=== PATIENT | female | born 1960 | race Caucasian/White ===

== ENCOUNTER 2016-08-13 13:53 | Inpatient (IN) | payer MEDICAID ==
[2016-08-13] MEDS ORDERED: Diltiazem IV* 5 MG/ML 5 ML VIAL (for loading dose/IV Push) (25 MG) IV PUSH ONE (14:33)
[2016-08-13] MEDS: NS 0.9% 1000 ML* 1,000 ML IV ONE ×2 (14:42→15:33)
[2016-08-13] MEDS ORDERED: GuaiFENesin DM sugar free* 5 ML UDC PO ONE (14:44)
[2016-08-13 14:50] LABS: Hematocrit 43 % (35-47); Hemoglobin 13.8 g/dl (12.0-16.0); Mean Corpuscular HGB Conc 32 g/dl (31-36); Mean Corpuscular Hemoglobin 29 pg (27-31); Mean Corpuscular Volume 90 fL (80-97); Mean Platelet Volume 9 um3 (7.4-10.4); Red Cell Distribution Width 16 % (10.5-15); White Blood Count 26.6 10^3/ul (3.5-10.8)
[2016-08-13 15:01] LABS: Add Diff/Slide Review? Slide Review Added; Comments Flag Yes
[2016-08-13 15:04] LABS: Albumin 3.9 g/dL (3.2-5.2); BUN/Creatinine Ratio 25.7 (8-20); Calcium 10.1 mg/dL (8.6-10.3); EGFR African American 72.7 (>60); EGFR Non-African American 56.5 (>60); Globulin 3.1 g/dL (2-4); Magnesium 1.9 mg/dL (1.9-2.7); Potassium 4.6 mmol/L (3.5-5.0); Total Bilirubin 0.4 mg/dL (0.2-1.0)
[2016-08-13 15:08] LABS: Troponin I 0.05 ng/mL (<0.04)
--- NOTE | 2016-08-13 15:17 | RAD ---
INDICATION: Difficulty breathing COMPARISON: Most recent comparison chest x-ray is dated April 15, 2016 TECHNIQUE: Single AP portable view of the chest was obtained. FINDINGS: Image quality is compromised due to the relative inferiority of a portable chest x-ray. The heart and mediastinum exhibit normal size and contour. The lungs are grossly clear. There is no evidence of a large pleural effusion. Visualized bones are normal for the patient's age. IMPRESSION: No radiographic evidence for acute cardiopulmonary abnormality on this portable chest x-ray.
[2016-08-13 15:26] LABS: T4 7.38 g/dL (6.09-12.23)
[2016-08-13 15:27] LABS: TSH (Thyroid Stimulating Horm) 2.12 mcIU/mL (0.34-5.60)
[2016-08-13] MEDS ORDERED: methylPREDNISolone 125 MG* 2 ML VIAL IV ONE (15:27)
[2016-08-13] MEDS ORDERED: Cefepime(*) 2 GM in NS 0.9% 50 ML* 50 ML IVPB ONE (15:27)
[2016-08-13] MEDS ORDERED: NS 0.9% 50 ML* 50 ML ONE (15:35)
--- NOTE | 2016-08-13 16:05 | ED ---
Ed Lomas Karl, scribed for Merrill Aquino MD on 08/13/16 at 1433 . HPI Cardiac - HPI Summary HPI Summary: 56 y/o F c/o rapid heartbeat and SOB. Pt stated that she started getting sick approx 1 week ago and was told she had asthma exacerbation w/ bronchitis. Today , in room, the pt is exhibiting A-fib and SOB. Pt reported she is also suffering from a productive cough with thick yellow sputum and had a low grade fever (T-max: 100.5 F). Pt denied CP, nausea, vomiting, and dizziness. Pt stated she was here earlier in the week for similar symptoms. - History of Current Complaint Chief Complaint: EDShortnessOfBreath Stated Complaint: DIFF BREATHING Hx Obtained From: Patient Onset/Duration: Started Weeks Ago Timing: Constant Initial Severity: Moderate Current Severity: Moderate Pain Intensity: 0 - CP Pain Scale Used: 0-10 Numeric Aggravating Factor(s): Nothing Alleviating Factor(s): Nothing Associated Signs and Symptoms: Positive: Shortness of Breath, Fever, Palpitations, Productive Cough. Negative: Chest Pain, Dizziness, Nausea, Vomiting - Additional Pertinent History Primary Care Physician: [id number] - Allergy/Home Medications Allergies/Adverse Reactions: Allergies Allergy/AdvReac Type Severity Reaction Status Date / Time Meloxicam [From Mobic] Allergy ARMS-RASH Verified 01/26/16 14:09 AND SWELLING ENVIRONMENTAL Allergy ASTHMATIC Uncoded 01/26/16 14:09 REACTIONS PMH/Surg Hx/FS Hx/Imm Hx Previously Healthy: No Endocrine/Hematology History: Reports: Hx Diabetes Cardiovascular History: Reports: Hx Atrial Fibrillation, Hx Hypertension Denies: Hx Congestive Heart Failure, Hx Pacemaker/ICD Respiratory History: Reports: Hx Asthma, Hx Chronic Bronchitis, Hx Seasonal Allergies History: Denies: Hx Renal Disease Musculoskeletal History: Reports: Hx Arthritis, Hx Fibromyalgia Sensory History: Reports: Hx Cataracts, Hx Contacts or Glasses - GLASSES Denies: Hx Hearing Aid Opthamlomology History: Reports: Hx Cataracts, Hx Contacts or Glasses - GLASSES Neurological History: Denies: Other Neuro Impairments/Disorders Psychiatric History: Reports: Hx Depression Denies: Hx Panic Disorder - Cancer History Hx Chemotherapy: No Hx Radiation Therapy: No - Surgical History Surgery Procedure, Year, and Place: 1993, 1999, 2001 [facility]PH ALVARADO , [facility] [place]. 1998 right shoulder arthroscopy [facility]. 2009 left breast biopsy [facility]. 2004 RT cataract [facility]. right foot reconstruction [facility]. 2007 VENTRAL hernia repair [facility]. 2013 TORN MENISCUS REPAIR IN RIGHT KNEE [facility] Hx Anesthesia Reactions: No Infectious Disease History: No Infectious Disease History: Denies: Traveled Outside the [place] in Last 30 Days - Family History Known Family History: Positive: Cardiac Disease, Hypertension, Other - breast cancer, asthma - Social History Alcohol Use: None Substance Use Type: Reports: None Smoking Status (MU): Former Smoker Type: Cigarettes Amount Used/How Often: LESS THEN 1PPD 15 YRS STARTED AGE 15, QUIT MANY TIMES; NONE SINCE 01/2013 Have You Smoked in the Last Year: No Review of Systems Positive: Fever Eyes: Negative ENT: Negative Positive: Palpitations. Negative: Chest Pain Positive: Shortness Of Breath, Cough Negative: Vomiting, Nausea Genitourinary: Negative Musculoskeletal: Negative Skin: Negative Neurological: Other - No dizziness Psychological: Normal All Other Systems Reviewed And Are Negative: Yes Physical Exam - Summary Physical Exam Summary: VITAL SIGNS: Reviewed. GENERAL: Patient is an obese female who is lying comfortable in the stretcher. Patient is not in any acute respiratory distress. HEAD AND FACE: No signs of trauma. No ecchymosis, hematomas or skull depressions. No sinus tenderness. EYES: PERRLA, EOMI x 2, No injected conjunctiva, no nystagmus. EARS: Hearing grossly intact. Ear canals and tympanic membranes are within normal limits. MOUTH: Oropharynx within normal limits. NECK: Supple, trachea is midline, no adenopathy, no JVD, no carotid bruit, no c- spine tenderness, neck with full ROM. CHEST: Symmetric, no tenderness at palpation LUNGS: Bilateral slight wheezing and bilateral lower lungs crackles. CVS: Regular rate and rhythm, S1 and S2 present, no murmurs or gallops appreciated. ABDOMEN: Soft, non-tender. No signs of distention. No rebound no guarding, and no masses palpated. Bowel sounds are normal. EXTREMITIES: FROM in all major joints, no edema, no cyanosis or clubbing. NEURO: Alert and oriented x 3. No acute neurological deficits. Speech is normal and follows commands. SKIN: Dry and warm Triage Information Reviewed: Yes Vital Signs On Initial Exam: Initial Vitals Temp Pulse Resp BP Pulse Ox 97 F 60 23 147/71 97 08/13/16 14:09 08/13/16 14:09 08/13/16 14:09 08/13/16 14:09 08/13/16 14:09 Vital Signs Reviewed: Yes Diagnostics - Vital Signs Vital Signs Temp Pulse Resp BP Pulse Ox 08/13/16 14:09 97 F 60 23 147/71 97 - Laboratory Lab Results: Lab Results 08/13/16 08/13/16 08/13/16 Range/Units 14:25 14:25 14:25 WBC 26.6 H (3.5-10.8) 10^3/ul RBC 4.80 (4.0-5.4) 10^6/ul Hgb 13.8 (12.0-16.0) g/dl Hct 43 (35-47) % MCV 90 (80-97) fL MCH 29 (27-31) pg MCHC 32 (31-36) g/dl RDW 16 H (10.5-15) % Plt Count 352 (150-450) 10^3/ul MPV 9 (7.4-10.4) um3 Neut % (Auto) 87.8 H (38-83) % Lymph % (Auto) 6.5 L (25-47) % Bureau % (Auto) 4.7 (1-9) % Eos % (Auto) 0.1 (0-6) % Baso % (Auto) 0.9 (0-2) % Absolute Neuts (auto) 23.4 H (1.5-7.7) 10^3/ul Absolute Lymphs (auto) 1.7 (1.0-4.8) 10^3/ul Absolute Monos (auto) 1.3 H (0-0.8) 10^3/ul Absolute Eos (auto) 0 (0-0.6) 10^3/ul Absolute Basos (auto) 0.2 (0-0.2) 10^3/ul Absolute Nucleated RBC 0 10^3/ul Nucleated RBC % 0 INR (Anticoag Therapy) 2.04 H (0.89-1.11) APTT 30.2 (26.0-36.3) seconds Sodium 135 (133-145) mmol/L Potassium 4.6 (3.5-5.0) mmol/L Chloride 101 (101-111) mmol/L Carbon Dioxide 24 (22-32) mmol/L Anion Gap 10 (2-11) mmol/L BUN 26 H (6-24) mg/dL Creatinine 1.01 H (0.51-0.95) mg/dL Est GFR ( Amer) 72.7 (>60) Est GFR (Non-Af Amer) 56.5 (>60) BUN/Creatinine Ratio 25.7 H (8-20) Glucose 198 H (70-100) mg/dL Lactic Acid (0.5-2.0) mmol/L Calcium 10.1 (8.6-10.3) mg/dL Magnesium 1.9 (1.9-2.7) mg/dL Total Bilirubin 0.40 (0.2-1.0) mg/dL AST 21 (13-39) U/L ALT 34 (7-52) U/L Alkaline Phosphatase 78 (34-104) U/L CK-MB (CK-2) 4.7 (0.6-6.3) ng/mL Troponin I 0.05 H* (<0.04) ng/mL B-Natriuretic Peptide ( - 100) pg/mL Total Protein 7.0 (6.4-8.9) g/dL Albumin 3.9 (3.2-5.2) g/dL Globulin 3.1 (2-4) g/dL Albumin/Globulin Ratio 1.3 (1-3) TSH 2.12 (0.34-5.60) mcIU/mL Thyroxine (T4) 7.38 (6.09-12.23) g/dL 08/13/16 08/13/16 Range/Units 14:25 14:25 WBC (3.5-10.8) 10^3/ul RBC (4.0-5.4) 10^6/ul Hgb (12.0-16.0) g/dl Hct (35-47) % MCV (80-97) fL MCH (27-31) pg MCHC (31-36) g/dl RDW (10.5-15) % Plt Count (150-450) 10^3/ul MPV (7.4-10.4) um3 Neut % (Auto) (38-83) % Lymph % (Auto) (25-47) % Bureau % (Auto) (1-9) % Eos % (Auto) (0-6) % Baso % (Auto) (0-2) % Absolute Neuts (auto) (1.5-7.7) 10^3/ul Absolute Lymphs (auto) (1.0-4.8) 10^3/ul Absolute Monos (auto) (0-0.8) 10^3/ul Absolute Eos (auto) (0-0.6) 10^3/ul Absolute Basos (auto) (0-0.2) 10^3/ul Absolute Nucleated RBC 10^3/ul Nucleated RBC % INR (Anticoag Therapy) (0.89-1.11) APTT (26.0-36.3) seconds Sodium (133-145) mmol/L Potassium (3.5-5.0) mmol/L Chloride (101-111) mmol/L Carbon Dioxide (22-32) mmol/L Anion Gap (2-11) mmol/L BUN (6-24) mg/dL Creatinine (0.51-0.95) mg/dL Est GFR ( Amer) (>60) Est GFR (Non-Af Amer) (>60) BUN/Creatinine Ratio (8-20) Glucose (70-100) mg/dL Lactic Acid 3.9 H* (0.5-2.0) mmol/L Calcium (8.6-10.3) mg/dL Magnesium (1.9-2.7) mg/dL Total Bilirubin (0.2-1.0) mg/dL AST (13-39) U/L ALT (7-52) U/L Alkaline Phosphatase (34-104) U/L CK-MB (CK-2) (0.6-6.3) ng/mL Troponin I (<0.04) ng/mL B-Natriuretic Peptide 177 H ( - 100) pg/mL Total Protein (6.4-8.9) g/dL Albumin (3.2-5.2) g/dL Globulin (2-4) g/dL Albumin/Globulin Ratio (1-3) TSH (0.34-5.60) mcIU/mL Thyroxine (T4) (6.09-12.23) g/dL Result Diagrams: 08/13/16 14:25 08/13/16 14:25 Lab Statement: Any lab studies that have been ordered have been reviewed, and results considered in the medical decision making process. - Radiology CXR Xray Interpretation: No Acute Changes Radiology Interpretation Completed By: Radiologist - IMPRESSION: No radiographic evidence for acute cardiopulmonary abnormality on this portable chest x-ray. - EKG 13:55 EKG Interpretation: A-fib w/ RVR at 153 bpm, No STEMI Disposition - Course Assessment/Plan: Blood work shows a WBC 26.6 w/o bandemia, INR 2.04, BUN 26 and creatinine 1.01, glucose 198 , lactic acid 3.9 , troponin 0.05, BNP 177. Initially patient was given robitussin for cough and IV fluids for hypotension. Patient is in Afib with RVR but unable to slow the rate since patient is hypotensive. She was given 2 L of fluids and he blood pressure is 104/ 54 and her HR decreased to 120 to 128 BPM. Troponin is elevated for which she was given ASA. I also started in Cefepime since patient is having a COPD exacerbation and also to r/o pneumonia and sepsis. CXR: No acute cardiopulmonary pathology. Patient seem to improve and she is more stable. I discuss my physical exam, findings and test results with Dr. Hedrick from the hospitalist services and she agrees to admit patient to his services. Patient is alert and oriented x 3. - Differential Dx - Cardiopulmonary Differential Diagnoses - Cardiopulmonary: Asthma, CAD, CHF, Chest Wall Pain, Myocardial Infarction, Other - AFIB - Diagnoses Provider Diagnoses: Atrial fibrillation with RVR, COPD exacerbation, Pneumonia vs sepsis - Physician Notifications Discussed Care Of Patient With: Dr. Hedrick (Hospitalist) at 15:51 who accepted the pt for admission. Discharge - Discharge Plan Condition: Stable Disposition: ADMITTED TO [facility] documentation as recorded by the Ed huitron Karl accurately reflects the service I personally performed and the decisions made by me, Merrill Aquino MD.
[2016-08-13] MEDS ORDERED: Iodixanol* (CONTRAST) 320 MG/ML 100 ML SDV IV ONE (16:17)
[2016-08-13] MEDS ORDERED: Amiodarone 150 MG IVPREMIX* 150 MG/100 ML BAG IV ONE (17:39)
[2016-08-13] MEDS ORDERED: Albuterol HFA INHALER* 8 gm MDI INH PRN (17:44)
[2016-08-13] MEDS ORDERED: Ipratropium 0.5MG/2.5ML NEB* 0.5 MG/2.5 ML NEB.SOLN INH PRN (17:44)
[2016-08-13] MEDS ORDERED: Cyclobenzaprine TAB* 10 MG PO PRN (17:44)
[2016-08-13] MEDS ORDERED: Dextrose 50% Syringe 50 ML* 25 GM/50 ML SYRINGE IV PUSH PRN (17:49)
[2016-08-13] MEDS ORDERED: Azithromycin IV(*) 500 MG in NS 0.9% 250 ML* 250 ML IVPB SCH (18:00)
[2016-08-13] MEDS ORDERED: Insulin GLARGINE(*) 1 UNITS UNIT SUBCUT SCH (18:00)
[2016-08-13] MEDS ORDERED: Amiodarone 360 MG IVPREMIX* 360 MG/200 ML BAG IV SCH (18:00)
[2016-08-13] MEDS: Gabapentin CAP(*) 400 MG PO SCH ×2 (18:37→18:41)
[2016-08-13] MEDS: NS 0.9% 1000 ML* 1,000 ML IV SCH (19:08)
[2016-08-13] MEDS: cefTRIAXone VIAL(*) 1,000 MG in NS 0.9% 50 ML* 50 ML IVPB SCH (19:08)
[2016-08-13] MEDS: Levalbuterol 1.25MG/0.5ML NEB INH SCH ×2 (20:06→23:49)
[2016-08-13] MEDS: Mometasone/Formoter 200/5 MDI INH SCH (20:30)
[2016-08-13] MEDS: DOXYcycline IV* 100 MG in NS 0.9% 250 ML* 250 ML IVPB SCH (20:39)
--- NOTE | 2016-08-13 21:20 | HP ---
CC: Dr. Cristin Duncan; Dr. Abernathy HISTORY AND PHYSICAL: DATE OF ADMISSION: 08/13/16 TIME OF EVALUATION: 4:30 p.m. PRIMARY CARE PROVIDER: Dr. Cristin Duncan. GHOST WRITER: Dr. Abernathy. CHIEF COMPLAINT: Shortness of breath. HISTORY OF PRESENT ILLNESS: Ms. Purvis is a 56-year-old lady with a past medical history of hyper tension, COPD/asthma, fibromyalgia, morbid obesity with a BMI of 51, type 2 diabetes, atrial fibrill ation who presented to the emergency room with complaints of progressive shortness of breath. The patient states she was in her usual state of health until 1 week ago when she started to have pr ogressive shortness of breath with productive cough. She had some body aches and she knows that she can swing fairly quickly from just a cold to bronchitis, so 2 days later she went to see Dr. Abernathy and was prescribed levofloxacin and a long prednisone taper. She states that initially she was fee ling better, but all of a sudden today her shortness of breath became worse and even with her usual respiratory treatments at home, she could get no relief and this prompted her visit to the emergency room. She denies fever, but did have some chills. She denies palpitations, but she knows she has been in atrial fibrillation since her discharge in April 2016. She was actually scheduled to have a cardi oversion with Dr. Alonso on 08/08/16 and this was canceled due to her respiratory symptoms and resche duled for 08/15/16. On arrival to the emergency room, the patient was tachycardic with a heart rate of almost 150 and ta chypneic. The patient denies chest pain, palpitations, GI or urinary complaints. PAST MEDICAL HISTORY: 1. Hypertension. 2. Asthma/COPD. 3. Fibromyalgia. 4. Morbid obesity with a BMI of 51. 5. Type 2 diabetes. 6. Atrial fibrillation. 7. Obstructive sleep apnea, on CPAP. PAST SURGICAL HISTORY: 1. Status post bilateral knee arthroscopies. 2. Status post tonsillectomy. 3. Status post 3 C-sections. 4. Status post shoulder arthroscopy. 5. Status post ventral hernia repair. MEDICATIONS: 1. Albuterol nebulized 2.5 mg b.i.d. as needed for shortness of breath. 2. Albuterol HFA 2 puffs inhaled q.4 hours as needed for shortness of breath. 3. Benzonatate 100 mg p.o. b.i.d. as needed for cough. 4. Budesonide/formoterol 160/4.5 two puffs inhaled b.i.d. 5. Cyclobenzaprine 5 mg p.o. t.i.d. as needed for pain. 6. Digoxin 0.125 mg p.o. daily. 7. Furosemide 20 mg p.o. daily. 8. Gabapentin 800 mg p.o. at bedtime. 9. Glipizide 10 mg p.o. b.i.d. 10. Guaifenesin 1200 mg p.o. b.i.d. 11. Hydrocodone/acetaminophen 5/325 mg 1 tablet p.o. b.i.d. as needed for pain. 12. Ipratropium 0.5 mg nebulized t.i.d. as needed for shortness of breath. 13. Lisinopril 10 mg p.o. daily. 14. Metoprolol tartrate 50 mg p.o. b.i.d. 15. Mometasone furoate 0.1% topical b.i.d. as needed for rash. 16. Montelukast 10 mg p.o. at bedtime. 17. Prednisone 20 mg p.o. daily. 18. Rivaroxaban 20 mg p.o. daily. 19. Triamterene/hydrochlorothiazide 37.5/25 mg 1 capsule p.o. daily. 20. Lantus 8 units subcutaneously daily. ALLERGIES: With MELOXICAM, the patient had rash and swelling and she also has environmental allergi es. FAMILY HISTORY: Father at age 70 from coronary artery disease. Sister passed from [facility] and brother had a history of some sort of ophthalmological cancer. Her mother has a histo ry of asthma. SOCIAL HISTORY: The patient was a smoker intermittently since age 15 up to a pack a day, but she qu it 3 years ago. No history of alcohol or drug use. Surrogate decision maker is her , Dante Purvis, phone number is [phone]. REVIEW OF SYSTEMS: A 14-point review of systems was performed and all the pertinent negative and po sitive findings are in the HPI. PHYSICAL EXAMINATION GENERAL: The patient is a pleasant morbidly obese lady sitting up in the ED stretcher in mild to mo derate respiratory distress. Unable to speak in full sentences. VITAL SIGNS: Temperature 98.5, heart rate was 155, respiratory rate was 26, oxygen saturation was 9 6% on Vapotherm, blood pressure was 82/59. HEENT: Pupils are equal. Moist mucous membranes. CHEST: Breath sounds present bilaterally with diffuse wheezing and rhonchi. CVS: Normal S1, S2. Irregularly irregular. Tachycardic. ABDOMEN: Obese, soft. Bowel sounds are present. EXTREMITIES: Puffy but there is no pitting edema. NEUROLOGIC: She is alert, awake and oriented x3. Able to move all 4 extremities. LABORATORY AND IMAGING DATA: The patient's CBC showed a WBC of 26.6, hemoglobin of 13.8, hematocri t of 43, platelets of 352 with 87% neutrophils. INR was 2.04. Chemistry showed sodium of 135, potas sium 4.6, chloride of 101, bicarb of 24, BUN of 26, creatinine of 1.01, glucose of 198, lactic acid of 3.9, calcium of 10.1. LFTs were normal. First troponin was 0.05. BNP was 177. EKG done on 08/13/16 at 1355 showed atrial fibrillation with a ventricular rate of 153 beats per min gustabo with minimum ST-T depressions on the lateral leads. The difference from her prior EKG from is that now her AFib is fast. Chest x-ray showed no acute infiltrate. ASSESSMENT AND PLAN: Ms. Purvis is a 56-year-old lady with a past medical history of hypertension , asthma/chronic obstructive pulmonary disease, fibromyalgia, morbid obesity with a BMI of 51, type 2 diabetes, atrial fibrillation who presented to the emergency room with complaints of progressive c ough and shortness of breath for the past week who failed outpatient therapy with levofloxacin and s teroids. 1. Acute hypoxic respiratory failure: The patient presents to the emergency room with complaints o f shortness of breath and cough and now requires supplemental oxygen. At home, she wears only CPAP at night, but does not require oxygen. Source is probably pneumonia versus bronchitis. The patient will be admitted to the intensive care unit and started on Vapotherm to decrease her wor k of breathing. 2. Severe sepsis: The patient meets sepsis criteria with leukocytosis and tachycardia. Source is probably pneumonia versus bronchitis and she has respiratory failure and acute kidney injury. 3. Lactic acidosis secondary to sepsis: She will receive IV fluids and we will trend her lactic ac id. 4. Bronchitis versus pneumonia: The patient's chest x-ray does not show an infiltrate and I believ e at this point she is not stable enough to have a CT of the chest. She will be started on ceftriax one and doxycycline. Cultures were already sent. We are going to check Legionella and pneumococcal antigens, and when she is more stable from a respiratory point of view, we are going pursue a CT of the chest. 5. Acute chronic obstructive pulmonary disease exacerbation secondary to bronchitis versus pneumoni a: The patient will be continued on IV steroids and bronchodilators. 6. Atrial fibrillation with rapid ventricular rate: The patient states she has been in atrial fibr illation since April and actually saw Dr. Alonso as an outpatient and was scheduled for cardioversi on on 08/08/16, but this was postponed on 08/15/16 due to her respiratory symptoms. At this point, her blood pressure is in the 80's, so I do not think Cardizem is a safe option. If her heart rate d oes not respond to the Vapotherm when we decrease her work of breathing, the plan is to start an ami odarone drip for rate control and continue anticoagulation with Xarelto. 7. Elevated troponin: This is likely secondary to increased demand in the setting of sepsis and at rial fibrillation with rapid ventricular rate. We will continue to trend at this time. 8. Acute kidney injury, secondary to sepsis: The patient will be on IV fluids and we are going to monitor her renal function. 9. Code status was discussed with the patient. She wishes to be a full code and she is agreeable w ith intubation if necessary. 10. DVT prophylaxis: The patient has a score of 3 on the DVT Prophylaxis Risk Assessment Guide and she will be continued on Xarelto. TIME SPENT: Approximately 75 minutes of critical care time was spent to complete this admission. [id number]/[facility] #: [id number]
[2016-08-13] MEDS: guaiFENesin ER TAB 600 MG PO SCH (21:25)
[2016-08-13] MEDS: Diltiazem DRIP* 100 MG/100 ML ADDV.BAG IVPB ONE (21:25)
[2016-08-13] MEDS: Montelukast Sodium TAB* 10 MG PO SCH (21:25)
[2016-08-13] MEDS: methylPREDNISolone SOD 40 MG* 1 ML VIAL IV SCH (21:26)
[2016-08-13] MEDS: Insulin LISPRO* 1 UNITS UNIT SUBCUT SCH (21:26)
[2016-08-13] MEDS: HYDROcodone/ACETAMIN 5-325 MG* 1 TAB PO PRN (21:26)
[2016-08-14] MEDS: Amiodarone 360 MG IVPREMIX* 360 MG/200 ML BAG IV SCH ×2 (01:15→12:20)
[2016-08-14] MEDS: NS 0.9% 1000 ML* 1,000 ML IV SCH ×3 (02:57→23:15)
[2016-08-14] MEDS: Levalbuterol 1.25MG/0.5ML NEB INH SCH ×4 (03:51→21:03)
[2016-08-14 05:07] LABS: Urine Bilirubin Negative (Negative); Urine Glucose 1+(50 mg/dL) (Negative); Urine Nitrite Negative (Negative)
[2016-08-14 05:39] LABS: Hematocrit 38 % (35-47); Hemoglobin 12.2 g/dl (12.0-16.0); Mean Corpuscular HGB Conc 32 g/dl (31-36); Mean Corpuscular Hemoglobin 29 pg (27-31); Mean Corpuscular Volume 91 fL (80-97); Mean Platelet Volume 9 um3 (7.4-10.4); Red Blood Count 4.22 10^6/ul (4.0-5.4); Red Cell Distribution Width 16 % (10.5-15); White Blood Count 18.5 10^3/ul (3.5-10.8)
[2016-08-14 05:40] LABS: Add Diff/Slide Review? Slide Review Added; Comments Flag Yes
[2016-08-14 05:49] LABS: BUN/Creatinine Ratio 31.3 (8-20); Calcium 8.6 mg/dL (8.6-10.3); EGFR African American 64.5 (>60); EGFR Non-African American 50.1 (>60); Potassium 4.9 mmol/L (3.5-5.0)
[2016-08-14] MEDS: Diltiazem DRIP* 100 MG/100 ML ADDV.BAG IVPB ONE ×2 (07:16→09:46)
--- NOTE | 2016-08-14 07:59 | PN ---
Subjective Date of Service: 08/14/16 Interval History: HOSPITALIST PROGRESS NOTE Patient seen and examined at bedside. She feels a little better this AM. Was not able to sleep, took only short naps. Denies chest pain or palpitations. Dyspnea is still present, but less intense than last night. Dry cough persists. Family History: Unchanged from Admission Social History: Unchanged from Admission Past Medical History: Unchanged from Admission Objective Active Medications: Acetaminophen (Tylenol Tab*) 650 mg PO Q6H PRN PRN Reason: pain/fever Acetaminophen/Hydrocodone Bitart ([place] 5-325 Tab*) 1 tab PO BID PRN PRN Reason: PAIN Last Admin: 08/13/16 21:26 Dose: 1 tab Albuterol (Ventolin Hfa Inhaler*) 2 puff INH Q4HR PRN PRN Reason: SHORTNESS OF BREATH Benzonatate (Tessalon Cap*) 100 mg PO BID PRN PRN Reason: COUGH Cyclobenzaprine HCl (Flexeril Tab*) 5 mg PO TID PRN PRN Reason: PAIN Dextrose (D50w Syringe 50 Ml*) 12.5 gm IV PUSH .FOR FS < 60 - SS PRN PRN Reason: FS < 60 Diltiazem HCl (Cardizem Tab*) 60 mg PO Q6HR SAE Gabapentin (Neurontin Cap(*)) 800 mg PO QPM [facility] Last Admin: 08/13/16 18:41 Dose: Not Given Guaifenesin (Mucinex*) 1,200 mg PO BID [facility] Last Admin: 08/13/16 21:25 Dose: 1,200 mg Ceftriaxone Sodium 1,000 mg/ (Sodium Chloride) 50 mls @ 200 mls/hr IVPB Q24H [facility] Last Admin: 08/13/16 19:08 Dose: 200 mls/hr Amiodarone HCl (Nexterone 360 Mg/200 Ml Ivpremix*) 360 mg in 200 mls @ 16.666 mls/hr IV PER RATE SAE PRN Reason: 0.5 MG/MIN Stop: 08/15/16 12:01 Last Admin: 08/14/16 01:15 Dose: 16.666 mls/hr Doxycycline Hyclate 100 mg/ (Sodium Chloride) 250 mls @ 250 mls/hr IVPB Q12H [facility] Last Admin: 08/13/16 20:39 Dose: 250 mls/hr Diltiazem HCl (Cardizem Iv Advan*) 100 mg in 100 mls @ 5 mls/hr IVPB ONCE ONE PRN Reason: 5 MG/HR Stop: 08/14/16 16:58 Last Admin: 08/14/16 07:16 Dose: 5 mls/hr Sodium Chloride (Ns 0.9% 1000 Ml*) 1,000 mls @ 100 mls/hr IV PER RATE [facility] Insulin Human Lispro (Humalog*) 0 units SUBCUT ACHS SAE PRN Reason: Protocol Last Admin: 08/13/16 21:26 Dose: 12 units Insulin Human Lispro (Humalog*) 0 units SUBCUT AC SAE PRN Reason: Protocol Ipratropium [place] (Atrovent 0.5 Mg Neb.Belinda*) 0.5 mg INH TID PRN PRN Reason: SHORTNESS OF BREATH Levalbuterol HCl (Xopenex 1.25 Mg/0.5 Ml Neb.Belinda*) 1.25 mg INH [id number] [facility] Last Admin: 08/14/16 07:30 Dose: 1.25 mg Methylprednisolone Sodium Succinate (Solu-Medrol*) 40 mg IV Q12H [facility] Last Admin: 08/13/16 21:26 Dose: 40 mg Mometasone Furoate/Formoterol Fumar (Dulera 200/5 Mdi*) 2 puff INH BID SAE PRN Reason: Protocol Last Admin: 08/13/16 20:30 Dose: Not Given Montelukast Sodium (Singulair Tab*) 10 mg PO BEDTIME [facility] Last Admin: 08/13/16 21:25 Dose: 10 mg Rivaroxaban (Xarelto (*)) 20 mg PO DAILY WITH MEAL [facility] Vital Signs 08/14/16 08/14/16 08/14/16 03:45 04:00 05:00 Temperature 97.6 F Pulse Rate 72 108 83 Respiratory 20 18 23 Rate Blood Pressure 159/87 147/94 162/72 (mmHg) O2 Sat by Pulse 100 100 100 Oximetry 08/14/16 08/14/16 07:33 07:39 Temperature Pulse Rate 101 Respiratory 18 Rate Blood Pressure (mmHg) O2 Sat by Pulse 99 99 Oximetry Oxygen Devices in Use Now: High Flow Nasal Cannula Appearance: Morbid obese lady sitting up in bed in NAD, speaking in full sentences. Eyes: No Scleral Icterus Ears/Nose/Mouth/Throat: Mucous Membranes Moist Neck: Trachea Midline Respiratory: Symmetrical Chest Expansion and Respiratory Effort, - - BS+ bilaterally with bilateral wheezes and rhonchi, but moving more air than yesterday Cardiovascular: - - Normal S1 and S2, irregularly irregular Abdominal: NL Sounds; No Tenderness; No Distention - obese Extremities: - - Trace bilateral LE edema Neurological: Alert and Oriented x 3, NL Muscle Strength and Tone Lines/Tubes/Other Access: Clean, Dry and Intact Peripheral IV Nutrition: Taking PO's Result Diagrams: 08/14/16 05:25 08/14/16 05:25 Assess/Plan/Problems-Billing Assessment: Mrs. Purvis is a 56yo F with PMH of morbid obesity with BMI>50, HTN, asthma/ COPD, fibromyalgia, type 2 DM, atrial fibrillation, JULIANA on CPAP, who presented to ED with c/o worsening dyspnea and cough, found to have severe sepsis and COPD exacerbation. - Patient Problems (1) Severe sepsis Comment: - Met sepsis criteria on admission with leukocytosis and tachycardia. - qSOFA score was 2 on admission. - Source is bronchitis. - Also had respiratory failure and TIMOTHY. (2) Acute hypoxemic respiratory failure Comment: - Secondary to COPD exacerbation due to bronchitis. - Was on Vapotherm overnight with improvement of WOB, now will titrate to [place] cannula. - Not on O2 as outpatient. (3) Bronchitis Comment: - Suspect source of COPD exacerbation is bronchitis, but may also have an underlying pneumonia. - Not able to lay flat for CT chest at this time. - Follow cultures. - Continue Ceftriaxone and doxycycline #2. (4) Acute exacerbation of chronic obstructive pulmonary disease (COPD) Comment: - Secondary to bronchitis. - Continue Solumedrol and bronchodilators. (5) Lactic acidosis Comment: - Trending down, but still elevated. - Continue IVF. (6) Atrial fibrillation with RVR Comment: - Rate is better controlled now - on Amiodarone drip and Cardizem was added overnight. - Will add PO Cardizem and titrate drips down. - Will avoid beta-blockers for now due to active bronchospasm, but may be able to resume digoxin. - Continue Xarelto. (7) TIMOTHY (acute kidney injury) Comment: - Suspect she already has a component of CKD. - Continue IVF and monitor renal function. (8) Elevated troponin Comment: - Likely secondary to demand ischemia in the setting of severe sepsis and Afib RVR. - Trending down. (9) Type 2 diabetes mellitus Comment: - Increase Lantus to 15 units and continue Lispro SS. (10) DVT prophylaxis Comment: - Xarelto. (11) Full code status Status and Disposition: Inpatient for management of severe infection in ICU setting.
[2016-08-14] MEDS: Diltiazem TAB* 60 MG PO SCH ×4 (08:34→23:49)
[2016-08-14] MEDS: methylPREDNISolone SOD 40 MG* 1 ML VIAL IV SCH ×2 (08:34→21:14)
[2016-08-14] MEDS: Rivaroxaban TAB(*) 20 MG TAB PO SCH (08:34)
[2016-08-14] MEDS: guaiFENesin ER TAB 600 MG PO SCH ×2 (08:34→21:14)
[2016-08-14] MEDS: DOXYcycline IV* 100 MG in NS 0.9% 250 ML* 250 ML IVPB SCH ×2 (08:34→21:00)
[2016-08-14] MEDS: Benzonatate CAP* 100 MG PO PRN ×2 (09:05→21:15)
[2016-08-14] MEDS: Mometasone/Formoter 200/5 MDI INH SCH ×2 (09:30→21:08)
[2016-08-14] MEDS: Insulin LISPRO* 1 UNITS UNIT SUBCUT SCH ×7 (09:45→21:53)
[2016-08-14] MEDS ORDERED: Morphine INJ* 2 MG/ML 1 ML CARPUJECT ONE (09:52)
[2016-08-14] MEDS: Morphine INJ* 2 MG/ML 1 ML CARPUJECT IV PRN ×2 (09:56→12:07)
[2016-08-14 11:54] LABS: Calcium 8.5 mg/dL (8.6-10.3); EGFR African American 63.8 (>60); EGFR Non-African American 49.6 (>60); Potassium 4.6 mmol/L (3.5-5.0)
[2016-08-14] MEDS: cefTRIAXone VIAL(*) 1,000 MG in NS 0.9% 50 ML* 50 ML IVPB SCH (17:58)
[2016-08-14] MEDS ORDERED: Insulin GLARGINE(*) 1 UNITS UNIT SUBCUT SCH (18:00)
[2016-08-14] MEDS: Gabapentin CAP(*) 400 MG PO SCH (19:55)
[2016-08-14] MEDS: Montelukast Sodium TAB* 10 MG PO SCH (21:15)
[2016-08-14] MEDS: HYDROcodone/ACETAMIN 5-325 MG* 1 TAB PO PRN (21:15)
[2016-08-15] MEDS: Levalbuterol 1.25MG/0.5ML NEB INH SCH ×3 (01:00→13:25)
[2016-08-15 05:28] LABS: Hematocrit 40 % (35-47); Hemoglobin 12.5 g/dl (12.0-16.0); Mean Corpuscular HGB Conc 32 g/dl (31-36); Mean Corpuscular Hemoglobin 29 pg (27-31); Mean Corpuscular Volume 91 fL (80-97); Mean Platelet Volume 9 um3 (7.4-10.4); Red Blood Count 4.33 10^6/ul (4.0-5.4); Red Cell Distribution Width 16 % (10.5-15); White Blood Count 28.9 10^3/ul (3.5-10.8)
[2016-08-15 05:30] LABS: Add Diff/Slide Review? Slide Review Added; Comments Flag Yes
[2016-08-15 05:44] LABS: BUN/Creatinine Ratio 30.4 (8-20); Calcium 8.7 mg/dL (8.6-10.3); EGFR African American 56.8 (>60); EGFR Non-African American 44.2 (>60); Potassium 5.2 mmol/L (3.5-5.0)
[2016-08-15] MEDS: Acetaminophen TAB* 325 MG PO PRN (06:23)
[2016-08-15] MEDS: Diltiazem TAB* 60 MG PO SCH ×4 (06:24→23:43)
[2016-08-15] MEDS: DOXYcycline IV* 100 MG in NS 0.9% 250 ML* 250 ML IVPB SCH ×2 (07:34→20:37)
[2016-08-15] MEDS ORDERED: hydrALAZINE IV* 20 MG/ML VIAL IV SLOW PU PRN (08:12)
--- NOTE | 2016-08-15 08:19 | PN ---
Subjective Date of Service: 08/15/16 Interval History: HOSPITALIST PROGRESS NOTE Patient seen and examined at bedside. She feels better this AM. Breathing is easier, cough is still present but less frequent. Denies CP or palpitations. As per RN, urine output has been low, but she has been incontinent with cough. Family History: Unchanged from Admission Social History: Unchanged from Admission Past Medical History: Unchanged from Admission Objective Active Medications: Acetaminophen (Tylenol Tab*) 650 mg PO Q6H PRN PRN Reason: pain/fever Last Admin: 08/15/16 06:23 Dose: 650 mg Acetaminophen/Hydrocodone Bitart ([place] 5-325 Tab*) 1 tab PO BID PRN PRN Reason: PAIN Last Admin: 08/14/16 21:15 Dose: 1 tab Albuterol (Ventolin Hfa Inhaler*) 2 puff INH Q4HR PRN PRN Reason: SHORTNESS OF BREATH Benzonatate (Tessalon Cap*) 100 mg PO BID PRN PRN Reason: COUGH Last Admin: 08/14/16 21:15 Dose: 100 mg Cyclobenzaprine HCl (Flexeril Tab*) 5 mg PO TID PRN PRN Reason: PAIN Last Admin: 08/15/16 01:02 Dose: 5 mg Dextrose (D50w Syringe 50 Ml*) 12.5 gm IV PUSH .FOR FS < 60 - SS PRN PRN Reason: FS < 60 Digoxin (Lanoxin Tab*) 0.125 mg PO 1700 SAE Diltiazem HCl (Cardizem Tab*) 60 mg PO Q6HR [facility] Last Admin: 08/15/16 06:24 Dose: 60 mg Guaifenesin (Mucinex*) 1,200 mg PO BID [facility] Last Admin: 08/14/16 21:14 Dose: 1,200 mg Hydralazine HCl (Apresoline Iv*) 5 mg IV SLOW PU Q6H PRN PRN Reason: SBP>180 Ceftriaxone Sodium 1,000 mg/ (Sodium Chloride) 50 mls @ 200 mls/hr IVPB Q24H [facility] Last Admin: 08/14/16 17:58 Dose: 200 mls/hr Doxycycline Hyclate 100 mg/ (Sodium Chloride) 250 mls @ 250 mls/hr IVPB Q12H [facility] Last Admin: 08/15/16 07:34 Dose: 250 mls/hr Sodium Chloride (Ns 0.9% 1000 Ml*) 1,000 mls @ 100 mls/hr IV PER RATE [facility] Last Admin: 08/14/16 23:15 Dose: 100 mls/hr Insulin Glargine (Lantus(*)) 20 units SUBCUT Q24H [facility] Insulin Human Lispro (Humalog*) 0 units SUBCUT ACHS SAE PRN Reason: Protocol Last Admin: 08/14/16 21:53 Dose: 9 units Insulin Human Lispro (Humalog*) 0 units SUBCUT AC [facility] PRN Reason: Protocol Last Admin: 08/14/16 21:52 Dose: Not Given Ipratropium [place] (Atrovent 0.5 Mg Neb.Belinda*) 0.5 mg INH TID PRN PRN Reason: SHORTNESS OF BREATH Last Admin: 08/14/16 21:07 Dose: 0.5 mg Levalbuterol HCl (Xopenex 1.25 Mg/0.5 Ml Neb.Belinda*) 1.25 mg INH [id number] AWAKE [facility] Last Admin: 08/15/16 01:00 Dose: Not Given Methylprednisolone Sodium Succinate (Solu-Medrol*) 40 mg IV Q12H [facility] Last Admin: 08/14/16 21:14 Dose: 40 mg Metoprolol Tartrate (Lopressor Tab*) 50 mg PO BID [facility] Mometasone Furoate/Formoterol Fumar (Dulera 200/5 Mdi*) 2 puff INH BID [facility] PRN Reason: Protocol Last Admin: 08/14/16 21:08 Dose: Not Given Montelukast Sodium (Singulair Tab*) 10 mg PO BEDTIME [facility] Last Admin: 08/14/16 21:15 Dose: 10 mg Morphine Sulfate (Morphine Inj (Syringe)*) 1 mg IV Q2H PRN PRN Reason: Pain/Tachypnea RR>22 Last Admin: 08/14/16 12:07 Dose: 1 mg Rivaroxaban (Xarelto (*)) 20 mg PO DAILY WITH MEAL [facility] Last Admin: 08/14/16 08:34 Dose: 20 mg Vital Signs 08/15/16 08/15/16 07:00 08:00 Temperature 98.7 F Pulse Rate 69 Respiratory 16 Rate Blood Pressure 161/97 (mmHg) O2 Sat by Pulse 100 Oximetry Oxygen Devices in Use Now: Nasal Cannula - 2 liters Appearance: Pleasant morbid obese lady sitting up in bed in NAD. Eyes: No Scleral Icterus Ears/Nose/Mouth/Throat: Mucous Membranes Moist Neck: Trachea Midline Respiratory: Symmetrical Chest Expansion and Respiratory Effort, - - BS+ bilaterally with scattered rhonchi Cardiovascular: - - Normal S1 and S2, irregularly irregular Abdominal: NL Sounds; No Tenderness; No Distention - obese Extremities: - - Bilateral LE moderate edema Neurological: Alert and Oriented x 3, NL Muscle Strength and Tone Lines/Tubes/Other Access: Clean, Dry and Intact Peripheral IV Nutrition: Taking PO's Result Diagrams: 08/15/16 05:15 08/15/16 05:15 Assess/Plan/Problems-Billing Assessment: Mrs. Purvis is a 56yo F with PMH of morbid obesity with BMI>50, HTN, asthma/ COPD, fibromyalgia, type 2 DM, atrial fibrillation, JULIANA on CPAP, who presented to ED with c/o worsening dyspnea and cough, found to have severe sepsis and COPD exacerbation. - Patient Problems (1) Severe sepsis Comment: - Met sepsis criteria on admission with leukocytosis and tachycardia. - qSOFA score was 2 on admission. - Source is bronchitis. - Also had respiratory failure and TIMOTHY. (2) Acute hypoxemic respiratory failure Comment: - Secondary to COPD exacerbation due to bronchitis. - Much improved now, down to 2 liters NC. - Not on O2 as outpatient. (3) Bronchitis Comment: - Suspect source of COPD exacerbation is bronchitis, but may also have an underlying pneumonia. - Not able to lay flat for CT chest yet. - Blood cultures show no growth so far. - Legionella and pneumonococcal Ag are negative. - Her leukocytosis trended up again, but this could be secondary to steroids, as clinically, she is looking much better. - Continue Ceftriaxone and doxycycline #3. (4) Acute exacerbation of chronic obstructive pulmonary disease (COPD) Comment: - Secondary to bronchitis. - Continue Solumedrol and bronchodilators. (5) Lactic acidosis Comment: - Trending down, but still elevated. - Continue IVF. (6) Atrial fibrillation with RVR Comment: - Rate is better controlled now - off Amiodarone and Cardizem drips. - Continue PO Cardizem and resume Metoprolol and digoxin. - Continue Xarelto. (7) TIMOTHY (acute kidney injury) Comment: - Suspect she already has a component of CKD. - Urine output has been low, but she has been incontinent with cough. Will place [place] for more accurate measuraments and adjust IVF. - Continue to monitor renal function. (8) Elevated troponin Comment: - Likely secondary to demand ischemia in the setting of severe sepsis and Afib RVR. - Trending down. (9) Type 2 diabetes mellitus Comment: - Increase Lantus to 20 units and continue Lispro SS. (10) Hyperkalemia Comment: - Mild hyperkalemia in the setting of TIMOTHY. - Bicarb is already trending up. - Continue to monitor. (11) DVT prophylaxis Comment: - Xarelto. (12) Full code status Status and Disposition: Inpatient for management of severe infection. Transfer to Telemetry.
[2016-08-15] MEDS: Rivaroxaban TAB(*) 20 MG TAB PO SCH (08:33)
[2016-08-15] MEDS: guaiFENesin ER TAB 600 MG PO SCH ×2 (08:33→20:45)
[2016-08-15] MEDS: methylPREDNISolone SOD 40 MG* 1 ML VIAL IV SCH ×2 (08:34→20:41)
[2016-08-15] MEDS: Metoprolol Tartrate TAB* 50 mg PO SCH ×2 (08:34→20:44)
[2016-08-15] MEDS: Insulin LISPRO* 1 UNITS UNIT SUBCUT SCH ×7 (08:57→21:21)
[2016-08-15] MEDS: Mometasone/Formoter 200/5 MDI INH SCH ×2 (08:59→20:56)
[2016-08-15] MEDS: NS 0.9% 1000 ML* 1,000 ML IV SCH ×2 (09:46→16:08)
[2016-08-15] MEDS ORDERED: Albuterol 2.5 MG/3 ML NEB.SOL* (0.083%) ONE (16:41)
[2016-08-15] MEDS: Insulin GLARGINE(*) 1 UNITS UNIT SUBCUT SCH (17:49)
[2016-08-15] MEDS: Digoxin TAB* 0.125 MG PO SCH (17:52)
[2016-08-15] MEDS ORDERED: Albuterol/Ipratropium NEB.SOL* Albuterol 2.5 MG/Ipratropium 0.5 MG 3 ML ONE (18:11)
[2016-08-15] MEDS: Albuterol/Ipratropium NEB.SOL* Albuterol 2.5 MG/Ipratropium 0.5 MG 3 ML INH PRN (18:14)
[2016-08-15] MEDS: cefTRIAXone VIAL(*) 1,000 MG in NS 0.9% 50 ML* 50 ML IVPB SCH (18:59)
[2016-08-15] MEDS ORDERED: NS 0.9% 250 ML* 250 ML ONE (20:34)
[2016-08-15] MEDS: Benzonatate CAP* 100 MG PO PRN (20:43)
[2016-08-15] MEDS: Montelukast Sodium TAB* 10 MG PO SCH (20:44)
[2016-08-15] MEDS: HYDROcodone/ACETAMIN 5-325 MG* 1 TAB PO PRN (20:44)
[2016-08-16] MEDS: NS 0.9% 1000 ML* 1,000 ML IV SCH (02:53)
[2016-08-16] MEDS: Albuterol/Ipratropium NEB.SOL* Albuterol 2.5 MG/Ipratropium 0.5 MG 3 ML INH PRN ×3 (04:50→21:20)
[2016-08-16 05:07] LABS: Hematocrit 39 % (35-47); Hemoglobin 12.5 g/dl (12.0-16.0); Mean Corpuscular HGB Conc 32 g/dl (31-36); Mean Corpuscular Hemoglobin 29 pg (27-31); Mean Corpuscular Volume 91 fL (80-97); Mean Platelet Volume 9 um3 (7.4-10.4); Red Blood Count 4.32 10^6/ul (4.0-5.4); Red Cell Distribution Width 16 % (10.5-15); White Blood Count 25.7 10^3/ul (3.5-10.8)
[2016-08-16 05:10] LABS: Add Diff/Slide Review? Slide Review Added; Comments Flag Yes
[2016-08-16 05:16] LABS: BUN/Creatinine Ratio 38.4 (8-20); Calcium 8.9 mg/dL (8.6-10.3); EGFR African American 64.5 (>60); EGFR Non-African American 50.1 (>60); Potassium 4.9 mmol/L (3.5-5.0)
[2016-08-16] MEDS: Diltiazem TAB* 60 MG PO SCH (05:40)
[2016-08-16 06:14] LABS: Immature Granulocytes 2 % (0-9); Myelocytes % 1 % (0-1); Neutrophil % 93 % (38-83); RBC Morphology Normal (Normal)
[2016-08-16] MEDS ORDERED: Spiriva Inhaler DEVICE* 1 EACH DEVICE INH ONE (09:00)
[2016-08-16] MEDS: Rivaroxaban TAB(*) 20 MG TAB PO SCH (09:12)
[2016-08-16] MEDS: Insulin LISPRO* 1 UNITS UNIT SUBCUT SCH ×5 (09:12→20:30)
[2016-08-16] MEDS: glipiZIDE TAB* 5 MG PO SCH ×2 (09:13→17:14)
[2016-08-16] MEDS: Metoprolol Tartrate TAB* 50 mg PO SCH ×3 (09:13→20:26)
[2016-08-16] MEDS: methylPREDNISolone SOD 40 MG* 1 ML VIAL IV SCH ×2 (09:13→20:31)
[2016-08-16] MEDS: guaiFENesin ER TAB 600 MG PO SCH ×2 (09:13→20:30)
[2016-08-16] MEDS: DOXYcycline IV* 100 MG in NS 0.9% 250 ML* 250 ML IVPB SCH ×2 (09:14→20:23)
--- NOTE | 2016-08-16 09:23 | PN ---
Subjective Date of Service: 08/16/16 Interval History: Pt is feeling better each day. She states her cough is less. She is not bringing up any mucous but feels as if she needs to. She believes she is more swollen than usual. She denies any pain at this time. Objective Active Medications: Acetaminophen (Tylenol Tab*) 650 mg PO Q6H PRN PRN Reason: pain/fever Last Admin: 08/15/16 06:23 Dose: 650 mg Acetaminophen/Hydrocodone Bitart ([place] 5-325 Tab*) 1 tab PO BID PRN PRN Reason: PAIN Last Admin: 08/15/16 20:44 Dose: 1 tab Albuterol (Ventolin Hfa Inhaler*) 2 puff INH Q4HR PRN PRN Reason: SHORTNESS OF BREATH Last Admin: 08/15/16 16:46 Dose: 2 puff Albuterol/Ipratropium (Duoneb Neb.Belinda*) 1 neb INH Q2H PRN PRN Reason: SOB/WHEEZING Last Admin: 08/16/16 04:50 Dose: 1 neb Benzonatate (Tessalon Cap*) 100 mg PO BID PRN PRN Reason: COUGH Last Admin: 08/15/16 20:43 Dose: 100 mg Cyclobenzaprine HCl (Flexeril Tab*) 5 mg PO TID PRN PRN Reason: PAIN Last Admin: 08/15/16 01:02 Dose: 5 mg Dextrose (D50w Syringe 50 Ml*) 12.5 gm IV PUSH .FOR FS < 60 - SS PRN PRN Reason: FS < 60 Digoxin (Lanoxin Tab*) 0.125 mg PO 1700 SAE Last Admin: 08/15/16 17:52 Dose: 0.125 mg Diltiazem HCl (Cardizem Tab*) 60 mg PO Q6HR SAE Stop: 08/16/16 13:00 Last Admin: 08/16/16 05:40 Dose: 60 mg Diltiazem HCl (Cardizem Cd Cap*) 180 mg PO 1800 SAE Furosemide (Lasix Tab*) 20 mg PO DAILY [facility] Glipizide (Glucotrol Tab*) 10 mg PO 0800,1700 [facility] Guaifenesin (Mucinex*) 1,200 mg PO BID SAE Last Admin: 08/15/16 20:45 Dose: 1,200 mg Ceftriaxone Sodium 1,000 mg/ (Sodium Chloride) 50 mls @ 200 mls/hr IVPB Q24H [facility] Last Admin: 08/15/16 18:59 Dose: 200 mls/hr Doxycycline Hyclate 100 mg/ (Sodium Chloride) 250 mls @ 250 mls/hr IVPB Q12H [facility] Last Admin: 08/15/16 20:37 Dose: 250 mls/hr Insulin Glargine (Lantus(*)) 20 units SUBCUT Q24H [facility] Last Admin: 08/15/16 17:49 Dose: 20 units Insulin Human Lispro (Humalog*) 0 units SUBCUT ACHS [facility] PRN Reason: Protocol Last Admin: 08/15/16 21:21 Dose: 6 units Lisinopril (Prinivil Tab*) 10 mg PO QAM [facility] Methylprednisolone Sodium Succinate (Solu-Medrol*) 40 mg IV Q12H [facility] Last Admin: 08/15/16 20:41 Dose: 40 mg Metoprolol Tartrate (Lopressor Tab*) 50 mg PO BID [facility] Last Admin: 08/15/16 20:44 Dose: 50 mg Mometasone Furoate/Formoterol Fumar (Dulera 200/5 Mdi*) 2 puff INH BID [facility] PRN Reason: Protocol Last Admin: 08/15/16 20:56 Dose: 2 puff Montelukast Sodium (Singulair Tab*) 10 mg PO BEDTIME [facility] Last Admin: 08/15/16 20:44 Dose: 10 mg Morphine Sulfate (Morphine Inj (Syringe)*) 1 mg IV Q2H PRN PRN Reason: Pain/Tachypnea RR>22 Last Admin: 08/14/16 12:07 Dose: 1 mg Rivaroxaban (Xarelto (*)) 20 mg PO DAILY WITH MEAL [facility] Last Admin: 08/15/16 08:33 Dose: 20 mg Tiotropium [place] (Spiriva Cap.Inh*) 1 cap INH DAILY [facility] Vital Signs 08/15/16 08/15/16 08/15/16 10:00 10:32 11:00 Temperature Pulse Rate 58 48 113 Respiratory 17 23 23 Rate Blood Pressure 120/93 124/67 (mmHg) O2 Sat by Pulse 91 99 99 Oximetry 08/15/16 08/15/16 08/15/16 12:00 13:00 14:10 Temperature 97.9 F Pulse Rate 70 111 65 Respiratory 19 28 22 Rate Blood Pressure 142/69 147/90 (mmHg) O2 Sat by Pulse 99 98 99 Oximetry 08/15/16 08/15/16 08/15/16 14:15 16:49 17:52 Temperature 97.9 F Pulse Rate 77 64 93 Respiratory 18 Rate Blood Pressure 147/90 (mmHg) O2 Sat by Pulse 96 99 Oximetry 08/15/16 08/15/16 08/15/16 20:00 20:35 20:44 Temperature 97.9 F Pulse Rate 94 Respiratory 20 20 20 Rate Blood Pressure 116/74 (mmHg) O2 Sat by Pulse 100 Oximetry 08/15/16 08/15/16 08/16/16 20:56 22:44 00:09 Temperature 97.6 F Pulse Rate 65 71 Respiratory 20 16 16 Rate Blood Pressure 118/93 (mmHg) O2 Sat by Pulse 98 97 Oximetry 08/16/16 08/16/16 08/16/16 01:23 03:55 04:50 Temperature 97.4 F Pulse Rate 72 58 Respiratory 16 Rate Blood Pressure 164/83 (mmHg) O2 Sat by Pulse 97 100 97 Oximetry 08/16/16 08/16/16 08/16/16 05:41 07:44 08:00 Temperature 97.5 F Pulse Rate 67 Respiratory 20 20 Rate Blood Pressure 101/77 161/70 (mmHg) O2 Sat by Pulse 99 99 Oximetry Oxygen Devices in Use Now: Nasal Cannula - 99%-2L Appearance: Middle aged morbidly obese female sitting on the edge of the bed, appears mildly tachypnic at rest but in NAD Eyes: No Scleral Icterus Ears/Nose/Mouth/Throat: Mucous Membranes Moist Respiratory: - - Mildly tachypnic, RLL markedly decreased breath sounds though the breath sounds are diminished throughout Cardiovascular: NL Sounds; No Murmurs; No JVD, - - 2+ LE edema Abdominal: NL Sounds; No Tenderness; No Distention Extremities: No Clubbing, Cyanosis Skin: No Rash or Ulcers, No Nodules or Sclerosis Neurological: Alert and Oriented x 3 Result Diagrams: 08/16/16 04:38 08/16/16 04:38 Additional Lab and Data: Lab Results 08/13/16 08/13/16 08/13/16 Range/Units 14:25 14:25 14:25 WBC 26.6 H (3.5-10.8) 10^3/ul RBC 4.80 (4.0-5.4) 10^6/ul Hgb 13.8 (12.0-16.0) g/dl Hct 43 (35-47) % MCV 90 (80-97) fL MCH 29 (27-31) pg MCHC 32 (31-36) g/dl RDW 16 H (10.5-15) % Plt Count 352 (150-450) 10^3/ul MPV 9 (7.4-10.4) um3 Neut % (Auto) 87.8 H (38-83) % Lymph % (Auto) 6.5 L (25-47) % [place] % (Auto) 4.7 (1-9) % Eos % (Auto) 0.1 (0-6) % Baso % (Auto) 0.9 (0-2) % Absolute Neuts (auto) 23.4 H (1.5-7.7) 10^3/ul Absolute Lymphs (auto) 1.7 (1.0-4.8) 10^3/ul Absolute Monos (auto) 1.3 H (0-0.8) 10^3/ul Absolute Eos (auto) 0 (0-0.6) 10^3/ul Absolute Basos (auto) 0.2 (0-0.2) 10^3/ul Absolute Nucleated RBC 0 10^3/ul Nucleated RBC % 0 INR (Anticoag Therapy) 2.04 H (0.89-1.11) APTT 30.2 (26.0-36.3) seconds Sodium 135 (133-145) mmol/L Potassium 4.6 (3.5-5.0) mmol/L Chloride 101 (101-111) mmol/L Carbon Dioxide 24 (22-32) mmol/L Anion Gap 10 (2-11) mmol/L BUN 26 H (6-24) mg/dL Creatinine 1.01 H (0.51-0.95) mg/dL Est GFR ( Amer) 72.7 (>60) Est GFR (Non-Af Amer) 56.5 (>60) BUN/Creatinine Ratio 25.7 H (8-20) Glucose 198 H (70-100) mg/dL Lactic Acid (0.5-2.0) mmol/L Calcium 10.1 (8.6-10.3) mg/dL Magnesium 1.9 (1.9-2.7) mg/dL Total Bilirubin 0.40 (0.2-1.0) mg/dL AST 21 (13-39) U/L ALT 34 (7-52) U/L Alkaline Phosphatase 78 (34-104) U/L CK-MB (CK-2) 4.7 (0.6-6.3) ng/mL Troponin I 0.05 H* (<0.04) ng/mL B-Natriuretic Peptide ( - 100) pg/mL Total Protein 7.0 (6.4-8.9) g/dL Albumin 3.9 (3.2-5.2) g/dL Globulin 3.1 (2-4) g/dL Albumin/Globulin Ratio 1.3 (1-3) TSH 2.12 (0.34-5.60) mcIU/mL Thyroxine (T4) 7.38 (6.09-12.23) g/dL 08/13/16 08/13/16 Range/Units 14:25 14:25 WBC (3.5-10.8) 10^3/ul RBC (4.0-5.4) 10^6/ul Hgb (12.0-16.0) g/dl Hct (35-47) % MCV (80-97) fL MCH (27-31) pg MCHC (31-36) g/dl RDW (10.5-15) % Plt Count (150-450) 10^3/ul MPV (7.4-10.4) um3 Neut % (Auto) (38-83) % Lymph % (Auto) (25-47) % [place] % (Auto) (1-9) % Eos % (Auto) (0-6) % Baso % (Auto) (0-2) % Absolute Neuts (auto) (1.5-7.7) 10^3/ul Absolute Lymphs (auto) (1.0-4.8) 10^3/ul Absolute Monos (auto) (0-0.8) 10^3/ul Absolute Eos (auto) (0-0.6) 10^3/ul Absolute Basos (auto) (0-0.2) 10^3/ul Absolute Nucleated RBC 10^3/ul Nucleated RBC % INR (Anticoag Therapy) (0.89-1.11) APTT (26.0-36.3) seconds Sodium (133-145) mmol/L Potassium (3.5-5.0) mmol/L Chloride (101-111) mmol/L Carbon Dioxide (22-32) mmol/L Anion Gap (2-11) mmol/L BUN (6-24) mg/dL Creatinine (0.51-0.95) mg/dL Est GFR ( Amer) (>60) Est GFR (Non-Af Amer) (>60) BUN/Creatinine Ratio (8-20) Glucose (70-100) mg/dL Lactic Acid 3.9 H* (0.5-2.0) mmol/L Calcium (8.6-10.3) mg/dL Magnesium (1.9-2.7) mg/dL Total Bilirubin (0.2-1.0) mg/dL AST (13-39) U/L ALT (7-52) U/L Alkaline Phosphatase (34-104) U/L CK-MB (CK-2) (0.6-6.3) ng/mL Troponin I (<0.04) ng/mL B-Natriuretic Peptide 177 H ( - 100) pg/mL Total Protein (6.4-8.9) g/dL Albumin (3.2-5.2) g/dL Globulin (2-4) g/dL Albumin/Globulin Ratio (1-3) TSH (0.34-5.60) mcIU/mL Thyroxine (T4) (6.09-12.23) g/dL Microbiology and Other Data: Microbiology 08/13/16 17:00 Aerobic Blood Culture - Final Blood Venous Streptococcus Viridans Group Anaerobic Blood Culture - Preliminary Blood Culture - Final 08/14/16 05:25 Aerobic Blood Culture - Preliminary Blood Venous No Growth Day 2 Anaerobic Blood Culture - Preliminary No Growth Day 2 Blood Culture - Final 08/14/16 08:45 Nasal Screen MRSA (PCR)([facility]) - Final Nasal Mrsa Negative 08/14/16 08:45 Influenza Types A,B Antigen ([facility]) - Final Nasal Specimen received for Influenza A/B Molecular testing 08/14/16 04:57 Legionella Urinary Antigen - Final Urine Negative Legionella Streptococcus pneumoniae Ag Screen - Final Negative S. pneumo Antigen Assess/Plan/Problems-Billing Ms. Purvis is a 56yo F with PMHx of morbid obesity with BMI>50, HTN, asthma/ COPD, fibromyalgia, type 2 DM, atrial fibrillation and JULIANA on CPAP, who presented to ED with c/o worsening dyspnea and cough, found to have severe sepsis and COPD exacerbation likely secondary to bronchitis. - Patient Problems (1) Acute hypoxemic respiratory failure Current Visit: Yes Status: Acute Code(s): J96.01 - ACUTE RESPIRATORY FAILURE WITH HYPOXIA SNOMED Code(s): 826499474 Comment: Resolved. Now only on 2L O2 though I suspect she can be weaned off ( saturations in the high 90's on 2L) (2) Acute exacerbation of chronic obstructive pulmonary disease (COPD) Current Visit: Yes Status: Acute Code(s): J44.1 - CHRONIC OBSTRUCTIVE PULMONARY DISEASE W (ACUTE) EXACERBATION SNOMED Code(s): 824264032 Comment: Secondary to bronchitis. Improving slowly. Continue solumedrol though taper to 20mg BID. Continue prn and scheduled nebs/inhalers. (3) Severe sepsis Current Visit: Yes Status: Acute Code(s): A41.9 - SEPSIS, UNSPECIFIED ORGANISM; R65.20 - SEVERE SEPSIS WITHOUT SEPTIC SHOCK SNOMED Code(s): 08596053 Comment: On admission the patient met sepsis 2 criteria with leukocytosis, tachycardia and respiratory failure secondary to presumed bronchitis. She had a qSOFA score of 2 on admission and a SOFA score of at most 2 (for MAP <70 and GCS 13-14). Sepsis has resolved at this time. (4) Bronchitis Current Visit: Yes Status: Acute Code(s): J40 - BRONCHITIS, NOT SPECIFIED ACUTE OR CHRONIC SNOMED Code(s): 26041924 Comment: Pt is improving though has markedly decreased breath sounds in the R base. Will repeat CXR this AM to eval for infiltrate. Continue ceftriaxone and doxycycline-today is D#4. Her WBC count is down slightly today. Will follow up CBC tomorrow. Blood cultures from 01/10/17 show strep viridans in 1 of 2 bottles. Follow up cultures 01/11/17 are negative. Will discuss results with Dr. Phillips this afternoon. (5) Atrial fibrillation with RVR Current Visit: Yes Status: Acute Code(s): I48.91 - UNSPECIFIED ATRIAL FIBRILLATION SNOMED Code(s): 048660778643695 Comment: Rate is now controlled. Yesterday she had heart rates in the 40's after receiving both metoprolol and diltiazem. Will stop the diltiazem and continue with metoprolol and digoxin for now. If her HR goes up will restart low dose diltiazem CD. Continue xarelto. (6) Elevated troponin Current Visit: Yes Status: Acute Code(s): R79.89 - OTHER SPECIFIED ABNORMAL FINDINGS OF BLOOD CHEMISTRY SNOMED Code(s): 606168830 Comment: Likely secondary to demand ischemia in the setting of sepsis and Afib with RVR. No further work up necessary at this time. Outpatient ischemic workup could be considered when she has recovered from her acute illness. (7) Lactic acidosis Current Visit: Yes Status: Acute Code(s): E87.2 - ACIDOSIS SNOMED Code(s) : 26740008 Comment: Secondary to sepsis. Last read was improved from admission. (8) Type 2 diabetes mellitus Current Visit: Yes Status: Acute Comment: Sugars are uncontrolled though she is not on her home medication regimen. Will add back glipizide today and likely add back metformin tomorrow (need to confirm she takes this medication at home). Continue lantus for now. I suspect her sugars are more elevated than usual secondary to steroids. Check A1c. (9) HTN (hypertension) Current Visit: No Status: Acute Priority: High Code(s): I10 - ESSENTIAL ( PRIMARY) HYPERTENSION SNOMED Code(s): 66802470 Comment: BP is now elevated. Resume home medications as the BP will allow ( restart lisinopril today). (10) DVT prophylaxis Current Visit: Yes Status: Acute Priority: High Code(s): ZNN9655 - SNOMED Code(s): 923683377 Comment: Xarelto (11) Full code status Current Visit: Yes Status: Acute Priority: High Code(s): Z78.9 - OTHER SPECIFIED HEALTH STATUS SNOMED Code(s): 018622217 Status and Disposition: .
[2016-08-16] MEDS ORDERED: Docusate CAP* 100 MG PO PRN (09:55)
[2016-08-16] MEDS: Mometasone/Formoter 200/5 MDI INH SCH ×2 (10:04→21:21)
[2016-08-16] MEDS: Tiotropium CAP.INH* CAP.INH/18 MCG (USE ORDER SET !) INH SCH (10:04)
[2016-08-16] MEDS: Lisinopril TAB* 5 MG PO SCH (10:57)
[2016-08-16] MEDS: Furosemide TAB* 20 MG PO SCH (10:58)
--- NOTE | 2016-08-16 13:17 | RAD ---
INDICATION: Dyspnea COMPARISON: Most recent comparison chest x-rays dated August 13, 2016 TECHNIQUE: Single AP portable view of the chest was obtained. FINDINGS: Image quality is compromised due to the relative inferiority of a portable chest x-ray. The degree of mild to moderate cardiomegaly is unchanged in the previous chest x-ray. There is worsening density overlying the right lung base obscuring the right hemidiaphragm and causing right costophrenic angle blunting. To a lesser extent there is left-sided costophrenic angle blunting. Visualized bones are normal for the patient's age. IMPRESSION: Chest x-ray findings exhibit worsening aeration overall relative to the most recent chest x-ray with likely right greater than left bibasilar pleural effusions.
[2016-08-16] MEDS: Digoxin TAB* 0.125 MG PO SCH (17:14)
[2016-08-16] MEDS ORDERED: Diltiazem CD CAP* 180 MG PO SCH (18:00)
[2016-08-16] MEDS: Insulin GLARGINE(*) 1 UNITS UNIT SUBCUT SCH (18:24)
[2016-08-16] MEDS: cefTRIAXone VIAL(*) 1,000 MG in NS 0.9% 50 ML* 50 ML IVPB SCH (18:25)
[2016-08-16] MEDS: Montelukast Sodium TAB* 10 MG PO SCH (20:29)
[2016-08-16] MEDS: HYDROcodone/ACETAMIN 5-325 MG* 1 TAB PO PRN (20:49)
[2016-08-17] MEDS: Albuterol/Ipratropium NEB.SOL* Albuterol 2.5 MG/Ipratropium 0.5 MG 3 ML INH PRN ×3 (04:15→22:04)
[2016-08-17 05:57] LABS: Hematocrit 39 % (35-47); Hemoglobin 12.7 g/dl (12.0-16.0); Mean Corpuscular HGB Conc 32 g/dl (31-36); Mean Corpuscular Hemoglobin 29 pg (27-31); Mean Corpuscular Volume 90 fL (80-97); Mean Platelet Volume 10 um3 (7.4-10.4); Red Cell Distribution Width 16 % (10.5-15); White Blood Count 24.2 10^3/ul (3.5-10.8)
[2016-08-17 06:14] LABS: BUN/Creatinine Ratio 45.7 (8-20); Calcium 9.2 mg/dL (8.6-10.3); EGFR African American 69.5 (>60)
[2016-08-17 06:19] LABS: Potassium 5.1 mmol/L (3.5-5.0)
[2016-08-17] MEDS: Lisinopril TAB* 5 MG PO SCH (07:47)
[2016-08-17] MEDS: guaiFENesin ER TAB 600 MG PO SCH ×2 (07:47→21:31)
[2016-08-17] MEDS: methylPREDNISolone SOD 40 MG* 1 ML VIAL IV SCH ×2 (07:47→21:27)
[2016-08-17] MEDS: glipiZIDE TAB* 5 MG PO SCH ×2 (07:47→16:52)
[2016-08-17] MEDS: Furosemide TAB* 20 MG PO SCH (07:47)
[2016-08-17] MEDS: DOXYcycline IV* 100 MG in NS 0.9% 250 ML* 250 ML IVPB SCH ×2 (07:47→21:22)
[2016-08-17] MEDS: Metoprolol Tartrate TAB* 50 mg PO SCH ×2 (07:47→21:31)
[2016-08-17] MEDS: Rivaroxaban TAB(*) 20 MG TAB PO SCH (07:47)
[2016-08-17] MEDS: Tiotropium CAP.INH* CAP.INH/18 MCG (USE ORDER SET !) INH SCH (08:12)
[2016-08-17] MEDS: Mometasone/Formoter 200/5 MDI INH SCH ×2 (08:13→22:01)
[2016-08-17] MEDS: Insulin LISPRO* 1 UNITS UNIT SUBCUT SCH ×4 (08:39→21:31)
[2016-08-17] MEDS: Diltiazem CD CAP* 180 MG PO SCH (08:39)
[2016-08-17] MEDS ORDERED: Furosemide IV* 10 MG/ML VIAL (40 MG) IV SLOW PU ONE (13:32)
--- NOTE | 2016-08-17 13:42 | PN ---
Subjective Date of Service: 08/17/16 Interval History: Pt is feeling poorly. She is currently SOB but states she just got from chair to bed. She states it takes about 10-15min to recover after exerting herself. She continues to have coughing fits but no sputum. She denies any pain. Objective Active Medications: Acetaminophen (Tylenol Tab*) 650 mg PO Q6H PRN PRN Reason: pain/fever Last Admin: 08/15/16 06:23 Dose: 650 mg Acetaminophen/Hydrocodone Bitart ([place] 5-325 Tab*) 1 tab PO BID PRN PRN Reason: PAIN Last Admin: 08/16/16 20:49 Dose: 1 tab Albuterol (Ventolin Hfa Inhaler*) 2 puff INH Q4HR PRN PRN Reason: SHORTNESS OF BREATH Last Admin: 08/15/16 16:46 Dose: 2 puff Albuterol/Ipratropium (Duoneb Neb.Belinda*) 1 neb INH Q2H PRN PRN Reason: SOB/WHEEZING Last Admin: 08/17/16 09:20 Dose: 1 neb Benzonatate (Tessalon Cap*) 100 mg PO BID PRN PRN Reason: COUGH Last Admin: 08/15/16 20:43 Dose: 100 mg Cyclobenzaprine HCl (Flexeril Tab*) 5 mg PO TID PRN PRN Reason: PAIN Last Admin: 08/15/16 01:02 Dose: 5 mg Dextrose (D50w Syringe 50 Ml*) 12.5 gm IV PUSH .FOR FS < 60 - SS PRN PRN Reason: FS < 60 Digoxin (Lanoxin Tab*) 0.125 mg PO 1700 [facility] Last Admin: 08/16/16 17:14 Dose: 0.125 mg Diltiazem HCl (Cardizem Cd Cap*) 180 mg PO DAILY [facility] Last Admin: 08/17/16 08:39 Dose: 180 mg Docusate Sodium (Colace Cap*) 100 mg PO BID PRN PRN Reason: CONSTIPATION Furosemide (Lasix Iv*) 40 mg IV SLOW PU DAILY [facility] Glipizide (Glucotrol Tab*) 10 mg PO 0800,1700 [facility] Last Admin: 08/17/16 07:47 Dose: 10 mg Guaifenesin (Mucinex*) 1,200 mg PO BID [facility] Last Admin: 08/17/16 07:47 Dose: 1,200 mg Ceftriaxone Sodium 1,000 mg/ (Sodium Chloride) 50 mls @ 200 mls/hr IVPB Q24H [facility] Last Admin: 08/16/16 18:25 Dose: 200 mls/hr Doxycycline Hyclate 100 mg/ (Sodium Chloride) 250 mls @ 250 mls/hr IVPB Q12H [facility] Last Admin: 08/17/16 07:47 Dose: 250 mls/hr Insulin Glargine (Lantus(*)) 20 units SUBCUT Q24H [facility] Last Admin: 08/16/16 18:24 Dose: 20 units Insulin Human Lispro (Humalog*) 0 units SUBCUT ACHS [facility] PRN Reason: Protocol Last Admin: 08/17/16 12:36 Dose: 9 units Lisinopril (Prinivil Tab*) 10 mg PO QAM [facility] Last Admin: 08/17/16 07:47 Dose: 10 mg Methylprednisolone Sodium Succinate (Solu-Medrol*) 20 mg IV Q12H [facility] Last Admin: 08/17/16 07:47 Dose: 20 mg Metoprolol Tartrate (Lopressor Tab*) 50 mg PO BID [facility] Last Admin: 08/17/16 07:47 Dose: 50 mg Mometasone Furoate/Formoterol Fumar (Dulera 200/5 Mdi*) 2 puff INH BID [facility] PRN Reason: Protocol Last Admin: 08/17/16 08:13 Dose: 2 puff Montelukast Sodium (Singulair Tab*) 10 mg PO BEDTIME [facility] Last Admin: 08/16/16 20:29 Dose: 10 mg Morphine Sulfate (Morphine Inj (Syringe)*) 1 mg IV Q2H PRN PRN Reason: Pain/Tachypnea RR>22 Last Admin: 08/14/16 12:07 Dose: 1 mg Rivaroxaban (Xarelto (*)) 20 mg PO DAILY WITH MEAL [facility] Last Admin: 08/17/16 07:47 Dose: 20 mg Tiotropium [place] (Spiriva Cap.Inh*) 1 cap INH DAILY [facility] Last Admin: 08/17/16 08:12 Dose: 1 cap Vital Signs 08/16/16 08/16/16 08/16/16 15:54 17:14 19:22 Temperature 97.3 F 98.3 F Pulse Rate 68 74 51 Respiratory 18 18 Rate Blood Pressure 157/84 154/99 (mmHg) O2 Sat by Pulse 99 100 Oximetry 08/16/16 08/16/16 08/16/16 20:00 20:49 21:24 Temperature Pulse Rate 67 67 Respiratory 20 22 20 Rate Blood Pressure (mmHg) O2 Sat by Pulse 97 96 Oximetry 08/16/16 08/16/16 08/17/16 22:49 23:43 00:00 Temperature Pulse Rate 98 Respiratory 18 16 Rate Blood Pressure 146/91 (mmHg) O2 Sat by Pulse 98 96 Oximetry 08/17/16 08/17/16 08/17/16 03:53 04:15 07:16 Temperature 97.6 F Pulse Rate 27 92 101 Respiratory 16 20 20 Rate Blood Pressure 179/100 196/79 (mmHg) O2 Sat by Pulse 98 99 95 Oximetry 08/17/16 08/17/16 08/17/16 08:00 08:16 09:21 Temperature Pulse Rate 98 98 Respiratory 20 18 18 Rate Blood Pressure (mmHg) O2 Sat by Pulse 97 99 Oximetry 08/17/16 08/17/16 11:26 11:27 Temperature 98.5 F Pulse Rate 51 107 Respiratory 18 Rate Blood Pressure 171/92 (mmHg) O2 Sat by Pulse 96 Oximetry Oxygen Devices in Use Now: Nasal Cannula - 2L-96% Appearance: Middle aged morbidly obese female sitting up in bed, NAD Eyes: No Scleral Icterus Ears/Nose/Mouth/Throat: Mucous Membranes Moist Respiratory: Symmetrical Chest Expansion and Respiratory Effort, - - decreased breath sounds in the R base otherwise clear but diminished Cardiovascular: NL Sounds; No Murmurs; No JVD, - - Irregularly irregular HR, 2+ LE edema Abdominal: NL Sounds; No Tenderness; No Distention Extremities: No Clubbing, Cyanosis Skin: No Rash or Ulcers, No Nodules or Sclerosis Neurological: Alert and Oriented x 3 Result Diagrams: 08/17/16 05:29 08/17/16 05:30 Additional Lab and Data: Lab Results 08/13/16 08/13/16 08/13/16 Range/Units 14:25 14:25 14:25 WBC 26.6 H (3.5-10.8) 10^3/ul RBC 4.80 (4.0-5.4) 10^6/ul Hgb 13.8 (12.0-16.0) g/dl Hct 43 (35-47) % MCV 90 (80-97) fL MCH 29 (27-31) pg MCHC 32 (31-36) g/dl RDW 16 H (10.5-15) % Plt Count 352 (150-450) 10^3/ul MPV 9 (7.4-10.4) um3 Neut % (Auto) 87.8 H (38-83) % Lymph % (Auto) 6.5 L (25-47) % [place] % (Auto) 4.7 (1-9) % Eos % (Auto) 0.1 (0-6) % Baso % (Auto) 0.9 (0-2) % Absolute Neuts (auto) 23.4 H (1.5-7.7) 10^3/ul Absolute Lymphs (auto) 1.7 (1.0-4.8) 10^3/ul Absolute Monos (auto) 1.3 H (0-0.8) 10^3/ul Absolute Eos (auto) 0 (0-0.6) 10^3/ul Absolute Basos (auto) 0.2 (0-0.2) 10^3/ul Absolute Nucleated RBC 0 10^3/ul Nucleated RBC % 0 INR (Anticoag Therapy) 2.04 H (0.89-1.11) APTT 30.2 (26.0-36.3) seconds Sodium 135 (133-145) mmol/L Potassium 4.6 (3.5-5.0) mmol/L Chloride 101 (101-111) mmol/L Carbon Dioxide 24 (22-32) mmol/L Anion Gap 10 (2-11) mmol/L BUN 26 H (6-24) mg/dL Creatinine 1.01 H (0.51-0.95) mg/dL Est GFR ( Amer) 72.7 (>60) Est GFR (Non-Af Amer) 56.5 (>60) BUN/Creatinine Ratio 25.7 H (8-20) Glucose 198 H (70-100) mg/dL Lactic Acid (0.5-2.0) mmol/L Calcium 10.1 (8.6-10.3) mg/dL Magnesium 1.9 (1.9-2.7) mg/dL Total Bilirubin 0.40 (0.2-1.0) mg/dL AST 21 (13-39) U/L ALT 34 (7-52) U/L Alkaline Phosphatase 78 (34-104) U/L CK-MB (CK-2) 4.7 (0.6-6.3) ng/mL Troponin I 0.05 H* (<0.04) ng/mL B-Natriuretic Peptide ( - 100) pg/mL Total Protein 7.0 (6.4-8.9) g/dL Albumin 3.9 (3.2-5.2) g/dL Globulin 3.1 (2-4) g/dL Albumin/Globulin Ratio 1.3 (1-3) TSH 2.12 (0.34-5.60) mcIU/mL Thyroxine (T4) 7.38 (6.09-12.23) g/dL 08/13/16 08/13/16 Range/Units 14:25 14:25 WBC (3.5-10.8) 10^3/ul RBC (4.0-5.4) 10^6/ul Hgb (12.0-16.0) g/dl Hct (35-47) % MCV (80-97) fL MCH (27-31) pg MCHC (31-36) g/dl RDW (10.5-15) % Plt Count (150-450) 10^3/ul MPV (7.4-10.4) um3 Neut % (Auto) (38-83) % Lymph % (Auto) (25-47) % [place] % (Auto) (1-9) % Eos % (Auto) (0-6) % Baso % (Auto) (0-2) % Absolute Neuts (auto) (1.5-7.7) 10^3/ul Absolute Lymphs (auto) (1.0-4.8) 10^3/ul Absolute Monos (auto) (0-0.8) 10^3/ul Absolute Eos (auto) (0-0.6) 10^3/ul Absolute Basos (auto) (0-0.2) 10^3/ul Absolute Nucleated RBC 10^3/ul Nucleated RBC % INR (Anticoag Therapy) (0.89-1.11) APTT (26.0-36.3) seconds Sodium (133-145) mmol/L Potassium (3.5-5.0) mmol/L Chloride (101-111) mmol/L Carbon Dioxide (22-32) mmol/L Anion Gap (2-11) mmol/L BUN (6-24) mg/dL Creatinine (0.51-0.95) mg/dL Est GFR ( Amer) (>60) Est GFR (Non-Af Amer) (>60) BUN/Creatinine Ratio (8-20) Glucose (70-100) mg/dL Lactic Acid 3.9 H* (0.5-2.0) mmol/L Calcium (8.6-10.3) mg/dL Magnesium (1.9-2.7) mg/dL Total Bilirubin (0.2-1.0) mg/dL AST (13-39) U/L ALT (7-52) U/L Alkaline Phosphatase (34-104) U/L CK-MB (CK-2) (0.6-6.3) ng/mL Troponin I (<0.04) ng/mL B-Natriuretic Peptide 177 H ( - 100) pg/mL Total Protein (6.4-8.9) g/dL Albumin (3.2-5.2) g/dL Globulin (2-4) g/dL Albumin/Globulin Ratio (1-3) TSH (0.34-5.60) mcIU/mL Thyroxine (T4) (6.09-12.23) g/dL Microbiology and Other Data: Microbiology 08/13/16 17:00 Aerobic Blood Culture - Final Blood Venous Streptococcus Viridans Group Anaerobic Blood Culture - Preliminary Blood Culture - Final 08/14/16 05:25 Aerobic Blood Culture - Preliminary Blood Venous No Growth Day 2 Anaerobic Blood Culture - Preliminary No Growth Day 2 Blood Culture - Final 08/14/16 08:45 Nasal Screen MRSA (PCR)([facility]) - Final Nasal Mrsa Negative 08/14/16 08:45 Influenza Types A,B Antigen ([facility]) - Final Nasal Specimen received for Influenza A/B Molecular testing 08/14/16 04:57 Legionella Urinary Antigen - Final Urine Negative Legionella Streptococcus pneumoniae Ag Screen - Final Negative S. pneumo Antigen Assess/Plan/Problems-Billing Ms. Purvis is a 56yo F with PMHx of morbid obesity with BMI>50, HTN, asthma/ COPD, fibromyalgia, type 2 DM, atrial fibrillation and JULIANA on CPAP, who presented to ED with c/o worsening dyspnea and cough, found to have severe sepsis and COPD exacerbation likely secondary to bronchitis. - Patient Problems (1) Acute hypoxemic respiratory failure Current Visit: Yes Status: Acute Code(s): J96.01 - ACUTE RESPIRATORY FAILURE WITH HYPOXIA SNOMED Code(s): 413287074 Comment: Resolved. Still on 2L O2. Will continue to monitor O2 sats. (2) Acute exacerbation of chronic obstructive pulmonary disease (COPD) Current Visit: Yes Status: Acute Code(s): J44.1 - CHRONIC OBSTRUCTIVE PULMONARY DISEASE W (ACUTE) EXACERBATION SNOMED Code(s): 028504801 Comment: Secondary to bronchitis vs pneumonia. CXR still does not show a clear infiltrate though the imaging quality is poor. She would benefit from a CT chest but she can not lie flat for the test. Improving very slowly. Continue solumedrol 20mg BID. Continue prn and scheduled nebs/inhalers. (3) Severe sepsis Current Visit: Yes Status: Acute Code(s): A41.9 - SEPSIS, UNSPECIFIED ORGANISM; R65.20 - SEVERE SEPSIS WITHOUT SEPTIC SHOCK SNOMED Code(s): 67956377 Comment: On admission the patient met sepsis 2 criteria with leukocytosis, tachycardia and respiratory failure secondary to presumed bronchitis. She had a qSOFA score of 2 on admission and a SOFA score of at most 2 (for MAP <70 and GCS 13-14). Sepsis has resolved at this time. (4) Bronchitis Current Visit: Yes Status: Acute Code(s): J40 - BRONCHITIS, NOT SPECIFIED ACUTE OR CHRONIC SNOMED Code(s): 07356788 Comment: Repeat CXR does not show any infiltrate but will continue on doxycycline and ceftriaxone-today is D#5. WBC count has trended down slightly today. She is not stable for d/c home as she is still markedly SOB with any exertion. Dr. Phillips is not available at least until the end of this week. She had 2 of 2 bottles come up positive for strep viridans. Follow up blood cultures the next day were negative. I do not think she needs any further work up for this however ID is unavailable for consult at least until the end of this week. Will continue to monitor. (5) Atrial fibrillation with RVR Current Visit: Yes Status: Acute Code(s): I48.91 - UNSPECIFIED ATRIAL FIBRILLATION SNOMED Code(s): 091002717978914 Comment: Rate is now controlled. Yesterday she had heart rates in the 40's after receiving both metoprolol and diltiazem. Will stop the diltiazem and continue with metoprolol and digoxin for now. If her HR goes up will restart low dose diltiazem CD. Continue xarelto. (6) Elevated troponin Current Visit: Yes Status: Acute Code(s): R79.89 - OTHER SPECIFIED ABNORMAL FINDINGS OF BLOOD CHEMISTRY SNOMED Code(s): 596146938 Comment: Likely secondary to demand ischemia in the setting of sepsis and Afib with RVR. No further work up necessary at this time. Outpatient ischemic workup could be considered when she has recovered from her acute illness. (7) Lactic acidosis Current Visit: Yes Status: Acute Code(s): E87.2 - ACIDOSIS SNOMED Code(s) : 83994280 Comment: Secondary to sepsis. Last read was improved from admission. (8) Type 2 diabetes mellitus Current Visit: Yes Status: Acute Comment: Sugars remain elevated despite adding back glipizide. She does not use metformin at home due to diarrhea. Her A1c is mildly elevated at 7.4%-I suspect the dramatic increase in her blood sugars are related to her acute illness and administration of solumedrol. (9) HTN (hypertension) Current Visit: Yes Status: Acute Priority: High Code(s): I10 - ESSENTIAL ( PRIMARY) HYPERTENSION SNOMED Code(s): 52991718 Comment: BP is markedly elevated. Will monitor as dilitiazem CD was added this AM. If her BP does not improve will need to increase lisinopril to 20mg daily. (10) DVT prophylaxis Current Visit: Yes Status: Acute Priority: High Code(s): AZQ4148 - SNOMED Code(s): 905804453 Comment: Xarelto (11) Full code status Current Visit: Yes Status: Acute Priority: High Code(s): Z78.9 - OTHER SPECIFIED HEALTH STATUS SNOMED Code(s): 044238412 Status and Disposition: .
[2016-08-17] MEDS: Digoxin TAB* 0.125 MG PO SCH (16:53)
[2016-08-17] MEDS: Insulin GLARGINE(*) 1 UNITS UNIT SUBCUT SCH (16:57)
[2016-08-17] MEDS: cefTRIAXone VIAL(*) 1,000 MG in NS 0.9% 50 ML* 50 ML IVPB SCH (18:04)
[2016-08-17] MEDS: Montelukast Sodium TAB* 10 MG PO SCH (21:31)
[2016-08-17] MEDS: HYDROcodone/ACETAMIN 5-325 MG* 1 TAB PO PRN (21:35)
[2016-08-18] MEDS: Albuterol/Ipratropium NEB.SOL* Albuterol 2.5 MG/Ipratropium 0.5 MG 3 ML INH PRN ×2 (03:15→14:29)
[2016-08-18] MEDS ORDERED: Lisinopril TAB* 10 MG ONE (08:26)
[2016-08-18] MEDS: Rivaroxaban TAB(*) 20 MG TAB PO SCH (08:30)
[2016-08-18] MEDS: DOXYcycline IV* 100 MG in NS 0.9% 250 ML* 250 ML IVPB SCH (08:30)
[2016-08-18] MEDS: glipiZIDE TAB* 5 MG PO SCH ×2 (08:30→17:12)
[2016-08-18] MEDS: Diltiazem CD CAP* 180 MG PO SCH (08:31)
[2016-08-18] MEDS: Furosemide IV* 10 MG/ML VIAL (40 MG) IV SLOW PU SCH (08:31)
[2016-08-18] MEDS: methylPREDNISolone SOD 40 MG* 1 ML VIAL IV SCH (08:31)
[2016-08-18] MEDS: guaiFENesin ER TAB 600 MG PO SCH ×2 (08:31→20:52)
[2016-08-18] MEDS: Lisinopril TAB* 10 MG PO SCH (08:31)
[2016-08-18] MEDS: Metoprolol Tartrate TAB* 50 mg PO SCH ×2 (08:31→20:53)
[2016-08-18] MEDS: Benzonatate CAP* 100 MG PO PRN ×2 (08:35→20:53)
[2016-08-18] MEDS: Insulin LISPRO* 1 UNITS UNIT SUBCUT SCH ×4 (08:46→20:52)
[2016-08-18] MEDS: Tiotropium CAP.INH* CAP.INH/18 MCG (USE ORDER SET !) INH SCH (09:56)
[2016-08-18] MEDS: Mometasone/Formoter 200/5 MDI INH SCH ×2 (09:57→20:21)
--- NOTE | 2016-08-18 10:37 | PN ---
Subjective Date of Service: 08/18/16 Interval History: Pt is feeling better today and feels that the IV lasix helped her. She still is having coughing fits. She thinks the edema in her LE is slightly better today but still much more than she usually has. Objective Active Medications: Acetaminophen (Tylenol Tab*) 650 mg PO Q6H PRN PRN Reason: pain/fever Last Admin: 08/15/16 06:23 Dose: 650 mg Acetaminophen/Hydrocodone Bitart ([place] 5-325 Tab*) 1 tab PO BID PRN PRN Reason: PAIN Last Admin: 08/17/16 21:35 Dose: 1 tab Albuterol (Ventolin Hfa Inhaler*) 2 puff INH Q4HR PRN PRN Reason: SHORTNESS OF BREATH Last Admin: 08/15/16 16:46 Dose: 2 puff Albuterol/Ipratropium (Duoneb Neb.Belinda*) 1 neb INH Q2H PRN PRN Reason: SOB/WHEEZING Last Admin: 08/18/16 03:15 Dose: 1 neb Benzonatate (Tessalon Cap*) 100 mg PO BID PRN PRN Reason: COUGH Last Admin: 08/18/16 08:35 Dose: 100 mg Cyclobenzaprine HCl (Flexeril Tab*) 5 mg PO TID PRN PRN Reason: PAIN Last Admin: 08/15/16 01:02 Dose: 5 mg Dextrose (D50w Syringe 50 Ml*) 12.5 gm IV PUSH .FOR FS < 60 - SS PRN PRN Reason: FS < 60 Digoxin (Lanoxin Tab*) 0.125 mg PO 1700 [facility] Last Admin: 08/17/16 16:53 Dose: 0.125 mg Diltiazem HCl (Cardizem Cd Cap*) 180 mg PO DAILY [facility] Last Admin: 08/18/16 08:31 Dose: 180 mg Docusate Sodium (Colace Cap*) 100 mg PO BID PRN PRN Reason: CONSTIPATION Furosemide (Lasix Iv*) 40 mg IV SLOW PU DAILY [facility] Last Admin: 08/18/16 08:31 Dose: 40 mg Glipizide (Glucotrol Tab*) 10 mg PO 0800,1700 [facility] Last Admin: 08/18/16 08:30 Dose: 10 mg Guaifenesin (Mucinex*) 1,200 mg PO BID [facility] Last Admin: 08/18/16 08:31 Dose: 1,200 mg Ceftriaxone Sodium 1,000 mg/ (Sodium Chloride) 50 mls @ 200 mls/hr IVPB Q24H [facility] Last Admin: 08/17/16 18:04 Dose: 200 mls/hr Doxycycline Hyclate 100 mg/ (Sodium Chloride) 250 mls @ 250 mls/hr IVPB Q12H [facility] Last Admin: 08/18/16 08:30 Dose: 250 mls/hr Insulin Glargine (Lantus(*)) 20 units SUBCUT Q24H [facility] Last Admin: 08/17/16 16:57 Dose: 20 units Insulin Human Lispro (Humalog*) 0 units SUBCUT ACHS [facility] PRN Reason: Protocol Last Admin: 08/18/16 08:46 Dose: 3 units Lisinopril (Prinivil Tab*) 20 mg PO QAM [facility] Last Admin: 08/18/16 08:31 Dose: 20 mg Methylprednisolone Sodium Succinate (Solu-Medrol*) 20 mg IV Q12H [facility] Last Admin: 08/18/16 08:31 Dose: 20 mg Metoprolol Tartrate (Lopressor Tab*) 50 mg PO BID [facility] Last Admin: 08/18/16 08:31 Dose: 50 mg Mometasone Furoate/Formoterol Fumar (Dulera 200/5 Mdi*) 2 puff INH BID [facility] PRN Reason: Protocol Last Admin: 08/18/16 09:57 Dose: 2 puff Montelukast Sodium (Singulair Tab*) 10 mg PO BEDTIME [facility] Last Admin: 08/17/16 21:31 Dose: 10 mg Morphine Sulfate (Morphine Inj (Syringe)*) 1 mg IV Q2H PRN PRN Reason: Pain/Tachypnea RR>22 Last Admin: 08/14/16 12:07 Dose: 1 mg Rivaroxaban (Xarelto (*)) 20 mg PO DAILY WITH MEAL [facility] Last Admin: 08/18/16 08:30 Dose: 20 mg Tiotropium [place] (Spiriva Cap.Inh*) 1 cap INH DAILY [facility] Last Admin: 08/18/16 09:56 Dose: 1 cap Vital Signs 08/17/16 08/17/16 08/17/16 11:26 11:27 15:31 Temperature 98.5 F Pulse Rate 51 107 Respiratory 18 Rate Blood Pressure 171/92 (mmHg) O2 Sat by Pulse 96 99 Oximetry 08/17/16 08/17/16 08/17/16 16:11 16:53 17:42 Temperature 98.3 F Pulse Rate 70 83 Respiratory 19 Rate Blood Pressure 179/96 (mmHg) O2 Sat by Pulse 99 98 Oximetry 08/17/16 08/17/16 08/17/16 20:00 20:30 21:35 Temperature 98.5 F Pulse Rate 34 Respiratory 18 18 20 Rate Blood Pressure 119/93 (mmHg) O2 Sat by Pulse 100 Oximetry 08/17/16 08/17/16 08/17/16 22:06 23:35 23:41 Temperature Pulse Rate 89 86 Respiratory 18 18 16 Rate Blood Pressure 151/88 (mmHg) O2 Sat by Pulse 98 97 Oximetry 08/18/16 08/18/16 08/18/16 00:00 03:15 03:34 Temperature Pulse Rate 80 87 Respiratory 20 16 Rate Blood Pressure 150/78 (mmHg) O2 Sat by Pulse 98 98 100 Oximetry 08/18/16 08/18/16 08/18/16 07:28 07:35 09:57 Temperature Pulse Rate 61 81 Respiratory 20 24 14 Rate Blood Pressure 199/85 (mmHg) O2 Sat by Pulse 99 98 Oximetry Oxygen Devices in Use Now: Nasal Cannula - 2L-98% Appearance: Middle aged female sitting in a chair, NAD Eyes: No Scleral Icterus Ears/Nose/Mouth/Throat: Mucous Membranes Moist Respiratory: Symmetrical Chest Expansion and Respiratory Effort, Clear to Auscultation - improved breath sounds at the right base but still diminished compared to the other lung cahvez Cardiovascular: NL Sounds; No Murmurs; No JVD, RRR Abdominal: NL Sounds; No Tenderness; No Distention Extremities: No Clubbing, Cyanosis Skin: No Rash or Ulcers, No Nodules or Sclerosis Neurological: Alert and Oriented x 3 Result Diagrams: 08/17/16 05:29 08/17/16 05:30 Additional Lab and Data: Lab Results 08/13/16 08/13/16 08/13/16 Range/Units 14:25 14:25 14:25 WBC 26.6 H (3.5-10.8) 10^3/ul RBC 4.80 (4.0-5.4) 10^6/ul Hgb 13.8 (12.0-16.0) g/dl Hct 43 (35-47) % MCV 90 (80-97) fL MCH 29 (27-31) pg MCHC 32 (31-36) g/dl RDW 16 H (10.5-15) % Plt Count 352 (150-450) 10^3/ul MPV 9 (7.4-10.4) um3 Neut % (Auto) 87.8 H (38-83) % Lymph % (Auto) 6.5 L (25-47) % [place] % (Auto) 4.7 (1-9) % Eos % (Auto) 0.1 (0-6) % Baso % (Auto) 0.9 (0-2) % Absolute Neuts (auto) 23.4 H (1.5-7.7) 10^3/ul Absolute Lymphs (auto) 1.7 (1.0-4.8) 10^3/ul Absolute Monos (auto) 1.3 H (0-0.8) 10^3/ul Absolute Eos (auto) 0 (0-0.6) 10^3/ul Absolute Basos (auto) 0.2 (0-0.2) 10^3/ul Absolute Nucleated RBC 0 10^3/ul Nucleated RBC % 0 INR (Anticoag Therapy) 2.04 H (0.89-1.11) APTT 30.2 (26.0-36.3) seconds Sodium 135 (133-145) mmol/L Potassium 4.6 (3.5-5.0) mmol/L Chloride 101 (101-111) mmol/L Carbon Dioxide 24 (22-32) mmol/L Anion Gap 10 (2-11) mmol/L BUN 26 H (6-24) mg/dL Creatinine 1.01 H (0.51-0.95) mg/dL Est GFR ( Amer) 72.7 (>60) Est GFR (Non-Af Amer) 56.5 (>60) BUN/Creatinine Ratio 25.7 H (8-20) Glucose 198 H (70-100) mg/dL Lactic Acid (0.5-2.0) mmol/L Calcium 10.1 (8.6-10.3) mg/dL Magnesium 1.9 (1.9-2.7) mg/dL Total Bilirubin 0.40 (0.2-1.0) mg/dL AST 21 (13-39) U/L ALT 34 (7-52) U/L Alkaline Phosphatase 78 (34-104) U/L CK-MB (CK-2) 4.7 (0.6-6.3) ng/mL Troponin I 0.05 H* (<0.04) ng/mL B-Natriuretic Peptide ( - 100) pg/mL Total Protein 7.0 (6.4-8.9) g/dL Albumin 3.9 (3.2-5.2) g/dL Globulin 3.1 (2-4) g/dL Albumin/Globulin Ratio 1.3 (1-3) TSH 2.12 (0.34-5.60) mcIU/mL Thyroxine (T4) 7.38 (6.09-12.23) g/dL 08/13/16 08/13/16 Range/Units 14:25 14:25 WBC (3.5-10.8) 10^3/ul RBC (4.0-5.4) 10^6/ul Hgb (12.0-16.0) g/dl Hct (35-47) % MCV (80-97) fL MCH (27-31) pg MCHC (31-36) g/dl RDW (10.5-15) % Plt Count (150-450) 10^3/ul MPV (7.4-10.4) um3 Neut % (Auto) (38-83) % Lymph % (Auto) (25-47) % [place] % (Auto) (1-9) % Eos % (Auto) (0-6) % Baso % (Auto) (0-2) % Absolute Neuts (auto) (1.5-7.7) 10^3/ul Absolute Lymphs (auto) (1.0-4.8) 10^3/ul Absolute Monos (auto) (0-0.8) 10^3/ul Absolute Eos (auto) (0-0.6) 10^3/ul Absolute Basos (auto) (0-0.2) 10^3/ul Absolute Nucleated RBC 10^3/ul Nucleated RBC % INR (Anticoag Therapy) (0.89-1.11) APTT (26.0-36.3) seconds Sodium (133-145) mmol/L Potassium (3.5-5.0) mmol/L Chloride (101-111) mmol/L Carbon Dioxide (22-32) mmol/L Anion Gap (2-11) mmol/L BUN (6-24) mg/dL Creatinine (0.51-0.95) mg/dL Est GFR ( Amer) (>60) Est GFR (Non-Af Amer) (>60) BUN/Creatinine Ratio (8-20) Glucose (70-100) mg/dL Lactic Acid 3.9 H* (0.5-2.0) mmol/L Calcium (8.6-10.3) mg/dL Magnesium (1.9-2.7) mg/dL Total Bilirubin (0.2-1.0) mg/dL AST (13-39) U/L ALT (7-52) U/L Alkaline Phosphatase (34-104) U/L CK-MB (CK-2) (0.6-6.3) ng/mL Troponin I (<0.04) ng/mL B-Natriuretic Peptide 177 H ( - 100) pg/mL Total Protein (6.4-8.9) g/dL Albumin (3.2-5.2) g/dL Globulin (2-4) g/dL Albumin/Globulin Ratio (1-3) TSH (0.34-5.60) mcIU/mL Thyroxine (T4) (6.09-12.23) g/dL Microbiology and Other Data: Microbiology 08/13/16 17:00 Aerobic Blood Culture - Final Blood Venous Streptococcus Viridans Group Anaerobic Blood Culture - Preliminary Blood Culture - Final 08/14/16 05:25 Aerobic Blood Culture - Preliminary Blood Venous No Growth Day 2 Anaerobic Blood Culture - Preliminary No Growth Day 2 Blood Culture - Final 08/14/16 08:45 Nasal Screen MRSA (PCR)([facility]) - Final Nasal Mrsa Negative 08/14/16 08:45 Influenza Types A,B Antigen ([facility]) - Final Nasal Specimen received for Influenza A/B Molecular testing 08/14/16 04:57 Legionella Urinary Antigen - Final Urine Negative Legionella Streptococcus pneumoniae Ag Screen - Final Negative S. pneumo Antigen Assess/Plan/Problems-Billing Ms. Purvis is a 56yo F with PMHx of morbid obesity with BMI>50, HTN, asthma/ COPD, fibromyalgia, type 2 DM, atrial fibrillation and JULIANA on CPAP, who presented to ED with c/o worsening dyspnea and cough, found to have severe sepsis and COPD exacerbation likely secondary to bronchitis. - Patient Problems (1) Acute hypoxemic respiratory failure Current Visit: Yes Status: Acute Code(s): J96.01 - ACUTE RESPIRATORY FAILURE WITH HYPOXIA SNOMED Code(s): 610464942 Comment: Resolved. Still on 2L O2 but I suspect she can be weaned off today after diuresing her. (2) Acute exacerbation of chronic obstructive pulmonary disease (COPD) Current Visit: Yes Status: Acute Code(s): J44.1 - CHRONIC OBSTRUCTIVE PULMONARY DISEASE W (ACUTE) EXACERBATION SNOMED Code(s): 799488276 Comment: Secondary to bronchitis vs pneumonia. CXR still does not show a clear infiltrate though the imaging quality is poor. She would benefit from a CT chest but she can not lie flat for the test. Improving very slowly. Stop solumedrol and change to prednisone 40mg daily. I think some of her SOB more recently has been pulmonary edema related to aggressive IVF hydration she received early on this admission. Will keep utilizing IV lasix for now. (3) Severe sepsis Current Visit: Yes Status: Acute Code(s): A41.9 - SEPSIS, UNSPECIFIED ORGANISM; R65.20 - SEVERE SEPSIS WITHOUT SEPTIC SHOCK SNOMED Code(s): 30543347 Comment: On admission the patient met sepsis 2 criteria with leukocytosis, tachycardia and respiratory failure secondary to presumed bronchitis. She had a qSOFA score of 2 on admission and a SOFA score of at most 2 (for MAP <70 and GCS 13-14). Sepsis has resolved at this time. (4) Bronchitis Current Visit: Yes Status: Acute Code(s): J40 - BRONCHITIS, NOT SPECIFIED ACUTE OR CHRONIC SNOMED Code(s): 39559679 Comment: Today is D#6 of Abx therapy. Will change to levaquin for 2 more days. (5) Atrial fibrillation with RVR Current Visit: Yes Status: Acute Code(s): I48.91 - UNSPECIFIED ATRIAL FIBRILLATION SNOMED Code(s): 126937030739588 Comment: Rate is controlled on metoprolol tartrate 50mg BID, cardizem CD 180mg daily and digoxin 0.125mg daily. (6) Elevated troponin Current Visit: Yes Status: Acute Code(s): R79.89 - OTHER SPECIFIED ABNORMAL FINDINGS OF BLOOD CHEMISTRY SNOMED Code(s): 822090113 Comment: Likely secondary to demand ischemia in the setting of sepsis and Afib with RVR. No further work up necessary at this time. Outpatient ischemic workup could be considered when she has recovered from her acute illness. (7) Lactic acidosis Current Visit: Yes Status: Acute Code(s): E87.2 - ACIDOSIS SNOMED Code(s) : 87405417 Comment: Secondary to sepsis. Last read was improved from admission. (8) Type 2 diabetes mellitus Current Visit: Yes Status: Acute Comment: Sugars are still markedly elevated despite decreasing the solumedrol. Increase lantus to 25 units SQ daily. Continue glipizide. (9) HTN (hypertension) Current Visit: Yes Status: Acute Priority: High Code(s): I10 - ESSENTIAL ( PRIMARY) HYPERTENSION SNOMED Code(s): 28724685 Comment: BP is markedly elevated again this AM. Increase lisinopril to 20mg daily. Continue diltiazem and metoprolol. (10) DVT prophylaxis Current Visit: Yes Status: Acute Priority: High Code(s): AJT4563 - SNOMED Code(s): 400164038 Comment: Debra (11) Full code status Current Visit: Yes Status: Acute Priority: High Code(s): Z78.9 - OTHER SPECIFIED HEALTH STATUS SNOMED Code(s): 141444417 Status and Disposition: .
[2016-08-18] MEDS: Levofloxacin TAB* 500 MG PO SCH (11:37)
[2016-08-18] MEDS: Digoxin TAB* 0.125 MG PO SCH (17:12)
[2016-08-18] MEDS: Insulin GLARGINE(*) 1 UNITS UNIT SUBCUT SCH (17:41)
[2016-08-18] MEDS: HYDROcodone/ACETAMIN 5-325 MG* 1 TAB PO PRN (20:52)
[2016-08-18] MEDS: Montelukast Sodium TAB* 10 MG PO SCH (20:53)
[2016-08-19] MEDS: Albuterol/Ipratropium NEB.SOL* Albuterol 2.5 MG/Ipratropium 0.5 MG 3 ML INH PRN ×4 (03:07→23:33)
[2016-08-19 06:48] LABS: Add Diff/Slide Review? Slide Review Added; Comments Flag Yes; Hematocrit 40 % (35-47); Mean Corpuscular HGB Conc 32 g/dl (31-36); Mean Corpuscular Hemoglobin 29 pg (27-31); Mean Corpuscular Volume 90 fL (80-97); Mean Platelet Volume 9 um3 (7.4-10.4); Red Blood Count 4.49 10^6/ul (4.0-5.4); Red Cell Distribution Width 16 % (10.5-15); White Blood Count 24.7 10^3/ul (3.5-10.8)
[2016-08-19 07:08] LABS: BUN/Creatinine Ratio 41.9 (8-20); Calcium 9.3 mg/dL (8.6-10.3); EGFR African American 79.9 (>60); EGFR Non-African American 62.1 (>60); Potassium 4.7 mmol/L (3.5-5.0)
[2016-08-19 07:23] LABS: Digoxin 0.7 ng/ml (0.8-2.0)
[2016-08-19] MEDS: Tiotropium CAP.INH* CAP.INH/18 MCG (USE ORDER SET !) INH SCH (08:02)
[2016-08-19] MEDS: Mometasone/Formoter 200/5 MDI INH SCH ×2 (08:02→20:05)
[2016-08-19] MEDS: Rivaroxaban TAB(*) 20 MG TAB PO SCH (09:16)
[2016-08-19] MEDS: glipiZIDE TAB* 5 MG PO SCH ×2 (09:16→17:14)
[2016-08-19] MEDS: guaiFENesin ER TAB 600 MG PO SCH ×2 (09:16→20:41)
[2016-08-19] MEDS: Diltiazem CD CAP* 180 MG PO SCH (09:16)
[2016-08-19] MEDS: Lisinopril TAB* 10 MG PO SCH (09:17)
[2016-08-19] MEDS: Levofloxacin TAB* 500 MG PO SCH (09:17)
[2016-08-19] MEDS: Metoprolol Tartrate TAB* 50 mg PO SCH ×3 (09:17→20:59)
[2016-08-19] MEDS: Insulin LISPRO* 1 UNITS UNIT SUBCUT SCH ×4 (09:17→20:43)
[2016-08-19] MEDS: Acetaminophen TAB* 325 MG PO PRN (09:18)
[2016-08-19] MEDS: Furosemide IV* 10 MG/ML VIAL (40 MG) IV SLOW PU SCH (09:18)
--- NOTE | 2016-08-19 11:43 | PN ---
Subjective Date of Service: 08/19/16 Interval History: Pt is feeling better but still quite SOB with minimal exertion. She continues to cough but feels like phlegm is stuck in her chest and like she can not get it out. Objective Active Medications: Acetaminophen (Tylenol Tab*) 650 mg PO Q6H PRN PRN Reason: pain/fever Last Admin: 08/19/16 09:18 Dose: 650 mg Acetaminophen/Hydrocodone Bitart ([place] 5-325 Tab*) 1 tab PO BID PRN PRN Reason: PAIN Last Admin: 08/18/16 20:52 Dose: 1 tab Albuterol (Ventolin Hfa Inhaler*) 2 puff INH Q4HR PRN PRN Reason: SHORTNESS OF BREATH Last Admin: 08/15/16 16:46 Dose: 2 puff Albuterol/Ipratropium (Duoneb Neb.Belinda*) 1 neb INH Q2H PRN PRN Reason: SOB/WHEEZING Last Admin: 08/19/16 03:07 Dose: 1 neb Benzonatate (Tessalon Cap*) 100 mg PO BID PRN PRN Reason: COUGH Last Admin: 08/18/16 20:53 Dose: 100 mg Cyclobenzaprine HCl (Flexeril Tab*) 5 mg PO TID PRN PRN Reason: PAIN Last Admin: 08/15/16 01:02 Dose: 5 mg Dextrose (D50w Syringe 50 Ml*) 12.5 gm IV PUSH .FOR FS < 60 - SS PRN PRN Reason: FS < 60 Digoxin (Lanoxin Tab*) 0.125 mg PO 1700 [facility] Last Admin: 08/18/16 17:12 Dose: 0.125 mg Diltiazem HCl (Cardizem Cd Cap*) 180 mg PO DAILY [facility] Last Admin: 08/19/16 09:16 Dose: 180 mg Docusate Sodium (Colace Cap*) 100 mg PO BID PRN PRN Reason: CONSTIPATION Furosemide (Lasix Iv*) 40 mg IV SLOW PU DAILY [facility] Last Admin: 08/19/16 09:18 Dose: 40 mg Glipizide (Glucotrol Tab*) 10 mg PO 0800,1700 [facility] Last Admin: 08/19/16 09:16 Dose: 10 mg Guaifenesin (Mucinex*) 1,200 mg PO BID [facility] Last Admin: 08/19/16 09:16 Dose: 1,200 mg Insulin Glargine (Lantus(*)) 25 units SUBCUT Q24H [facility] Last Admin: 08/18/16 17:41 Dose: 25 unit Insulin Human Lispro (Humalog*) 0 units SUBCUT ACHS [facility] PRN Reason: Protocol Last Admin: 08/19/16 09:17 Dose: 2 units Levofloxacin (Levaquin Tab*) 500 mg PO Q24H [facility] Last Admin: 08/19/16 09:17 Dose: 500 mg Lisinopril (Prinivil Tab*) 20 mg PO QAM [facility] Last Admin: 08/19/16 09:17 Dose: 20 mg Metoprolol Tartrate (Lopressor Tab*) 50 mg PO BID [facility] Last Admin: 08/19/16 09:17 Dose: 50 mg Mometasone Furoate/Formoterol Fumar (Dulera 200/5 Mdi*) 2 puff INH BID [facility] PRN Reason: Protocol Last Admin: 08/19/16 08:02 Dose: 2 puff Montelukast Sodium (Singulair Tab*) 10 mg PO BEDTIME [facility] Last Admin: 08/18/16 20:53 Dose: 10 mg Morphine Sulfate (Morphine Inj (Syringe)*) 1 mg IV Q2H PRN PRN Reason: Pain/Tachypnea RR>22 Last Admin: 08/14/16 12:07 Dose: 1 mg Rivaroxaban (Xarelto (*)) 20 mg PO DAILY WITH MEAL [facility] Last Admin: 08/19/16 09:16 Dose: 20 mg Tiotropium [place] (Spiriva Cap.Inh*) 1 cap INH DAILY [facility] Last Admin: 08/19/16 08:02 Dose: 1 cap Vital Signs 08/18/16 08/18/16 08/18/16 11:32 15:32 16:15 Temperature 97.4 F 98.1 F Pulse Rate 113 76 Respiratory 20 16 Rate Blood Pressure 147/84 169/86 (mmHg) O2 Sat by Pulse 99 98 Oximetry 08/18/16 08/18/16 08/18/16 18:17 19:42 20:00 Temperature 98.4 F Pulse Rate 90 88 Respiratory 16 20 Rate Blood Pressure 153/100 (mmHg) O2 Sat by Pulse 97 99 98 Oximetry 02/16/17 02/16/17 02/16/17 20:30 20:52 22:52 Temperature Pulse Rate 88 Respiratory 18 20 20 Rate Blood Pressure (mmHg) O2 Sat by Pulse 98 Oximetry 08/19/16 08/19/16 08/19/16 00:00 00:03 03:00 Temperature Pulse Rate 67 75 Respiratory 16 19 Rate Blood Pressure 137/91 173/85 (mmHg) O2 Sat by Pulse 93 99 100 Oximetry 08/19/16 08/19/16 08/19/16 03:08 05:56 07:16 Temperature 97.6 F Pulse Rate 96 94 Respiratory 20 20 Rate Blood Pressure 112/76 96/59 (mmHg) O2 Sat by Pulse 93 100 Oximetry 08/19/16 08/19/16 08/19/16 08:00 08:03 09:09 Temperature Pulse Rate 76 Respiratory 18 16 Rate Blood Pressure 167/82 (mmHg) O2 Sat by Pulse 97 97 Oximetry Oxygen Devices in Use Now: Nasal Cannula - 2L-97% Appearance: Middle aged morbidly obese sitting up in bed, NAD Eyes: No Scleral Icterus Ears/Nose/Mouth/Throat: Mucous Membranes Moist Respiratory: Symmetrical Chest Expansion and Respiratory Effort, Clear to Auscultation - diminished breath sounds in all lung chavez except the R base that is markedly diminished Cardiovascular: NL Sounds; No Murmurs; No JVD, - - irregularly irregular, controlled rate, 2-3+ LE edema Abdominal: NL Sounds; No Tenderness; No Distention Extremities: No Clubbing, Cyanosis Skin: No Rash or Ulcers, No Nodules or Sclerosis Neurological: Alert and Oriented x 3 Result Diagrams: 08/19/16 06:05 08/19/16 06:05 Additional Lab and Data: Lab Results 08/13/16 08/13/16 08/13/16 Range/Units 14:25 14:25 14:25 WBC 26.6 H (3.5-10.8) 10^3/ul RBC 4.80 (4.0-5.4) 10^6/ul Hgb 13.8 (12.0-16.0) g/dl Hct 43 (35-47) % MCV 90 (80-97) fL MCH 29 (27-31) pg MCHC 32 (31-36) g/dl RDW 16 H (10.5-15) % Plt Count 352 (150-450) 10^3/ul MPV 9 (7.4-10.4) um3 Neut % (Auto) 87.8 H (38-83) % Lymph % (Auto) 6.5 L (25-47) % [place] % (Auto) 4.7 (1-9) % Eos % (Auto) 0.1 (0-6) % Baso % (Auto) 0.9 (0-2) % Absolute Neuts (auto) 23.4 H (1.5-7.7) 10^3/ul Absolute Lymphs (auto) 1.7 (1.0-4.8) 10^3/ul Absolute Monos (auto) 1.3 H (0-0.8) 10^3/ul Absolute Eos (auto) 0 (0-0.6) 10^3/ul Absolute Basos (auto) 0.2 (0-0.2) 10^3/ul Absolute Nucleated RBC 0 10^3/ul Nucleated RBC % 0 INR (Anticoag Therapy) 2.04 H (0.89-1.11) APTT 30.2 (26.0-36.3) seconds Sodium 135 (133-145) mmol/L Potassium 4.6 (3.5-5.0) mmol/L Chloride 101 (101-111) mmol/L Carbon Dioxide 24 (22-32) mmol/L Anion Gap 10 (2-11) mmol/L BUN 26 H (6-24) mg/dL Creatinine 1.01 H (0.51-0.95) mg/dL Est GFR ( Amer) 72.7 (>60) Est GFR (Non-Af Amer) 56.5 (>60) BUN/Creatinine Ratio 25.7 H (8-20) Glucose 198 H (70-100) mg/dL Lactic Acid (0.5-2.0) mmol/L Calcium 10.1 (8.6-10.3) mg/dL Magnesium 1.9 (1.9-2.7) mg/dL Total Bilirubin 0.40 (0.2-1.0) mg/dL AST 21 (13-39) U/L ALT 34 (7-52) U/L Alkaline Phosphatase 78 (34-104) U/L CK-MB (CK-2) 4.7 (0.6-6.3) ng/mL Troponin I 0.05 H* (<0.04) ng/mL B-Natriuretic Peptide ( - 100) pg/mL Total Protein 7.0 (6.4-8.9) g/dL Albumin 3.9 (3.2-5.2) g/dL Globulin 3.1 (2-4) g/dL Albumin/Globulin Ratio 1.3 (1-3) TSH 2.12 (0.34-5.60) mcIU/mL Thyroxine (T4) 7.38 (6.09-12.23) g/dL 08/13/16 08/13/16 Range/Units 14:25 14:25 WBC (3.5-10.8) 10^3/ul RBC (4.0-5.4) 10^6/ul Hgb (12.0-16.0) g/dl Hct (35-47) % MCV (80-97) fL MCH (27-31) pg MCHC (31-36) g/dl RDW (10.5-15) % Plt Count (150-450) 10^3/ul MPV (7.4-10.4) um3 Neut % (Auto) (38-83) % Lymph % (Auto) (25-47) % [place] % (Auto) (1-9) % Eos % (Auto) (0-6) % Baso % (Auto) (0-2) % Absolute Neuts (auto) (1.5-7.7) 10^3/ul Absolute Lymphs (auto) (1.0-4.8) 10^3/ul Absolute Monos (auto) (0-0.8) 10^3/ul Absolute Eos (auto) (0-0.6) 10^3/ul Absolute Basos (auto) (0-0.2) 10^3/ul Absolute Nucleated RBC 10^3/ul Nucleated RBC % INR (Anticoag Therapy) (0.89-1.11) APTT (26.0-36.3) seconds Sodium (133-145) mmol/L Potassium (3.5-5.0) mmol/L Chloride (101-111) mmol/L Carbon Dioxide (22-32) mmol/L Anion Gap (2-11) mmol/L BUN (6-24) mg/dL Creatinine (0.51-0.95) mg/dL Est GFR ( Amer) (>60) Est GFR (Non-Af Amer) (>60) BUN/Creatinine Ratio (8-20) Glucose (70-100) mg/dL Lactic Acid 3.9 H* (0.5-2.0) mmol/L Calcium (8.6-10.3) mg/dL Magnesium (1.9-2.7) mg/dL Total Bilirubin (0.2-1.0) mg/dL AST (13-39) U/L ALT (7-52) U/L Alkaline Phosphatase (34-104) U/L CK-MB (CK-2) (0.6-6.3) ng/mL Troponin I (<0.04) ng/mL B-Natriuretic Peptide 177 H ( - 100) pg/mL Total Protein (6.4-8.9) g/dL Albumin (3.2-5.2) g/dL Globulin (2-4) g/dL Albumin/Globulin Ratio (1-3) TSH (0.34-5.60) mcIU/mL Thyroxine (T4) (6.09-12.23) g/dL Microbiology and Other Data: Microbiology 08/13/16 17:00 Aerobic Blood Culture - Final Blood Venous Streptococcus Viridans Group Anaerobic Blood Culture - Preliminary Blood Culture - Final 08/14/16 05:25 Aerobic Blood Culture - Preliminary Blood Venous No Growth Day 2 Anaerobic Blood Culture - Preliminary No Growth Day 2 Blood Culture - Final 08/14/16 08:45 Nasal Screen MRSA (PCR)([facility]) - Final Nasal Mrsa Negative 08/14/16 08:45 Influenza Types A,B Antigen ([facility]) - Final Nasal Specimen received for Influenza A/B Molecular testing 08/14/16 04:57 Legionella Urinary Antigen - Final Urine Negative Legionella Streptococcus pneumoniae Ag Screen - Final Negative S. pneumo Antigen Assess/Plan/Problems-Billing Ms. Purvis is a 56yo F with PMHx of morbid obesity with BMI>50, HTN, asthma/ COPD, fibromyalgia, type 2 DM, atrial fibrillation and JULIANA on CPAP, who presented to ED with c/o worsening dyspnea and cough, found to have severe sepsis and COPD exacerbation likely secondary to bronchitis. - Patient Problems (1) Acute hypoxemic respiratory failure Current Visit: Yes Status: Acute Code(s): J96.01 - ACUTE RESPIRATORY FAILURE WITH HYPOXIA SNOMED Code(s): 702315118 Comment: Resolved. Still on 2L O2 as pt feels better with the O2 in place. (2) Acute exacerbation of chronic obstructive pulmonary disease (COPD) Current Visit: Yes Status: Acute Code(s): J44.1 - CHRONIC OBSTRUCTIVE PULMONARY DISEASE W (ACUTE) EXACERBATION SNOMED Code(s): 568621656 Comment: Pt continues to be quite SOB with minimal exertion, improved some while at rest. She still can not lie flat for the CT scan. Continue prednisone though the the patient's breath sounds are diminished more than yesterday. Continue IV lasix for possible pulmonary edema-she seems to be improving from the lasix (decreased LE edema and breathing is easier). Will attempt to diurese further and consider attempt at CT tomorrow if no better. She has completed 7 days of Abx after today's dose. I do not think she needs further Abx. (3) Severe sepsis Current Visit: Yes Status: Acute Code(s): A41.9 - SEPSIS, UNSPECIFIED ORGANISM; R65.20 - SEVERE SEPSIS WITHOUT SEPTIC SHOCK SNOMED Code(s): 10986137 Comment: Sepsis has resolved. She has a persistent leukocytosis-I doubt this indicates ongoing infection but more likely stress rxn or leukocytosis secondary to steroid use. Will monitor for other signs of infection. (4) Bronchitis Current Visit: Yes Status: Acute Code(s): J40 - BRONCHITIS, NOT SPECIFIED ACUTE OR CHRONIC SNOMED Code(s): 52409424 Comment: Pt completes Abx after today's dose. (5) Atrial fibrillation with RVR Current Visit: Yes Status: Acute Code(s): I48.91 - UNSPECIFIED ATRIAL FIBRILLATION SNOMED Code(s): 625240755556234 Comment: Rate is controlled on metoprolol tartrate 50mg BID, cardizem CD 180mg daily and digoxin 0.125mg daily except when up and about her HR goes up to ~120's. Continue xarelto. (6) Elevated troponin Current Visit: Yes Status: Acute Code(s): R79.89 - OTHER SPECIFIED ABNORMAL FINDINGS OF BLOOD CHEMISTRY SNOMED Code(s): 730881371 Comment: Likely secondary to demand ischemia in the setting of sepsis and Afib with RVR. No further work up necessary at this time. Outpatient ischemic workup could be considered when she has recovered from her acute illness. (7) Type 2 diabetes mellitus Current Visit: Yes Status: Acute Comment: Sugars have been better today. Continue current regimen. (8) HTN (hypertension) Current Visit: Yes Status: Acute Priority: High Code(s): I10 - ESSENTIAL ( PRIMARY) HYPERTENSION SNOMED Code(s): 46359209 Comment: BP varies by arm being used-additionally her BPs have been check on her forearm. Will try to obtain as accurate BP as possible utilizing the correct sized cuff. (9) DVT prophylaxis Current Visit: Yes Status: Acute Priority: High Code(s): WUX2152 - SNOMED Code(s): 026433924 Comment: Debra (10) Full code status Current Visit: Yes Status: Acute Priority: High Code(s): Z78.9 - OTHER SPECIFIED HEALTH STATUS SNOMED Code(s): 108569619 Status and Disposition: .
[2016-08-19] MEDS: Digoxin TAB* 0.125 MG PO SCH (17:12)
[2016-08-19] MEDS: Insulin GLARGINE(*) 1 UNITS UNIT SUBCUT SCH (17:12)
[2016-08-19] MEDS: Montelukast Sodium TAB* 10 MG PO SCH (20:41)
[2016-08-19] MEDS: HYDROcodone/ACETAMIN 5-325 MG* 1 TAB PO PRN (20:42)
[2016-08-20] MEDS: Morphine INJ* 2 MG/ML 1 ML CARPUJECT IV PRN (02:31)
[2016-08-20] MEDS: Benzonatate CAP* 100 MG PO PRN (02:37)
[2016-08-20] MEDS: Mometasone/Formoter 200/5 MDI INH SCH (08:18)
[2016-08-20] MEDS: Tiotropium CAP.INH* CAP.INH/18 MCG (USE ORDER SET !) INH SCH (08:18)
[2016-08-20] MEDS: glipiZIDE TAB* 5 MG PO SCH (08:37)
[2016-08-20] MEDS: Lisinopril TAB* 10 MG PO SCH (08:37)
[2016-08-20] MEDS: guaiFENesin ER TAB 600 MG PO SCH (08:37)
[2016-08-20] MEDS: Metoprolol Tartrate TAB* 50 mg PO SCH (08:37)
[2016-08-20] MEDS: Diltiazem CD CAP* 180 MG PO SCH (08:37)
[2016-08-20] MEDS: Furosemide IV* 10 MG/ML VIAL (40 MG) IV SLOW PU SCH (08:37)
[2016-08-20] MEDS: Rivaroxaban TAB(*) 20 MG TAB PO SCH (08:38)
[2016-08-20] MEDS: Acetaminophen TAB* 325 MG PO PRN (08:38)
[2016-08-20] MEDS: Insulin LISPRO* 1 UNITS UNIT SUBCUT SCH ×2 (08:38→12:35)
[2016-08-20] MEDS: Albuterol/Ipratropium NEB.SOL* Albuterol 2.5 MG/Ipratropium 0.5 MG 3 ML INH PRN (11:27)
[2016-08-20] MEDS ORDERED: Insulin GLARGINE(*) 1 UNITS UNIT SUBCUT SCH (11:30)
[2016-08-20 13:14] VITALS: BP 114/56
--- NOTE | 2016-08-20 15:27 | PN ---
Subjective Date of Service: 08/20/16 Interval History: Pt is feeling better. She would like to go home. She has started bringing up some clear mucous. She still feels SOB with exertion but thinks she will be able to manage at home. Objective Active Medications: Acetaminophen (Tylenol Tab*) 650 mg PO Q6H PRN PRN Reason: pain/fever Last Admin: 08/20/16 08:38 Dose: 650 mg Acetaminophen/Hydrocodone Bitart ([place] 5-325 Tab*) 1 tab PO BID PRN PRN Reason: PAIN Last Admin: 08/19/16 20:42 Dose: 1 tab Albuterol (Ventolin Hfa Inhaler*) 2 puff INH Q4HR PRN PRN Reason: SHORTNESS OF BREATH Last Admin: 08/15/16 16:46 Dose: 2 puff Albuterol/Ipratropium (Duoneb Neb.Belinda*) 1 neb INH Q2H PRN PRN Reason: SOB/WHEEZING Last Admin: 08/20/16 11:27 Dose: 1 neb Benzonatate (Tessalon Cap*) 100 mg PO BID PRN PRN Reason: COUGH Last Admin: 08/20/16 02:37 Dose: 100 mg Cyclobenzaprine HCl (Flexeril Tab*) 5 mg PO TID PRN PRN Reason: PAIN Last Admin: 08/15/16 01:02 Dose: 5 mg Dextrose (D50w Syringe 50 Ml*) 12.5 gm IV PUSH .FOR FS < 60 - SS PRN PRN Reason: FS < 60 Digoxin (Lanoxin Tab*) 0.125 mg PO 1700 [facility] Last Admin: 08/19/16 17:12 Dose: 0.125 mg Diltiazem HCl (Cardizem Cd Cap*) 180 mg PO DAILY [facility] Last Admin: 08/20/16 08:37 Dose: 180 mg Docusate Sodium (Colace Cap*) 100 mg PO BID PRN PRN Reason: CONSTIPATION Furosemide (Lasix Iv*) 40 mg IV SLOW PU DAILY [facility] Last Admin: 08/20/16 08:37 Dose: 40 mg Glipizide (Glucotrol Tab*) 10 mg PO 0800,1700 [facility] Last Admin: 08/20/16 08:37 Dose: 10 mg Guaifenesin (Mucinex*) 1,200 mg PO BID [facility] Last Admin: 08/20/16 08:37 Dose: 1,200 mg Insulin Glargine (Lantus(*)) 15 units SUBCUT Q24H [facility] Last Admin: 08/20/16 12:34 Dose: 15 unit Insulin Human Lispro (Humalog*) 0 units SUBCUT ACHS [facility] PRN Reason: Protocol Last Admin: 08/20/16 12:35 Dose: 3 units Lisinopril (Prinivil Tab*) 20 mg PO QAM [facility] Last Admin: 08/20/16 08:37 Dose: 20 mg Metoprolol Tartrate (Lopressor Tab*) 50 mg PO BID [facility] Last Admin: 08/20/16 08:37 Dose: 50 mg Mometasone Furoate/Formoterol Fumar (Dulera 200/5 Mdi*) 2 puff INH BID [facility] PRN Reason: Protocol Last Admin: 08/20/16 08:18 Dose: 2 puff Montelukast Sodium (Singulair Tab*) 10 mg PO BEDTIME [facility] Last Admin: 08/19/16 20:41 Dose: 10 mg Morphine Sulfate (Morphine Inj (Syringe)*) 1 mg IV Q2H PRN PRN Reason: Pain/Tachypnea RR>22 Last Admin: 08/20/16 02:31 Dose: 1 mg Rivaroxaban (Xarelto (*)) 20 mg PO DAILY WITH MEAL [facility] Last Admin: 08/20/16 08:38 Dose: 20 mg Tiotropium Dike (Spiriva Cap.Inh*) 1 cap INH DAILY [facility] Last Admin: 08/20/16 08:18 Dose: 1 cap Vital Signs 08/19/16 08/19/16 08/19/16 16:00 16:23 17:12 Temperature 98.1 F Pulse Rate 87 104 Respiratory 16 Rate Blood Pressure 145/73 (mmHg) O2 Sat by Pulse 96 96 Oximetry 08/19/16 08/19/16 08/19/16 19:52 20:00 20:07 Temperature 98.3 F Pulse Rate 60 Respiratory 16 18 Rate Blood Pressure 151/85 (mmHg) O2 Sat by Pulse 94 97 Oximetry 08/19/16 08/19/16 08/19/16 20:13 20:42 20:57 Temperature Pulse Rate 92 115 Respiratory 18 Rate Blood Pressure (mmHg) O2 Sat by Pulse 97 Oximetry 08/19/16 08/19/16 08/20/16 21:01 22:42 00:00 Temperature Pulse Rate Respiratory 18 Rate Blood Pressure 140/80 (mmHg) O2 Sat by Pulse 95 Oximetry 08/20/16 08/20/16 08/20/16 00:01 02:31 03:31 Temperature 97.5 F Pulse Rate 78 Respiratory 16 18 18 Rate Blood Pressure 123/65 (mmHg) O2 Sat by Pulse 95 Oximetry 08/20/16 08/20/16 08/20/16 04:23 06:56 07:42 Temperature 97.9 F 98.0 F Pulse Rate 86 84 Respiratory 16 20 16 Rate Blood Pressure 148/70 147/66 (mmHg) O2 Sat by Pulse 94 94 94 Oximetry 08/20/16 08/20/16 11:22 11:29 Temperature 98.0 F Pulse Rate 81 66 Respiratory 16 17 Rate Blood Pressure 114/56 (mmHg) O2 Sat by Pulse 94 97 Oximetry Oxygen Devices in Use Now: None Appearance: Obese middle aged female sitting in a chair, NAD Eyes: No Scleral Icterus Ears/Nose/Mouth/Throat: Mucous Membranes Moist Respiratory: Symmetrical Chest Expansion and Respiratory Effort, Clear to Auscultation Cardiovascular: NL Sounds; No Murmurs; No JVD, - - 1-2+ LE edema, irregularly irregular HR-controlled Abdominal: NL Sounds; No Tenderness; No Distention Extremities: No Clubbing, Cyanosis Skin: No Rash or Ulcers, No Nodules or Sclerosis Neurological: Alert and Oriented x 3 Result Diagrams: 08/19/16 06:05 08/19/16 06:05 Additional Lab and Data: Lab Results 08/13/16 08/13/16 08/13/16 Range/Units 14:25 14:25 14:25 WBC 26.6 H (3.5-10.8) 10^3/ul RBC 4.80 (4.0-5.4) 10^6/ul Hgb 13.8 (12.0-16.0) g/dl Hct 43 (35-47) % MCV 90 (80-97) fL MCH 29 (27-31) pg MCHC 32 (31-36) g/dl RDW 16 H (10.5-15) % Plt Count 352 (150-450) 10^3/ul MPV 9 (7.4-10.4) um3 Neut % (Auto) 87.8 H (38-83) % Lymph % (Auto) 6.5 L (25-47) % [place] % (Auto) 4.7 (1-9) % Eos % (Auto) 0.1 (0-6) % Baso % (Auto) 0.9 (0-2) % Absolute Neuts (auto) 23.4 H (1.5-7.7) 10^3/ul Absolute Lymphs (auto) 1.7 (1.0-4.8) 10^3/ul Absolute Monos (auto) 1.3 H (0-0.8) 10^3/ul Absolute Eos (auto) 0 (0-0.6) 10^3/ul Absolute Basos (auto) 0.2 (0-0.2) 10^3/ul Absolute Nucleated RBC 0 10^3/ul Nucleated RBC % 0 INR (Anticoag Therapy) 2.04 H (0.89-1.11) APTT 30.2 (26.0-36.3) seconds Sodium 135 (133-145) mmol/L Potassium 4.6 (3.5-5.0) mmol/L Chloride 101 (101-111) mmol/L Carbon Dioxide 24 (22-32) mmol/L Anion Gap 10 (2-11) mmol/L BUN 26 H (6-24) mg/dL Creatinine 1.01 H (0.51-0.95) mg/dL Est GFR ( Amer) 72.7 (>60) Est GFR (Non-Af Amer) 56.5 (>60) BUN/Creatinine Ratio 25.7 H (8-20) Glucose 198 H (70-100) mg/dL Lactic Acid (0.5-2.0) mmol/L Calcium 10.1 (8.6-10.3) mg/dL Magnesium 1.9 (1.9-2.7) mg/dL Total Bilirubin 0.40 (0.2-1.0) mg/dL AST 21 (13-39) U/L ALT 34 (7-52) U/L Alkaline Phosphatase 78 (34-104) U/L CK-MB (CK-2) 4.7 (0.6-6.3) ng/mL Troponin I 0.05 H* (<0.04) ng/mL B-Natriuretic Peptide ( - 100) pg/mL Total Protein 7.0 (6.4-8.9) g/dL Albumin 3.9 (3.2-5.2) g/dL Globulin 3.1 (2-4) g/dL Albumin/Globulin Ratio 1.3 (1-3) TSH 2.12 (0.34-5.60) mcIU/mL Thyroxine (T4) 7.38 (6.09-12.23) g/dL 08/13/16 08/13/16 Range/Units 14:25 14:25 WBC (3.5-10.8) 10^3/ul RBC (4.0-5.4) 10^6/ul Hgb (12.0-16.0) g/dl Hct (35-47) % MCV (80-97) fL MCH (27-31) pg MCHC (31-36) g/dl RDW (10.5-15) % Plt Count (150-450) 10^3/ul MPV (7.4-10.4) um3 Neut % (Auto) (38-83) % Lymph % (Auto) (25-47) % [place] % (Auto) (1-9) % Eos % (Auto) (0-6) % Baso % (Auto) (0-2) % Absolute Neuts (auto) (1.5-7.7) 10^3/ul Absolute Lymphs (auto) (1.0-4.8) 10^3/ul Absolute Monos (auto) (0-0.8) 10^3/ul Absolute Eos (auto) (0-0.6) 10^3/ul Absolute Basos (auto) (0-0.2) 10^3/ul Absolute Nucleated RBC 10^3/ul Nucleated RBC % INR (Anticoag Therapy) (0.89-1.11) APTT (26.0-36.3) seconds Sodium (133-145) mmol/L Potassium (3.5-5.0) mmol/L Chloride (101-111) mmol/L Carbon Dioxide (22-32) mmol/L Anion Gap (2-11) mmol/L BUN (6-24) mg/dL Creatinine (0.51-0.95) mg/dL Est GFR ( Amer) (>60) Est GFR (Non-Af Amer) (>60) BUN/Creatinine Ratio (8-20) Glucose (70-100) mg/dL Lactic Acid 3.9 H* (0.5-2.0) mmol/L Calcium (8.6-10.3) mg/dL Magnesium (1.9-2.7) mg/dL Total Bilirubin (0.2-1.0) mg/dL AST (13-39) U/L ALT (7-52) U/L Alkaline Phosphatase (34-104) U/L CK-MB (CK-2) (0.6-6.3) ng/mL Troponin I (<0.04) ng/mL B-Natriuretic Peptide 177 H ( - 100) pg/mL Total Protein (6.4-8.9) g/dL Albumin (3.2-5.2) g/dL Globulin (2-4) g/dL Albumin/Globulin Ratio (1-3) TSH (0.34-5.60) mcIU/mL Thyroxine (T4) (6.09-12.23) g/dL Microbiology and Other Data: Microbiology 08/13/16 17:00 Aerobic Blood Culture - Final Blood Venous Streptococcus Viridans Group Anaerobic Blood Culture - Preliminary Blood Culture - Final 08/14/16 05:25 Aerobic Blood Culture - Preliminary Blood Venous No Growth Day 2 Anaerobic Blood Culture - Preliminary No Growth Day 2 Blood Culture - Final 08/14/16 08:45 Nasal Screen MRSA (PCR)([facility]) - Final Nasal Mrsa Negative 08/14/16 08:45 Influenza Types A,B Antigen ([facility]) - Final Nasal Specimen received for Influenza A/B Molecular testing 08/14/16 04:57 Legionella Urinary Antigen - Final Urine Negative Legionella Streptococcus pneumoniae Ag Screen - Final Negative S. pneumo Antigen Assess/Plan/Problems-Billing Ms. Purvis is a 56yo F with PMHx of morbid obesity with BMI>50, HTN, asthma/ COPD, fibromyalgia, type 2 DM, atrial fibrillation and JULIANA on CPAP, who presented to ED with c/o worsening dyspnea and cough, found to have severe sepsis and COPD exacerbation likely secondary to bronchitis. - Patient Problems (1) Acute hypoxemic respiratory failure Current Visit: Yes Status: Acute Code(s): J96.01 - ACUTE RESPIRATORY FAILURE WITH HYPOXIA SNOMED Code(s): 164639814 Comment: No longer requiring supplemental O2. (2) Acute exacerbation of chronic obstructive pulmonary disease (COPD) Current Visit: Yes Status: Acute Code(s): J44.1 - CHRONIC OBSTRUCTIVE PULMONARY DISEASE W (ACUTE) EXACERBATION SNOMED Code(s): 876992646 Comment: Pt appears improved today. No tachypnea at rest. She will continue with nebs and a prednisone taper at home (she already has the Rx from Dr Abernathy) . Continue lasix and monitor respiratory status. (3) Severe sepsis Current Visit: Yes Status: Acute Code(s): A41.9 - SEPSIS, UNSPECIFIED ORGANISM; R65.20 - SEVERE SEPSIS WITHOUT SEPTIC SHOCK SNOMED Code(s): 68507038 Comment: Sepsis has resolved. Follow up CBC as outpatient. (4) Bronchitis Current Visit: Yes Status: Acute Code(s): J40 - BRONCHITIS, NOT SPECIFIED ACUTE OR CHRONIC SNOMED Code(s): 67693603 Comment: Abx are done. (5) Atrial fibrillation with RVR Current Visit: Yes Status: Acute Code(s): I48.91 - UNSPECIFIED ATRIAL FIBRILLATION SNOMED Code(s): 707135238642994 Comment: Rate is controlled on metoprolol tartrate 50mg BID, cardizem CD 180mg daily and digoxin 0.125mg daily. Continue xarelto. Follow up with Dr. Alonso in the next 1-2 weeks. (6) Elevated troponin Current Visit: Yes Status: Acute Code(s): R79.89 - OTHER SPECIFIED ABNORMAL FINDINGS OF BLOOD CHEMISTRY SNOMED Code(s): 399249179 Comment: Likely secondary to demand ischemia in the setting of sepsis and Afib with RVR. No further work up necessary at this time. Outpatient ischemic workup could be considered when she has recovered from her acute illness. She will follow up with Dr. Alonso. (7) Type 2 diabetes mellitus Current Visit: Yes Status: Acute Comment: Much better control. Reduce lantus to 15 units SQ daily. (8) HTN (hypertension) Current Visit: Yes Status: Acute Priority: High Code(s): I10 - ESSENTIAL ( PRIMARY) HYPERTENSION SNOMED Code(s): 24850713 Comment: BP is more stable. Continue to monitor. (9) DVT prophylaxis Current Visit: Yes Status: Acute Priority: High Code(s): NBB4343 - SNOMED Code(s): 987593311 Comment: Xarelto (10) Full code status Current Visit: Yes Status: Acute Priority: High Code(s): Z78.9 - OTHER SPECIFIED HEALTH STATUS SNOMED Code(s): 477993273 Status and Disposition: d/c home
--- NOTE | 2016-08-21 04:03 | DS ---
DATE OF ADMISSION: 08/13/16. DATE OF DISCHARGE: 08/20/16. PRIMARY CARE PROVIDER: Dr. Cristin Duncan. PRINCIPAL DIAGNOSES: 1. Sepsis secondary to bronchitis. 2. Chronic obstructive pulmonary disease exacerbation. 3. Pulmonary edema secondary to aggressive IV fluid hydration. 4. Atrial fibrillation with rapid ventricular response. 5. Obstructive sleep apnea. DISCHARGE MEDICATIONS: 1. Gabapentin 400 mg p.o. q.a.m., 800 mg p.o. q.p.m. 2. Albuterol one neb inhaled q.4 hours p.r.n. shortness of breath. 3. Albuterol two puffs inhaled q.4 hours p.r.n. shortness of breath. 4. Tessalon 100 mg p.o. t.i.d. p.r.n. cough. 5. Symbicort 160/4.5 two puffs inhaled b.i.d. 6. Flexeril 5 mg p.o. t.i.d. p.r.n. spasm. 7. Digoxin 0.125 mg p.o. daily. 8. Diltiazem CD 180 mg p.o. daily. 9. Cymbalta 6 mg p.o. b.i.d. 10. Lasix 20 mg p.o. daily. 11. Glipizide 10 mg p.o. twice daily. 12. Mucinex 1200 mg p.o. b.i.d. p.r.n. congestion 13. [place] 5/325 mg one tab p.o. b.i.d. p.r.n. pain. 14. Atrovent one neb inhaled t.i.d. p.r.n. shortness of breath 15. Lisinopril 20 mg p.o. daily (new dose). 16. Metoprolol tartrate 50 mg p.o. b.i.d. 17. Elocon applied topically twice daily p.r.n. rash. 18. Singular 10 mg p.o. q.h.s. 19. Prednisone to be tapered directed by Dr. Abernathy. 20. Xarelto 20 mg p.o. daily. 21. Triamterene/hydrochlorothiazide 37.5/25 one tab p.o. daily. 22. Lantus 15 units subcutaneous daily. HOSPITAL COURSE: Ms. Purvis is a 66-year-old female who presented to the emergency room on 08/13/16 with complaints of shortness of breath. The patient states that approximately one week prior to admission, she began to have progressive shortness of breath with productive cough. She saw Dr. Abernathy, was prescribed levofloxacin and a prednisone taper. She stated that initially she was feeling better, but suddenly on the day of admission, her shortness of breath began worse and her usual respiratory treatments at home were not helping. The patient was admitted to the hospital for sepsis secondary to probable bronchitis. The patient was never able lay flat for CT scan of the chest and chest x-ray did not clear infiltrate. The patient was treated with 7- day course of antibiotics. She did slowly improve in terms of her respiratory status. Initially, she was requiring high levels of oxygen for hypoxic respiratory failure. The patient has since been weaned off to room air. The patient was felt to have a COPD exacerbation secondary to probable bronchitis as well. The patient was placed on Solu-Medrol and ultimately tapered down to prednisone. The patient completed 7 days of antibiotic therapy and will complete a prednisone taper as an outpatient as directed by Dr. Abernathy prior to the hospitalization. The patient was failing to make further progress over the last several days; therefore, IV Lasix was utilized for concerns for pulmonary edema. With this, the patient's respiratory status improved quite dramatically. The patient was continued on Lasix 20 mg p.o. daily at home. She notes that in the past she has had a difficult time clearing all the excess fluid that she developed during her hospitalization. Of note, the patient's leukocytosis has not resolved. In fact, her white blood cell count remains quite elevated around 25,000. It was not checked on the day of discharge, however. I suspect this represents stress reaction as well as steroid effect. The patient has been afebrile and again clinically is much improved. On admission, the patient was also found to be in atrial fibrillation with rapid ventricular response. The patient was needing to be placed in intensive care unit for amiodarone drip. She was subsequently weaned from amiodarone and diltiazem drips and continued on her usual doses of metoprolol and digoxin with the addition of oral diltiazem. With this, the patient's heart rate has been under fair control. When she gets up to ambulate, her heart rate does go up to 120s, but quickly settles back down when she rests. The patient has also been maintained on her usual dose of Xarelto. The patient was supposed to have a cardioversion with Dr. Alonso; however, this has been canceled. She will need follow up with him in the next one to two weeks after her respiratory status has completely normalized. The patient was also found to have an elevated troponin of 0.05 on admission. This subsequently trended down. I suspect this is demand ischemia from sepsis and rapid atrial fibrillation. No further workup was performed for this elevated troponin. The patient's type 2 diabetes was also uncontrolled during this hospitalization. I suspect much of this was due to steroid use. On the day of discharge, her blood sugars are improved. She will continue on Lantus 15 units subcutaneous daily in addition to her glipizide. She normally takes 5-10 units of Lantus and will follow her sugars as they improve coming off the steroid, she will taper down her Lantus. The patient's blood pressure was also markedly elevated during the course of the hospitalization. Her lisinopril dose was increased. She was also started on diltiazem as noted above. Her blood pressure has been under fair control, however, she will need continued monitoring of this as an outpatient. FOLLOW-UP CONCERNS: The patient is being discharged home today 08/20/16. She is to follow up with Dr. Duncan on 08/23/16 at 10:50 a.m. ACTIVITY LEVEL: As tolerated. DIET: Diabetic, no added salt. CONDITION ON DISCHARGE: Stable. TIME: Thirty-five minutes were spent discharging this patient. CC: Dr. Cristin Duncan; Dr. Alonso * [id number]/[facility] #: [id number] [facility]
== END 2016-08-20 16:40 | disposition home or self-care (01) | DRG 720 ==
LOC: ED 13:53 → MEDTELE 15:53 → ICU 17:40 → MEDTELE 08-15 08:11
PROVIDERS: ADMIT Internal Medicine; ATTEND Hospitalist
DX: A40.8 Other streptococcal sepsis (principal); J96.01 Acute respiratory failure with hypoxia; R65.20 Severe sepsis without septic shock; N17.9 Acute kidney failure, unspecified; J81.1 Chronic pulmonary edema; I24.8 Other forms of acute ischemic heart disease; J44.0 Chronic obstructive pulmonary disease with (acute) lower respiratory infection; J44.1 Chronic obstructive pulmonary disease with (acute) exacerbation; E87.2 Acidosis; Z68.43 Body mass index [BMI] 50.0-59.9, adult; E87.5 Hyperkalemia; J20.9 Acute bronchitis, unspecified; I48.91 Unspecified atrial fibrillation; R74.8 Abnormal levels of other serum enzymes; G47.33 Obstructive sleep apnea (adult) (pediatric); I10 Essential (primary) hypertension; M79.7 Fibromyalgia; E11.65 Type 2 diabetes mellitus with hyperglycemia; E66.01 Morbid (severe) obesity due to excess calories; Z79.84 Long term (current) use of oral hypoglycemic drugs; Z79.4 Long term (current) use of insulin; Z79.52 Long term (current) use of systemic steroids; Z79.899 Other long term (current) drug therapy; Z88.8 Allergy status to other drugs, medicaments and biological substances; Z82.49 Family history of ischemic heart disease and other diseases of the circulatory system; Z80.3 Family history of malignant neoplasm of breast; Z80.8 Family history of malignant neoplasm of other organs or systems; Z87.891 Personal history of nicotine dependence
CPT/HCPCS: 36415; 71010; 80048; 80053; 80162; 81003; 82553; 83036; 83605; 83735; 83880; 84436; 84443; 84484; 85025; 85027; 85610; 85730; 87040; 87077; 87205; 87502; 87641; 87899; 93005; 94640; 94760; A9270-GY; J0282; J0456; J0692; J0696; J1940; J2270; J2920; J2930; J7644; Q9967

== ENCOUNTER 2016-11-14 09:20 | Inpatient (IN) | payer OTHER ==
[2016-11-14 10:45] LABS: Hematocrit 40 % (35-47); Hemoglobin 12.9 g/dl (12.0-16.0); Mean Corpuscular HGB Conc 32 g/dl (31-36); Mean Corpuscular Hemoglobin 30 pg (27-31); Mean Corpuscular Volume 94 fL (80-97); Mean Platelet Volume 9 um3 (7.4-10.4); Red Blood Count 4.28 10^6/ul (4.0-5.4); Red Cell Distribution Width 16 % (10.5-15); White Blood Count 25.4 10^3/ul (3.5-10.8)
[2016-11-14 11:03] LABS: Albumin 3.8 g/dL (3.2-5.2); BUN/Creatinine Ratio 32.4 (8-20); Calcium 9.2 mg/dL (8.6-10.3); EGFR African American 65.2 (>60); EGFR Non-African American 50.7 (>60); Globulin 2.6 g/dL (2-4); Potassium 4.7 mmol/L (3.5-5.0); Total Bilirubin 0.4 mg/dL (0.2-1.0); Total Protein 6.4 g/dL (6.4-8.9)
[2016-11-14] MEDS: Dofetilide CAP* 250 MCG PO SCH ×2 (11:25→21:17)
[2016-11-14] MEDS ORDERED: Furosemide TAB* 20 MG PO PRN (14:52)
[2016-11-14] MEDS ORDERED: Cyclobenzaprine TAB* 10 MG PO PRN (14:52)
[2016-11-14] MEDS: glipiZIDE TAB* 5 MG PO SCH (16:58)
[2016-11-14] MEDS ORDERED: Digoxin TAB* 0.125 MG PO SCH (17:00)
[2016-11-14] MEDS: Mometasone/Formoter 200/5 MDI INH SCH (20:40)
[2016-11-14] MEDS: Montelukast Sodium TAB* 10 MG PO SCH (21:17)
[2016-11-14] MEDS: Metoprolol Tartrate TAB* 50 mg PO SCH (21:17)
[2016-11-14] MEDS: Insulin GLARGINE(*) 1 UNITS UNIT SUBCUT SCH (21:18)
[2016-11-15 04:27] LABS: BUN/Creatinine Ratio 42.7 (8-20); Calcium 9.2 mg/dL (8.6-10.3); EGFR African American 65.8 (>60); EGFR Non-African American 51.2 (>60)
[2016-11-15] MEDS: Mometasone/Formoter 200/5 MDI INH SCH ×2 (08:37→20:24)
[2016-11-15] MEDS ORDERED: Triamterene/HCTZ 37.5-25 MG* CAP PO SCH (09:00)
[2016-11-15] MEDS ORDERED: Naloxone* 0.4 MG/ML 1 ML VIAL ONE (09:35)
[2016-11-15] MEDS ORDERED: fentaNYL* 50 MCG/ML 2 ML VIAL (100 MCG VIAL) ONE (09:35)
[2016-11-15] MEDS ORDERED: Flumazenil* 0.1 MG/ML 5 ML MDV ONE (09:35)
[2016-11-15] MEDS ORDERED: Midazolam* 1 MG/ML 5 ML VIAL (5 MG) ONE (09:35)
--- NOTE | 2016-11-15 10:50 | CARD ---
CARDIOVERSION: DATE OF PROCEDURE: 11/15/16 - Inpatient, room #453 PROCEDURE: Cardioversion. INDICATION: Atrial fibrillation. HISTORY: The patient is a 56-year-old female with a history of severe COPD and sleep apnea who has atrial fibrillation. The patient was admitted to the hospital yesterday for Tikosyn initiation. The patient is on 250 mcg b.i.d. Her EKG this morning demonstrated atrial fibrillation with a corrected QT interval of 447 msec. Cardioversion was recommended. DESCRIPTION OF PROCEDURE: The patient was in a fasting state. Informed consent had been obtained prior to the procedure. All labs had been reviewed. The patient was given 5 mg of Versed and 50 mcg of fentanyl for conscious sedation. The patient was cardioverted with 150 joules of synchronized biphasic energy. The patient converted to normal sinus rhythm. The patient tolerated the procedure well, with no complications. The patient will continue her initiation of Tikosyn until tomorrow morning. [id number]/[facility] #: [id number] [facility]TD[facility]
[2016-11-15] MEDS: glipiZIDE TAB* 5 MG PO SCH ×2 (12:00→16:55)
[2016-11-15] MEDS: Lisinopril TAB* 10 MG PO SCH (12:00)
[2016-11-15] MEDS: Dofetilide CAP* 250 MCG PO SCH ×2 (12:00→20:59)
[2016-11-15] MEDS: Metoprolol Tartrate TAB* 50 mg PO SCH ×2 (12:00→21:02)
[2016-11-15] MEDS: Rivaroxaban TAB(*) 20 MG TAB PO SCH (12:00)
[2016-11-15] MEDS: HYDROcodone/ACETAMIN 5-325 MG* 1 TAB PO PRN (20:58)
[2016-11-15] MEDS: Insulin GLARGINE(*) 1 UNITS UNIT SUBCUT SCH (20:59)
[2016-11-15] MEDS: Montelukast Sodium TAB* 10 MG PO SCH (20:59)
[2016-11-16] MEDS: Mometasone/Formoter 200/5 MDI INH SCH ×2 (08:59→20:45)
[2016-11-16] MEDS ORDERED: Naloxone* 0.4 MG/ML 1 ML VIAL ONE (09:02)
[2016-11-16] MEDS ORDERED: fentaNYL* 50 MCG/ML 2 ML VIAL (100 MCG VIAL) ONE (09:02)
[2016-11-16] MEDS ORDERED: Midazolam* 1 MG/ML 5 ML VIAL (5 MG) ONE (09:02)
[2016-11-16] MEDS ORDERED: Flumazenil* 0.1 MG/ML 5 ML MDV ONE (09:03)
--- NOTE | 2016-11-16 09:36 | PN ---
Subjective Date of Service: 11/16/16 - CC: shortness of breath Interval History: No acute c/o. Denies palpitations or dizziness. Chronic dyspnea at current baseline. Medications Active Medications: Hydrocodone Bitart/Acetaminophen ([place] 5-325 Tab*) 1 tab PO BID PRN PRN Reason: PAIN Last Admin: 11/15/16 20:58 Dose: 1 tab Dofetilide (Tikosyn Cap*) 250 mcg PO BID [facility] Last Admin: 11/15/16 20:59 Dose: 250 mcg Furosemide (Lasix Tab*) 10 mg PO DAILY PRN PRN Reason: DISCOMFORT Glipizide (Glucotrol Tab*) 10 mg PO 0800,1700 [facility] Last Admin: 11/15/16 16:55 Dose: 10 mg Heparin Sodium (Porcine) (Heparin Flush Picc/Ml/Cvc(*)) 0 ml IV FLUSH 0600, 1800 [facility] PRN Reason: Protocol Last Admin: 11/16/16 06:17 Dose: 1 ml Insulin Glargine (Lantus(*)) 10 units SUBCUT BEDTIME [facility] Last Admin: 11/15/16 20:59 Dose: 10 units Lisinopril (Prinivil Tab*) 20 mg PO QAM [facility] Last Admin: 11/15/16 12:00 Dose: 20 mg Metoprolol Tartrate (Lopressor Tab*) 50 mg PO BID [facility] Last Admin: 11/15/16 21:02 Dose: 50 mg Mometasone Furoate/Formoterol Fumar (Dulera 200/5 Mdi*) 2 puff INH BID [facility] PRN Reason: Protocol Last Admin: 11/16/16 08:59 Dose: Not Given Montelukast Sodium (Singulair Tab*) 10 mg PO BEDTIME [facility] Last Admin: 11/15/16 20:59 Dose: 10 mg Rivaroxaban (Xarelto (*)) 20 mg PO DAILY WITH MEAL [facility] Last Admin: 11/15/16 12:00 Dose: 20 mg Objective Vital Signs: Temp Pulse Resp BP Pulse Ox 97.9 F 77 20 108/70 98 11/16/16 03:34 11/16/16 03:34 11/16/16 03:34 11/16/16 03:48 11/16/16 03:34 Oxygen Devices in Use Now: None Appearance: obese female, lying at 20 degrees, appears comfortable. Difficulty sitting up in bed, required assistance. Eyes: PERRLA Ears/Nose/Mouth/Throat: NL Teeth, Lips, Gums, Clear Oropharnyx, Mucous Membranes Moist Neck: NL Appearance and Movements; NL JVP Respiratory: Symmetrical Chest Expansion and Respiratory Effort - decreased breath sounds. Cardiovascular: NL Sounds; No Murmurs; No JVD - irregularly irregular. Abdominal: No Hepatosplenomegaly - obese Extremities: - - mild edema, bilateral and symetrical. Skin: No Rash or Ulcers Neurological: Alert and Oriented x 3 Lines/Tubes/Other Access: Clean, Dry and Intact Peripheral IV Laboratory Results: 11/14/16 10:31 11/15/16 04:00 Total Bilirubin 0.40 mg/dL (0.2-1.0) 11/14/16 10:31 AST 19 U/L (13-39) 11/14/16 10:31 ALT 20 U/L (7-52) 11/14/16 10:31 Alkaline Phosphatase 81 U/L (34-104) 11/14/16 10:31 Total Protein 6.4 g/dL (6.4-8.9) 11/14/16 10:31 Albumin 3.8 g/dL (3.2-5.2) 11/14/16 10:31 Globulin 2.6 g/dL (2-4) 11/14/16 10:31 Albumin/Globulin Ratio 1.5 (1-3) 11/14/16 10:31 EKG Data: afib, mild tachycardic response, QTc 460ms Assessment/Plan 56 yo female with persistent afib, COPD, JULIANA, obese, likely restrictive lung disease now s/p 2 days of Tikosyn loading. Underwent succesful electrical cardioversion this AM, 12 lead ECG post CV is pending. AFib: continue Tikosyn. Resume CPAP, not ordered for in patient. try and optimize electrolytes. Elev. WBC: Chronic, on steroids recently. Renal insufficiency: Noted, will review Cr Cl and Xarleto dose. QTc acceptable on Tikosyn at current dose.
[2016-11-16] MEDS: Rivaroxaban TAB(*) 20 MG TAB PO SCH (10:34)
[2016-11-16] MEDS: Lisinopril TAB* 10 MG PO SCH (10:34)
[2016-11-16] MEDS: Metoprolol Tartrate TAB* 50 mg PO SCH ×2 (10:35→20:36)
[2016-11-16] MEDS: Dofetilide CAP* 250 MCG PO SCH ×2 (10:35→20:35)
[2016-11-16] MEDS: glipiZIDE TAB* 5 MG PO SCH ×2 (10:35→18:37)
[2016-11-16] MEDS: HYDROcodone/ACETAMIN 5-325 MG* 1 TAB PO PRN ×2 (10:42→22:56)
--- NOTE | 2016-11-16 11:21 | CARD ---
ELECTRICAL CARDIOVERSION: DATE OF PROCEDURE: 11/16/16 - Inpatient, room #453 PROCEDURE: Electrical cardioversion. INDICATION: Atrial fibrillation, status post Tikosyn loading. The indications, risks, and benefits of the procedure were discussed with the patient. She is amenable to proceeding. The patient received a total of 5 mg of Versed and 25 mcg of Fentanyl for sedation. Using AP patches, 150 joules of energy was delivered across the chest wall, with successful cardioversion to normal sinus rhythm. The patient displayed some mild apnea, but her saturations , blood pressure, and heart rate were stable throughout. Her 12-lead ECG confirmed good QT intervals on Tikosyn. CONCLUSION: Successful cardioversion without complications. [id number]/[facility] #: [id number] [place]
[2016-11-16] MEDS: Montelukast Sodium TAB* 10 MG PO SCH (20:36)
[2016-11-16] MEDS: Insulin GLARGINE(*) 1 UNITS UNIT SUBCUT SCH (20:36)
[2016-11-17 05:50] LABS: BUN/Creatinine Ratio 36.6 (8-20); Calcium 8.8 mg/dL (8.6-10.3); EGFR African American 72.7 (>60); EGFR Non-African American 56.5 (>60); Potassium 4.3 mmol/L (3.5-5.0)
[2016-11-17] MEDS: Mometasone/Formoter 200/5 MDI INH SCH (07:49)
[2016-11-17] MEDS: glipiZIDE TAB* 5 MG PO SCH (08:22)
[2016-11-17] MEDS: Rivaroxaban TAB(*) 20 MG TAB PO SCH (08:22)
[2016-11-17] MEDS: Lisinopril TAB* 10 MG PO SCH (08:22)
[2016-11-17] MEDS: Metoprolol Tartrate TAB* 50 mg PO SCH (08:25)
[2016-11-17] MEDS: Dofetilide CAP* 250 MCG PO SCH (08:26)
[2016-11-17 12:45] VITALS: BP 107/50
--- NOTE | 2016-11-18 01:28 | DS ---
DISCHARGE SUMMARY: DATE OF ADMISSION: 11/14/16 DATE OF DISCHARGE: , 11/17/16 Please refer to a full history and physical admission note as per Dr. Alonso dated 11/11/16. DISCHARGE DIAGNOSES: 1. Resistant atrial fibrillation. 2. Status post multiple cardioversions, the patient in normal sinus rhythm. 3. The patient was admitted for Tikosyn treatment. DISCHARGE MEDICATIONS: The patient is to continue on her home medications before hospitalization, which include: 1. Digoxin 125 mcg daily. 2. Xarelto 20 mg daily. 3. Glipizide 10 mg twice daily. 4. Symbicort 2 puffs twice a day. 5. Lisinopril 20 mg daily. 6. Ventolin 2 puffs 4 times a day. 7. Metoprolol 50 mg twice day. 8. CPAP at night. 9. Triamterene and hydrochlorothiazide 37.5/25 mg 1 daily. 10. DuoNeb p.r.n. as directed. 11. Tikosyn 250 mcg twice a day. HOSPITAL COURSE: The patient is a 56-year-old female patient with known history of COPD, sleep apnea, morbid obesity, fibromyalgia, systemic arterial hypertension, who had history of persistent atrial fibrillation, failed cardioversions in the past, was hospitalized on Monday as outlined above for Tikosyn treatment. She did have a direct cardioversion on Monday and then yesterday, she had another one. She has been in normal sinus rhythm since yesterday. She was started on Tikosyn 250 mcg twice a day on Monday. Her QTc has been within normal limits, less than 500 milliseconds. Her electrolytes within normal limits, especially her potassium, today is 4.3. Her BUN has been mildly elevated at 37, her baseline was 36 on admission and her creatinine is 1.01. Her monitor today is in normal sinus rhythm. She gives no symptoms of chest pain, no orthopnea, no PNDs, no syncope, no fever and no chills is appreciated. PAST MEDICAL HISTORY: As mentioned above. PAST SURGICAL HISTORY: Include section, hernia repair and knee surgery. MEDICATIONS: As mentioned above. ALLERGIES: She is allergic to MOBIC. SOCIAL HISTORY: She used to smoke, she quit in 2012. No significant alcohol drinking. PHYSICAL EXAMINATION: On exam today, she is morbidly obese. She is not in acute distress. She is on oxygen treatment. She had no chest pain. Her vitals , blood pressure is 152/75, pulse is 80, she is in sinus rhythm, temperature 98.3, respiratory rate 15. Head and Neck Exam: Normocephalic, atraumatic. Head ears, nose and throat: Essentially benign. Neck: Supple. JVP is not elevated. No carotid bruits. No masses in the neck is appreciated. Chest is clear to auscultation. No rales, no wheeze. No added sounds appreciated. Heart : Normal and regular S1, S2. No added sounds. No gallops, no rubs. Abdomen: Benign. Positive bowel sounds. Extremities: No edema, no cyanosis, no clubbing. Skin exam is normal. Psych: Normal affect and mood. [employer]: No focal deficits appreciated. DIAGNOSTIC STUDIES/LAB DATA: She had an echocardiogram, which was done on 06/03, her EF 40% to 45% with global cardiomyopathy, dilated left atrium and mild LVH. Her labs from today, sodium 131, potassium 4.3, chloride 98, total CO2 26, BUN 37, creatinine 1.01, sugar 136. Her EKG from yesterday, showed normal sinus rhythm and normal QTc interval. PLAN: The patient will be discharged home today. She is to avoid alcohol. She is to avoid caffeinated drink. She is to avoid stimulants. She is to stay well- hydrated. She is to continue her CPAP. She is to continue her outpatient home medications in addition to Tikosyn 250 mcg twice a day. She is to follow up with Dr. Alonso in 1 to [address] Duncan in 1 to 2 weeks. I answered all her concerns and questions up to her satisfaction. TIME SPENT: More than half of at least 30 plus minutes was education face-to- face explaining all of the above to her with the plan of the discharge summary and medications. CC: Chico Alonso MD; Dr. Cristin Duncan* [id number]/[facility] #: [id number] [place]
== END 2016-11-17 13:00 | disposition home or self-care (01) | DRG 201 ==
LOC: MEDTELE 09:20
PROVIDERS: ADMIT Specialist; ATTEND Specialist
PROC: 5A2204Z Restoration of Cardiac Rhythm, Single (ICD-10-PCS; principal; 2016-11-15 09:00)
DX: I48.1 Persistent atrial fibrillation (principal); Z68.42 Body mass index [BMI] 45.0-49.9, adult; I42.9 Cardiomyopathy, unspecified; E66.01 Morbid (severe) obesity due to excess calories; J44.1 Chronic obstructive pulmonary disease with (acute) exacerbation; Z79.01 Long term (current) use of anticoagulants; Z79.84 Long term (current) use of oral hypoglycemic drugs; G47.33 Obstructive sleep apnea (adult) (pediatric); M79.7 Fibromyalgia; I10 Essential (primary) hypertension; Z88.8 Allergy status to other drugs, medicaments and biological substances; Z87.891 Personal history of nicotine dependence; M19.049 Primary osteoarthritis, unspecified hand; Z82.49 Family history of ischemic heart disease and other diseases of the circulatory system; Z84.1 Family history of disorders of kidney and ureter; Z80.3 Family history of malignant neoplasm of breast; D72.829 Elevated white blood cell count, unspecified; N28.9 Disorder of kidney and ureter, unspecified
CPT/HCPCS: 36415; 80048; 80053; 85027; 92960; 93005; 94640; 94760; A9270-GY; J2250; J2310; J3010

== ENCOUNTER 2017-03-03 12:18 | Emergency (ER) | payer OTHER ==
[2017-03-03 12:29] VITALS: BP 138/69
--- NOTE | 2017-03-03 12:29 | UC ---
Respiratory Complaint HPI - HPI Summary HPI Summary: 56 YEAR OLD FEMALE PRESENTS WITH COMPLAINS OF SHORTNESS OF BREATH AND COUGH. - History of Current Complaint Stated Complaint: SOB,WHEEZING Time Seen by Provider: 03/03/17 12:26 Hx Obtained From: Patient Onset/Duration: Sudden Onset Timing: Constant Severity Initially: Moderate Severity Currently: Moderate Pain Scale Used: 0-10 Numeric - 5 Associated Signs And Symptoms: Positive: Dyspnea - Risk Factors Cardiac Risk Factors: Hypertension Pseudomonas Risk Factors: Chronic Lung Disease - Allergies/Home Medications Allergies/Adverse Reactions: Allergies Allergy/AdvReac Type Severity Reaction Status Date / Time Meloxicam [From [employer]] Allergy ARMS-RASH Verified 03/03/17 12:30 AND SWELLING ENVIRONMENTAL Allergy ASTHMATIC Uncoded 03/03/17 12:30 REACTIONS Home Medications: Home Medications Albuterol 2.5MG/3ML (0.083%)* [Ventolin 2.5 MG/3 ML NEB.MATT*] 2.5 mg INH Q4H PRN 03/03/17 [History Confirmed 03/03/17] Albuterol HFA INHALER* [Ventolin HFA Inhaler*] 2 puff INH Q4H PRN 03/03/17 [ History Confirmed 03/03/17] Albuterol/Ipratropium NEB.MATT* [Duoneb (Albuterol 2.5 MG/Ipratropium 0.5 MG)] 1 neb INH Q6H PRN 03/03/17 [History Confirmed 03/03/17] Baclofen TAB* [Lioresal TAB*] 10 mg PO TID PRN 03/03/17 [History Confirmed 03/03] Dofetilide CAP* [Tikosyn CAP*] 125 mcg PO DAILY 03/03/17 [History Confirmed 07/19] Insulin Glargine [Basaglar Kwikpen] 100 unit SUBCUT BEDTIME 03/03/17 [History Confirmed 03/03/17] Mometasone/Formoter 200/5 MDI* [Dulera 200/5 MDI*] 2 puff INH BID 03/03/17 [ History Confirmed 03/03/17] PMH/Surg Hx/FS Hx/Imm Hx Previously Healthy: Yes - Surgical History Surgical History: Yes Surgery Procedure, Year, and Place: 1993, 1999, 2001 [facility] , [facility]. 1998 right shoulder arthroscopy [facility]. 2009 left breast biopsy [facility]. 2004 RT cataract [facility]. right foot reconstruction [facility]. Ventral hernia repair. Bilateral knee arthroscopies. 2007 VENTRAL hernia repair [facility]. 2013 TORN MENISCUS REPAIR IN RIGHT KNEE [facility] - Family History Known Family History: Positive: Cardiac Disease, Hypertension, Other - breast cancer, asthma - Social History Alcohol Use: None Substance Use Type: None Smoking Status (MU): Former Smoker Type: Cigarettes Amount Used/How Often: LESS THEN 1PPD 15 YRS STARTED AGE 15, QUIT MANY TIMES; NONE SINCE 2013 Have You Smoked in the Last Year: No When Did the Patient Quit Smoking/Using Tobacco: 01/2013 - Immunization History Most Recent Influenza Vaccination: Apr 2016 Most Recent Tetanus Shot: UTD Most Recent Pneumonia Vaccination: Apr 2016 Review of Systems Constitutional: Negative Skin: Negative Eyes: Negative ENT: Negative Respiratory: Shortness Of Breath, Cough Cardiovascular: Negative Gastrointestinal: Negative Genitourinary: Negative Motor: Negative Neurovascular: Negative Musculoskeletal: Negative Neurological: Negative Psychological: Negative All Other Systems Reviewed And Are Negative: Yes Physical Exam Triage Information Reviewed: Yes Appearance: Ill-Appearing Eye Exam: Normal ENT Exam: Normal Dental Exam: Normal Neck exam: Normal Neck: Positive: 1 Respiratory: Positive: Wheezing Cardiovascular Exam: Normal Abdominal Exam: Normal Musculoskeletal Exam: Normal Neurological Exam: Normal Psychological Exam: Normal Skin Exam: Normal Respiratory Course/Dx - Differential Dx/Diagnosis Provider Diagnoses: SOB. COUGH Discharge - Discharge Plan Condition: Stable Disposition: HOME Prescriptions: Clarithromycin TAB* [Biaxin 500 MG TAB*] 500 mg PO BID #20 tab predniSONE TAB* [Deltasone TAB*] 60 mg PO DAILY #21 tab Patient Education Materials: Dyspnea (ED), Acute Cough (ED) Referrals: Cristin Duncan MD [Primary Care Provider] -
--- NOTE | 2017-03-03 13:25 | RAD ---
INDICATION: Cough. COMPARISON: Comparison is made with a prior chest x-ray study from April 15, 2016. TECHNIQUE: Dual-energy PA and lateral views of the chest were obtained. FINDINGS: The heart is within normal limits in size. Mediastinal and hilar contours appear within normal limits. The lungs are hyperinflated and clear with flattening of the diaphragms. No pleural effusion is seen. IMPRESSION: FINDINGS SUGGESTIVE OF COPD, NO EVIDENCE FOR ACUTE FINDING.
== END 2017-03-03 13:03 | disposition home or self-care (01) ==
LOC: UCCORT 12:18
DX: R06.02 Shortness of breath (principal); R05 Cough; I10 Essential (primary) hypertension; J44.9 Chronic obstructive pulmonary disease, unspecified; Z79.4 Long term (current) use of insulin; Z87.891 Personal history of nicotine dependence
CPT/HCPCS: 71020; 99212; G0463

== ENCOUNTER 2017-07-20 06:56 | Inpatient (IN) | payer OTHER ==
[2017-07-20] MEDS ORDERED: methylPREDNISolone 125 MG* 2 ML VIAL IV ONE (06:59)
[2017-07-20] MEDS ORDERED: Ipratropium 0.5MG/2.5ML NEB* 0.5 MG/2.5 ML NEB.SOLN INH ONE (06:59)
[2017-07-20] MEDS ORDERED: Albuterol 2.5 MG/3 ML NEB.SOL* (0.083%) INH SCH (07:00)
[2017-07-20] MEDS ORDERED: Magnesium Sulfate 2 GM IV* 2 GM/50 ML BAG IVPB ONE (07:02)
[2017-07-20] MEDS ORDERED: Albuterol/Ipratropium NEB.SOL* Albuterol 2.5 MG/Ipratropium 0.5 MG 3 ML INH ONE (07:07)
[2017-07-20] MEDS ORDERED: Albuterol/Ipratropium NEB.SOL* Albuterol 2.5 MG/Ipratropium 0.5 MG 3 ML ONE (07:07)
[2017-07-20] MEDS ORDERED: Albuterol 2.5 MG/3 ML NEB.SOL* (0.083%) ONE (07:07)
[2017-07-20] MEDS ORDERED: Digoxin IV* 0.5 MG/2 ML AMP (0.25 MG/ML) IV SLOW PU ONE (07:11)
[2017-07-20] MEDS ORDERED: Diltiazem IV* 5 MG/ML 5 ML VIAL (for loading dose/IV Push) (25 MG) IV SLOW PU ONE ×2 (07:12→07:43)
[2017-07-20 07:18] LABS: ABS Basophils 0 10^3/ul (0-0.2); ABS Eosinophils 0.1 10^3/ul (0-0.6); ABS Lymphocytes 2.8 10^3/ul (1.0-4.8); ABS Monocytes 0.9 10^3/ul (0-0.8); ABS Neutrophils 13.6 10^3/ul (1.5-7.7); ABS Nucleated RBC 0 10^3/ul; Eosinophil % 0.3 % (0-6); Hematocrit 38 % (35-47); Hemoglobin 12.3 g/dl (12.0-16.0); Lymphocyte % 15.9 % (25-47); Mean Corpuscular HGB Conc 33 g/dl (31-36); Mean Corpuscular Hemoglobin 30 pg (27-31); Mean Corpuscular Volume 92 fL (80-97); Mean Platelet Volume 9 um3 (7.4-10.4); Nucleated Red Blood Cells % 0; Platelet Count 261 10^3/ul (150-450); Red Cell Distribution Width 17 % (10.5-15); White Blood Count 17.4 10^3/ul (3.5-10.8)
[2017-07-20 07:35] LABS: EGFR Non-African American 60.4 (>60)
[2017-07-20] MEDS ORDERED: NS 0.9% 500 ML* 500 ML IV ONE ×2 (07:45→17:29)
[2017-07-20] MEDS ORDERED: Diltiazem IV* 5 MG/ML 5 ML VIAL (for loading dose/IV Push) (25 MG) ONE (07:46)
--- NOTE | 2017-07-20 07:54 | RAD ---
INDICATION: Difficulty breathing COMPARISON: Most recent comparison chest x-rays dated April 30, 2017 TECHNIQUE: Single AP portable view of the chest was obtained. FINDINGS: Image quality is compromised due to the relative inferiority of a portable chest x-ray. The heart and mediastinum exhibit normal size and contour. Similar the prior chest x-ray there is asymmetric elevation of the right hemidiaphragm compared to the left. There is right costophrenic angle blunting and slight obscuration of the right hemidiaphragm. Visualized bones are normal for the patient's age. IMPRESSION: Atelectasis and/or small pleural effusion at the right lung base.
[2017-07-20] MEDS ORDERED: Metoprolol Tartrate IV* 1 MG/ML 5 ML VIAL IV ONE (08:02)
[2017-07-20] MEDS ORDERED: Metoprolol Tartrate IV* 1 MG/ML 5 ML VIAL ONE (08:02)
[2017-07-20] MEDS ORDERED: Aspirin TAB* 325 MG PO ONE (08:25)
[2017-07-20] MEDS ORDERED: Metoprolol Tartrate TAB* 25 MG PO ONE (08:29)
[2017-07-20] MEDS ORDERED: Metoprolol Tartrate TAB* 25 MG PO SCH (10:00)
[2017-07-20] MEDS ORDERED: Aclidinium POWDER MDI(NF) INH SCH (10:00)
[2017-07-20] MEDS ORDERED: glipiZIDE TAB* 5 MG PO SCH (10:00)
--- OUTSIDE RECORDS SUMMARY | 2017-07-20 10:01 | XMS REPORT ---
:1960 External Reference #:[id number] Author Organization [facility] Address [address] [place] [address] Phone [phone] Care Team Providers Name Role Phone Cristin Duncan M.D. Care Team Information Wirer Helper Unavailable Cristin Duncan M.D. Primary Care Physician Unavailable Payers Type Date Identification Numbers Payment Provider Subscriber Medicaid Effective: Policy Number: [id number] [facility] Madhavi Barron 2016 PayID: [id number] [address] [address] [place] [address] Problems Date Description Provider Status Onset: 09/22/2005 Asthma without status asthmaticus Benjamin Briggs M.D. Active Onset: 08/24/2012 Benign essential hypertension Mela Christie M.D. Active Onset: 08/24/2012 Family history of malignant Mela Christie M.D. Active neoplasm of breast Onset: 08/24/2012 Degenerative joint disease Mela Christie M.D. Active involving multiple joints Onset: 08/25/2014 Obesity Cristin Duncan M.D. Active Onset: 08/25/2014 Myalgia & Myositis Unspec Cristin Duncan M.D. Active Onset: 02/24/2015 Hyperlipidemia Cristin Duncan M.D. Active Onset: 10/22/2015 Type 2 diabetes mellitus Cristin Duncan M.D. Active Onset: 10/28/2015 Fibromyalgia Cristin Duncan M.D. Active Onset: 04/29/2016 Paroxysmal atrial fibrillation Cristin Duncan M.D. Active Onset: 04/29/2016 Chronic obstructive lung disease Cristin Duncan M.D. Active Onset: 06/29/2016 Morbid obesity Cristin Duncan M.D. Active Onset: 06/29/2016 Obstructive sleep apnea syndrome Cristin Duncan M.D. Active Onset: 11/23/2016 Hypoxemia Cristin Duncan M.D. Active Onset: 03/29/2017 Type II diabetes mellitus Cristin Duncan M.D. Active uncontrolled Onset: 05/15/2017 Chronic systolic heart failure Cristin Duncan M.D. Active Onset: 08/14/2008 Essential hypertension Benjamin Briggs M.D. Inactive Inactive: 10/22/2015 Onset: 02/24/2015 Impaired fasting glycaemia Cristin Duncan M.D. 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 Allergies, Adverse Reactions, Alerts Date Description Reaction Status Severity Comments 10/22/2007 Mobic active 04/29/2016 Metformin active not tolerated/severe diarrhea Medications Medication Date Status Form Strength Qnty SIG Indications Ordering Provider Percocet 06/27 Active Tablets 5-325mg 90tab 1 tab by mouth M15.0 s three times a , day prn M.D. Gabapentin 06/27 Active Capsules 400mg 120ca 1 tab in in M79.7 ps the morning, 1 [place], po afternoon M.D. and 2 tab in evening Basaglar 05/16 Active Solution 100Unit/M 45ml inject 35-45 Pen-Inject L units every , night at M.D. bedtime Lisinopril 05/15 Active Tablets 40mg 30tab 1 by mouth I10 s every day Marge Duncan Lantus 05/15 Active Solution 100Unit/M 45ml use 45 units Cristin Solostar Pen-Inject L at bedtime Marge Duncan Tudorza 05/15 Active Aerosol 400mcg/Ac 1unit 1 puff twice a Cristin Pressair t s day Marge Duncan Duloxetine 05/[address] 60mg 60cap 1 tab by mouth M79.7 Cristin HCL Part s twice a day Marge Duncan Mucinex ER 05/06 Active Tablets ER 1200mg 1 by mouth 12HR every 12 hours as needed Cheratussin 05/06 Active Syrup 100-10mg/ 5ml every 4 Unknown ac 5ML hours as needed Prednisone 05/06 Active Tablets 10mg 100ta 55 mg by mouth bs x1 week then [place], decrease by Marge 5mg each week Atorvastatin 03/29 Active Tablets 10mg 90tab 1 by mouth E78.5 Cristin Calcium s every day Marge Duncan Dulera 02/24 Active Aerosol 200-5mcg/ 17.6g inhale two Act m puffs by mouth [place], twice a day Marge Baclofen 11/23 Active Tablets 10mg 60tab 1 tab by mouth M62.830 s twice a day as [place], needed ; can M.DJeff cause sedation no driving or alcohol on medication Tikosyn 11/14 Active Capsules 125mcg 1 po bid Freestyle 10/07 Active Strips 100un test bld sugar E11.9 Cristin Lite Test its daily - Marge Duncan Pen [place] 10/06 Active Misc 31G X 5 1Box for use once E11.9 Cristin mm daily with johan Duncan pen Marge Lancets Ultra 10/06 Active Misc Thin 30G 100un test every day E11.9 Cristin Thin 30G its dx: e11.9 Marge Duncan Cpap 09/15 Active use as directed with [place] oxygen Marge attachment Nebulizer Set 09/15 Active use as Cristin Up And directed Marge Duncan Montelukast 07/25 Active Tablets 10mg 30tab 1 tab by mouth s every night Talha Duncan.D. Furosemide 07/25 Active Tablets 20mg 30tab 1 by mouth I10 Ivan A. /2016 s every day as Cara, needed for M.D. swelling Albuterol 04/08 Active Nebulizer (2.5mg/3M 1box 1 bullet twice R06.02 Nilson J. Sulfate /2015 L) 0.083% a day as Brad, needed sob/bullock M.D. - seen 11/23/16 - Dx: R06.02 Ipratropium 03/28 Active Solution 0.5-2.5(3 540un inhale 1 vial Cristin Nordman/Albut )mg/3ML its via nebulizer [place] debra Sulfate three times a M.D. day as needed for shortness of breath Mometasone 03/02 Active Cream 0.1% 45gm apply to arms L40.9 Cristin Fur twice a day x [place], 1 week then as M.D. needed Ventolin HFA 08/17 Active Aerosol 108(90Bas 8gm 2 puffs every J45.998 Cristin e) 4 hours as [place], mcg/Act needed M.D. Glipizide Active Tablets 10mg 60tab take one Nilson J. /0000 s tablet by Brad, mouth twice a M.D. day Cardizem CD Active Caps ER 180mg 90cap 1 by mouth Laura / 24HR s every day ALYSON Mackey Xarelto Active Tablets 20mg 30tab take 1 tablet s by mouth once [place], daily M.D. Benzonatate Active Capsules 100mg 1 by mouth Unknown twice a day as needed Spiriva 05/06 Hx Capsules 18mcg inhale Unknown Handihale contents one - of capsule by 05/15 mouth daily Ketoconazole 03/29 Hx Cream 2% 60gm apply to feet B35.3 twice a day x [place], - 1 week M.D. 03/29 Fluconazole 03/29 Hx Tablets 150mg 2tabs one tab by B35.3 mouth once, [place], - october repeat in M.D. 03/29 five days /2016 Levemir 12/26 Hx Solution 100Unit/M 15uni inject 50 Cristin Flextouch Pen-Inject L ts units [place], - subcutaneous M.D. 12/26 once daily /2016 Basaglar 12/26 Hx Solution 100Unit/M 45ml inject 35-45 Cristin Kwikpen Pen-Inject L units every [place], - night at M.D. 05/15 bedtime /2016 Triamterene/H 11/05 Hx Capsules 37.5-25mg 90cap 1 by mouth I10 Cristin ydrochlorothi s every day [place], azide - M.D. 11/11 Prednisone 09/02 Hx Tablets 20mg 30tab 1 by mouth s every day [place], - M.D. 11/23 Lisinopril 08/23 Hx Tablets 20mg 30tab 1 by mouth I10 Cristin s every day [place], - M.D. 05/15 Lantus 05/19 Hx Solution 100Unit/M 30ml 10 units at [facility] Pen-Inject L bedtime [place], - M.D. 12/26 Physical 05/12 Hx treatment and [facility] Therapy evaluation of [place], - deconditioning M.D. 08/23 and gait /2016 Walker With 04/29 Hx use as J44.9 Cristin Wheels directed [place], Brakes And - M.D. Seat 08/23 M15.0 M79.7 Prednisone 2016 - Hx Tablets 20mg 19tabs 4 po x 2 days J45.51 Laura 04/15/2016 3 po x 2 days [place], 2 po x 2 days [employer] 1 po x 1 days then quit Prednisone 03/31/2016 - Hx Tablets 20mg 14tabs 1 twice a day J45.51 Kassandra 2016 x 7d Shilpi, [employer] Clarithromycin 03/31/2016 - Hx Tablets 500mg 20tabs 1 by mouth J45.51 Laura 04/29/2016 twice a day x [place], 10 days [employer] Tussionex 03/31/2016 - Hx Suer 10-8mg 115ml 1 tsp bid J45.51 Kassandra Pennkinetic 2016 /5ML Shilpi, Extended Release [employer] Guaifenesin 03/28/2016 - Hx 200 3 po bid Ivan Yang 04/29/2016 Marge Marroquin Symbicort 03/28/2016 - Hx Aerosol 160-4. 30.6uni inhale 2 J45.51 Cristin 05/15/2017 5mcg/A ts puffs by alexx Duncan mouth two M.D. times daily Work Note 03/28/2016 - Hx Madhavi was J45.51 Kassandra 04/29/2016 seen by me Dobbins, today missed [employer] work yesterday due to illness and may not return to work until Monday, 10\\3\\16 Metformin HCL 12/17/2015 - Hx Tablets 500mg 30tabs take 1 tablet E11.9 Carlene L. 04/29/2016 by mouth one Abby, time daily M.DJeff Triamterene/Bouse 12/17/2015 - Hx Capsules 50-25m 30caps 1 by mouth I10 Cristin chlorothiazide 11/05/2016 g daily Marge Duncan Hydrocodone-Aceta 10/28/2015 - Hx Tablets 10-325 60tabs 1 tab twice a M15.0 Cristin minophen 06/27/2017 mg day as needed Marge Duncan Hydrocodone-Aceta 08/28/2015 - Hx Tablets 5-325m 90tabs 1 by mouth M15.0 Cristin minophen 10/28/2015 g every 8 hours [place] as needed Marge Lasix 08/28/2015 - Hx Tablets 20mg 30tabs 1 tab by I10 Ivan Yang 07/25/2016 mouth every , day as needed M.DJeff for swelling Duloxetine HCL 02/18/2015 - Hx Caps DR 60mg 60caps 1 tab by M79.7 Cristin 05/15/2017 Part mouth twice a [place] Triamterene/Bouse 02/18/2015 - Hx Tablets 37.5-2 30tabs 1 by mouth I10 Cristin chlorothiazide 12/17/2015 5mg every day Marge Duncan Lisinopril 02/18/2015 - Hx Tablets 10mg 30tabs 1 by mouth I10 Cristin 08/23/2016 every day Marge Duncan Gabapentin 02/18/2015 - Hx Capsules 400mg 120caps 1 tab in in M79.7 Cristin 05/15/2017 the morning, [place], 2 po M.D. afternoon and 1 tab in evening Handicap Parking 02/18/2015 - Hx cannot walk 715.09 [facility] Permit 03/23/2015 long [place], distance; M.D. needs handicap parking indefinitely Amlodipine 08/25/2014 - Hx Tablets 5mg 30tabs take one 401.1 Cristin Besylate 03/23/2015 tablet by [place], mouth one M.D. time daily Cyclobenzaprine 07/14/2014 - Hx Tablets 5mg 90tabs 1 tab by M79.7 Cristin HCL 11/11/2016 mouth three [place], times a day M.D. as needed Levofloxacin 06/05/2014 - Hx Tablets 750mg 7tabs 1 tab a day x 493.90 Kassandra 08/24/2014 7 days ALYSON Dobbins Prednisone 06/05/2014 - Hx Tablets 20mg 21tabs 1 twice a day 493.90 [facility] 08/24/2014 x 7d then Shilpi once a day [employer] for 7d Note No Work 06/05/2014 - Hx Madhavi was 493.90 [facility] 08/24/2014 seen by sd Shilpi, today for [employer] illness and may not return to work until Monday, 12\\8\\14 Lisinopril 05/21/2014 - Hx Tablets 10mg 90tabs 1 by mouth 401.1 Cristin 08/24/2014 every day Marge Duncan Spironolactone 05/07/2014 - Hx Tablets 25mg 30tabs 1/2 by mouth 401.1 [facility] 02/18/2015 every day for [place], leg swelling Talha.Roque Advair Diskus 03/31/2014 - Hx Aerosol 250-50 1units 1 puff twice 493.90 Carlene Palacio 03/31/2016 mcg/Do a day se Marge Mora Levofloxacin 03/31/2014 - Hx Tablets 750mg 5tabs 1 tab a day x 493.90 [facility] 05/07/2014 5 days Marge Duncan Singulair 03/31/2014 - Hx Tablets 10mg 30tabs 1 tab by Cristin 07/25/2016 mouth every [place], night MScotty Cymbalta 03/31/2014 - Hx Caps DR 60mg 30caps 1 by mouth 729.1 [facility] 02/18/2015 Part every day Marge Duncan Tramadol HCL ER 12/13/2013 - Hx Tablets ER 100mg 30tabs 1 po qhs Mela F. 03/30/2014 24HR Marge Christie Ventolin HFA 12/14/2012 - Hx Aerosol 108(90 18units inhale 2 J45.998 [facility] 08/17/2015 Base) puffs every [place], mcg/Ac two to three M.D. t hours as needed for asthma, shortness of breath, cough,or wheeze mdd 5 Proair HFA 08/24/2012 - Hx Aerosol 108(90 1units 2 puffs four Mela F. 12/14/2012 Base) times a day Pratik mcg/Ac M.DJeff t Biaxin 12/14/2011 - Hx Tablets 500mg 20tabs 1 po bid x10 465.9 [facility] 08/24/2012 days ALYSON Dobbins Robitussin A-C 12/14/2011 - Hx 4Oz 1-2 tsp po 465.9 [facility] 08/24/2012 q4h prn cough ALYSON Dobbins Prednisone 12/14/2011 - Hx Tablets 20mg 10tabs 1 bid x 5d 465.9 Kassandra 08/24/2012 ALYSON Dobbins Lisinopril 11/16/2011 - Hx Tablets 5mg 90tabs take 1 tablet Mela F. 05/21/2014 by mouth once Pratik, daily M.DJeff Triamterene/Bouse 09/21/2010 - Hx Tablets 37.5-2 30tabs 1 po qd Mela F. chlorothiazide 05/07/2014 5mg Marge Christie Ventolin HFA 05/20/2010 - Hx Aerosol 108(90 18units Inhale 2 465.9 Mela F. 08/24/2012 Base) Puffs Every [place], mcg/ac 2-3 Hours as M.D. Needed For Asthma, Shortness Of Breath, Cough, Wheeze. 493.90 Augmentin 09/16/2009 - Hx Tablets 500-125mg 20tabs one tab po 465.9 Jurado 05/20/2010 bid for ten A. days Marge Alvarez Robitussin A-C 08/14/2008 - Hx 4Oz 1-2 tsp po Benjamin T. 12/29/2008 q4h prn Brigitte cough Talha.DJeff Augmentin 10/22/2007 - Hx Tablets 500mg 20tabs 1 po bid 461.9 Jurado 08/14/2008 with food x A. 10 days Mareg Alvarez Doxycycline 03/27/2007 - Hx 0 100mg 20units 1 PO bid Celine 04/06/2007 Av [facility] Mobic 12/08/2006 - Hx Tablets 7.5mg 30tabs 1 po qd Mela F. 10/22/2007 Marge Christie Ultracet 11/14/2006 - Hx Tablets 325mg;37.5 30tabs 2 tabs q4-6 719.40 Kaela 12/08/2006 mg hr prn hip A [place], pain. Max 8 [employer] tabs/24hrs Doxycycline 04/04/2006 - Hx Capsules 100mg 20caps 1 PO bid Celine Hyclate 04/14/2006 Av [facility] Advair Diskus 04/04/2006 - Hx Inhaler 250McG;50Mc 1units 1 puff bid Celine 12/08/2006 G [facility] Ciprofloxacin 12/17/2005 - Hx Tablets 250mg 14tabs 1 po bid Benjamin TJeff 04/04/2006 Marge Briggs Pyridium 12/17/2005 - Hx Tablets 200mg 15tabs 1 po tid prn Benjamin TJeff 04/04/2006 for bladder Steveura, sx M.D. Biaxin 09/22/2005 - Hx Tablets 500mg 20tabs 1 PO bid X10 Benjamin T. 12/17/2005 Days Marge Briggs Work Excuse 09/22/2005 - Hx unable to Benjamin T. 12/17/2005 work 09/23 Brigitte, Due To M.D. Illness Augmentin 05/06/2005 - Hx Tablets 875mg 20tabs 1 PO bid Benjamin T. 09/22/2005 With Food Marge Briggs Levaquin 04/25/2005 - Hx Tablets 500mg 10tabs 1 po qd Benjamin T. 05/06/2005 Marge Briggs Kristie 01/07/2005 - Hx Tablets 180mg 30tabs 1 PO qd prn Mela F. 09/22/2005 Marge Christie Levaquin 11/11/2004 - Hx Tablets 500mg 14tabs 1 po qd X Kassandra 01/07/2005 14D AYLSON Dobbins Combivent Mdi 11/25/2003 - Hx 1units 2 puffs qid Mela F. 11/11/2004 Marge Christie Sporonox Pulse 11/25/2003 - Hx 1units 200mg po bid Mela F. Pack 11/11/2004 for one [place] week, then , Marge off for 3 weeks, repeat once Clarinex 01/13/2003 - Hx 5mg 30units 1 qd prn Kassandra 04/25/2005 ALYSON Dobbins Singulair 01/13/2003 - Hx 10mg 90units qd Mela F. 08/14/2008 Marge Christie Advair 250/50 01/13/2003 - Hx 1units 1 inhalation Celine 04/04/2006 Av Roy Return To Work 01/08/2003 - Hx May Return Mela F. 11/25/2003 To Work On [place] 01/13/03 Marge Bextra 07/17/2002 - Hx 20mg 30units 1 qd prn Kassandra 12/30/2002 ALYSON Dobbins Note 07/17/2002 - Hx MS Anderson Kassandra 12/30/2002 May Not Shilpi, Return To [employer] Work Until Monday\\\\03. Biaxin 12/27/2001 - Hx Tabs 500mg 20tabs 1 po bid Benjamin T. 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 Dyazide 04/12/2000 - Hx Capsules 37.5-25mg 30caps 1 po qd Mela F. 09/21/2010 Marge Christie Tequin 03/24/2000 - Hx 400mg 8units 1 PO qd Da 04/03/2000 Jeff Salazar M.D. Prednisone 03/10/2000 - Hx Tabs 20mg 70tabs One qid For Da 04/09/2000 One Week, Jeff One tid For Martin One WeekMarge One bid For One Week Zithromax 03/10/2000 - Hx 250mg 6units 2 Tabs Day 1 Da 03/15/2000 Jeff Salazar, 1 Tab qd Marge Days 2 Thru 5 Prednisone 02/28/2000 - Hx 10mg 50units as Directed Da 03/19/2000 Jeff Salazar M.D. Accolate 02/21/2000 - Hx 20mg 60units 1 PO bid Celine 01/13/2003 Av Roy Atrovent 02/21/2000 - Hx 1units 2 puffs bid Nilson Inhaler 11/11/2004 Emelia Salinas M.D. Albuterol 02/21/2000 - Hx 2units 2Puffs Q4H Mela F. Inhaler 05/20/2010 prn Marge Christie Levaquin 02/08/2000 - Hx 500mg 10units 1 qd Sami 02/19/2000 Soha Stone M.D. Albuterol 02/02/2000 - Hx 0.083% 1BX25 as Dir For Sami Solution 04/02/2000 Use W/ Neb Soha Stone M.D. Zithromax 02/02/2000 - Hx 250mg 6units 2 Tabs Day 1 Sami 02/12/2000 S. [place], 1 Tab qd M.D. Days 2 Thru 5 Prednisone 02/02/2000 - Hx Tabs 20mg 12tabs 2/D X 4D, Da 02/12/2000 Then 1/D X M. 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 Physical 08/20/1998 - Hx Treatment Da Therapy 02/19/2000 And Jeff Salazar Of R Marge Shoulder Pain Naproxen 08/17/1998 - Hx 375mg Tab 50units 1 tid For Da 09/06/1998 One Week M. Then tid prn Marge Salazar Out Of Work 08/17/1998 - Hx Will Be Out Da 08/18/1998 Of Work From Jeff Salazar 08/18/98 Marge Until 08/20/98 Amoxicillin 07/30/1998 - Hx 250mg 30units 1 PO tid Da 08/09/1998 Jeff Salazar M.D. Out Of Work 07/30/1998 - Hx Will Be Out Da 07/31/1998 Of Work On M. 07/31/98 Marge Salazar Zithromax 02/11/1998 - Hx Tabs 250mg 6tabs 2 Tabs Day 1 Mela F. 02/16/1998 Marge Christie 1 Tab qd Days 2 Thru 5 Prednisone 02/11/1998 - Hx Tabs 20mg 16tabs 3 PO qd X Mela F. 02/20/1998 3D,2 PO qd [place] X3D, 1 PO , M.DJeff QDX 3D Doxycycline 10/28/1997 - Hx 100mg 20units One bid Sierra 02/11/1998 Zuleika Busch-C Augmentin 09/19/1997 - Hx 875 20units 1 PO bid Da 10/28/1997 Jeff Salazar M.D. Entex LA 07/05/1997 - Hx 20units 1 PO bid Sierra 07/15/1997 Av Busch Augmentin 07/05/1997 - Hx 875mg 20units 1 bid X 10 Sierra 07/15/1997 Days Av Busch Amoxicillin - Hx Capsules 20caps 1 by mouth Unknown 05/21/2014 twice a day x 7d Doxycycline - Hx Capsules 100mg 40caps take one Unknown Hyclate 06/05/2014 capsule by mouth twice a day Guaifenesin ac - Hx Syrup 100-10mg/5M 4oz 1-2 teaspoon Unknown 08/24/2014 L every 4 hours as needed for cough Zithromax - Hx Tablets 500mg use 2 pills Unknown 04/29/2016 together Prednisone - Hx Tablets 40mg as directed Unknown 04/15/2016 Digoxin - Hx Tablets 125mcg 30tabs 1 by mouth Ivan Yang 11/30/2016 every day Marge Marroquin Metoprolol - Hx Tablets 50mg 60tabs 1 by mouth Cristin Tartrate 11/30/2016 twice a day Marge Duncan Benzonatate - Hx Capsules 100mg 1 po bid prn Unknown 05/18/2016 Guaifenesin ER - Hx Tablets ER 1200mg 1 po bid Unknown 05/18/2016 12HR Prednisone - Hx Tablets 10mg 2 po qd Unknown 05/18/2016 Immunizations CPT Code Status Date Vaccine Lot # [id number] Given 03/29/2017 Influenza Vac, Quadrivalent, Slit Virus, Im [id number] Given 05/25/2015 Tdap Tetanus, W Pertussis [id number] Vital Signs Date Vital Result Comment 06/27/2017 BP Systolic 160 mmHg BP Diastolic 80 mmHg Heart Rate 96 /min Body Temperature 97.9 F Respiratory Rate 22 /min O2 % BldC Oximetry 95 % Height 59.5 inches 4'11.50" Weight 257.00 lb BMI (Body Mass Index) 51.0 kg/m2 05/15/2017 BP Systolic 156 mmHg BP Diastolic 50 mmHg Heart Rate 86 /min Body Temperature 98.8 F Respiratory Rate 20 /min O2 % BldC Oximetry 992 % Height 59.5 inches 4'11.50" Weight 272.38 lb BMI (Body Mass Index) 54.1 kg/m2 03/29/2017 BP Systolic 160 mmHg BP Diastolic 120 mmHg BP Systolic Recheck 160 mmHg BP Diastolic Recheck 94 mmHg Heart Rate 72 /min Body Temperature 99.0 F Respiratory Rate 18 /min Height 59.5 inches 4'11.50" Weight 257.00 lb BMI (Body Mass Index) 51.0 kg/m2 11/23/2016 BP Systolic 124 mmHg BP Diastolic 60 mmHg Heart Rate 66 /min Body Temperature 98.8 F Respiratory Rate 18 /min O2 % BldC Oximetry 98 % Height 58 inches 4'10" Weight 244.50 lb BMI (Body Mass Index) 51.1 kg/m2 08/23/2016 BP Systolic 140 mmHg BP Diastolic 80 mmHg Heart Rate 100 /min Body Temperature 98.0 F Respiratory Rate 20 /min O2 % BldC Oximetry 9286 % Height 58 inches 4'10" 06/29/2016 BP Systolic 162 mmHg BP Diastolic 90 mmHg Heart Rate 80 /min Body Temperature 97.3 F Respiratory Rate 20 /min O2 % BldC Oximetry 97 % Height 58 inches 4'10" Weight 246.12 lb BMI (Body Mass Index) 51.4 kg/m2 06/08/2016 BP Systolic 156 mmHg BP Diastolic 86 mmHg Heart Rate 66 /min Body Temperature 96.4 F Respiratory Rate 20 /min O2 % BldC Oximetry 94 % Height 58 inches 4'10" Weight 246.00 lb BMI (Body Mass Index) 51.4 kg/m2 05/18/2016 BP Systolic 118 mmHg BP Diastolic 70 mmHg Heart Rate 56 /min Body Temperature 97.0 F Respiratory Rate 20 /min O2 % BldC Oximetry 95 % Height 58 inches 4'10" Weight 245.12 lb BMI (Body Mass Index) 51.2 kg/m2 04/29/2016 BP Systolic 110 mmHg BP Diastolic 80 mmHg Heart Rate 72 /min Body Temperature 98.9 F Respiratory Rate 20 /min O2 % BldC Oximetry 98 % Height 58 inches 4'10" Weight 243.00 lb BMI (Body Mass Index) 50.8 kg/m2 04/15/2016 BP Systolic 134 mmHg BP Diastolic 82 mmHg Heart Rate 109 /min Body Temperature 97.9 F Respiratory Rate 24 /min O2 % BldC Oximetry 97 % 2016 BP Systolic 128 mmHg BP Diastolic 84 mmHg Heart Rate 80 /min Body Temperature 97.9 F Respiratory Rate 24 /min O2 % BldC Oximetry 95 % 03/31/2016 BP Systolic 124 mmHg BP Diastolic 80 mmHg Heart Rate 108 /min Body Temperature 98.6 F Respiratory Rate 22 /min O2 % BldC Oximetry 95 % 03/28/2016 BP Systolic 190 mmHg BP Diastolic 70 mmHg Heart Rate 108 /min Body Temperature 98.2 F Respiratory Rate 25 /min O2 % BldC Oximetry 97 % Weight 250.00 lb 03/02/2016 BP Systolic 146 mmHg BP Diastolic 66 mmHg Heart Rate 90 /min Body Temperature 97.0 F Respiratory Rate 18 /min Weight 250.25 lb 12/17/2015 BP Systolic 140 mmHg BP Diastolic 80 mmHg Heart Rate 88 /min Body Temperature 98.2 F Respiratory Rate 18 /min Weight 251.00 lb 10/28/2015 BP Systolic 160 mmHg BP Diastolic 80 mmHg Heart Rate 84 /min Respiratory Rate 16 /min Height 58 inches 4'10" Weight 249.00 lb BMI (Body Mass Index) 52.0 kg/m2 08/28/2015 BP Systolic 160 mmHg BP Diastolic 80 mmHg Heart Rate 88 /min Body Temperature 98.6 F Respiratory Rate 16 /min Height 58 inches 4'10" Weight 255.00 lb BMI (Body Mass Index) 53.3 kg/m2 05/25/2015 BP Systolic 144 mmHg BP Diastolic 80 mmHg Heart Rate 72 /min Body Temperature 97.8 F Respiratory Rate 22 /min Height 58 inches 4'10" Weight 244.00 lb BMI (Body Mass Index) 51.0 kg/m2 03/23/2015 BP Systolic 140 mmHg BP Diastolic 80 mmHg Heart Rate 88 /min Body Temperature 97.8 F Respiratory Rate 16 /min Height 58.5 inches 4'10.50" Weight 240.00 lb BMI (Body Mass Index) 49.3 kg/m2 02/18/2015 BP Systolic 146 mmHg BP Diastolic 94 mmHg Heart Rate 90 /min Body Temperature 97.9 F Respiratory Rate 16 /min Height 58.5 inches 4'10.50" Weight 244.25 lb BMI (Body Mass Index) 50.2 kg/m2 08/25/2014 BP Systolic 180 mmHg BP Diastolic 80 mmHg BP Systolic Recheck 170 mmHg BP Diastolic Recheck 82 mmHg Heart Rate 102 /min Body Temperature 96.9 F Height 58.5 inches 4'10.50" Weight 231.50 lb BMI (Body Mass Index) 47.6 kg/m2 07/14/2014 BP Systolic 140 mmHg BP Diastolic 84 mmHg Heart Rate 84 /min Body Temperature 97.3 F Respiratory Rate 18 /min Height 58.5 inches 4'10.50" Weight 226.50 lb BMI (Body Mass Index) 46.5 kg/m2 06/05/2014 BP Systolic 146 mmHg BP Diastolic 98 mmHg Heart Rate 88 /min Body Temperature 98.2 F Respiratory Rate 20 /min Height 58.5 inches 4'10.50" Weight 228.38 lb BMI (Body Mass Index) 46.9 kg/m2 05/21/2014 BP Systolic 178 mmHg BP Diastolic 98 mmHg Heart Rate 90 /min Body Temperature 97.8 F Respiratory Rate 16 /min Height 58.5 inches 4'10.50" Weight 225.38 lb BMI (Body Mass Index) 46.3 kg/m2 05/07/2014 BP Systolic 156 mmHg BP Diastolic 80 mmHg Heart Rate 78 /min Body Temperature 98.2 F Respiratory Rate 18 /min Height 58.5 inches 4'10.50" Weight 229.00 lb BMI (Body Mass Index) 47.0 kg/m2 03/31/2014 BP Systolic 160 mmHg BP Diastolic 82 mmHg Heart Rate 96 /min Body Temperature 98.6 F Respiratory Rate 18 /min Height 58.5 inches 4'10.50" Weight 223.00 lb BMI (Body Mass Index) 45.8 kg/m2 12/13/2013 BP Systolic 146 mmHg BP Diastolic 84 mmHg Heart Rate 80 /min Body Temperature 98.5 F Respiratory Rate 16 /min Height 58.5 inches 4'10.50" Weight 221.00 lb BMI (Body Mass Index) 45.4 kg/m2 08/24/2012 BP Systolic 156 mmHg BP Diastolic 102 mmHg Heart Rate 72 /min Body Temperature 98.0 F Respiratory Rate 16 /min Height 58.5 inches 4'10.50" Weight 195.00 lb BMI (Body Mass Index) 40.1 kg/m2 12/14/2011 BP Systolic 120 mmHg BP Diastolic 70 mmHg Heart Rate 80 /min Body Temperature 98.1 F Respiratory Rate 20 /min Height 58.5 inches 4'10.50" Weight 194.00 lb BMI (Body Mass Index) 39.9 kg/m2 10/07/2011 BP Systolic 116 mmHg BP Diastolic 72 mmHg Heart Rate 90 /min Body Temperature 98.6 F Height 58.5 inches 4'10.50" Weight 189.00 lb BMI (Body Mass Index) 38.8 kg/m2 01/14/2011 BP Systolic 130 mmHg BP Diastolic 80 mmHg Heart Rate 76 /min Body Temperature 98.9 F Height 58.5 inches 4'10.50" Weight 188.00 lb BMI (Body Mass Index) 38.6 kg/m2 05/20/2010 BP Systolic 146 mmHg BP Diastolic 74 mmHg Heart Rate 60 /min Body Temperature 98.7 F Height 58.5 inches 4'10.50" Weight 185.00 lb BMI (Body Mass Index) 38.0 kg/m2 09/16/2009 BP Systolic 130 mmHg BP Diastolic 100 mmHg Heart Rate 88 /min Body Temperature 98.7 F Weight 203.00 lb 12/29/2008 BP Systolic 122 mmHg BP Diastolic 70 mmHg Heart Rate 84 /min Body Temperature 99.1 F Height 58.5 inches 4'10.50" Weight 183.00 lb BMI (Body Mass Index) 37.6 kg/m2 08/14/2008 BP Systolic 130 mmHg BP Diastolic 78 mmHg Heart Rate 90 /min Body Temperature 98.8 F O2 % BldC Oximetry 98 % Height 58.5 inches 4'10.50" Weight 189.00 lb BMI (Body Mass Index) 38.8 kg/m2 10/22/2007 BP Systolic 118 mmHg BP Diastolic 74 mmHg Heart Rate 76 /min Body Temperature 100.5 F Respiratory Rate 16 /min Height 58.5 inches 4'10.50" Weight 195.00 lb BMI (Body Mass Index) 40.1 kg/m2 03/27/2007 BP Systolic 108 mmHg BP Diastolic 76 mmHg Heart Rate 88 /min Body Temperature 99.9 F Height 58.5 inches 4'10.50" Weight 192.00 lb BMI (Body Mass Index) 39.4 kg/m2 01/22/2007 BP Systolic 128 mmHg BP Diastolic 74 mmHg Heart Rate 78 /min Body Temperature 98.6 F Height 58.5 inches 4'10.50" Weight 190.00 lb BMI (Body Mass Index) 39.0 kg/m2 12/08/2006 BP Systolic 96 mmHg BP Diastolic 64 mmHg Heart Rate 76 /min Height 58.5 inches 4'10.50" Weight 187.00 lb BMI (Body Mass Index) 38.4 kg/m2 11/14/2006 BP Systolic 130 mmHg BP Diastolic 76 mmHg Heart Rate 66 /min Respiratory Rate 15 /min Height 58.5 inches 4'10.50" 04/04/2006 BP Systolic 120 mmHg BP Diastolic 80 mmHg Heart Rate 84 /min Body Temperature 99.6 F Height 58.5 inches 4'10.50" Weight 163.00 lb BMI (Body Mass Index) 33.5 kg/m2 12/17/2005 BP Systolic 120 mmHg BP Diastolic 86 mmHg Heart Rate 80 /min Body Temperature 99.3 F Height 58.5 inches 4'10.50" 09/22/2005 BP Systolic 130 mmHg BP Diastolic 84 mmHg Heart Rate 88 /min Body Temperature 99.3 F Height 58.5 inches 4'10.50" 04/25/2005 BP Systolic 140 mmHg BP Diastolic 84 mmHg Heart Rate 78 /min Body Temperature 99.3 F Height 58.5 inches 4'10.50" Weight 175.00 lb BMI (Body Mass Index) 35.9 kg/m2 11/11/2004 BP Systolic 148 mmHg BP Diastolic 100 mmHg Body Temperature 98.8 F Height 58.5 inches 4'10.50" Weight 178.00 lb BMI (Body Mass Index) 36.6 kg/m2 01/21/2004 BP Systolic 130 mmHg BP Diastolic 80 mmHg Heart Rate 82 /min Height 58.5 inches 4'10.50" Weight 205.00 lb BMI (Body Mass Index) 42.1 kg/m2 11/25/2003 BP Systolic 124 mmHg BP Diastolic 82 mmHg Heart Rate 82 /min Body Temperature 98.6 F Height 58.5 inches 4'10.50" 01/13/2003 BP Systolic 122 mmHg BP Diastolic 70 mmHg Body Temperature 98.9 F Height 58.5 inches 4'10.50" Weight 213.00 lb BMI (Body Mass Index) 43.8 kg/m2 12/30/2002 BP Systolic 128 mmHg BP Diastolic 72 mmHg Heart Rate 84 /min Body Temperature 100.2 F Height 58.5 inches 4'10.50" Weight 214.00 lb BMI (Body Mass Index) 44.0 kg/m2 07/17/2002 BP Systolic 126 mmHg BP Diastolic 70 mmHg Heart Rate 72 /min Height 58.5 inches 4'10.50" Weight 203.00 lb BMI (Body Mass Index) 42.4 kg/m2 12/27/2001 BP Systolic 126 mmHg LG Cuff BP Diastolic 80 mmHg LG Cuff Body Temperature 100.9 F With Tylenol Height 58.5 inches 4'10.50" Weight 188.00 lb BMI (Body Mass Index) 39.3 kg/m2 03/21/2001 BP Systolic 110 mmHg BP Diastolic 80 mmHg Body Temperature 98.9 F Weight 200.00 lb 10/18/2000 BP Systolic 110 mmHg BP Diastolic 64 mmHg Body Temperature 99.0 F Weight 198.00 lb 06/06/2000 BP Systolic 122 mmHg BP Diastolic 80 mmHg Body Temperature 98.9 F Weight 204.00 lb 05/26/2000 BP Systolic 160 mmHg BP Diastolic 100 mmHg Heart Rate 80 /min Body Temperature 98.4 F Weight 200.00 lb 05/16/2000 BP Systolic 150 mmHg BP Diastolic 104 mmHg Heart Rate 100 /min Weight 206.00 lb 04/12/2000 BP Systolic 156 mmHg BP Diastolic 100 mmHg Heart Rate 88 /min Weight 204.00 lb 03/24/2000 BP Systolic 160 mmHg BP Diastolic 100 mmHg Body Temperature 99.2 F Weight 199.00 lb 03/10/2000 BP Systolic 120 mmHg LA LG Cuff BP Diastolic 70 mmHg LA LG Cuff Heart Rate 72 /min Body Temperature 98.3 F 02/28/2000 BP Systolic 152 mmHg Ra LG Cuff BP Diastolic 90 mmHg Ra LG Cuff Heart Rate 72 /min Weight 182.00 lb 02/19/2000 BP Systolic 130 mmHg BP Diastolic 80 mmHg Heart Rate 88 /min Body Temperature 97.0 F Weight 185.00 lb 02/02/2000 BP Systolic 160 mmHg BP Diastolic 92 mmHg Heart Rate 78 /min Body Temperature 103.6 F Weight 177.00 lb 08/17/1999 Body Temperature 98.8 F Weight 174.00 lb 07/02/1999 Body Temperature 99.0 F Weight 163.50 lb 08/17/1998 Body Temperature 98.0 F Weight 166.00 lb 07/30/1998 BP Systolic 150 mmHg BP Diastolic 90 mmHg Body Temperature 97.1 F With Tylenol Weight 164.50 lb 02/11/1998 Body Temperature 99.0 F Weight 187.00 lb 09/19/1997 BP Systolic 110 mmHg BP Diastolic 78 mmHg Body Temperature 97.8 F Weight 189.00 lb 07/05/1997 BP Systolic 140 mmHg BP Diastolic 80 mmHg Body Temperature 98.8 F Weight 192.00 lb Results Test Date Test Result H/L Range Note Laboratory test finding 06/14/2017 Hemoglobin A1c (Fma) 10.7 % High 4.1- 5.7 Comprehensive Metabolic 06/14/2017 Sodium 142 mEq/L 134-149 Prof Potassium 4.4 mEq/L 3.6-5.5 Chloride 105 mEq/L 94-112 Carbon Dioxide 27 mEq/L 21-32 Glucose 352 mg/dL High 70-105 BUN 13 mg/dL 6-26 Creatinine 0.7 mg/dL 0.6-1.4 BUN/Creat Ratio 18.6 CALC 8.0-36.0 Calcium 9.7 mg/dL 8.6-10.2 Total Protein 6.6 g/dL 6.4-8.3 Albumin 4.1 g/dL 3.8-5.5 Globulin 2.5 g/dL 2.0-4.8 A/G Ratio 1.6 CALC 0.6-2.3 Alk. Phosphatase 116 U/L High 30-110 Alt (SGPT) 40 U/L High 7-35 Ast (Sgot) 20 U/L 5-34 Total Bilirubin 0.6 mg/dL 0.2-1.3 GFR Non- >60 ml/min/1.73m^ >=60 GFR >60 ml/min/1.73m^ >=60 Lipid Profile 06/14/2017 Cholesterol 234 mg/dL High 120-200 Triglycerides 233 mg/dL High 30-200 HDL Cholesterol 65 mg/dL 30-85 LDL (Calculated) 122 CALC 0-129 VLDL Cholesterol 47 mg/dL 0-50 HDL Risk Factor 3.6 CALC 0.0-4.4 Complete Blood Count 06/14/2017 WBC 18.7 x10^3/UL High 3.6-9.6 1 RBC 4.49 x10^6/UL 3.90-5.70 HGB 13.4 g/dL 12.1-17.2 HCT 41 % 36-50 MCV 90.0 fL 82.2-97.4 MCH 29.9 pg 27.6-33.3 MCHC 33.1 g/dL 33.0-35.5 RDW 16.6 % High 11.6-13.7 PLT 263 x10^3/UL 150-400 MPV 8.3 fL 7.4-10.4 Gran # 17.0 x10^3/UL High 1.5-7.2 Lymph# 1.2 x10^3/UL 0.7-4.9 [place]# 0.5 x10^3/UL 0.1-0.9 Gran % 89.9 % High 42.2-75.2 Lymph % 6.9 % Low 20.5-51.1 [place]% 3.2 % 1.7-9.3 Laboratory test finding 06/14/2017 TSH 0.53 mIU/L 0.50-6.00 Free T4 1.18 ng/dL 0.75-1.54 Arterial Blood Gas 04/30/2017 Fio2 30 PH Arterial 7.40 7.35-7.45 Pco2 Arterial 49 mmHg High 35-45 Po2 Arterial 95 mmHg 80-100 O2 Saturation Arterial 99.1 % High 95-98 Base Excess Arterial 4.5 High -2.0-2.0 2 Hco3 Arterial 28.4 mmol/L 19-31 CBC Auto Diff 04/30/2017 White Blood Count 21.4 10^3/uL High 3.5-10.8 Red Blood Count 4.95 10^6/uL 4.0-5.4 Hemoglobin 14.2 g/dL 12.0-16.0 Hematocrit 43 % 35-47 Mean Corpuscular Volume 87 fL 80-97 Mean Corpuscular Hemoglobin 29 pg 27-31 Mean Corpuscular HGB Conc 33 g/dL 31-36 Red Cell Distribution Width 15 % 10.5-15 Platelet Count 265 10^3/uL 150-450 Mean Platelet Volume 9 um3 7.4-10.4 Abs Neutrophils 18.2 10^3/uL High 1.5-7.7 Abs Lymphocytes 2.1 10^3/uL 1.0-4.8 Abs Monocytes 1.0 10^3/uL High 0-0.8 Abs Eosinophils 0 10^3/uL 0-0.6 Abs Basophils 0.1 10^3/uL 0-0.2 Abs Nucleated RBC 0.01 10^3/uL Granulocyte % 84.8 % High 38-83 Lymphocyte % 9.7 % Low 25-47 Monocyte % 4.8 % 1-9 Eosinophil % 0.2 % 0-6 Basophil % 0.5 % 0-2 Nucleated Red Blood Cells % 0 Inr/Protime 04/30/2017 Inr 0.82 Low 0.89-1.11 Laboratory test finding 04/30/2017 Partial Thrombo Time 16.6 seconds Low 26.0-36.3 PTT Lactic Acid 4.3 mmol/L High 0.5-2.0 3 Comp Metabolic Panel 04/30/2017 Sodium 138 mmol/L 133-145 Potassium 4.1 mmol/L 3.5-5.0 Chloride 97 mmol/L Low 101-111 Co2 Carbon Dioxide 30 mmol/L 22-32 Anion Gap 11 mmol/L 2-11 Glucose 266 mg/dL High 70-100 Blood Urea Nitrogen 21 mg/dL 6-24 Creatinine 0.98 mg/dL High 0.51-0.95 BUN/Creatinine Ratio 21.4 High 8-20 Calcium 9.8 mg/dL 8.6-10.3 Total Protein 6.8 g/dL 6.4-8.9 Albumin 3.9 g/dL 3.2-5.2 Globulin 2.9 g/dL 2-4 Albumin/Globulin Ratio 1.3 1-3 Total Bilirubin 0.40 mg/dL 0.2-1.0 Alkaline Phosphatase 101 U/L 34-104 Alt 21 U/L 7-52 Ast 21 U/L 13-39 Egfr Non- 58.3 >60 Egfr 75.0 >60 4 Laboratory test finding 04/30/2017 Magnesium 1.9 mg/dL 1.9-2.7 Troponin I 0.11 ng/mL High <0.04 5 B-Type Natriuretic Peptide BNP 150 pg/mL High 6 TSH (Thyroid Stim Horm) 4.08 mcIU/mL 0.34-5.60 Laboratory test finding 03/22/2017 Magnesium, Serum 1.5 mEq/L 1.2-2.1 Comprehensive Metabolic Prof 03/22/2017 Sodium 140 mEq/L 134-149 Potassium 5.1 mEq/L 3.6-5.5 Chloride 99 mEq/L 94-112 Carbon Dioxide 26 mEq/L 21-32 Glucose 253 mg/dL High 70-105 7 BUN 11 mg/dL 6-26 Creatinine 0.9 mg/dL 0.6-1.4 BUN/Creat Ratio 12.2 CALC 8.0-36.0 Calcium 9.3 mg/dL 8.6-10.2 Total Protein 6.2 g/dL Low 6.4-8.3 8 Albumin 4.0 g/dL 3.8-5.5 Globulin 2.2 g/dL 2.0-4.8 A/G Ratio 1.8 CALC 0.6-2.3 Alk. Phosphatase 104 U/L 30-110 Alt (SGPT) 17 U/L 7-35 Ast (Sgot) 18 U/L 5-34 Total Bilirubin 0.5 mg/dL 0.2-1.3 GFR Non- >60 ml/min/1.73m^ >=60 GFR >60 ml/min/1.73m^ >=60 Laboratory test finding 03/22/2017 TSH 1.84 mIU/L 0.50-6.00 Free T4 1.24 ng/dL 0.75-1.54 Lipid Profile 03/22/2017 Cholesterol 276 mg/dL High 120-200 Triglycerides 215 mg/dL High 30-200 HDL Cholesterol 49 mg/dL 30-85 LDL (Calculated) 184 CALC High 0-129 VLDL Cholesterol 43 mg/dL 0-50 HDL Risk Factor 5.6 CALC High 0.0-4.4 Complete Blood Count 03/22/2017 WBC 10.8 x10^3/UL High 3.6-9.6 9 RBC 4.41 x10^6/UL 3.90-5.70 HGB 13.0 g/dL 12.1-17.2 HCT 39 % 36-50 MCV 88.0 fL 82.2-97.4 MCH 29.5 pg 27.6-33.3 MCHC 33.3 g/dL 33.0-35.5 RDW 15.1 % High 11.6-13.7 PLT 262 x10^3/UL 150-400 MPV 8.0 fL 7.4-10.4 Gran # 8.5 x10^3/UL High 1.5-7.2 Lymph# 1.8 x10^3/UL 0.7-4.9 [place]# 0.5 x10^3/UL 0.1-0.9 Gran % 78.0 % High 42.2-75.2 Lymph % 17.0 % Low 20.5-51.1 [place]% 5.0 % 1.7-9.3 Laboratory test finding 03/22/2017 Hemoglobin A1c (Fma) 8.6 % High 4.1- 5.7 Microalb, Random (Fma/CMC/CTX) >200 mg/L mg/L High 0.5-37 CBC Auto Diff 08/13/2016 White Blood Count 26.6 10^3/uL High 3.5-10.8 Red Blood Count 4.80 10^6/uL 4.0-5.4 Hemoglobin 13.8 g/dL 12.0-16.0 Hematocrit 43 % 35-47 Mean Corpuscular Volume 90 fL 80-97 Mean Corpuscular Hemoglobin 29 pg 27-31 Mean Corpuscular HGB Conc 32 g/dL 31-36 Red Cell Distribution Width 16 % High 10.5-15 Platelet Count 352 10^3/uL 150-450 Mean Platelet Volume 9 um3 7.4-10.4 Abs Neutrophils 23.4 10^3/uL High 1.5-7.7 Abs Lymphocytes 1.7 10^3/uL 1.0-4.8 Abs Monocytes 1.3 10^3/uL High 0-0.8 Abs Eosinophils 0 10^3/uL 0-0.6 Abs Basophils 0.2 10^3/uL 0-0.2 Abs Nucleated RBC 0 10^3/uL Granulocyte % 87.8 % High 38-83 Lymphocyte % 6.5 % Low 25-47 Monocyte % 4.7 % 1-9 Eosinophil % 0.1 % 0-6 Basophil % 0.9 % 0-2 Nucleated Red Blood Cells % 0 Inr/Protime 08/13/2016 Inr 2.04 High 0.89-1.11 Laboratory test finding 08/13/2016 Partial Thrombo Time 30.2 seconds 26.0 -36.3 PTT Lactic Acid 3.9 mmol/L High 0.5-2.0 10 B-Type Natriuretic Peptide BNP 177 pg/mL High 11 Comp Metabolic Panel 08/13/2016 Sodium 135 mmol/L 133-145 Potassium 4.6 mmol/L 3.5-5.0 Chloride 101 mmol/L 101-111 Co2 Carbon Dioxide 24 mmol/L 22-32 Anion Gap 10 mmol/L 2-11 Glucose 198 mg/dL High 70-100 Blood Urea Nitrogen 26 mg/dL High 6-24 Creatinine 1.01 mg/dL High 0.51-0.95 BUN/Creatinine Ratio 25.7 High 8-20 Calcium 10.1 mg/dL 8.6-10.3 Total Protein 7.0 g/dL 6.4-8.9 Albumin 3.9 g/dL 3.2-5.2 Globulin 3.1 g/dL 2-4 Albumin/Globulin Ratio 1.3 1-3 Total Bilirubin 0.40 mg/dL 0.2-1.0 Alkaline Phosphatase 78 U/L 34-104 Alt 34 U/L 7-52 Ast 21 U/L 13-39 Egfr Non- 56.5 >60 Egfr 72.7 >60 12 Laboratory test finding 08/13/2016 Magnesium 1.9 mg/dL 1.9-2.7 CKMB 08/13/2016 CKMB ng/mL 4.7 ng/mL 0.6-6.3 Laboratory test finding 08/13/2016 Troponin I 0.05 ng/mL High <0.04 13 Thyroxine 7.38 ?g/dL 6.09-12.23 TSH (Thyroid Stim Horm) 2.12 mcIU/mL 0.34-5.60 Blood Culture SEE RESULT BELOW 14 Comprehensive Metabolic Prof 05/18/2016 Sodium 139 mEq/L 134-149 Potassium 4.5 mEq/L 3.6-5.5 Chloride 95 mEq/L 94-112 Carbon Dioxide 29 mEq/L 21-32 Glucose 125 mg/dL High 70-105 15 BUN 25 mg/dL 6-26 Creatinine 1.1 mg/dL 0.6-1.4 BUN/Creat Ratio 22.7 CALC 8.0-36.0 Calcium 8.6 mg/dL 8.6-10.2 Total Protein 6.0 g/dL Low 6.4-8.3 16 Albumin 3.8 g/dL 3.8-5.5 Globulin 2.2 g/dL 2.0-4.8 A/G Ratio 1.7 CALC 0.6-2.3 Alk. Phosphatase 79 U/L 30-110 Alt (SGPT) 40 U/L High 7-35 17 Ast (Sgot) 23 U/L 5-34 Total Bilirubin 0.5 mg/dL 0.2-1.3 GFR Non- 54 ml/min/1.73m^ Low >=60 GFR >60 ml/min/1.73m^ >=60 Laboratory test finding 05/18/2016 TSH 4.64 mIU/L 0.50-6.00 Free T4 1.21 ng/dL 0.75-1.54 Complete Blood Count 05/18/2016 WBC 10.0 x10^3/UL High 3.6-9.6 18 RBC 3.67 x10^6/UL Low 3.90-5.70 19 HGB 11.9 g/dL Low 12.1-17.2 20 HCT 35 % Low 36-50 21 MCV 94.0 fL 82.2-97.4 MCH 32.3 pg 27.6-33.3 MCHC 34.4 g/dL 33.0-35.5 RDW 16.1 % High 11.6-13.7 22 PLT 306 x10^3/UL 150-400 MPV 6.7 fL Low 7.4-10.4 23 Gran # 7.4 x10^3/UL High 1.5-7.2 24 Lymph# 2.2 x10^3/UL 0.7-4.9 [place]# 0.4 x10^3/UL 0.1-0.9 Gran % 73.1 % 42.2-75.2 Lymph % 22.0 % 20.5-51.1 [place]% 4.9 % 1.7-9.3 Laboratory test finding 05/18/2016 Hemoglobin A1c (Fma) 9.9 % High 4.1- 5.7 Laboratory test finding 03/27/2016 Inr/Protime 0.91 0.89-1.11 Partial Thrombo Time PTT 27.5 seconds 26.0-36.3 CBC Auto Diff 03/27/2016 White Blood Count 17.0 10^3/uL High 3.5-10.8 Red Blood Count 4.10 10^6/uL 4.0-5.4 Hemoglobin 12.4 g/dL 12.0-16.0 Hematocrit 37 % 35-47 Mean Corpuscular Volume 91 fL 80-97 Mean Corpuscular Hemoglobin 30 pg 27-31 Mean Corpuscular HGB Conc 33 g/dL 31-36 Red Cell Distribution Width 14 % 10.5-15 Platelet Count 251 10^3/uL 150-450 Mean Platelet Volume 9 um3 7.4-10.4 Abs Neutrophils 14.1 10^3/uL High 1.5-7.7 Abs Lymphocytes 1.7 10^3/uL 1.0-4.8 Abs Monocytes 0.8 10^3/uL 0-0.8 Abs Eosinophils 0.2 10^3/uL 0-0.6 Abs Basophils 0.1 10^3/uL 0-0.2 Abs Nucleated RBC 0 10^3/uL Granulocyte % 83.2 % High 38-83 Lymphocyte % 10.0 % Low 25-47 Monocyte % 4.9 % 1-9 Eosinophil % 1.0 % 0-6 Basophil % 0.9 % 0-2 Nucleated Red Blood Cells % 0 Laboratory test finding 03/27/2016 Lactic Acid 2.0 mmol/L 0.5-2.0 25 Comp Metabolic Panel 03/27/2016 Sodium 135 mmol/L 133-145 Potassium 3.9 mmol/L 3.5-5.0 Chloride 101 mmol/L 101-111 Co2 Carbon Dioxide 27 mmol/L 22-32 Anion Gap 7 mmol/L 2-11 Glucose 140 mg/dL High 70-100 Blood Urea Nitrogen 14 mg/dL 6-24 Creatinine 0.68 mg/dL 0.51-0.95 BUN/Creatinine Ratio 20.6 High 8-20 Calcium 8.7 mg/dL 8.6-10.3 Total Protein 6.3 g/dL Low 6.4-8.9 Albumin 3.7 g/dL 3.2-5.2 Globulin 2.6 g/dL 2-4 Albumin/Globulin Ratio 1.4 1-3 Total Bilirubin 0.40 mg/dL 0.2-1.0 Alkaline Phosphatase 88 U/L 34-104 Alt 11 U/L 7-52 Ast 13 U/L 13-39 Egfr Non- 89.5 >60 Egfr 115.1 >60 26 Laboratory test finding 03/27/2016 C Reactive Protein 17.77 mg/L High &lt ; 5.00 27 B-Type Natriuretic Peptide BNP 148 pg/mL High 28 Blood Culture SEE RESULT BELOW 29 Laboratory test finding 12/24/2015 Point of Care Glucose 101 mg/dL 74- 106 30 Laboratory test finding 12/24/2015 Point of Care Glucose 109 mg/dL High 74 -106 31 PT And PTT 12/17/2015 Inr 1.0 32, 33 Prothrombin Time 9.9 seconds 9.6-11.5 32 aPTT 25.4 seconds 25.0-31.3 32 Complete Blood Count 12/17/2015 WBC 11.4 x10^3/UL High 3.6-9.6 34 RBC 4.36 x10^6/UL 3.90-5.70 HGB 13.5 g/dL 12.1-17.2 HCT 41 % 36-50 MCV 93.0 fL 82.2-97.4 MCH 30.9 pg 27.6-33.3 MCHC 33.1 g/dL 33.0-35.5 RDW 13.7 % 11.6-13.7 PLT 241 x10^3/UL 150-400 MPV 8.0 fL 7.4-10.4 Gran # 8.2 x10^3/UL High 1.5-7.2 Lymph# 2.7 x10^3/UL 0.7-4.9 [place]# 0.5 x10^3/UL 0.1-0.9 Gran % 71.1 % 42.2-75.2 Lymph % 24.2 % 20.5-51.1 [place]% 4.7 % 1.7-9.3 Comprehensive Metabolic Prof 12/17/2015 Sodium 138 mEq/L 134-149 Potassium 4.4 mEq/L 3.6-5.5 Chloride 96 mEq/L 94-112 Carbon Dioxide 32 mEq/L 21-32 Glucose 124 mg/dL High 70-105 35 BUN 15 mg/dL 6-26 Creatinine 0.7 mg/dL 0.6-1.4 BUN/Creat Ratio 21.4 CALC 8.0-36.0 Calcium 9.7 mg/dL 8.6-10.2 Total Protein 6.8 g/dL 6.4-8.3 Albumin 4.2 g/dL 3.8-5.5 Globulin 2.6 g/dL 2.0-4.8 A/G Ratio 1.6 CALC 0.6-2.3 Alk. Phosphatase 89 U/L 30-110 Alt (SGPT) 22 U/L 7-35 Ast (Sgot) 20 U/L 5-34 Total Bilirubin 0.4 mg/dL 0.2-1.3 GFR Non- >60 ml/min/1.73m^ >=60 GFR >60 ml/min/1.73m^ >=60 HIV 1/O/2 Ag/AB 10/21/2015 HIV Screen 4th Non Reactive Non Reactive 36 Prelim W/[place] RFX Generation wRfx Sup Laboratory test 10/21/2015 Hemoglobin A1c 7.0 % High 4.1-5.7 finding (Fma) Ua - Non Micro (Fma) 10/21/2015 Appearance yellow Color clear Glucose, Urine (Fma/CMC/CTX) neg Bilirubin neg Ketones neg SP Grav 1.025 Blood neg PH 5.5 Protein neg Urobil 0.2 Nitrite neg Leukocytes (Fma/CMC/Centrex) neg Comprehensive Metabolic Prof 10/21/2015 Sodium 137 mEq/L 134-149 Potassium 4.7 mEq/L 3.6-5.5 Chloride 97 mEq/L 94-112 Carbon Dioxide 31 mEq/L 21-32 Glucose 160 mg/dL High 70-105 37 BUN 25 mg/dL 6-26 Creatinine 0.7 mg/dL 0.6-1.4 BUN/Creat Ratio 35.7 CALC 8.0-36.0 Calcium 9.2 mg/dL 8.6-10.2 Total Protein 6.2 g/dL Low 6.4-8.3 38 Albumin 3.8 g/dL 3.8-5.5 Globulin 2.4 g/dL 2.0-4.8 A/G Ratio 1.6 CALC 0.6-2.3 Alk. Phosphatase 80 U/L 30-110 Alt (SGPT) 31 U/L 7-35 Ast (Sgot) 17 U/L 5-34 Total Bilirubin 0.5 mg/dL 0.2-1.3 GFR Non- >60 ml/min/1.73m^ >=60 GFR >60 ml/min/1.73m^ >=60 Lipid Profile 10/21/2015 Cholesterol 236 mg/dL High 120-200 Triglycerides 189 mg/dL 30-200 HDL Cholesterol 53 mg/dL 30-85 LDL (Calculated) 145 CALC High 0-129 VLDL Cholesterol 38 mg/dL 0-50 HDL Risk Factor 4.5 CALC High 0.0-4.4 Complete Blood Count 10/21/2015 WBC 13.1 x10^3/UL High 3.6-9.6 39 RBC 4.43 x10^6/UL 3.90-5.70 HGB 13.6 g/dL 12.1-17.2 HCT 41 % 36-50 MCV 92.0 fL 82.2-97.4 MCH 30.7 pg 27.6-33.3 MCHC 33.3 g/dL 33.0-35.5 RDW 14.6 % High 11.6-13.7 PLT 248 x10^3/UL 150-400 MPV 8.2 fL 7.4-10.4 Gran # 9.8 x10^3/UL High 1.5-7.2 Lymph# 2.7 x10^3/UL 0.7-4.9 [place]# 0.6 x10^3/UL 0.1-0.9 Gran % 74.2 % 42.2-75.2 Lymph % 21.0 % 20.5-51.1 [place]% 4.8 % 1.7-9.3 Pap HPV High Risk 05/25/2015 Diagn See Comment: 40 Adeq See Comment: 41 [email or web address] See Comment: 42 Perfor See Comment: 43 Comm . Note See Comment: 44 Iglbp See Comment: 45 HPV, high-risk Negative Negative 46 Laboratory test finding 05/25/2015 PDF [id number] SEE IMAGE Ua - Micro (Fma) 05/25/2015 Appearance CLEAR Color YELLOW Glucose, Urine (Fma/CMC/CTX) NEG Bilirubin NEG Ketones TRACE SP Grav 1.015 Blood NEG PH 6.0 Protein SSA:1+ Urobil 0.2 Nitrite NEG Leukocytes (Fma/CMC/Centrex) NEG Hyaline 8-10 /Lpf Granular - /Lpf WBC (Fma,Centrex) 0-1 RBC - Mucus SMALL AMOUNT /Lpf Epith OCC /Lpf Bacteria 1+ /Hpf Amorphous - /Lpf Crystals, Fluid (Fma/CMC/CTX) - Z#Comments - Complete Blood Count 02/20/2015 WBC 8.9 x10^3/UL 3.6-9.6 RBC 4.78 x10^6/UL 3.90-5.70 HGB 14.5 g/dL 12.1-17.2 HCT 43 % 36-50 MCV 91.0 fL 82.2-97.4 MCH 30.4 pg 27.6-33.3 MCHC 33.5 g/dL 33.0-35.5 RDW 14.2 % High 11.6-13.7 PLT 309 x10^3/UL 150-400 MPV 8.1 fL 7.4-10.4 Gran # 6.1 x10^3/UL 1.5-7.2 Lymph# 2.3 x10^3/UL 0.7-4.9 [place]# 0.5 x10^3/UL 0.1-0.9 Gran % 67.4 % 42.2-75.2 Lymph % 26.6 % 20.5-51.1 [place]% 6.0 % 1.7-9.3 Laboratory test finding 02/20/2015 TSH 1.68 mIU/L 0.50-6.00 Free T4 1.23 ng/dL 0.75-1.54 Lipid Profile 02/20/2015 Cholesterol 234 mg/dL High 120-200 Triglycerides 177 mg/dL 30-200 HDL Cholesterol 54 mg/dL 30-85 LDL (Calculated) 145 CALC High 0-129 VLDL Cholesterol 35 mg/dL 0-50 HDL Risk Factor 4.3 CALC 0.0-4.4 Comprehensive Metabolic Prof 02/20/2015 Sodium 138 mEq/L 134-149 Potassium 4.8 mEq/L 3.6-5.5 Chloride 98 mEq/L 94-112 Carbon Dioxide 28 mEq/L 21-32 Glucose 124 mg/dL High 70-105 BUN 24 mg/dL 6-26 Creatinine 0.7 mg/dL 0.6-1.4 BUN/Creat Ratio 34.3 CALC 8.0-36.0 Calcium 9.4 mg/dL 8.6-10.2 Total Protein 6.9 g/dL 6.4-8.3 Albumin 4.4 g/dL 3.8-5.5 Globulin 2.5 g/dL 2.0-4.8 A/G Ratio 1.8 CALC 0.6-2.3 Alk. Phosphatase 90 U/L 30-110 Alt (SGPT) 19 U/L 7-35 Ast (Sgot) 17 U/L 5-34 Total Bilirubin 0.6 mg/dL 0.2-1.3 GFR Non- >60 ml/min/1.73m^ >=60 GFR >60 ml/min/1.73m^ >=60 Laboratory test finding 02/20/2015 Hemoglobin A1c 6.2 % High 4.1-5.7 (Fma/CMC,CX) Comprehensive Metabolic 05/07/2014 Sodium 135 mEq/L 134-149 Prof Potassium 4.9 mEq/L 3.6-5.5 Chloride 97 mEq/L 94-112 Carbon Dioxide 30 mEq/L 21-32 Glucose 104 mg/dL 70-105 BUN 21 mg/dL 6-26 Creatinine 0.7 mg/dL 0.6-1.4 BUN/Creat Ratio 30.0 CALC 8.0-36.0 Calcium 10.1 mg/dL 8.6-10.2 Total Protein 6.9 g/dL 6.4-8.3 Albumin 4.3 g/dL 3.8-5.5 Globulin 2.6 g/dL 2.0-4.8 A/G Ratio 1.7 CALC 0.6-2.3 Alk. Phosphatase 76 U/L 30-110 Alt (SGPT) 19 U/L 7-35 Ast (Sgot) 16 U/L 5-34 Total Bilirubin 0.2 mg/dL 0.2-1.3 Complete Blood Count 05/07/2014 WBC 11.1 x10^3/UL High 3.6-9.6 47 RBC 4.53 x10^6/UL 3.90-5.70 HGB 13.8 g/dL 12.1-17.2 HCT 42 % 36-50 MCV 92.0 fL 82.2-97.4 MCH 30.5 pg 27.6-33.3 MCHC 33.0 g/dL 33.0-35.5 RDW 12.6 % 11.6-13.7 PLT 242 x10^3/UL 150-400 MPV 7.8 fL 7.4-10.4 Gran # 8.2 x10^3/UL High 1.5-7.2 Lymph# 2.6 x10^3/UL 0.7-4.9 [place]# 0.3 x10^3/UL 0.1-0.9 Gran % 72.8 % 42.2-75.2 Lymph % 23.7 % 20.5-51.1 [place]% 3.5 % 1.7-9.3 Comp Metabolic Panel 12/16/2013 Sodium 135 mmol/L 133-145 Potassium 4.2 mmol/L 3.7-5.6 Chloride 100 mmol/L Low 101-111 Co2 Carbon Dioxide 27 mmol/L 22-32 Anion Gap 8 mmol/L 2-11 Glucose 106 mg/dL High 70-100 Blood Urea Nitrogen 13 mg/dL 6-24 Creatinine 0.64 mg/dL 0.51-0.95 BUN/Creatinine Ratio 20.3 High 8-20 Calcium 9.6 mg/dL 8.6-10.3 Total Protein 6.8 g/dL 6.4-8.9 Albumin 4.2 g/dL 3.2-5.2 Globulin 2.6 g/dL 2-4 Albumin/Globulin Ratio 1.6 1-3 Total Bilirubin 0.60 mg/dL 0.2-1.0 Alkaline Phosphatase 77 U/L 34-104 Alt 13 U/L 7-52 Ast 16 U/L 13-39 Egfr Non- 96.7 >60 Egfr 124.4 >60 48 Lipid Profile (Trig/Chol/HDL) 12/16/2013 Triglycerides 172 mg/dL 49 Cholesterol 186 mg/dL 50 HDL Cholesterol 42.6 mg/dL 51 LDL Cholesterol 109 mg/dL 52 CBC 12/16/2013 White Blood Count 8.8 10^3/uL 4.8-10.8 Red Blood Count 4.74 10^6/uL 4.0-5.4 Hemoglobin 14.2 g/dL 12.0-16.0 Hematocrit 42 % 35-47 Mean Corpuscular Volume 89 fL 80-97 Mean Corpuscular Hemoglobin 30 pg 27-31 Mean Corpuscular HGB Conc 34 g/dL 31-36 Red Cell Distribution Width 14 % 10.5-15 Platelet Count 205 10^3/uL 150-450 Mean Platelet Volume 9 um3 7.4-10.4 Abs Neutrophils 6.1 10^3/uL 1.5-7.7 Abs Lymphocytes 1.7 10^3/uL 1.0-4.8 Abs Monocytes 0.6 10^3/uL 0-0.8 Abs Eosinophils 0.3 10^3/uL 0-0.6 Abs Basophils 0 10^3/uL 0-0.2 Abs Nucleated RBC 0 10^3/uL Granulocyte % 69.3 % 38-83 Lymphocyte % 19.8 % Low 25-47 Monocyte % 7.3 % 1-9 Eosinophil % 3.1 % 0-6 Basophil % 0.5 % 0-2 Nucleated Red Blood Cells % 0 Laboratory test finding 12/16/2013 Erythrocyte Sed Rate 20 mm/Hr 0-30 Laboratory test finding 12/16/2013 Sandra (Anti-Nuclear AB) Negative Negative Screen Laboratory test finding 12/16/2013 T4 7.62 g/dL 6.09-12.23 TSH (Thyroid Stimulating Horm) 1.83 IU/mL 0.34-5.60 Laboratory test finding 12/16/2013 Lyme Disease Serology Negative Negative 53 Rheumatoid Factor <15 IU/mL <15 54 CBC Electronic (a) 08/24/2012 WBC 9.8 High 3.6-9.6 RBC 4.52 3.90-5.70 Hemoglobin (Fma/CMC/CTX) 13.1 g/dL 12.1 - 17.2 Hematocrit (a/CMC/CTX) 39.5 % 36.1 - 50.3 Platelets 291 10^3/ul 150-400 Lymph% 23.3 20.5-51.1 Mixed% 4.4 Neutrophils % 72.3 Mean Corpuscular Vol 87 82.2-97.4 Mean Corpuscular Hemoglobin 28.9 27.6-33.3 Mean Corpuscular Hemo Concen 33.1 32.0-36.0 RDW 13.4 11.6-13.7 Mean Platelet Volume 8.1 6.5-11.0 Ua - Non Micro ([facility]) 08/24/2012 Appearance CLEAR Color YELLOW Glucose, Urine (a/CMC/CTX) NEG Bilirubin NEG Ketones NEG SP Grav 1.020 Blood NEG PH 7.5 Protein NEG Urobil 0.2 Nitrite NEG Leukocytes ([facility] – [facility]) NEG PT + PTT No Therpy/Unkn 08/24/2012 PTT 26.4 seconds 23.7-35.5 55 PT (No Therapy/Unknown) 12.5 seconds 11.7-14.5 55, 56 Inr 1.0 55, 57 Laboratory test finding 08/24/2012 Free T4 1.13 ng/dL 0.75-1.54 TSH 1.21 mIU/L 0.50-6.00 Lipid Profile 08/24/2012 Cholesterol 211 mg/dL High 120-200 HDL 40 mg/dL 30-85 Triglycerides 178 mg/dL 30-200 HDL Risk Factor 5.3 CALC High 0.0-4.4 LDL (Calculated) 136 CALC High 0-129 VLDL (Calculated) 36 mg/dL 0-50 Comprehensive Metabolic Prof 08/24/2012 Albumin 4.8 g/dL 3.8-5.5 Alk. Phos. 78 U/L 30-110 Alt (SGPT) 13 U/L 7-35 Ast (Sgot) 20 U/L 5-34 BUN 12 mg/dL 6-26 Calcium 10.2 mg/dL 8.6-10.2 Chloride 97 mEq/L 94-112 Creatinine 0.8 mg/dL 0.6-1.4 Carbon Dioxide 26 mEq/L 21-32 Glucose 99 mg/dL 70-105 Sodium 135 mEq/L 134-149 Total Bilirubin 0.7 mg/dL 0.2-1.3 Total Protein 7.3 g/dL 6.3-8.1 Potassium 4.2 mEq/L 3.6-5.5 Globulin 2.5 g/dL 2.0-4.8 A/G Ratio 1.9 Calc 0.6-2.3 BUN/Creat Ratio 14.6 Calc 8.0-36.0 Laboratory test 08/24/2012 Thin Prep SEE NOTE 58 finding W/HPV(Lsil/KAMILAH/Asc) CBC Auto Diff 01/14/2011 White Blood Count 12.5 CUMM High 4.8-10.8 Red Cell Count 4.37 CUMM 4.2-5.4 Hemoglobin 13.6 g/dL 12.0-16.0 Hematocrit 40 % 35-47 Mean Corpuscular Volume 91 um3 79-97 Mean Corpuscular Hemoglob 31 pg 27-31 Mean Corpuscular HGB Cone 35 g/dL 32-36 Redcell Distribution WDTH 14 % 10.5-15 Platelet Count 224 CUMM 150-450 Mean Platelet Volume 9.4 um3 7.4-10.4 Gran % 66.5 % 38-83 Lymph % 26.6 % 25-47 Mononuclear % 4.4 % 1-9 Eosinophil % 1.9 % 0-6 Basophil % 0.6 % 0-2 Abs Lymphs 3.3 1.0-4.8 Abs Mononuclear 0.6 0-0.8 Absolute Neutrophil Count 8.3 High 1.5-7.7 Abs Eosinophils 0.2 0-0.6 Abs Basophils 0.1 0-0.2 Comp Metabolic Panel 01/14/2011 Sodium 136 mmol/L 135-145 Potassium 4.1 mmol/L 3.5-5.0 Chloride 101 mmol/L 101-111 Co2 (Carbon Dioxide) 24.0 mmol/L 22-32 Anion Gap 11.0 mmol/L 2-11 59 Glucose 99 mg/dL 70-100 BUN 12 mg/dL 6-24 Creatinine 0.90 mg/dL 0.50-1.40 One Over Creatinine 1.10 BUN/Creatinine Ratio 13.3 8-20 Calcium 9.5 mg/dL 8.1-9.9 Total Protein 6.9 GM/DL 6.2-8.1 Albumin 4.3 GM/DL 3.6-5.4 Globulin 2.6 GM/DL 2-4 Albumin/Globulin Ratio 1.7 1-3 Bilirubin Total 0.9 mg/dL 0.4-1.5 60 Alkaline Phosphatase 80 U/L 30-110 Alt (SGPT) 19 U/L 14-54 Ast (Sgot) 23 U/L 12-42 eGFR Non- 66.0 > 60 eGFR 84.9 > 60 61 Laboratory test finding 01/14/2011 Troponin-I 0.01 NG/ML 0-0.06 62 Magnesium 2.1 mg/dL 1.7-2.6 Protime 01/14/2011 Inr 0.94 0.82-1.17 63 Protime 11.0 SEC 10.2-14.8 64 Laboratory test finding 01/14/2011 PTT (Aptt) 25.7 25.15-38.53 Basic Metabolic Profile 05/20/2010 BUN 13 mg/dL 6-26 Calcium 9.7 mg/dL 8.6-10.2 Chloride 101 mEq/L 94-112 Creatinine 0.8 mg/dL 0.6-1.4 Carbon Dioxide 25 mEq/L 21-32 Glucose 111 mg/dL High 70-105 65 Sodium 141 mEq/L 134-149 Potassium 5.0 mEq/L 3.6-5.5 BUN/Creat Ratio 16.4 Calc 8.0-36.0 Laboratory test finding 05/20/2010 Magnesium 2.0 mEq/L 1.2-2.1 Comprehensive Metabolic Prof 01/16/2009 Albumin 4.2 g/dL 3.8-5.5 66 Alk. Phos. 67 U/L 30-110 66 Alt (SGPT) 12 U/L 7-35 66 Ast (Sgot) 12 U/L 5-34 66 BUN 11 mg/dL 6-26 66 Calcium 9.1 mg/dL 8.6-10.2 66 Chloride 99 mEq/L 94-112 66 Creatinine 0.9 mg/dL 0.6-1.4 66 Carbon Dioxide 30 mEq/L 21-32 66 Glucose 102 mg/dL 70-105 66 Sodium 139 mEq/L 134-149 66 Total Bilirubin 0.3 mg/dL 0.2-1.3 66 Total Protein 6.8 g/dL 6.3-8.1 66 Potassium 4.0 mEq/L 3.6-5.5 66 Globulin 2.6 g/dL 2.0-4.8 66 A/G Ratio 1.6 Calc 0.6-2.2 66 BUN/Creat Ratio 12.5 Calc 8.0-36.0 66 Lipid Profile 01/16/2009 Cholesterol 172 mg/dL 120-200 66 HDL 42 mg/dL 30-85 66 Triglycerides 134 mg/dL 30-200 66 HDL Risk Factor 4.1 CALC Low 4.2-7.0 66 LDL (Calculated) 103 CALC 0-129 66 VLDL (Calculated) 27 mg/dL 0-50 66 Laboratory test finding 01/16/2009 TSH 1.34 mIU/L 0.50-6.00 66 Complete Blood Count 01/16/2009 WBC 8.7 x10^3/uL 3.6-9.6 66 Gran# 5.9 x10^3/uL 1.5-7.2 66 Gran% 68.3 % 42.2-75.2 66 HCT 39 % 36-50 66 HGB 13.2 g/dL 12.1-17.2 66 Lymph# 2.4 x10^3/uL 0.7-4.9 66 Lymph% 27.2 % 20.5-51.1 66 MCH 29.7 pg 27.6-33.3 66 MCV 87.1 fL 82.2-97.4 66 MCHC 34.1 g/dL 33.0-35.5 66 Mo# 0.4 x10^3/uL 0.1-0.9 66 Mo% 4.5 % 1.7-9.3 66 MPV 8.9 fL 7.4-10.4 66 PLT 209 x10^3/uL 150-400 66 RBC 4.43 x10^6/uL 3.90-5.70 66 RDW 14.0 % High 11.6-13.7 66 Ua - Micro (Fma) 12/17/2005 Appearance HAZY Color LIGHT YELLOW Glucose, Urine (Fma/CMC/CTX) NEGATIVE Bilirubin NEGATIVE Ketones NEGATIVE SP Grav 1.010 Blood MODERATE PH 8.0 Protein, Random Urine SSA NEGATIVE Urobil 0.2 Nitrite NEGATIVE Leukocytes (Fma/[facility]) MODERATE Hyaline - /Lpf Granular - /Lpf WBC ([facility]ma,[facility]) 20-25 SOME CLUMPED RBC, Fluid 15-20 Mucus (Fma/CBC/[facility]) - /Lpf Epith OCC /Lpf Bacteria TRACE /Hpf Amorphous (Fma/CMC/[facility]) - /Lpf Crystals, Urine (Fma/CMC/CTX) - /Lpf Z#Comments - Laboratory test finding 01/31/2005 [facility] BASIC MET PANEL See Image Report Ua - Non Micro ([facility]) 01/07/2005 Appearance CLEAR Color LIGHT YELLOW Glucose NEGATIVE Bilirubin NEGATIVE Ketones NEGATIVE SP Grav 1.015 Blood NEGATIVE PH 7.5 Protein NEGATIVE Urobil 0.2 Nitrite NEGATIVE Leukocytes NEGATIVE Laboratory test finding 01/07/2005 Sed Rate (Fma/CMC/[facility]) 17 MM CBC Electronic ([facility]) 01/07/2005 WBC 8.7 3.6-9.6 Lymphocytes 30.4 % 20.5 - 51.1 Monocytes 6.2 % 1.7-9.3 Granulocytes 63.4 % 42.2 - 75.2 Lymphocytes 2.6 10^3/uL 0.7 - 4.9 Monocytes 0.5 10^3/uL 0.1 - 0.9 Granulocytes 5.5 10^3/uL 1.5 - 7.2 RBC 4.37 3.90-5.70 Hemoglobin (Fma/CMC/CTX) 13.0 g/dL 12.1 - 17.2 Hematocrit (Fma/CMC/CTX) 38.6 % 36.1 - 50.3 Mean Corpuscular Vol 88.3 82.2-97.4 Mean Corpuscular Hemaglobin 29.8 27.6-33.3 Mean Corpuscular Hemo Concen 33.7 33.0-36.0 RDW 14.4 High 11.6-13.7 Platelets 200. 10^3/ul 150-400 Mean Platelet Volume 9.0 7.4-10.4 Comp Metabolic ([facility]) 01/07/2005 Glucose, Serum ([facility]/CTX) 101 mg/dL 70 -105 Female BUN ([facility]) 10 mg/dL 6-26 Creatinine, Serum 0.8 mg/dL 0.6-1.4 BUN/Creatinin Ratio 13.2 8.0-36 Sodium 140 134-149 Potassium 4.3 3.6-5.5 Chloride 100 mEq/L 94-112 Co2 27 21-32 Calcium (a/[facility]) 10.0 mg/dL 8.6-10.2 Total Protein 6.3 g/dL 6.3-8.1 Albumin ([facility]) 4.2 3.8-5.5 Globulin 2.1 2.0-4.8 A/G Ratio (A/G Ratio) 2.0 0.6-2.2 Alkaline Phosphatase (F/C/CTX) 81 U/L 22-95 Alt (SGPT) ([facility]) 13 7-35 Ast (Sgot) ([facility]) 13 U/mL 5-34 Bilirubin, Total 0.5 mg/dL 0.2-1.3 Lipid Profile([facility]) Male 01/07/2005 Cholesterol 177 mg/dL 120-200 Triglyceride 128 mg/dL 30-200 HDL Cholesterol ([facility]) Male 47 mg/dL 30-70 LDL, Calculated ([facility]) 105 CALC 0-129 LDL, Direct - mg/dL 0-130 VLDL 26 0-50 HDL Risk Factor ([facility]) 3.8 CALC Low 4.2-7.0 Free T4/TSH 01/07/2005 TSH ([facility]) 1.90 uIU/ml 0.5-6.0 ([facility]) Free T4 0.96 ng/dL 0.75-1.54 Laboratory test finding 01/07/2005 Antinuclear AB (Sandra) NEGATIVE Negative 67 C-Reactive Protein <0.3 mg/dL 0.0-0.5 Rheumatoid Factor (RF) <11.0 IU/mL 0.0-20.0 Lipid Profile ([facility]) 01/16/2003 Cholesterol 237 mg/dL High 120-200 Triglyceride 124 mg/dL 30-200 HDL-Chol 49 30-85 LDL-Calculated (a/[facility]) 163 CALC High 0-129 VLDL 25 0-50 HDL Risk Factor (a) 4.9 CALC 4.2-7.0 Laboratory test finding 07/17/2002 Sed Rate (a/[facility]) 34MM Sandra W/RF ([facility]) 07/17/2002 Antinuclear AB (Sandra) NEGATIVE Rheumatoid Factor (RF) <11.0 IU/mL 0 - 20 Type And Screen 10/18/2001 Patient Abo, RH B POSITIVE Antibody Screen NEGATIVE Negative Spec Discarded On - Comp Metabolic ([facility]) 10/18/2001 Sodium 138 mmol/L 135-145 Potassium 4.2 3.5-5.0 Chloride 102 mmol/L 95-108 Co2 22.5 21-33 Glucose 99 mg/dL 70-105 BUN 7 6-22 Creatinine 0.7 mg/dL 0.5-1.4 BUN/Creatinin Ratio 10.0 8-20 Calcium 9.2 mg/dL 8.7-10.2 Total Protein 6.5 GM/DL 6.2-8.1 Albumin 3.4 Low 3.6-5.4 Globulin 3.1 2-4 Albumin / Globulin Ratio 1.1 1-3 Bilirubin, Total 0.4 mg/dL 0.1-1.0 Alkaline Phosphatase 219 U/L High 30-110 Alt (SGPT) 12 1-40 Ast (Sgot) 17 1-34 Laboratory test finding 10/18/2001 Uric Acid 6.8 mg/dL 2.4-7.0 CBC With Manual Diff ([facility]) 10/18/2001 WBC 12.8 High 4.8-10.8 RBC 4.06 Low 4.2-5.4 Hemoglobin 12.2 g/dL 12.0-16.0 Hematocrit 34 % Low 35-47 Mean Corpuscular Vol 85 79-97 Mean Corpuscular Hemaglobin 30 27-31 Mean Corpuscular Hemo Concen 36 32-36 RDW 14 10.5-15 Platelets 196 CUMM 150-450 Mean Platelet Volume 9.7 7.4-10.4 Poly From [facility] 73 38-83 Band - 0-8 Lymph From [facility] 20 5-47 [place] [facility] 5 0-13 Eos From [facility] 2 0-6 Atypical Lymph - 0-6 Morphology NORMAL Basophils - Ua - Non Micro ([facility]) 05/26/2000 Appearance CLOUDY LT YELLOW Glucose - Bilirubin - Ketones - SP Grav >=1.030 Blood SMALL PH 5.0 Protein >=300 Urobil 0.2 Nitrite POSITIVE Leukocytes SMALL 1 RESULTS VERIFIED BY REPEAT ANALYSIS-provider aware-pt on prednisone 2 Reference ranges based on room air. 3 Critical Result LACT:4.3 Called to [id number] at: 01:49:41 by:[id number] Read back by:[id number] [place] Severe Sepsis and Septic Shock Management Bundle Measure requires all lactic acids initially measuring >2.0 mmol/L be repeated. 4 Because ethnic data is not always readily available, this report includes an eGFR for both -Americans and non- Americans. The National Kidney Disease Education Program (NKDEP) does not endorse the use of the MDRD equation for patients that are not between the ages of 18 and 70, are , have extremes of body size, muscle mass, or nutritional status, or are non- or non-. According to the National Kidney Foundation, irrespective of diagnosis, the stage of the disease is based on the level of kidney function: Stage Description GFR(mL/min/1.73 m(2)) 1 Kidney damage with normal or decreased GFR 90 2 Kidney damage with mild decrease in GFR 60-89 3 Moderate decrease in GFR 30-59 4 Severe decrease in GFR 15-29 5 Kidney failure <15 (or dialysis) 5 Result TnIDx:0.11 Called to [id number] at: 01:49:57 by:[id number] Read back by: [id number] 6 >100 to <200 pg/mL: likely compensated congestive heart failure (CHF) 200 to 400 pg/mL: likely moderate CHF >400 pg/mL: likely moderate to severe CHF 7 RESULTS VERIFIED BY REPEAT ANALYSIS 8 RESULTS VERIFIED BY REPEAT ANALYSIS 9 consistent w/ previous results 10 Critical Result LACT:3.9 Called to [id number] at: 15:06:21 by:[id number] Read back by:[id number] [place] Severe Sepsis and Septic Shock Management Bundle Measure requires all lactic acids initially measuring >2.0 mmol/L be repeated. 11 >100 to <200 pg/mL: likely compensated congestive heart failure (CHF) 200 to 400 pg/mL: likely moderate CHF >400 pg/mL: likely moderate to severe CHF 12 Because ethnic data is not always readily available, this report includes an eGFR for both -Americans and non- Americans. The National Kidney Disease Education Program (NKDEP) does not endorse the use of the MDRD equation for patients that are not between the ages of 18 and 70, are , have extremes of body size, muscle mass, or nutritional status, or are non- or non-. According to the National Kidney Foundation, irrespective of diagnosis, the stage of the disease is based on the level of kidney function: Stage Description GFR(mL/min/1.73 m(2)) 1 Kidney damage with normal or decreased GFR 90 2 Kidney damage with mild decrease in GFR 60-89 3 Moderate decrease in GFR 30-59 4 Severe decrease in GFR 15-29 5 Kidney failure <15 (or dialysis) 13 Result TnIDx:0.05 Called to [id number] at: 15:07:53 by:[id number] Read back by: [id number] 99th percentile=0.04 ng/mL Troponin results at [facility] are not interchangeable. 14 SEE RESULT BELOW Name: MADHAVI BARRON : [address]: Eliane Lopez DO Acct: [id number] Unit: [id number] AGE: 56 Location: [place] [address] Re08/13/16 SEX: F Status: ADM IN SPEC: [id number] YAO: 08/14/[address]: Merrill Aquino MD REQ: [id number] RECD: 08/14/16 STATUS: GILMER PAUL DR: Cristin Duncan MD _ SOURCE: BLOOD,[facility]: ORDERED: Blood Cult Procedure Result Reported Site Aerobic Culture Bottle Final 08/19/16531 ML No Growth Day 5 Anaerobic Culture Bottle Final 08/19/16531 ML No Growth Day 5 * ML - MA[facility] LAB ([facility]) . END OF REPORT * ML=Testing performed at Main Lab DEPARTMENT OF PATHOLOGY, [address] [place] [address] Da Mistry M.D. Director [facility] # [id number] 15 RESULTS VERIFIED BY REPEAT ANALYSIS 16 RESULTS VERIFIED BY REPEAT ANALYSIS 17 RESULTS VERIFIED BY REPEAT ANALYSIS 18 RESULTS VERIFIED BY REPEAT ANALYSIS 19 RESULTS VERIFIED BY REPEAT ANALYSIS 20 RESULTS VERIFIED BY REPEAT ANALYSIS 21 RESULTS VERIFIED BY REPEAT ANALYSIS 22 RESULTS VERIFIED BY REPEAT ANALYSIS 23 RESULTS VERIFIED BY REPEAT ANALYSIS 24 RESULTS VERIFIED BY REPEAT ANALYSIS 25 [facility] Severe Sepsis and Septic Shock Management Bundle Measure requires all lactic acids initially measuring >2.0 mmol/L be repeated. 26 Because ethnic data is not always readily available, this report includes an eGFR for both -Americans and non- Americans. The National Kidney Disease Education Program (NKDEP) does not endorse the use of the MDRD equation for patients that are not between the ages of 18 and 70, are , have extremes of body size, muscle mass, or nutritional status, or are non- or non-. According to the National Kidney Foundation, irrespective of diagnosis, the stage of the disease is based on the level of kidney function: Stage Description GFR(mL/min/1.73 m(2)) 1 Kidney damage with normal or decreased GFR 90 2 Kidney damage with mild decrease in GFR 60-89 3 Moderate decrease in GFR 30-59 4 Severe decrease in GFR 15-29 5 Kidney failure <15 (or dialysis) 27 Acute inflammation: >10.00 28 >100 to <200 pg/mL: likely compensated congestive heart failure (CHF) 200 to 400 pg/mL: likely moderate CHF >400 pg/mL: likely moderate to severe CHF 29 SEE RESULT BELOW Name: ANDERSONLUCRETIAMADHAVI A : [address]: Asher Handy MD Acct: [id number] Unit: [id number] AGE: 55 Location: ED Re03/27/16 SEX: F Status: DEP ER SPEC: [id number] YAO: 03/27/16 [facility] DR: Asher Handy MD REQ: [id number] RECD: 03/27/16 STATUS: GILMER PAUL DR: Cristin Duncan MD _ SOURCE: BLOOD,VENO SPDESC: ORDERED: Blood Cult COMMENTS: Patient is On Antibiotics? NO Procedure Result Reported Site Aerobic Culture Bottle Final 04/01/16- 1501 ML No Growth Day 5 Anaerobic Culture Bottle Final 04/01/16- 1501 ML No Growth Day 5 * ML - MAIN LAB ([facility]) . END OF REPORT * ML=Testing performed at Main Lab DEPARTMENT OF PATHOLOGY, [address] [place] [address] Da Mistry M.D. Director [facility] # [id number] 30 Director Information Security: [id number] BREANN DIAZ 31 Director Information Security: [id number] ROCHLELE HERON 32 1 blue top tubesodium citr ate 33 INTERNATIONAL NORMALIZED RATIO(INR) INDICATIONS INR RANGE PATIENTS NOT ON ANTICOAGULANT THERAPY * DEEP VENOUS THROMBOSIS 2.0-3.0 PULMONARY EMBOLISM 2.0-3.0 ATRIAL FIBRILLATION 2.0-3.0 PROPHYLAXIS: 2.0-3.0 HIGH-RISK SURGERY TISSUE HEART VALVES ATRIAL FIBRILLATION ACUTE MYOCARDIAL INFARCTION VALVULAR HEART DISEASE MECHANICAL PROSTHETIC VALVE 2.5-3.5 * USE OF INR VALUES SHOULD BE LIMITED TO PATIENTS WHO ARE ON STABLE ORAL ANTICOAGULANT THERAPY. AN INR ABOVE 5.0-5.5 APPEARS TO BE ASSOCIATED WITH AN UNACCEPTABLY HIGH RISK OF BLEEDING. 34 consistent w/ previous results 35 NON-FASTING 36 1 sst 37 consistent w/ previous results 38 RESULTS VERIFIED BY REPEAT ANALYSIS 39 RESULTS VERIFIED BY REPEAT ANALYSIS 40 NEGATIVE FOR INTRAEPITHELIAL LESION AND MALIGNANCY. 41 Satisfactory for evaluation. Endocervical and/or squamous metaplastic cells (endocervical component) are present. 42 Z00.00 Z12.4 43 Ryan Paulino, Tube Test Technician (ASCP) 44 The Pap smear is a screening test designed to aid in the detection of premalignant and malignant conditions of the uterine cervix. It is not a diagnostic procedure and should not be used as the sole means of detecting cervical cancer. Both false-positive and false-negative reports do occur. 45 This liquid based ThinPrep(R) pap test was screened with the use of an image guided system. 46 This high-risk HPV test detects thirteen high-risk types (16/18/31/33/35/39/45/51/52/56/58/59/68) without differentiation. 47 RESULTS VERIFIED BY REPEAT ANALYSIS 48 Because ethnic data is not always readily available, this report includes an eGFR for both -Americans and non- Americans. The National Kidney Disease Education Program (NKDEP) does not endorse the use of the MDRD equation for patients that are not between the ages of 18 and 70, are , have extremes of body size, muscle mass, or nutritional status, or are non- or non-. According to the National Kidney Foundation, irrespective of diagnosis, the stage of the disease is based on the level of kidney function: Stage Description GFR(mL/min/1.73 m(2)) 1 Kidney damage with normal or decreased GFR 90 2 Kidney damage with mild decrease in GFR 60-89 3 Moderate decrease in GFR 30-59 4 Severe decrease in GFR 15-29 5 Kidney failure <15 (or dialysis) 49 Desirable <150 Borderline high 150-199 High 200-499 Very High >500 50 Desirable <200 Borderline high 200-239 High >239 51 Low <40 Desirable: 40-60 High: >60 52 Desirable <100 Near Optimal 100-129 Borderline high 130-159 High 160-189 Very High >189 53 Serologic response to B. burgdorferi infection is not detected, but cannot rule out early infection during which low or undetectable antibody levels to B. burgdorferi may be present. If clinically indicated, a new serum specimen should be submitted in 7-14 days. Test Performed by: [place] [address] Sql Developer: Gustavo Aquino III, M.D. 54 Test Performed by: [place] [address] [address] Sql Developer: Gustavo Aquino III, M.D. 55 FASTING; 1POUR OFF PLASMA FROZEN 56 . 57 INTERNATIONAL NORMALIZED RATIO(INR) INDICATIONS INR RANGE PATIENTS NOT ON ANTICOAGULANT THERAPY * DEEP VENOUS THROMBOSIS 2.0-3.0 PULMONARY EMBOLISM 2.0-3.0 ATRIAL FIBRILLATION 2.0-3.0 PROPHYLAXIS: 2.0-3.0 HIGH-RISK SURGERY TISSUE HEART VALVES ATRIAL FIBRILLATION ACUTE MYOCARDIAL INFARCTION VALVULAR HEART DISEASE MECHANICAL PROSTHETIC VALVE 2.5-3.5 * USE OF INR VALUES SHOULD BE LIMITED TO PATIENTS WHO ARE ON STABLE ORAL ANTICOAGULANT THERAPY. AN INR ABOVE 5.0-5.5 APPEARS TO BE ASSOCIATED WITH AN UNACCEPTABLY HIGH RISK OF BLEEDING. 58 [employer] DEPARTMENT OF PATHOLOGY or Extension [address] [facility] [facility] REPORT PATIENT: MADHAVI BARRON : 1960 AGE: 52 Y SEX: F ACCT: [id number] PROCEDURE DATE: 08/24/2012 DATE RECEIVED: 08/27/2012 REQUESTING PROVIDER: MELA CHRISTIE MD LOCATION: [facility] Case No. [id number] PATIENT DATA: [id number] SPECIMEN SUBMITTED: * * (HPVII) THIN PREP W/HPV ([facility]/ASC/KAMILAH) * * CERVICAL/ENDOCERVICAL RELEVANT HISTORY: Menarche: Y SPECIMEN ADEQUACY SATISFACTORY FOR EVALUATION, ENDOCERVICAL TRANSFORMATION ZONE COMPONENT PRESENT GENERAL CATEGORIZATION NEGATIVE FOR INTRAEPITHELIAL LESIONS OR MALIGNANCY INTERPRETATION/ RESULT PARAKERATOSIS. REACTIVE CELLULAR CHANGES. RECOMMENDATIONS Follow-up as clinically indicated. COMMENTS Thin Prep Pap tests are examined with an FDA approved location-guidance system. ADDITIONAL COPIES SENT TO: Screened/Rescreened Electronically Signed Sign Out Date/Time: by: by: [facility] JORGE DEY MD 08/28/2012 13:32 PATHOLOGIST Note: The Pap smear is a screening test designed to aid in the detection of premalignant and malignant conditions of the uterine cervix. It is not a diagnostic procedure and should not be used as the sole means of detecting cervical cancer. Both false-positive and false-negative reports do occur. 00 UA Pap Smear performed at [employer] Dir: [place], [address] [place], [place] [address] [address] [place] [address] Dir: Leo Rashid MD, [address] [facility] [address] 02 [facility] [place] Dir: Asher Chavez MD, [address] [facility] [address] For inquiries regarding HPV test results, the physician may contact [facility]: [phone] "" 59 Anion gap measurement may be of limited value in the presence of any alkalosis, especially in a combined acid base disorder. . 60 A metabolite of Naproxen, O-desmethylnaproxen, has been shown to interfere with the Jendrassik-Hilmar-Irwin method for measuring total bilirubin. Samples from patients who have taken Naproxen have shown spurious elevation in total bilirubin levels. 61 Because ethnic data is not always readily available, this report includes an eGFR for both -Americans and non- Americans. The National Kidney Disease Education Program (NKDEP) does not endorse the use of the MDRD equation for patients that are not between the ages of 18 and 70, are , have extremes of body size, muscle mass, or nutritional status, or are non- or non-. According to the National Kidney Foundation, irrespective of diagnosis, the stage of the disease is based on the level of kidney function: Stage Description GFR(mL/min/1.73 m(2)) 1 Kidney damage with normal or decreased GFR 90 2 Kidney damage with mild decrease in GFR 60-89 3 Moderate decrease in GFR 30-59 4 Severe decrease in GFR 15-29 5 Kidney failure <15 (or dialysis) 62 New Reference Range and Interpretation effective 04/05/2002 TnI (ng/ml) INTERPRETATION Less Than 0.06 ng/mL NOT SUPPORTIVE OF DIAGNOSIS OF [place] 0.06 - 0.50 ng/ml INDETERMINATE: SUGGEST SERIAL STUDIES IF CLINICALLY INDICATED. Greater than 0.5 ng/mL CONSISTENT WITH DIAGNOSIS OF [place] . 63 Recommended INR for Patients on Oral Anticoagulants Prophylaxis 2.0 - 3.0 Treatment of thrombosis 2.0 - 3.0 Prevention of embolism 2.0 - 3.0 Prevention of embolism from prosthetic heart valves 2.5 - 3.5 64 DIAGNOSIS,TREATMENT,AND THERAPY MUST BE BASED ON THE INR VALUE ALONE. 65 RESULT SUSAN'D 66 FASTING 67 (Performed by Enzyme Immunoassay, EIA) Procedures Date CPT Code Description Status 05/15/2017 73655 Pulse Oximetry Completed 11/23/2016 29545 Pulse Oximetry Completed 08/29/2016 70904 Pulse Oximetry Completed 08/29/2016 52889 Pulse Oximetry Completed 08/23/2016 34494 Pulse Oximetry Completed 06/29/2016 52575 Pulse Oximetry Completed 06/08/2016 93836 Pulse Oximetry Completed 04/29/2016 41038 Pulse Oximetry Completed 04/15/2016 83391 Pulse Oximetry Completed 2016 05939 Pulse Oximetry Completed 2016 01674 Nebulizer Treatment Completed 03/28/2016 77318 Nebulizer Treatment Completed 03/28/2016 18642 Pulse Oximetry Completed 12/17/2015 05666 Electrocardiogram Complete Completed 04/10/2015 Mammogram Completed 10/31/2014 Colonoscopy Completed 12/27/2013 Mammogram Completed 09/03/2012 Mammogram Completed 08/24/2012 16211 Electrocardiogram Complete Completed 12/29/2008 20717 Electrocardiogram Complete Completed 01/07/2005 08270 Electrocardiogram Complete Completed 02/19/2000 30745 Nebulizer Treatment Completed Encounters Type Date Location Provider CPT E/M Dx Office Visit 05/15/2017 6:00p Main Office Cristin Duncan M.D. 82697 R06.02 E11.65 I48.0 G47.33 J44.9 E66.2 I50.22 R09.02 M79.7 Office Visit 03/29/2017 1:00p [facility] Cristin Duncan M.D. 37327 E11.65 I48.0 G47.33 I10 J44.9 E66.01 E78.5 Z00.01 Z12.31 B35.3 R60.0 Z23 Office Visit 11/23/2016 9:40a [facility] Office Cristin Duncan M.D. 12934 I48.0 G47.33 E11.9 I10 J44.9 M62.830 R09.02 D72.829 Office Visit 08/29/2016 11:00a [facility] Cristin Duncan M.D. 55045 J44.9 R09.02 Office Visit 08/23/2016 10:50a [facility] Office Cristin Duncan M.D. 59311 I48.0 J44.9 G47.33 E11.9 I10 J20.9 R09.02 Office Visit 06/29/2016 4:40p [facility] Cristin Duncan M.D. 02057 I10 E11.9 J44.9 I48.0 E66.01 G47.33 Office Visit 06/08/2016 11:30a [facility] Cristin Duncan M.D. 94956 I10 E11.9 J44.9 I48.0 E66.01 R53.83 Office Visit 05/18/2016 11:10a [facility] Cristin Duncan M.D. 39693 J44.9 I10 E11.9 R60.0 I48.0 Office Visit 04/29/2016 3:00p [facility] Cristin Duncan M.D. 99575 J44.9 I10 E11.9 R60.0 I48.0 E66.01 E86.0 Office Visit 04/15/2016 9:15a [facility] Office Laura Mackey [facility] 41401 J45.51 R05 R06.02 R49.0 R60.0 Office Visit 2016 10:00a [facility] Office Laura Mackey [facility] 52958 J45.51 R05 R06.02 R49.0 Office Visit 03/31/2016 10:30a [facility] Kassandra Dobbins, [facility] 51098 J45.51 Office Visit 03/28/2016 1:10p [facility] Office Ivan Marroquin M.D. 19487 J45.51 Office Visit 03/02/2016 4:00p [facility] Office Cristin Duncan M.D. 87085 E11.9 I10 M15.0 M79.7 E66.8 G47.33 L40.9 Office Visit 12/17/2015 2:40p [facility] Carlene Mora M.D. 74398 Z01.818 M25.562 S83.232A M17.12 E11.9 I10 Office Visit 10/28/2015 2:40p [facility] Cristin Duncan M.D. 01989 I10 M15.0 E11.9 M79.7 E66.8 E78.4 Office Visit 08/28/2015 4:00p [facility] Office Cristin Duncan M.D. 09025 I10 M15.0 M79.7 M25.562 Z11.4 Office Visit 05/25/2015 4:00p [facility] Cristin Duncan M.D. 20231 Z00.00 I10 M15.0 M79.7 Z11.3 Z23 R80.9 Office Visit 03/23/2015 4:00p [facility] Office Cristin Duncan M.D. 56951 401.1 278.00 715.09 729.1 V76.12 Office Visit 02/18/2015 4:20p [facility] Office Cristin Duncan M.D. 75369 401.1 278.00 493.90 715.09 729.1 Office Visit 08/25/2014 4:30p [facility] Office Cristin Duncan M.D. 60184 401.1 V76.51 729.1 278.00 Office Visit 07/14/2014 4:00p [facility] Office Cristin Duncan M.D. 53949 401.1 729.1 493.90 Office Visit 06/05/2014 11:15a [facility] Office ALYSON Dias 89326 493.90 Office Visit 05/21/2014 8:20a [facility] Office Cristin Duncan M.D. 28494 401.1 Office Visit 05/07/2014 4:30p [facility] Office Cristin Duncan M.D. 18069 401.1 Office Visit 03/31/2014 3:50p [facility] Office Cristin Duncan M.D. 87732 729.1 493.90 Office Visit 12/13/2013 3:20p [facility] Office Mela Christie M.D. 89551 493.90 401.1 715.09 Office Visit 08/24/2012 11:00a [facility] Office Mela Christie M.D. 57961 493.90 401.1 V16.3 715.09 V76.51 719.46 V72.83 Office Visit 12/14/2011 1:15p [facility] Office ALYSON Dias 40350 465.9 Office Visit 01/14/2011 3:30p [facility] Office Mela Christie M.D. 66990 780.2 Office Visit 05/20/2010 11:10a [facility] Office Benjamin Briggs M.D. 34648 401.9 327.52 Office Visit 09/16/2009 10:40a [facility] Adrien Alvarez M.D. 64520 465.9 493.90 Office Visit 12/29/2008 3:40p [facility] Mela Christie M.D. 38469 401.9 493.90 V76.41 V72.83 Office Visit 08/14/2008 11:10a [facility] Benjamin Briggs M.D. 90371 465.9 493.90 490 401.9 Office Visit 10/22/2007 3:30p [facility] Adrien Alvarez M.D. 58379 461.9 Office Visit 03/27/2007 11:30a [facility] Celinealea LozanoZuleika spaulding-C 20216 465.9 493.90 Office Visit 01/22/2007 10:30a [facility] Sierra BuschZuleika-C 63918 995.3 Office Visit 12/08/2006 2:30p [facility] Mela Christie M.D. 62023 493.90 719.40 401.9 Office Visit 11/14/2006 8:20p [place] [address] 719.40 Office Visit 04/04/2006 3:45p [facility] Celine LozanoZuleika spaulding-C 90488 465.9 490 Office Visit 12/17/2005 12:40p [facility] Benjamin Briggs M.D. 76461 599.0 Office Visit 09/22/2005 11:50a [facility] Benjamin Briggs M.D. 54191 465.9 461.9 493.90 Office Visit 04/25/2005 1:10p [facility] Benjamin Briggs M.D. 31113 466.0 461.9 493.90 Office Visit 01/07/2005 8:00a [facility] Mela Christie M.D. 47131 401.9 995.3 493.90 V13.4 V16.3 272.4 553.20 V70.0 Office Visit 11/11/2004 11:00a [facility] ALYSON Dias 26758 473.9 401.9 Office Visit 01/21/2004 2:40p [facility] Nilson Salinas M.D. 87382 401.9 Office Visit 11/25/2003 3:45p [facility] Mela Christie M.D. 88380 995.3 493.90 117.9 Office Visit 01/13/2003 10:45a [facility] Mela Christie M.D. 42556 493.90 401.1 V76.41 Office Visit 07/17/2002 10:15a [facility] RITU DiasP 95375 719.44 719.43 719.41 Office Visit 12/27/2001 2:15p [facility] RITU DiasP 95092 Office Visit 03/21/2001 8:30p [facility] Celine Quinncassie Afnp-C 94434 Office Visit 10/18/2000 1:30p [facility] ALYSON Dias 46474 Office Visit 06/06/2000 4:00p [facility] Office Da Salazar M.D. 00143 Office Visit 05/26/2000 12:30p [facility] Office Abril TYRESE Niño-F 42073 Office Visit 05/16/2000 4:00p [facility] Da Salazar M.D. 99774 Office Visit 04/12/2000 4:10p [facility] Da Salazar M.D. 53777 Office Visit 03/24/2000 4:00p [facility] Da Salazar M.D. 31549 Office Visit 03/10/2000 4:00p [facility] Da Salazar M.D. 62027 Office Visit 02/28/2000 4:20p [facility] Da Salazar M.D. 28486 Office Visit 02/19/2000 10:20a [facility] Mela Christie M.D. 84765 Plan of Care Future Appointment(s):08/29/2017 11:10 am - Cristin Duncan M.D. at [facility] Mxhjzo5406/27/2017 - Cristin Duncan M.D.E11.65 Type 2 diabetes mellitus with hyperglycemiaNew Labs:Comp Metabolic-ALL Lab CompaniHemoglobin A1c (Fma)Comments :Recommend yearly diabetic eye and foot exams, and check on blood pressure periodically. Goal blood sugar is less than 140 in the morning or A1c less than 7. increase basaglar to 40 units at night, increase by 5 units every week for sugars above 140Follow up:2 moI48.0 Paroxysmal atrial fibrillationComments: follow up with cardiology Dr Alonso ;G47.33 Obstructive sleep apnea (adult) ( pediatric)Comments:wears CPAP nightly with improvement of fgcjeveiA56.9 Chronic obstructive pulmonary disease, unspecifiedComments:stable on regimen ; 2L O2 at bedtime sees Dr Saenz66.2 Morbid (severe) obesity with alveolar mqcaangkttfmkctA49.22 Chronic systolic (congestive) heart failureComments: Patient was advised to call or return if there was a significant increase in peripheral edema, shortness of breath, or iqjmgpT75.829 Elevated white blood cell count, unspecifiedComments:due to recent odkpxtacA53.1 PleurisyComments: NSAIDS for pain, call if symptoms bkakmcT79.551 Pain in right hipComments:trial of percocet, Take medications as directed. Can use heat or ice on area 15 minutes on/off. Use a tennis ball or foam roller to massage and loosen muscle spasm. Stretching exercises are recommendedtwice a day. Call if symptoms aren' t improved/worsen in next 1-2 weeks.M79.7 FibromyalgiaNew Medication:Gabapentin 400 mgComments:restart gabapentin, Reviewed adverse side effects of medication. Advised to call the office if experiencing symptoms. Patient verbalized understanding.AllComments:~B_~U_Medication Management~b_~u_ Patient Understands medications she's taking? Yes No Are there Barriers to Adherence? Yes No Has the patient been asked about herbal supplements and therapies, and OTC meds? Yes No
[2017-07-20] MEDS: Rivaroxaban TAB(*) 20 MG TAB PO SCH (10:13)
[2017-07-20] MEDS: predniSONE TAB* 20 MG PO SCH (10:13)
[2017-07-20] MEDS: Diltiazem CD CAP* 180 MG PO SCH (10:13)
[2017-07-20] MEDS: Omeprazole CAP* 20 MG PO SCH (10:13)
[2017-07-20] MEDS: Dofetilide CAP* 250 MCG PO SCH ×2 (10:25→20:29)
[2017-07-20] MEDS ORDERED: Albuterol 2.5 MG/3 ML NEB.SOL* (0.083%) INH PRN (11:39)
[2017-07-20] MEDS ORDERED: Ondansetron INJ* 2 MG/ML VIAL IV PRN (11:39)
[2017-07-20] MEDS ORDERED: Acetaminophen TAB* 325 MG PO PRN (11:39)
[2017-07-20] MEDS ORDERED: Furosemide TAB* 20 MG PO PRN (11:43)
[2017-07-20] MEDS: Albuterol 2.5 MG/3 ML NEB.SOL* (0.083%) INH SCH (11:51)
[2017-07-20] MEDS ORDERED: Dextrose 50% Syringe 50 ML* 25 GM/50 ML SYRINGE IV PUSH PRN (11:51)
[2017-07-20] MEDS: Gabapentin CAP(*) 400 MG PO SCH ×2 (12:30→18:20)
[2017-07-20] MEDS: cefTRIAXone(*) 1 GM in NS 0.9% 50 ML* 50 ML IVPB SCH (12:31)
[2017-07-20 13:05] LABS: INR 1.55 (0.77-1.02)
[2017-07-20] MEDS: DOXYCYCLINE IVPB SCH (13:05)
[2017-07-20] MEDS: D5W IVPB SCH (13:05)
[2017-07-20] MEDS ORDERED: NS 0.9% 1000 ML* 1,000 ML IV ONE (13:38)
--- NOTE | 2017-07-20 14:31 | HP ---
CC: Dr. Cristin Duncan; Dr. Alonso; Dr. Francis; Dr. Abernathy * HISTORY AND PHYSICAL: DATE OF ADMISSION: 07/20/17 PRIMARY CARE PROVIDER: Dr. Cristin Duncan. ATTENDING PROVIDER: Leo Duncan MD * (DICTATED BY JOCY PORTILLO NP) CHIEF COMPLAINT: 1. Fatigue. 2. Shortness of breath. HISTORY OF PRESENT ILLNESS: Ms. Purvis is a 57-year-old female patient. She has a history of COPD, diabetes, AFib, JULIANA, hypertension, morbid obesity, fibromyalgia, and hyperlipidemia. She comes in, she says that yesterday, she was feeling fatigued. She just was not feeling herself. She says that it is typical for her that she will feel fatigued and sometimes run down. She has attributed it to her fibromyalgia. She denied having chest pain. She went to bed. She put her oxygen on with the CPAP. She woke up this morning. She just could not get her breath. She felt like her chest was tight. She was really short of breath. She tried taking 2 nebs at home; it did not really help to relieve it. She turned up her oxygen, that did not help. So, she told her to call 911. She denies any recent fevers, chills. No runny nose. No sore throat. She denied having any worsening myalgias or arthralgias. She says she always aches because of the fibromyalgia, but it is not any worse. She denied any gastrointestinal symptoms. No vomiting or diarrhea. No stomach discomfort. She does state that her chest did feel tight. She was concerned because the nebulizers were not helping. She denied feeling any palpitations. She does state that for the last couple of days, her legs were swollen and she took some Lasix, which seemed to help. She denied having any loss of consciousness. It was noted in the ambulance ride when they got there that her heart rate was in the 150s to 160s and she came in to the ED, was found to be in AFib with RVR. This was treated. We were asked to evaluate for admission. There have been no reports of fevers or chills. PAST MEDICAL HISTORY: Significant for: 1. COPD. 2. Diabetes. 3. AFib. 4. JULIANA. 5. Hypertension. 6. Obesity. 7. Fibromyalgia. 8. Hyperlipidemia. PAST SURGICAL HISTORY: The patient has had: 1. Tonsillectomy. 2. Hernia repair. 3. x3. 4. Shoulder arthroscopy. 5. Bilateral knee arthroscopy. 6. Right foot surgery. MEDICATIONS: The home meds according to the list that was provided include: 1. Atorvastatin 10 mg daily. 2. Cymbalta 60 mg p.o. twice a day. 3. Tudorza 400 mcg inhaled b.i.d. 4. Neurontin 400 mg in the morning and at noontime. 5. Neurontin 800 mg at bedtime. 6. Percocet 1 tablet p.o. every 8 hours as needed. 7. Omeprazole 40 mg daily. 8. DuoNeb 1 neb inhaled every 6 hours as needed. 9. Ventolin 2 puffs inhaled every 4 hours as needed. 10. Albuterol nebulizer 1 neb every 4 hours as needed. 11. Lasix 20 mg daily as needed for weight gain. 12. Tikosyn 250 mcg p.o. b.i.d. 13. Cardizem 180 mg p.o. daily. 14. Xarelto 20 mg daily. 15. Singulair 10 mg p.o. daily at bedtime. 16. Dulera 2 puffs inhaled b.i.d. 17. Lisinopril 40 mg p.o. daily. 18. Insulin glargine 40 units subcu daily. 19. Prednisone 20 mg daily. 20. Glipizide 10 mg p.o. b.i.d. ALLERGIES TO MEDICATIONS: Include MELOXICAM. FAMILY HISTORY: Mother had a history of asthma. Father had a history of CAD. SOCIAL HISTORY: The patient is a former smoker. She quit in 2012. She does not drink alcohol. Surrogate decision maker is her . REVIEW OF SYSTEMS: There is no documented fever. She denied having any significant weight change. There was no double vision. She denies having any ear discharge. There was no rhinorrhea. No sore throat. No thyroid enlargement. Denied having any chest discomfort with the exception this morning , she did have some chest pressure. She denies having any abdominal pain. No nausea, no vomiting. There was no dysuria, no frequency. No seizure, there was no loss of consciousness. No pruritus and no skin ulcerations. She does admit to having shortness of breath and dyspnea on exertion. Review of 14 systems was completed, all others negative. PHYSICAL EXAMINATION GENERAL: At this time, Ms. Purvis is a 57-year-old female patient. She is sitting in the hospital bed. She does not appear to be in any acute distress. VITAL SIGNS: Blood pressure 130/59 with a pulse of 115, respirations 18, O2 sat 97%, temperature 97.4. HEENT: Head: Atraumatic, normocephalic. Eyes: Sclerae anicteric and not pale. Throat: Oral mucosa appears to be moist. No oropharyngeal erythema. NECK: Supple. LUNGS: Diminished throughout, but otherwise no wheezes, rales, or rhonchi. HEART: Sounds S1, S2. Irregularly irregular rate. No murmurs, rubs, or gallops. ABDOMEN: Soft, flat, nontender. Bowel sounds are present. EXTREMITIES: Pulses were 2+ throughout. She is moving all 4 extremities. There was no pitting edema. NEUROLOGIC: She is awake, alert, oriented x3. Tongue is midline. Elevator Operator were equal. No gross focal deficits. SKIN: Intact. DIAGNOSTIC STUDIES/LAB DATA: WBC is 17.4 which she does run around this high, RBC of 4.10, hemoglobin of 12.3, hematocrit of 38, platelet count of 261. INR was 0.80, PTT of greater than 212, and the D-dimer was less than 200. Her sodium was 138, potassium 3.7, chloride of 98, bicarb 30, BUN 18, creatinine 0.95, glucose of 216, lactate 4.7, calcium 9.3. Total bili 0.5, ALT 47, alk phos 123. Troponin 0.09. CRP of 14.17. BNP 107. Albumin of 3.8. Urine is pending. She did have chest x-ray obtained today, impression: Atelectasis and/or small effusion in the right lung base. EKG shows atrial flutter with a rate of 160, what appears to be a 2:1 block, and reviewing previous EKGs, last EKG was normal sinus rhythm with a rate of 84. Again, she does have a history of AFib. Old medical records were reviewed. ASSESSMENT AND PLAN: Ms. Purvis is a 57-year-old female patient with multiple medical problems coming in to the ED today with complaints of shortness of breath, chest tightness, not feeling well, found to be in atrial fibrillation with rapid ventricular response. She will be admitted under observation status for: 1. Chronic obstructive pulmonary disease exacerbation. Again, I suspect she has a slight exacerbation. I am worried that she has got high white count and lactate of 4.7. This could just be from her atrial fibrillation with rapid ventricular response causing hypoperfusion and possibly hypoxia from the chronic obstructive pulmonary disease exacerbation. My plan now is to greenwood culture her, get a urine legionella antigen, Streptococcus pneumoniae antigen, sputum culture, although she has not really been coughing. Because of the concern of possible atelectasis in the right base, I am going to go ahead and put her on doxycycline. In addition to this, I will place her on ceftriaxone. We will put her on nebs every 4 hours, Dulera, and continue her prednisone at 20 mg for the time being. She does state that she is feeling better. 2. Indeterminate troponin. This is probably secondary to the chronic obstructive pulmonary disease exacerbation and underlying atrial fibrillation with rapid ventricular response and some demand ischemia. I will go ahead and trend these. Cardiology has been consulted. In addition to this, we will get an echocardiogram and follow these. 3. Lactic acidosis. Again, it is probably hypoperfusion from the fast heart rate and possibly some hypoxia when she was short of breath this morning. My plan would be to trend this, greenwood culture her and follow. If they do not trend down, then I certainly would give her fluids and follow closely. 4. Elevated PTT. I am unclear of the etiology of this. I am repeating lab now. I do have a call to Oncology to discuss this with them. She is on Xarelto. If this remains elevated, I question if we do need to change the Xarelto to another medication for anticoagulation. 5. Diabetes. We will go ahead and put her on Lantus, in addition to this, lispro sliding scale. 6. Obstructive sleep apnea. We have ordered a CPAP. 7. Hypertension. Continue meds as prescribed. 8. Atrial fibrillation with rapid ventricular response. Dr. Francis will be consulting. She is in atrial fibrillation now. Heart rate is right around 58 to 60. I am just going to continue the Tikosyn and her diltiazem, which she normally takes and for now, the Xarelto, while again waiting to talk to Oncology about the PTT. 9. Fibromyalgia. Continue meds as prescribed. 10. Hyperlipidemia. Continue statin therapy. 11. Hypertension. Blood pressure is controlled. Continue meds as prescribed. 12. DVT prophylaxis. Again, she is on the Xarelto for the time being and her PTT is greater than 212. 13. Code status. Full code. 14. Fluids, electrolytes, and nutrition. She can have a heart-healthy diet. TIME SPENT: On admission was 60 minutes, greater than half the time was spent face- to-face with the patient obtaining my history and physical, other half time was spent going over the plan of care with the patient and implementing plan of care. I did discuss the plan of care with my attending, Dr. Duncan; he is in agreement. JOCY PORTILLO NP [id number]/CPS #: [id number] MADDISON
[2017-07-20] MEDS: Albuterol/Ipratropium NEB.SOL* Albuterol 2.5 MG/Ipratropium 0.5 MG 3 ML INH SCH ×3 (14:43→23:53)
[2017-07-20 15:47] LABS: Urine Appearance Clear; Urine Blood Negative (Negative); Urine Color Yellow; Urine Ketones Negative (Negative); Urine Protein Negative (Negative); Urine Specific Gravity 1.025 (1.010-1.030); Urine Urobilinogen Negative (Negative)
[2017-07-20] MEDS ORDERED: Perflutren Lipid Microsphere* 3 ML VIAL ONE (16:33)
--- NOTE | 2017-07-20 17:57 | ECHO ---
Patient: IZABEL BARRON [facility] Rec#: [id number] : 1960 Date: 07/20/2017 Age: 57y Height: 167.6 cm / 66.0 in Weight: 121.1 kg / 266.9 lbs Sex: F BSA: 2.3 Room#: 432 Admit Date#: 07/20/2017 Type: Inpatient Referring: Shawn Velázquez NP Reading: Epi Francis MD Lead Producer: Mahi Machado RN RDCS CC: Cristin Duncan Transthoracic Echocardiogram Indication: Atrial fibrillation BP: 149/71 HR: 57 Rhythm: Bradycardia Findings History: COPD, DM, A. fib, HTN, JULIANA, morbid obestiy, former smoker Technical Comments: The study is technically limited due to poor acoustic windows. The study is technically limited due to patient body habitus. The study is technically limited due to the patient's history of COPD. The study is technically limited due to the patient's smoking history. Completed at 1730. Left Ventricle: The left ventricular chamber size is normal. Mild to moderate concentric left ventricular hypertrophy is observed. Global left ventricular wall motion and contractility are within normal limits. There is normal left ventricular systolic function. The estimated ejection fraction is 60-65%. There is no consistent Doppler evidence of clinically significant diastolic dysfunction. Left Atrium: The left atrium is mild to moderately dilated. Right Ventricle: The right ventricle wall thickness is mildly increased. The right ventricular cavity size is normal. The right ventricular global systolic function is normal. Right Atrium: The right atrium is mildly dilated. Aortic Valve: The aortic valve leaflets are mildly thickened. There is no evidence of aortic regurgitation. There is no evidence of aortic stenosis. Mitral Valve: The mitral valve structure is not well visualized. Moderate mitral annular calcification present. The mitral valve leaflets are mildly thickened. There is no evidence of mitral regurgitation. There is mild mitral stenosis. The mean gradient across the mitral valve is 4.2 mmHg. The peak gradient across the mitral valve is 13.5 mmHg. The pressure half time of the mitral valve is 131 msec. The mitral valve area, by pressure half time, is calculated at 1.7 cm2. Tricuspid Valve: The tricuspid valve structure is not well visualized. There is trace tricuspid regurgitation. Unable to estimate the right ventricular systolic pressure. Pulmonic Valve: The pulmonic valve structure is not well visualized. There is no evidence of pulmonic regurgitation. There is no pulmonic stenosis. Pericardium: There is no significant pericardial effusion. A pericardial fat pad is visualized. Aorta: There is no dilatation of the ascending aorta. There is no dilatation of the aortic arch. There is no dilation of the aortic root. Pulmonary Artery: The main pulmonary artery is not well visualized. Venous: The venous system is not well visualized. The inferior vena cava is not visualized. Contrast: Definity was used to optimize study. A total of 4 ml of diluted Definity was given IV. Summary: There was not any prior study for comparison. Conclusions The left ventricular chamber size is normal. Mild to moderate concentric left ventricular hypertrophy is observed. The estimated ejection fraction is 60-65%. There is normal left ventricular systolic function. The left atrium is mild to moderately dilated. The right atrium is mildly dilated. There is mild mitral stenosis. There is trace tricuspid regurgitation. Measurements Name Value Normal Range MV EPSS 2.1 cm - Name Value Normal Range RVDdMajor (2D) 3.3 cm (2.2 - 4.4) RVAW (2D) 0.8 cm (0.2 - 0.5) RAd ISD 4CH 5.4 cm (3.4 - 4.9) RA (A4C)W 4.3 cm (2.9 - 4.6) IVSd (2D) 1.4 cm (0.6 - 1) LVPWd (2D) 1.3 cm (0.6 - 1) LVIDd (2D) 3.9 cm (3.6 - 5.4) LVIDs (2D) 2.4 cm - LV FS (2D) 38 % (25 - 45) Aortic Annulus 2.1 cm (1.4 - 2.6) Ao root diameter (2D) 3 cm (2.1 - 3.5) Ascending Ao 2.7 cm (2.1 - 3.4) Aortic arch 2.9 cm (1.8 - 3.4) LA dimension (AP) 2D 3.8 cm (2.3 - 3.8) LAd ISD 4CH 6.3 cm (2.9 - 5.3) LA ISD 4CH W 4.9 cm (2.5 - 4.5) Name Value Normal Range MV E-wave Vmax 1.4 m/sec - MV deceleration time 463 msec - MV A-wave Vmax 0.98 m/sec - MV E:A ratio 1.5 ratio - LV septal e' Vmax 0.06 m/sec - LV lateral e' Vmax 0.1 m/sec - LV E:e' septal ratio 23.3 ratio - LV E:e' lateral ratio 14 ratio - Name Value Normal Range AV Vmax 1.8 m/sec - AV VTI 37 cm - AV peak gradient 13 mmHg - AV mean gradient 6.6 mmHg - LVOT Vmax 1.3 m/sec - LVOT VTI 28.4 cm - LVOT peak gradient 7.2 mmHg - LVOT mean gradient 3.8 mmHg - BETH Vmax 1.1 m/sec - Name Value Normal Range MV Vmax 1.8 m/sec - MV VTI 64.3 cm - MV peak gradient 13.5 mmHg - MV mean gradient 4.2 mmHg - MV PHT 131 msec - MVA (PHT) 1.7 cm2 - Name Value Normal Range PV Vmax 1.1 m/sec -
[2017-07-20] MEDS ORDERED: Insulin LISPRO* 1 UNITS UNIT SUBCUT ONE (18:00)
[2017-07-20] MEDS: Insulin LISPRO* 1 UNITS UNIT SUBCUT SCH (18:15)
[2017-07-20] MEDS: Mometasone/Formoter 200/5 MDI INH SCH (19:11)
--- NOTE | 2017-07-20 19:28 | ED ---
Hemanth Lomas Nikita, scribed for Marguerite Merrill MD on 07/20/17 at 0659 . Shortness of Breath - HPI Summary HPI Summary: This patient is a 57 year old F BIBA to ED with a chief complaint of SOB / asthma attack since 529. Pt was brought in with CPAP. The patient rates the pain 0/10 in severity. Symptoms aggravated by nothing. Symptoms alleviated by nothing. Patient denies fever. - History of Current Complaint Hx Obtained From: Patient Onset/Duration: Sudden Onset, Still Present Aggrevating Factors: Nothing Alleviating Factors: Nothing - Allergy/Home Medications Allergies/Adverse Reactions: Allergies Allergy/AdvReac Type Severity Reaction Status Date / Time Meloxicam [From PhoRent] Allergy ARMS-RASH Verified 03/03/17 12:30 AND SWELLING ENVIRONMENTAL Allergy ASTHMATIC Uncoded 03/03/17 12:30 REACTIONS PMH/Surg Hx/FS Hx/Imm Hx Endocrine/Hematology History: Reports: Hx Diabetes Cardiovascular History: Reports: Hx Atrial Fibrillation, Hx Hypertension Denies: Hx Congestive Heart Failure, Hx Pacemaker/ICD Respiratory History: Reports: Hx Asthma, Hx Chronic Bronchitis, Hx Chronic Obstructive Pulmonary Disease (COPD), Hx Seasonal Allergies, Hx Sleep Apnea - JULIANA with CPAP GI History: Reports: Other GI Disorders - Ventral hernia repair History: Denies: Hx Renal Disease Musculoskeletal History: Reports: Hx Arthritis, Hx Fibromyalgia Sensory History: Reports: Hx Cataracts, Hx Contacts or Glasses Denies: Hx Hearing Aid Opthamlomology History: Reports: Hx Cataracts, Hx Contacts or Glasses Neurological History: Reports: Hx Migraine Denies: Other Neuro Impairments/Disorders Psychiatric History: Reports: Hx Depression Denies: Hx Panic Disorder - Cancer History Hx Chemotherapy: No Hx Radiation Therapy: No - Surgical History Surgery Procedure, Year, and Place: 1993, 1999, 2001 [facility]. 1998 right shoulder arthroscopy [facility]. 2009 left breast biopsy [facility]. 2004 RT cataract [facility]. right foot reconstruction [facility]. Ventral hernia repair. Bilateral knee arthroscopies. 2007 VENTRAL hernia repair [facility]. 2013 TORN MENISCUS REPAIR IN RIGHT KNEE [facility] Hx Anesthesia Reactions: No - Family History Known Family History: Positive: Cardiac Disease, Hypertension, Other - breast cancer, asthma - Social History Alcohol Use: None Substance Use Type: Reports: None Hx Tobacco Use: Yes Smoking Status (MU): Former Smoker Type: Cigarettes Amount Used/How Often: LESS THEN 1PPD 15 YRS STARTED AGE 15, QUIT MANY TIMES; NONE SINCE 2013 Have You Smoked in the Last Year: No Review of Systems Negative: Fever Positive: Shortness Of Breath, Other - asthma attack All Other Systems Reviewed And Are Negative: Yes Physical Exam - Summary Physical Exam Summary: VITAL SIGNS: Reviewed. GENERAL: ~Patient is a morbidly obese FEMALE who is lying comfortable in the stretcher. Patient is not in any acute respiratory distress. HEAD AND FACE: No signs of trauma. No ecchymosis, hematomas or skull depressions. No sinus tenderness. EYES: PERRLA, EOMI x 2, No injected conjunctiva, no nystagmus. EARS: Hearing grossly intact. Ear canals and tympanic membranes are within normal limits. MOUTH: Oropharynx within normal limits. NECK: Supple, trachea is midline, no adenopathy, no JVD, no carotid bruit, no c- spine tenderness, neck with full ROM. CHEST: Symmetric, no tenderness at palpation LUNGS: Tachypnic, decreased breath sounds bilaterally. Pt was placed on bipap on arrival. 15/5 bronchodilator through bipap CVS: Tachycardic and irregular ABDOMEN: Belly is obese and distended. EXTREMITIES: FROM in all major joints, no cyanosis or clubbing. LE trace edema bilaterally. NEURO: Alert and oriented x 3. No acute neurological deficits. Speech is normal and follows commands. SKIN: Dry and warm Triage Information Reviewed: Yes Vital Signs On Initial Exam: Initial Vitals Temp Pulse Resp BP Pulse Ox 96.7 F 159 31 125/80 100 07/20/17 06:57 07/20/17 06:57 07/20/17 06:57 07/20/17 06:57 07/20/17 06:57 Vital Signs Reviewed: Yes Diagnostics - Vital Signs Vital Signs Temp Pulse Resp BP Pulse Ox 07/20/17 08:30 53 17 146/74 98 07/20/17 08:03 22 97 07/20/17 08:00 152 24 122/77 98 07/20/17 07:40 153 23 142/67 95 07/20/17 07:28 77 26 130/86 98 07/20/17 07:20 155 07/20/17 07:13 152 26 99 07/20/17 07:04 108 32 100 07/20/17 07:02 125/80 07/20/17 07:00 152 30 100 07/20/17 06:57 35.9 C 159 31 125/80 100 - Laboratory Lab Results: Lab Results 07/20/17 07/20/17 07/20/17 Range/Units 07:03 07:03 07:03 WBC (3.5-10.8) 10^3/ul RBC (4.0-5.4) 10^6/ul Hgb (12.0-16.0) g/dl Hct (35-47) % MCV (80-97) fL MCH (27-31) pg MCHC (31-36) g/dl RDW (10.5-15) % Plt Count (150-450) 10^3/ul MPV (7.4-10.4) um3 Neut % (Auto) (38-83) % Lymph % (Auto) (25-47) % Stearns % (Auto) (1-9) % Eos % (Auto) (0-6) % Baso % (Auto) (0-2) % Absolute Neuts (auto) (1.5-7.7) 10^3/ul Absolute Lymphs (auto) (1.0-4.8) 10^3/ul Absolute Monos (auto) (0-0.8) 10^3/ul Absolute Eos (auto) (0-0.6) 10^3/ul Absolute Basos (auto) (0-0.2) 10^3/ul Absolute Nucleated RBC 10^3/ul Nucleated RBC % INR (Anticoag Therapy) 0.80 (0.77-1.02) APTT > 212.0 H* (26.0-36.3) seconds D-Dimer, Quantitative < 200 (Less Than 230) ng/mL Sodium 138 (133-145) mmol/L Potassium 3.7 (3.5-5.0) mmol/L Chloride 98 L (101-111) mmol/L Carbon Dioxide 30 (22-32) mmol/L Anion Gap 10 (2-11) mmol/L BUN 18 (6-24) mg/dL Creatinine 0.95 (0.51-0.95) mg/dL Est GFR ( Amer) 77.7 (>60) Est GFR (Non-Af Amer) 60.4 (>60) BUN/Creatinine Ratio 18.9 (8-20) Glucose 216 H (70-100) mg/dL Lactic Acid (0.5-2.0) mmol/L Calcium 9.3 (8.6-10.3) mg/dL Total Bilirubin 0.50 (0.2-1.0) mg/dL AST 48 H (13-39) U/L ALT 47 (7-52) U/L Alkaline Phosphatase 123 H (34-104) U/L Troponin I 0.09 H* (<0.04) ng/mL C-Reactive Protein 14.17 H (< 5.00) mg/L B-Natriuretic Peptide 107 H ( - 100) pg/mL Total Protein 6.5 (6.4-8.9) g/dL Albumin 3.8 (3.2-5.2) g/dL Globulin 2.7 (2-4) g/dL Albumin/Globulin Ratio 1.4 (1-3) 07/20/17 07/20/17 Range/Units 07:03 07:03 WBC 17.4 H (3.5-10.8) 10^3/ul RBC 4.10 (4.0-5.4) 10^6/ul Hgb 12.3 (12.0-16.0) g/dl Hct 38 (35-47) % MCV 92 (80-97) fL MCH 30 (27-31) pg MCHC 33 (31-36) g/dl RDW 17 H (10.5-15) % Plt Count 261 (150-450) 10^3/ul MPV 9 (7.4-10.4) um3 Neut % (Auto) 78.4 (38-83) % Lymph % (Auto) 15.9 L (25-47) % Stearns % (Auto) 5.3 (1-9) % Eos % (Auto) 0.3 (0-6) % Baso % (Auto) 0.1 (0-2) % Absolute Neuts (auto) 13.6 H (1.5-7.7) 10^3/ul Absolute Lymphs (auto) 2.8 (1.0-4.8) 10^3/ul Absolute Monos (auto) 0.9 H (0-0.8) 10^3/ul Absolute Eos (auto) 0.1 (0-0.6) 10^3/ul Absolute Basos (auto) 0 (0-0.2) 10^3/ul Absolute Nucleated RBC 0 10^3/ul Nucleated RBC % 0 INR (Anticoag Therapy) (0.77-1.02) APTT (26.0-36.3) seconds D-Dimer, Quantitative (Less Than 230) ng/mL Sodium (133-145) mmol/L Potassium (3.5-5.0) mmol/L Chloride (101-111) mmol/L Carbon Dioxide (22-32) mmol/L Anion Gap (2-11) mmol/L BUN (6-24) mg/dL Creatinine (0.51-0.95) mg/dL Est GFR ( Amer) (>60) Est GFR (Non-Af Amer) (>60) BUN/Creatinine Ratio (8-20) Glucose (70-100) mg/dL Lactic Acid 4.7 H* (0.5-2.0) mmol/L Calcium (8.6-10.3) mg/dL Total Bilirubin (0.2-1.0) mg/dL AST (13-39) U/L ALT (7-52) U/L Alkaline Phosphatase (34-104) U/L Troponin I (<0.04) ng/mL C-Reactive Protein (< 5.00) mg/L B-Natriuretic Peptide ( - 100) pg/mL Total Protein (6.4-8.9) g/dL Albumin (3.2-5.2) g/dL Globulin (2-4) g/dL Albumin/Globulin Ratio (1-3) Result Diagrams: 07/20/17 07:03 07/20/17 07:03 Lab Statement: Any lab studies that have been ordered have been reviewed, and results considered in the medical decision making process. - EKG 0706 Cardiac Rate: Other Rate EKG Rhythm: Atrial Fibrillation - 161 bpm EKG Interpretation: normal axis, non-specific T wave changes Course/Dx - Course Assessment/Plan: This patient is a 57 year old F BIBA to ED with a chief complaint of SOB /asthma attack since 529. Pt was brought in with CPAP. Pt was placed on bipap on arrival. 15/5 bronchodilator through bipap. Pt will be signed out to Dr. Escalante, awaiting CXR and labs. - Diagnoses Provider Diagnoses: Atrial flutter with rapid ventricular response, Chest pain, unspecified Discharge - Discharge Plan Condition: Fair Disposition: ADMITTED TO [facility] Discharge Disposition Comment: Pt will be signed out to Dr. Escalante, awaiting CXR and labs. The documentation as recorded by the Hemanth huitron Nikita accurately reflects the service I personally performed and the decisions made by me, Marguerite Merrill MD.
[2017-07-20] MEDS: Insulin GLARGINE(*) 1 UNITS UNIT SUBCUT SCH (20:29)
[2017-07-20] MEDS: oxyCODONE/Acetamin 5/325 MG* TAB PO PRN (20:29)
[2017-07-20] MEDS: DULoxetine DR CAP* 60 MG CAP.DR PO SCH (20:29)
[2017-07-20] MEDS: Montelukast Sodium TAB* 10 MG PO SCH (20:29)
--- NOTE | 2017-07-20 22:39 | CONS ---
CC: Dr. Alonso; Dr. Abernathy; Dr. Duncan; Hospitalist Service * CARDIOLOGY CONSULTATION REPORT: DATE OF CONSULT: 07/20/17 HISTORY OF PRESENT ILLNESS: I was asked by hospitalist service, Shawn Velázquez to see this 57-year-old female patient, who follows up with Cardiology, Dr. Alonso for her history of atrial fibrillation. She is maintained on Tikosyn treatment. She has comorbidities including morbid obesity; sleep apnea, on CPAP ; history of COPD; hypertension; diabetes. She does have also history of hyperlipidemia and fibromyalgia. She presented to the hospital with some symptoms of shortness of breath this morning, she is maintained on inhalers. She was found to be in rapid atrial fibrillation. She did receive Cardizem and digoxin, then she slowed down and she was admitted for further monitoring after she continued to be in atrial fibrillation. She gives no active symptoms of chest pain. She had no fever, no chills, no dizziness, no syncope, no nausea, no vomiting, no hematochezia, no skin rash, no abdominal pain, no swelling in the lower extremities is appreciated. She feels much better now. On reviewing her monitor, she is back to normal sinus rhythm, heart rate is in the 60s. Transthoracic echocardiogram is in progress. Review of all other systems is essentially negative. PAST MEDICAL HISTORY: Includes history of COPD, diabetes, atrial fibrillation, obstructive sleep apnea, hypertension, obesity, fibromyalgia, and hyperlipidemia. PAST SURGICAL HISTORY: Knee surgery, hernia repair, section. MEDICATIONS: As an outpatient include: 1. Prednisone 10 mg 5 daily 1 week, then taper. 2. Omeprazole 40 mg daily. 3. Tikosyn 250 mcg twice a day. 4. Xarelto 20 mg daily. 5. Glipizide 10 mg twice a day. 6. Lisinopril 40 mg in the morning. 7. Ventolin inhaler. 8. Hydrocodone. 9. CPAP nightly. 10. DuoNeb nebulizer. 11. Diltiazem 180 mg daily. 12. Oxygen 2 L nasal cannula. ALLERGIES: She is allergic to MOBIC and ENVIRONMENTAL ALLERGIES. FAMILY HISTORY: Other medical issues, she is . She lives with her , 3 kids. SOCIAL HISTORY: She used to smoke, she quit in 2012. No significant alcoholic drink and no history of illicit drug use. REVIEW OF SYSTEMS: Her review of all other systems essentially is negative. PHYSICAL EXAMINATION: She is morbidly obese, but she is not in acute distress. Vitals: Blood pressure is 130/70, pulse she is in 60s, she is in sinus rhythm. Head and Neck Exam: Normocephalic, atraumatic head. Ears, Nose, Throat: Essentially benign. Neck: Supple. JVP is not elevated. No carotid bruits. No masses in the neck is appreciated. Chest: Diminished air entry at the bases , but clear. No rales, no wheeze. Heart: Normal. Regular, S1, S2. No added sounds. No gallops. No rubs. Abdomen: Benign. Positive bowel sounds. Extremities: No edema, no cyanosis, no clubbing. Skin exam is normal. Psych: Normal affect and mood. MS ACCESS DATABASE DEVELOPER: No focal deficits appreciated. DIAGNOSTIC STUDIES/LAB DATA: White blood cells 17.4, hemoglobin 12.3, hematocrit 38, and platelets 261. Chemistry: Sodium 138, potassium 3.7, chloride 98, carbon dioxide 30, BUN 18, creatinine 0.95. Lactic acid 4.9. AST 48, ALT 47. Troponin 0.09, then 0.12, then 0.10. CRP 14. BNP 107. EKG showed the patient to be in atrial fibrillation or flutter, heart rate 161 that was done today at 7:06 in the morning. There is no followup EKG after this one. IMPRESSION: The patient is a 57-year-old female patient with: 1. Presentation with rapid atrial fibrillation, flutter, converted, she is back to normal sinus rhythm with a heart rate about 60. 2. Morbid obesity. 3. Obstructive sleep apnea, on CPAP. 4. History of asthma and COPD. 5. Remote history of tobacco consumption. 6. Diabetes mellitus. 7. Systemic arterial hypertension. 8. Fibromyalgia. 9. Abnormal EKG as described. 10. History of cardioversion in the past. PLAN: The patient is currently in normal sinus rhythm. She is hemodynamically stable on exam. She is not in congestive heart failure. She has no angina. She would continued to be monitored on the telemetry floor today. It is important to continue her outpatient medications especially her Tikosyn to keep her in normal sinus rhythm. Follow up very closely her QTc interval. It is important to keep her potassium more than 4. I will obtain her magnesium level as I did not see that was done. I will obtain an EKG to confirm and document her sinus rhythm. She is to avoid significant alcohol, caffeinated drinks, and stimulants. She is to stay well hydrated. If she goes into atrial fibrillation or flutter, we will schedule her for direct cardioversion in the morning. She is to maintain on Xarelto. Thank you very much for asking us to participate in the care of this patient. [id number]/[facility] #: [id number] MADDISON
[2017-07-21] MEDS: D5W IVPB SCH ×2 (00:52→17:00)
[2017-07-21] MEDS: DOXYCYCLINE IVPB SCH ×2 (00:52→17:00)
[2017-07-21] MEDS: Albuterol/Ipratropium NEB.SOL* Albuterol 2.5 MG/Ipratropium 0.5 MG 3 ML INH SCH ×4 (03:07→19:44)
[2017-07-21] MEDS: NS 0.9% 1000 ML* 1,000 ML IV ONE ×2 (04:12→04:17)
[2017-07-21 06:42] LABS: Hematocrit 34 % (35-47); Hemoglobin 10.9 g/dl (12.0-16.0); Mean Corpuscular HGB Conc 33 g/dl (31-36); Mean Corpuscular Hemoglobin 30 pg (27-31); Mean Corpuscular Volume 92 fL (80-97); Mean Platelet Volume 9 um3 (7.4-10.4); Platelet Count 273 10^3/ul (150-450); Red Blood Count 3.65 10^6/ul (4.0-5.4); Red Cell Distribution Width 17 % (10.5-15); White Blood Count 21.8 10^3/ul (3.5-10.8)
[2017-07-21 06:43] LABS: ABS Basophils 0.1 10^3/ul (0-0.2); ABS Eosinophils 0 10^3/ul (0-0.6); ABS Lymphocytes 0.8 10^3/ul (1.0-4.8); ABS Monocytes 0.8 10^3/ul (0-0.8); ABS Neutrophils 20.1 10^3/ul (1.5-7.7); ABS Nucleated RBC 0 10^3/ul; Eosinophil % 0 % (0-6); Lymphocyte % 3.8 % (25-47); Nucleated Red Blood Cells % 0
[2017-07-21 06:57] LABS: EGFR Non-African American 69.6 (>60)
[2017-07-21] MEDS: Mometasone/Formoter 200/5 MDI INH SCH ×2 (07:16→19:45)
[2017-07-21] MEDS ORDERED: Insulin GLARGINE(*) 1 UNITS UNIT SUBCUT SCH (09:00)
[2017-07-21] MEDS: Insulin LISPRO* 1 UNITS UNIT SUBCUT SCH ×3 (11:14→17:12)
[2017-07-21] MEDS: Gabapentin CAP(*) 400 MG PO SCH ×3 (11:34→17:12)
[2017-07-21] MEDS: predniSONE TAB* 20 MG PO SCH (11:34)
[2017-07-21] MEDS: Diltiazem CD CAP* 180 MG PO SCH (11:34)
[2017-07-21] MEDS: Rivaroxaban TAB(*) 20 MG TAB PO SCH (11:35)
[2017-07-21] MEDS: Lisinopril TAB* 10 MG PO SCH (11:35)
[2017-07-21] MEDS: Omeprazole CAP* 20 MG PO SCH (11:35)
[2017-07-21] MEDS: Atorvastatin* 10 MG TAB PO SCH (11:35)
[2017-07-21] MEDS: Dofetilide CAP* 250 MCG PO SCH ×2 (11:38→21:09)
[2017-07-21] MEDS: DULoxetine DR CAP* 60 MG CAP.DR PO SCH ×2 (11:38→21:09)
--- NOTE | 2017-07-21 11:40 | PN ---
Subjective Date of Service: 07/21/17 Interval History: Pt examined today at the bedside. She states that she is feeling better. She denies chest pain. States she is not having palpitations. Denies fever or chills. ROS- denies fever, denies chills, denies nausea, denies vomiting, denies lightheadedness, denies loc, denies sob, denies chest pain, denies abdominal pain, review of 11 systems completed all others negative, Objective Active Medications: Acetaminophen (Tylenol Tab*) 650 mg PO Q4H PRN PRN Reason: FEVER/PAIN Albuterol (Ventolin 2.5 Mg/3 Ml Neb.Belinda*) 2.5 mg INH Q2H PRN PRN Reason: SOB/WHEEZING Albuterol/Ipratropium (Duoneb (Albuterol 2.5 Mg/Ipratropium 0.5 Mg)) 1 neb INH [id number] AWAKE [facility] Atorvastatin Calcium (Lipitor*) 10 mg PO DAILY [facility] Dextrose (D50w Syringe 50 Ml*) 12.5 gm IV PUSH .FOR FS < 60 - SS PRN PRN Reason: FS < 60 Diltiazem HCl (Cardizem Cd Cap*) 180 mg PO DAILY [facility] Last Admin: 07/20/17 10:13 Dose: 180 mg Dofetilide (Tikosyn Cap*) 250 mcg PO BID [facility] Last Admin: 07/20/17 20:29 Dose: 250 mcg Duloxetine HCl (Cymbalta Cap*) 60 mg PO BID [facility] Last Admin: 07/20/17 20:29 Dose: 60 mg Furosemide (Lasix Tab*) 20 mg PO DAILY PRN PRN Reason: PER PROTOCOL Gabapentin (Neurontin Cap(*)) 400 mg PO 0800,1200 [facility] Last Admin: 07/20/17 12:30 Dose: 400 mg Gabapentin (Neurontin Cap(*)) 800 mg PO QPM [facility] Last Admin: 07/20/17 18:20 Dose: 800 mg Doxycycline Hyclate 100 mg/ (Dextrose) 250 mls @ 250 mls/hr IVPB Q12H [facility] Last Admin: 07/21/17 00:52 Dose: 250 mls/hr Ceftriaxone Sodium 1 gm/ (Sodium Chloride) 50 mls @ 200 mls/hr IVPB Q24H [facility] Last Admin: 07/20/17 12:31 Dose: 200 mls/hr Insulin Glargine (Lantus(*)) 40 units SUBCUT BEDTIME [facility] Last Admin: 07/20/17 20:29 Dose: 40 unit Insulin Human Lispro (Humalog*) 0 units SUBCUT AC [facility] PRN Reason: Protocol Last Admin: 07/21/17 11:14 Dose: Not Given Lisinopril (Prinivil Tab*) 40 mg PO DAILY [facility] Mometasone Furoate/Formoterol Fumar (Dulera 200/5 Mdi*) 2 puff INH BID [facility] Last Admin: 07/21/17 07:16 Dose: 2 puff Montelukast Sodium (Singulair Tab*) 10 mg PO BEDTIME [facility] Last Admin: 07/20/17 20:29 Dose: 10 mg Omeprazole (Prilosec Cap*) 40 mg PO DAILY@0730 [facility] Last Admin: 07/20/17 10:13 Dose: 40 mg Ondansetron HCl (Zofran Inj*) 4 mg IV Q6H PRN PRN Reason: NAUSEA Oxycodone/Acetaminophen (Percocet 5/325 Tab*) 1 tab PO Q8H PRN PRN Reason: PAIN Last Admin: 07/20/17 20:29 Dose: 1 tab Prednisone (Deltasone Tab*) 20 mg PO DAILY [facility] Last Admin: 07/20/17 10:13 Dose: 20 mg Rivaroxaban (Xarelto(*)) 20 mg PO DAILY WITH MEAL [facility] Last Admin: 07/20/17 10:13 Dose: 20 mg Vital Signs - 8 hr 07/21/17 07/21/17 07/21/17 04:32 07:19 07:42 Temperature 96.8 F Pulse Rate 97 84 Respiratory 18 20 Rate Blood Pressure 156/80 187/86 (mmHg) O2 Sat by Pulse 99 97 Oximetry 07/21/17 07/21/17 07/21/17 08:33 08:39 11:16 Temperature 97.4 F Pulse Rate 77 Respiratory 18 Rate Blood Pressure 159/58 147/62 (mmHg) O2 Sat by Pulse 94 100 Oximetry Oxygen Devices in Use Now: Nasal Cannula Appearance: 57 y/o female sitting in chair NAD, Eyes: No Scleral Icterus, PERRLA Ears/Nose/Mouth/Throat: NL Teeth, Lips, Gums Neck: NL Appearance and Movements; NL JVP Respiratory: Symmetrical Chest Expansion and Respiratory Effort, - - diminished in the base, no wheezes or rales heard, Cardiovascular: NL Sounds; No Murmurs; No JVD Abdominal: NL Sounds; No Tenderness; No Distention Lymphatic: No Cervical Adenopathy Skin: No Rash or Ulcers Neurological: Alert and Oriented x 3 Lines/Tubes/Other Access: Clean, Dry and Intact Peripheral IV Result Diagrams: 07/21/17 06:35 07/21/17 06:34 Additional Lab and Data: Lab Results 07/20/17 07/20/17 07/20/17 Range/Units 07:03 07:03 07:03 WBC (3.5-10.8) 10^3/ul RBC (4.0-5.4) 10^6/ul Hgb (12.0-16.0) g/dl Hct (35-47) % MCV (80-97) fL MCH (27-31) pg MCHC (31-36) g/dl RDW (10.5-15) % Plt Count (150-450) 10^3/ul MPV (7.4-10.4) um3 Neut % (Auto) (38-83) % Lymph % (Auto) (25-47) % Morton % (Auto) (1-9) % Eos % (Auto) (0-6) % Baso % (Auto) (0-2) % Absolute Neuts (auto) (1.5-7.7) 10^3/ul Absolute Lymphs (auto) (1.0-4.8) 10^3/ul Absolute Monos (auto) (0-0.8) 10^3/ul Absolute Eos (auto) (0-0.6) 10^3/ul Absolute Basos (auto) (0-0.2) 10^3/ul Absolute Nucleated RBC 10^3/ul Nucleated RBC % INR (Anticoag Therapy) 0.80 (0.77-1.02) APTT > 212.0 H* (26.0-36.3) seconds D-Dimer, Quantitative < 200 (Less Than 230) ng/mL Sodium 138 (133-145) mmol/L Potassium 3.7 (3.5-5.0) mmol/L Chloride 98 L (101-111) mmol/L Carbon Dioxide 30 (22-32) mmol/L Anion Gap 10 (2-11) mmol/L BUN 18 (6-24) mg/dL Creatinine 0.95 (0.51-0.95) mg/dL Est GFR ( Amer) 77.7 (>60) Est GFR (Non-Af Amer) 60.4 (>60) BUN/Creatinine Ratio 18.9 (8-20) Glucose 216 H (70-100) mg/dL Lactic Acid (0.5-2.0) mmol/L Calcium 9.3 (8.6-10.3) mg/dL Total Bilirubin 0.50 (0.2-1.0) mg/dL AST 48 H (13-39) U/L ALT 47 (7-52) U/L Alkaline Phosphatase 123 H (34-104) U/L Troponin I 0.09 H* (<0.04) ng/mL C-Reactive Protein 14.17 H (< 5.00) mg/L B-Natriuretic Peptide 107 H ( - 100) pg/mL Total Protein 6.5 (6.4-8.9) g/dL Albumin 3.8 (3.2-5.2) g/dL Globulin 2.7 (2-4) g/dL Albumin/Globulin Ratio 1.4 (1-3) 07/20/17 07/20/17 Range/Units 07:03 07:03 WBC 17.4 H (3.5-10.8) 10^3/ul RBC 4.10 (4.0-5.4) 10^6/ul Hgb 12.3 (12.0-16.0) g/dl Hct 38 (35-47) % MCV 92 (80-97) fL MCH 30 (27-31) pg MCHC 33 (31-36) g/dl RDW 17 H (10.5-15) % Plt Count 261 (150-450) 10^3/ul MPV 9 (7.4-10.4) um3 Neut % (Auto) 78.4 (38-83) % Lymph % (Auto) 15.9 L (25-47) % Morton % (Auto) 5.3 (1-9) % Eos % (Auto) 0.3 (0-6) % Baso % (Auto) 0.1 (0-2) % Absolute Neuts (auto) 13.6 H (1.5-7.7) 10^3/ul Absolute Lymphs (auto) 2.8 (1.0-4.8) 10^3/ul Absolute Monos (auto) 0.9 H (0-0.8) 10^3/ul Absolute Eos (auto) 0.1 (0-0.6) 10^3/ul Absolute Basos (auto) 0 (0-0.2) 10^3/ul Absolute Nucleated RBC 0 10^3/ul Nucleated RBC % 0 INR (Anticoag Therapy) (0.77-1.02) APTT (26.0-36.3) seconds D-Dimer, Quantitative (Less Than 230) ng/mL Sodium (133-145) mmol/L Potassium (3.5-5.0) mmol/L Chloride (101-111) mmol/L Carbon Dioxide (22-32) mmol/L Anion Gap (2-11) mmol/L BUN (6-24) mg/dL Creatinine (0.51-0.95) mg/dL Est GFR ( Amer) (>60) Est GFR (Non-Af Amer) (>60) BUN/Creatinine Ratio (8-20) Glucose (70-100) mg/dL Lactic Acid 4.7 H* (0.5-2.0) mmol/L Calcium (8.6-10.3) mg/dL Total Bilirubin (0.2-1.0) mg/dL AST (13-39) U/L ALT (7-52) U/L Alkaline Phosphatase (34-104) U/L Troponin I (<0.04) ng/mL C-Reactive Protein (< 5.00) mg/L B-Natriuretic Peptide ( - 100) pg/mL Total Protein (6.4-8.9) g/dL Albumin (3.2-5.2) g/dL Globulin (2-4) g/dL Albumin/Globulin Ratio (1-3) Microbiology and Other Data: Microbiology 07/20/17 15:30 Legionella Urinary Antigen - Final Urine Negative Legionella Streptococcus pneumoniae Ag Screen - Final Negative S. pneumo Antigen 07/20/17 12:20 Influenza Types A,B Antigen (NENA) - Final Nasopharyngeal Specimen received for Influenza A/B Molecular testing Assess/Plan/Problems-Billing Assessment: 57 y/o female patient presenting to [facility] with complaints of sob, and found to be in afib rvr, - Patient Problems (1) FEN Current Visit: Yes Status: Acute Priority: High Comment: Heart healthy diet continue (2) Acute exacerbation of chronic obstructive pulmonary disease (COPD) Current Visit: Yes Status: Acute Priority: High Comment: Improved today, cxr with right sided effusion and atelectasis in RLL doxy and ceftriaxone nebs and prednisone 20mg pulm toliet follows with Dr Abernathy on long standing taper keep at 20mg and taper per pulm Wean O2 as kate (3) Atrial fibrillation with RVR Current Visit: Yes Status: Acute Priority: High Comment: -Cards following no need for cardioversion - Now back in NSR. - Continue Tikosyn and Cardizem; - Continue Xarelto for anticoagulation. (4) DVT prophylaxis Current Visit: Yes Status: Acute Priority: High Comment: - Xarelto (5) Full code status Current Visit: Yes Status: Acute Priority: High (6) Elevated troponin Current Visit: Yes Status: Acute Priority: High SNOMED Code(s): 752193188 Comment: - Trop peaked at 0.12. - Likely secondary to demand ischemia and afib. No further work up necessary at this time. Outpatient ischemic workup could be considered when she has recovered from her acute illness. She will follow up with Dr. Alonso. portia pending (7) HTN (hypertension) Current Visit: Yes Status: Acute Priority: High Code(s): I10 - ESSENTIAL ( PRIMARY) HYPERTENSION SNOMED Code(s): 22335108 Comment: - SBP 140-160s. - Continue Cardizem with continue home dose of Lisinopril. (8) Lactic acidosis Current Visit: Yes Status: Acute Priority: High Comment: Resolved (9) Diabetes Current Visit: Yes Status: Chronic Priority: High Comment: - BGs 200s. Suspect elevation due to steroids. - Increased Lantus dose at 40 will continue for now (10) JULIANA (obstructive sleep apnea) Current Visit: Yes Status: Acute Priority: High Comment: Cpap (11) HLD (hyperlipidemia) Current Visit: Yes Status: Acute Priority: High Comment: Continue current medical regime (12) Fibromyalgia Current Visit: Yes Status: Acute Priority: High Comment: Supportive care (13) Leukocytosis Current Visit: Yes Status: Acute Priority: High Comment: Suspect r/t steriods, pt improving will follow Status and Disposition: Home when stable
[2017-07-21] MEDS: cefTRIAXone(*) 1 GM in NS 0.9% 50 ML* 50 ML IVPB SCH ×3 (12:51→17:00)
--- NOTE | 2017-07-21 16:14 | ED ---
Fabio Lomas Gabriel, scribed for Mango Escalante MD on 07/20/17 at 0738 . Respiratory - HPI Summary HPI Summary: This patient is a 57 year old F BIBA to [facility] due to an asthma attack that the patient woke up with. When EMS arrived the patient was in respiratory distress and tachycardic with a heart rate of 150. The patient took breathing treatments at home and showed improvement with C-pap given by EMS. The patient rates the pain 0/10 in severity. Patient reports SOB. Patient denies fever and recent illness. Patient sleeps with 2 pillows at night. 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 - History of Current Complaint Chief Complaint: EDAsthma Stated Complaint: DIFFICULTY BREATHING Time Seen by Provider: 07/20/17 07:23 Hx Obtained From: Patient Onset/Duration: Lasting Hours, Still Present Timing: Constant Initial Severity: Severe Current Severity: Severe Pain Intensity: 0 Sputum Amount: None Alleviating Factor(s): Other - c-pap Associated Signs and Symptoms: Negative - fever, SOB - Allergy/Home Medications Allergies/Adverse Reactions: Allergies Allergy/AdvReac Type Severity Reaction Status Date / Time Meloxicam [From Mobic] Allergy ARMS-RASH Verified 03/03/17 12:30 AND SWELLING ENVIRONMENTAL Allergy ASTHMATIC Uncoded 03/03/17 12:30 REACTIONS Home Medications: Home Medications Aclidinium Thurston [Tudorza Pressair] 400 mcg INH BID 07/20/17 [History Confirmed 07/20/17] Atorvastatin* [Lipitor*] 10 mg PO DAILY 07/20/17 [History Confirmed 07/20/17] DULoxetine DR CAP* [Cymbalta CAP*] 60 mg PO BID 07/20/17 [History Confirmed ] Furosemide TAB* [Lasix TAB*] 20 mg PO DAILY PRN 07/20/17 [History Confirmed ] Gabapentin CAP(*) [Neurontin 400 mg CAP(*)] 400 mg PO .AM AND NOON 07/20/17 [ History Confirmed 07/20/17] Gabapentin CAP(*) [Neurontin 400 mg CAP(*)] 800 mg PO QPM 07/20/17 [History Confirmed 07/20/17] Insulin Glargine [Basaglar Kwikpen] 40 unit SUBCUT DAILY 07/20/17 [History Confirmed 07/20/17] Omeprazole CAP* [Prilosec CAP* 20 MG] 40 mg PO DAILY 07/20/17 [History Confirmed 07/20/17] oxyCODONE/Acetamin 5/325 MG* [Percocet 5/325 TAB*] 1 tab PO Q8H PRN 07/20/17 [ History Confirmed 07/20/17] predniSONE TAB* [Deltasone TAB*] 20 mg PO DAILY 07/20/17 [History Confirmed ] PMH/Surg Hx/FS Hx/Imm Hx Endocrine/Hematology History: Reports: Hx Diabetes Cardiovascular History: Reports: Hx Atrial Fibrillation, Hx Hypertension Denies: Hx Congestive Heart Failure, Hx Pacemaker/ICD Respiratory History: Reports: Hx Asthma, Hx Chronic Bronchitis, Hx Chronic Obstructive Pulmonary Disease (COPD), Hx Seasonal Allergies, Hx Sleep Apnea - JULIANA with CPAP GI History: Reports: Other GI Disorders - Ventral hernia repair History: Denies: Hx Renal Disease Musculoskeletal History: Reports: Hx Arthritis, Hx Fibromyalgia Sensory History: Reports: Hx Cataracts, Hx Contacts or Glasses Denies: Hx Hearing Aid Opthamlomology History: Reports: Hx Cataracts, Hx Contacts or Glasses Neurological History: Reports: Hx Migraine Denies: Other Neuro Impairments/Disorders Psychiatric History: Reports: Hx Depression Denies: Hx Panic Disorder - Cancer History Hx Chemotherapy: No Hx Radiation Therapy: No - Surgical History Surgery Procedure, Year, and Place[place] 1993, 1999, 2001 [place] [facility] [facility] [place] [facility] [place] left breast [place] [facility]. 2004 [place] [facility] [place] foot [place] [facility]. Ventral hernia repair. Bilateral knee arthroscopies. 2007 VENTRAL hernia repair [facility]. 2013 TORN MENISCUS REPAIR IN RIGHT KN[place] [facility] [place] Anesthesia Reactions: No Infectious Disease History: No Infectious Disease History: Denies: Traveled Outside the [place] in Last 30 Days - Family History Known Family History: Positive: Cardiac Disease, Hypertension, Other - breast cancer, asthma - Social History Alcohol Use: None Substance Use Type: Reports: None Hx Tobacco Use: Yes Smoking Status (MU): Former Smoker Type: Cigarettes Amount Used/How Often: LESS THEN 1PPD 15 YRS STARTED AGE 15, QUIT MANY TIMES; NONE SINCE 2013 Have You Smoked in the Last Year: No Review of Systems Negative: Fever, Chills Negative: Erythema Negative: Sore Throat Negative: Chest Pain Positive: Shortness Of Breath. Negative: Cough Negative: Abdominal Pain, Vomiting, Nausea Negative: dysuria, hematuria Negative: Myalgia, Edema Negative: Rash - dizziness Neurological: Negative - dizziness All Other Systems Reviewed And Are Negative: Yes Physical Exam - Summary Physical Exam Summary: Constitutional: Well-developed, Well-nourished, Alert. (-) Distressed Skin: Warm, Dry HENT: Normocephalic; Atraumatic Eyes: Conjunctiva normal Neck: Musculoskeletal ROM normal neck. (-) JVD, (-) Stridor, (-) Tracheal deviation Cardio: Rhythm regular, rate of 150l, Heart sounds normal; Intact distal pulses ; The pedal pulses are 2+ and symmetric. Radial pulses are 2+ and symmetric. (- ) Murmur Pulmonary/Chest wall: Effort normal. (-) Respiratory distress, (-) Wheezes, (-) Rales, lungs are clear and patient is no longer on the C-pap. Abd: Soft, (-) Tenderness, (-) Distension, (-) Guarding, (-) Rebound Musculoskeletal: (-) Edema Lymph: (-) Cervical adenopathy Neuro: Alert, Oriented x3 Psych: Mood and affect Normal Triage Information Reviewed: Yes Vital Signs On Initial Exam: Initial Vitals Temp Pulse Resp BP Pulse Ox 96.7 F 159 31 125/80 100 07/20/17 06:57 07/20/17 06:57 07/20/17 06:57 07/20/17 06:57 07/20/17 06:57 Vital Signs Reviewed: Yes - Mumtaz Coma Scale Coma Scale Total: 15 Diagnostics - Vital Signs Vital Signs Temp Pulse Resp BP Pulse Ox 07/20/17 07:20 155 07/20/17 07:04 108 32 100 07/20/17 07:02 125/80 07/20/17 06:57 96.7 F 159 31 125/80 100 - Laboratory Lab Results: Lab Results 07/20/17 Range/Units 07:03 WBC 17.4 H (3.5-10.8) 10^3/ul RBC 4.10 (4.0-5.4) 10^6/ul Hgb 12.3 (12.0-16.0) g/dl Hct 38 (35-47) % MCV 92 (80-97) fL MCH 30 (27-31) pg MCHC 33 (31-36) g/dl RDW 17 H (10.5-15) % Plt Count 261 (150-450) 10^3/ul MPV 9 (7.4-10.4) um3 Neut % (Auto) 78.4 (38-83) % Lymph % (Auto) 15.9 L (25-47) % Preble % (Auto) 5.3 (1-9) % Eos % (Auto) 0.3 (0-6) % Baso % (Auto) 0.1 (0-2) % Absolute Neuts (auto) 13.6 H (1.5-7.7) 10^3/ul Absolute Lymphs (auto) 2.8 (1.0-4.8) 10^3/ul Absolute Monos (auto) 0.9 H (0-0.8) 10^3/ul Absolute Eos (auto) 0.1 (0-0.6) 10^3/ul Absolute Basos (auto) 0 (0-0.2) 10^3/ul Absolute Nucleated RBC 0 10^3/ul Nucleated RBC % 0 Result Diagrams: 07/20/17 07:03 07/20/17 07:03 Lab Statement: Any lab studies that have been ordered have been reviewed, and results considered in the medical decision making process. - Radiology CXR Radiology Interpretation Completed By: Radiologist - Atelectasis and/or small pleural effusion at the right lung base. ED physician has reviewed this radiology report. - EKG 07:06 Cardiac Rate: Tachycardia EKG Rhythm: Atrial Flutter - at 161 BPM EKG Interpretation: No STEMI, atrial flutter with 2 to 1 conduction Re-Evaluation - Re-Evaluation First Eval Re-Evaluation Time: 08:01 Change: Unchanged Comment: The patients rate is still 150, she was given 2 doses of Cardizem with no changes. Patient denies wheezing and she states this doesn't feel like an asthma attack so we will proceed with Lopressor. Second Eval Re-Evaluation Time: 08:24 Change: Improved - Patient responded to Lopressor and is in 2 to 1 atrial flutter. Currently she reports chest heaviness. Disposition - Course Assessment/Plan: This patient is a 57 year old F BIBA to [facility] due to an asthma attack that the patient woke up with. When EMS arrived the patient was in respiratory distress and tachycardic with a heart rate of 150. The patient took breathing treatments at home and showed improvement with C-pap given by EMS. The patient rates the pain 0/10 in severity. Patient reports SOB. Patient denies fever and recent illness. Patient sleeps with 2 pillows at night. 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 An EKG reveals atrial flutter with 2 to 1 conduction. CXR reveals, per radiologist, Atelectasis and/ or small pleural effusion at the right lung base. Test results with no significant abnormalities except for APTT of >212, troponin of 0.09, and lactic acid of 4.7. In the ED course the patient was given Albuterol, Duoneb, Digoxin , and Lopressor. 08:20We discussed patient care with Dr. Yang and they recommended to admit the patient to the hospitalist. Additionally they stated there might be a chance of cardioversion tomorrow. 08:33We discussed patient care with Dr. Vergara and they agreed to admit the patient. We discussed patient care with Dr. Vergara and they recommended to consult cardiology in regards to patient care. Patient will be admitted. The patient is agreeable with this plan. - Diagnoses Provider Diagnoses: Chest pain, unspecified, Atrial flutter with rapid ventricular response - Physician Notifications Discussed Care Of Patient With: Aiden Vergara Time Discussed With Above Provider: 08:06 Instructed by Provider To: Other - We discussed patient care with Dr. Vergara and they recommended to consult cardiology in regards to patient care. - Critical Care Time Critical Care Time: 30-74 min - 45 minutes Discharge - Discharge Plan Condition: Fair Disposition: ADMITTED TO [facility] Referrals: Cristin Duncan MD [Primary Care Provider] - Consult Consult: 08:20We discussed patient care with Dr. Yang and they recommended to admit the patient to the hospitalist. Additionally they stated there might be a chance of cardioversion tomorrow. 08:33We discussed patient care with Dr. Vergara and they agreed to admit the patient. The documentation as recorded by the Fabio huitron Gabriel accurately reflects the service I personally performed and the decisions made by , Mango Escalante MD.
[2017-07-21] MEDS: Montelukast Sodium TAB* 10 MG PO SCH (21:09)
[2017-07-21] MEDS: DOXYcycline CAP(*) 100 MG PO SCH (21:09)
[2017-07-21] MEDS: Insulin GLARGINE(*) 1 UNITS UNIT SUBCUT SCH (21:09)
[2017-07-21] MEDS: oxyCODONE/Acetamin 5/325 MG* TAB PO PRN (22:01)
[2017-07-22] MEDS: Albuterol/Ipratropium NEB.SOL* Albuterol 2.5 MG/Ipratropium 0.5 MG 3 ML INH SCH ×3 (01:46→12:43)
[2017-07-22 06:27] LABS: ABS Basophils 0.1 10^3/ul (0-0.2); ABS Eosinophils 0 10^3/ul (0-0.6); ABS Lymphocytes 2.1 10^3/ul (1.0-4.8); ABS Neutrophils 19.3 10^3/ul (1.5-7.7); ABS Nucleated RBC 0 10^3/ul; Eosinophil % 0.1 % (0-6); Hematocrit 33 % (35-47); Hemoglobin 10.9 g/dl (12.0-16.0); Lymphocyte % 9.3 % (25-47); Mean Corpuscular HGB Conc 33 g/dl (31-36); Mean Corpuscular Hemoglobin 30 pg (27-31); Mean Corpuscular Volume 92 fL (80-97); Mean Platelet Volume 9 um3 (7.4-10.4); Nucleated Red Blood Cells % 0; Platelet Count 244 10^3/ul (150-450); Red Blood Count 3.58 10^6/ul (4.0-5.4); Red Cell Distribution Width 17 % (10.5-15); White Blood Count 22.4 10^3/ul (3.5-10.8)
[2017-07-22 06:44] LABS: EGFR Non-African American 74.7 (>60)
[2017-07-22] MEDS: Mometasone/Formoter 200/5 MDI INH SCH (07:14)
[2017-07-22] MEDS: Gabapentin CAP(*) 400 MG PO SCH (09:05)
[2017-07-22] MEDS: Rivaroxaban TAB(*) 20 MG TAB PO SCH (09:05)
[2017-07-22] MEDS: Omeprazole CAP* 20 MG PO SCH (09:05)
[2017-07-22] MEDS: Atorvastatin* 10 MG TAB PO SCH (09:05)
[2017-07-22] MEDS: DOXYcycline CAP(*) 100 MG PO SCH (09:05)
[2017-07-22] MEDS: Diltiazem CD CAP* 180 MG PO SCH (09:05)
[2017-07-22] MEDS: DULoxetine DR CAP* 60 MG CAP.DR PO SCH (09:06)
[2017-07-22] MEDS: predniSONE TAB* 20 MG PO SCH (09:06)
[2017-07-22] MEDS: Insulin LISPRO* 1 UNITS UNIT SUBCUT SCH (09:06)
[2017-07-22] MEDS: Lisinopril TAB* 10 MG PO SCH (09:06)
[2017-07-22] MEDS: Dofetilide CAP* 250 MCG PO SCH (09:06)
--- NOTE | 2017-07-22 10:52 | PN ---
Subjective Date of Service: 07/22/17 Interval History: Patient seen and examined at bedside. Denies fever, chills, shortness of breath , chest pain, N/V/D. Tele: Sinus rhythm, rate 70-80's Family History: Unchanged from Admission Social History: Unchanged from Admission Past Medical History: Unchanged from Admission Objective Active Medications: Acetaminophen (Tylenol Tab*) 650 mg PO Q4H PRN Reason: FEVER/PAIN Albuterol (Ventolin 2.5 Mg/3 Ml Neb.Belinda*) 2.5 mg INH Q2H PRN Reason: SOB/ WHEEZING Albuterol/Ipratropium (Duoneb (Albuterol 2.5 Mg/Ipratropium 0.5 Mg)) 1 neb INH [id number] AWAKE SAE Atorvastatin Calcium (Lipitor*) 10 mg PO DAILY [facility] Dextrose (D50w Syringe 50 Ml*) 12.5 gm IV PUSH .FOR FS < 60 - SS PRN Reason: FS < 60 Diltiazem HCl (Cardizem Cd Cap*) 180 mg PO DAILY [facility] Dofetilide (Tikosyn Cap*) 250 mcg PO BID SAE Doxycycline Hyclate (Vibramycin Cap(*)) 100 mg PO BID SAE Duloxetine HCl (Cymbalta Cap*) 60 mg PO BID SAE Furosemide (Lasix Tab*) 20 mg PO DAILY PRN Gabapentin (Neurontin Cap(*)) 400 mg PO 0800,1200 SAE Gabapentin (Neurontin Cap(*)) 800 mg PO QPM [facility] Insulin Glargine (Lantus(*)) 40 units SUBCUT BEDTIME SAE Insulin Human Lispro (Humalog*) 0 units SUBCUT AC SAE Lisinopril (Prinivil Tab*) 40 mg PO DAILY [facility] Mometasone Furoate/Formoterol Fumar (Dulera 200/5 Mdi*) 2 puff INH BID SAE Montelukast Sodium (Singulair Tab*) 10 mg PO BEDTIME SAE Omeprazole (Prilosec Cap*) 40 mg PO DAILY@0730 SAE Ondansetron HCl (Zofran Inj*) 4 mg IV Q6H PRN Reason: NAUSEA Oxycodone/Acetaminophen (Percocet 5/325 Tab*) 1 tab PO Q8H PRN Reason: PAIN Prednisone (Deltasone Tab*) 20 mg PO DAILY [facility] Rivaroxaban (Xarelto(*)) 20 mg PO DAILY WITH MEAL [facility] Vital Signs - 8 hr 07/22/17 07/22/17 07/22/17 04:09 04:27 07:16 Temperature 97.6 F Pulse Rate 69 88 Respiratory 20 22 Rate Blood Pressure 185/62 147/69 (mmHg) O2 Sat by Pulse 97 92 Oximetry 07/22/17 07/22/17 07/22/17 07:44 08:00 09:05 Temperature 98.2 F Pulse Rate 81 Respiratory 20 20 20 Rate Blood Pressure 150/70 (mmHg) O2 Sat by Pulse 96 95 Oximetry Oxygen Devices in Use Now: None Appearance: NAD, sitting up in a chair Ears/Nose/Mouth/Throat: Mucous Membranes Moist Respiratory: Symmetrical Chest Expansion and Respiratory Effort, Clear to Auscultation - , diminished Cardiovascular: NL Sounds; No Murmurs; No JVD, RRR Abdominal: NL Sounds; No Tenderness; No Distention Extremities: No Edema Skin: No Rash or Ulcers Neurological: Alert and Oriented x 3, NL Muscle Strength and Tone Nutrition: Taking PO's Result Diagrams: 07/22/17 06:04 07/22/17 06:05 Additional Lab and Data: Microbiology and Other Data: Microbiology 07/20/17 15:30 Legionella Urinary Antigen - Final Urine Negative Legionella Streptococcus pneumoniae Ag Screen - Final Negative S. pneumo Antigen 07/20/17 12:20 Influenza Types A,B Antigen (NENA) - Final Nasopharyngeal Specimen received for Influenza A/B Molecular testing Assess/Plan/Problems-Billing Assessment: Ms. Purvis is a 57 y/o female with PMH significant for COPD, DM, afib, JULIANA, HTN, obesity, HLD, and fibromyalgia who presented to the emergency room with complaints of sob, and found to be in afib rvr. - Patient Problems (1) Acute exacerbation of chronic obstructive pulmonary disease (COPD) Code(s): J44.1 - CHRONIC OBSTRUCTIVE PULMONARY DISEASE W (ACUTE) EXACERBATION SNOMED Code(s): 394599723 Comment: - Improving - Chest xray with right sided effusion and atelectasis in RLL - Continue doxy, nebs and prednisone 20mg (nunez tart taper in AM) pulm sheree - Follows with Dr Abernathy on long standing taper keep at 20mg and taper per pulm (2) Atrial fibrillation with RVR Code(s): I48.91 - UNSPECIFIED ATRIAL FIBRILLATION SNOMED Code(s): 567670836744615 Comment: - Now back in NSR - Cardiology consult, input appreciated - Continue Tikosyn, Cardizem, and Xarelto for anticoagulation (3) Leukocytosis Code(s): D72.829 - ELEVATED WHITE BLOOD CELL COUNT, UNSPECIFIED SNOMED Code(s) : 230994661 Comment: - Afebrile - Suspect r/t steriods (4) Elevated troponin Status: Acute Priority: High Code(s): R79.89 - OTHER SPECIFIED ABNORMAL FINDINGS OF BLOOD CHEMISTRY SNOMED Code(s): 988778260 Comment: - Trop peaked at 0.12 - Echo - no significant findings - Likely secondary to demand ischemia and afib. No further work up necessary at this time. Outpatient ischemic workup could be considered when she has recovered from her acute illness. She will follow up with Dr. Alonso. (5) Lactic acidosis Code(s): E87.2 - ACIDOSIS SNOMED Code(s): 13836186 Comment: - Resolved (6) Fibromyalgia Code(s): M79.7 - FIBROMYALGIA SNOMED Code(s): 102242543 Comment: - Supportive care (7) HLD (hyperlipidemia) Code(s): E78.5 - HYPERLIPIDEMIA, UNSPECIFIED SNOMED Code(s): 16786747 Comment: - Continue current medical regimen (8) HTN (hypertension) Code(s): I10 - ESSENTIAL (PRIMARY) HYPERTENSION SNOMED Code(s): 40725368 Comment: - SBP 140-180s. - Continue Cardizem and Lisinopril. (9) JULIANA (obstructive sleep apnea) Code(s): G47.33 - OBSTRUCTIVE SLEEP APNEA (ADULT) (PEDIATRIC) SNOMED Code(s): 63197764 Comment: - Cpap (10) Diabetes Code(s): E11.9 - TYPE 2 DIABETES MELLITUS WITHOUT COMPLICATIONS SNOMED Code(s) : 12953601 Comment: - BGs 170-290s. - Suspect elevation due to steroids. - Continue Lantus. (11) Chronic kidney disease Code(s): N18.9 - CHRONIC KIDNEY DISEASE, UNSPECIFIED SNOMED Code(s): 276330299 Comment: - Cr at baseline. (12) DVT prophylaxis Code(s): FWG0017 - SNOMED Code(s): 942647026 Comment: - Debra (13) Full code status Code(s): Z78.9 - OTHER SPECIFIED HEALTH STATUS SNOMED Code(s): 344037716 Status and Disposition: Inpatient. Stable for discharge to home.
[2017-07-22 12:14] VITALS: BP 172/77
--- NOTE | 2017-07-23 14:16 | DS ---
CC: Dr. Abernathy; Dr. Chico Alonso; Dr. Cristin Duncan * DISCHARGE SUMMARY: DATE OF ADMISSION: DATE OF DISCHARGE: 07/22/17 ATTENDING PHYSICIAN: Dr. Ramon Brunner * (dictated by Ligia Anna NP) . PRIMARY CARE PROVIDER: Dr. Cristin Duncan. SOFTWARE QUALITY ASSURANCE SPECIALIST: Dr. Chico Alonso. SMASHER: Dr. Anne Abernathy. CONSULTATION WHILE IN THE HOSPITAL: Dr. Francis with Cardiology. PRIMARY DIAGNOSES: 1. Hypertroponinemia, suspect secondary to demand ischemia. 2. Lactic acidosis, resolved. 3. Elevated PTT, resolved. 4. Atrial fibrillation with rapid ventricular response, resolved. STUDIES WHILE IN THE HOSPITAL: 1. Chest x-ray on 07/20/17. Radiologist's impression: Atelectasis and/or small pleural effusion at the right lung base. 2. Transthoracic echocardiogram on 07/20/17. Clothes Marker's conclusion: The left ventricular chamber size was normal. [id number] concentric left ventricular hypertrophy is observed. Estimated ejection fraction is 60% to 65% . There is normal left ventricular systolic function. The left atrium is mild- to-moderately dilated. The right atrium is mildly dilated. There is mild mitral stenosis. There is trace tricuspid regurgitation. DISCHARGE MEDICATIONS: New home medications: Doxycycline 100 mg oral twice daily for 5 days to complete a 7-day course. Continued home medications: 1. Singulair 10 mg oral daily at bedtime. 2. Xarelto 20 mg oral daily. 3. Glipizide 10 mg oral twice daily. 4. Diltiazem CD 180 mg oral daily. 5. Dulera 200/5 two puffs inhalation twice daily. 6. Tikosyn 250 mcg oral twice daily. 7. DuoNeb 1 neb inhalation every 6 hours as needed for shortness of breath. 8. Albuterol 2.5 mg/3 mL nebulizer 2.5 mg inhalation every 4 hours as needed for shortness of breath. 9. Albuterol HFA inhaler 2 puffs inhalation every 4 hours as needed for shortness of breath or wheeze. 10. Lisinopril 40 mg oral daily. 11. Duloxetine 60 mg oral twice daily. 12. Atorvastatin 10 mg oral daily. 13. Tudorza Pressair 400 mcg inhalation twice daily. 14. Gabapentin 800 mg oral every evening. 15. Gabapentin 400 mg oral every morning at noon. 16. Percocet 5/325 one tablet oral every 8 hours as needed for pain. 17. Omeprazole 40 mg oral daily. 18. Furosemide 20 mg oral daily as needed for weight gain. 19. Lantus insulin 40 units subcutaneous daily. 20. Prednisone 20 mg oral daily. The patient has been instructed to resume her prednisone taper on the morning of 07/23/17. HISTORY OF PRESENT ILLNESS/HOSPITAL COURSE: Ms. Purvis is a 57-year-old female with past medical history significant for COPD, diabetes mellitus, atrial fibrillation, obstructive sleep apnea, hypertension, morbid obesity, fibromyalgia, and hyperlipidemia, who presented to the emergency room with complaints of feeling fatigued and not feeling herself. The patient was attributing her symptoms to fibromyalgia. She denied any chest pain and reports that when she woke up, she felt as though she cannot get catch her breath and her chest was tight. She was feeling very short of breath. She used 2 nebs at home and got minimal relief. She increased her oxygen, that also did not help, and so her called 911 and she was brought to the emergency room for further evaluation. While in the emergency room, the patient reported that her legs have been swollen and she had taken some Lasix and that had helped. She also was noted to 150 to 160 heart rate when she arrived to the ER and was found to have AFib with RVR and hospitalists were asked to evaluate the patient for admission. While in the hospital, the patient was treated for COPD exacerbation with doxycycline, nebulizers, and continued on her prednisone in addition to her usual home medications for COPD. She was found to have an intermediate troponin. I suspect this was secondary to demand ischemia in the setting of atrial fibrillation. The patient was noted to have lactic acidosis while in the emergency room. It was suspected that was likely due to hypoperfusion in the setting of atrial fibrillation with RVR, possibly some hypoxia during her shortness of breath episode. This was trended and resolved during her stay. She was also found to have an elevated PTT with an unclear etiology. This resolved during her stay. The patient was noted to have slightly elevated glucoses. She was continued on her home Lantus. This was suspected to be secondary to her steroid use. During her stay she was seen in consultation by Dr. Francis with Cardiology for atrial fibrillation with RVR. She converted into sinus rhythm. She was continued on her home Tikosyn and diltiazem and Xarelto. The patient was feeling better. She was able to be weaned off oxygen into room air. Ms. Purvis is stable for discharge to home today. PHYSICAL EXAM: Vital signs are as follows: Temperature 98.3, heart rate 84, respiratory rate 18, O2 sat 93% on room air, blood pressure 172/77. DISCHARGE PLAN: Ms. Purvis will be discharged to home activity as tolerated. She should be on a consistent carbohydrate, heart-healthy diet. For her COPD exacerbation, she has been continued on doxycycline 100 mg oral twice daily for 5 more days to complete a 7-day course. She was then continued on her usual home nebulizers and inhalers. She has been asked to resume with the prednisone taper previously prescribed to her by Dr. Abernathy starting tomorrow morning, . She has been asked to keep her previously scheduled followup appointment with Dr. Abernathy. As far as the patient's elevated troponin, it was suspected to be secondary to demand ischemia, but she should be seen in followup by Dr. Alonso and considered for an outpatient stress test when she is recovered from her acute COPD exacerbation. She should be seen in followup by Dr. Duncan. Dr. Duncan's office should be calling the patient with followup appointment. The patient has been instructed to call Monday or Monday morning if she has not heard from Dr. Duncan's office to set up a followup appointment. As far as the patient's other chronic medical conditions, she has been continued on her usual home medications. The patient has been instructed to return to the emergency room for any complaints of chest pain or increased shortness of breath. This is a summarized report of a complex medical history and hospital stay. For further details, please see the entire medical record. TIME SPENT: Time for this discharge was approximately 50 minutes, greater than half of that was spent [id number] with the patient discussing discharge plans and instructions. CONDITION ON DISCHARGE: Stable. LIGIA ANNA, CHILO [id number]/[facility] #: [id number] MADDISON
== END 2017-07-22 13:50 | disposition home or self-care (01) | DRG 201 ==
LOC: ED 06:56 → MEDTELE 08:31
PROVIDERS: ADMIT Internal Medicine; ATTEND Internal Medicine
DX: I48.91 Unspecified atrial fibrillation (principal); J44.1 Chronic obstructive pulmonary disease with (acute) exacerbation; E87.2 Acidosis; E11.22 Type 2 diabetes mellitus with diabetic chronic kidney disease; E66.01 Morbid (severe) obesity due to excess calories; I08.1 Rheumatic disorders of both mitral and tricuspid valves; I24.8 Other forms of acute ischemic heart disease; Z68.41 Body mass index [BMI] 40.0-44.9, adult; I48.92 Unspecified atrial flutter; G47.33 Obstructive sleep apnea (adult) (pediatric); M79.7 Fibromyalgia; M19.90 Unspecified osteoarthritis, unspecified site; G43.909 Migraine, unspecified, not intractable, without status migrainosus; E78.5 Hyperlipidemia, unspecified; I12.9 Hypertensive chronic kidney disease with stage 1 through stage 4 chronic kidney disease, or unspecified chronic kidney disease; N18.9 Chronic kidney disease, unspecified; T38.0X5A Adverse effect of glucocorticoids and synthetic analogues, initial encounter; Y92.239 Unspecified place in hospital as the place of occurrence of the external cause; Z88.8 Allergy status to other drugs, medicaments and biological substances; Z82.49 Family history of ischemic heart disease and other diseases of the circulatory system; Z80.3 Family history of malignant neoplasm of breast; Z82.5 Family history of asthma and other chronic lower respiratory diseases; Z87.891 Personal history of nicotine dependence; Z98.41 Cataract extraction status, right eye; Z79.01 Long term (current) use of anticoagulants; Z79.4 Long term (current) use of insulin
CPT/HCPCS: 36415; 71045; 80048; 80053; 81003; 82947; 83605; 83735; 83880; 84484; 85025; 85379; 85610; 85730; 86140; 87040; 87077; 87086; 87150; 87205; 87502; 87899; 93005; 93306; 94640; 94660; 94760; A9270-GY; C8929; J0696; J1160; J2930; J3475; J3490; J7512; J7644

== ENCOUNTER 2017-12-06 12:05 | Inpatient (IN) | payer OTHER ==
[2017-12-06] MEDS ORDERED: Diltiazem IV* 5 MG/ML 5 ML VIAL (for loading dose/IV Push) (25 MG) IV SLOW PU ONE (12:32)
[2017-12-06] MEDS: NS 0.9% 1000 ML* 1,000 ML IV ONE ×2 (12:52→13:01)
--- NOTE | 2017-12-06 12:56 | RAD ---
INDICATION: Chest pain. COMPARISON: Comparison is made with prior chest x-ray studies from April 30, 2017 and July 20, 2017. TECHNIQUE: A portable view of the chest was obtained. FINDINGS: The heart is within normal limits in size. There is diffuse prominence of the interstitial markings which appears similar to the prior study. There is a small to moderate size right pleural effusion which may be partially loculated. IMPRESSION: SMALL TO MODERATE SIZE RIGHT PLEURAL EFFUSION POSSIBLY LOCULATED AND INCREASED IN SIZE. RECOMMEND CLINICAL CORRELATION AND FOLLOW-UP CHEST X-RAYS TO RESOLUTION.
[2017-12-06 13:27] LABS: INR 1.85 (0.77-1.02)
[2017-12-06 13:28] LABS: ABS Basophils 0 10^3/ul (0-0.2); ABS Eosinophils 0 10^3/ul (0-0.6); ABS Lymphocytes 0.6 10^3/ul (1.0-4.8); ABS Monocytes 0.7 10^3/ul (0-0.8); ABS Neutrophils 19.5 10^3/ul (1.5-7.7); ABS Nucleated RBC 0 10^3/ul; Eosinophil % 0.1 % (0-6); Hematocrit 35 % (35-47); Mean Corpuscular HGB Conc 32 g/dl (31-36); Mean Corpuscular Hemoglobin 28 pg (27-31); Mean Corpuscular Volume 87 fL (80-97); Mean Platelet Volume 9.3 um3 (7.4-10.4); Nucleated Red Blood Cells % 0; Platelet Count 209 10^3/ul (150-450); Red Blood Count 3.99 10^6/ul (4.0-5.4); Red Cell Distribution Width 18 % (10.5-15); White Blood Count 20.9 10^3/ul (3.5-10.8)
[2017-12-06 13:31] LABS: EGFR Non-African American 68.7 (>60)
[2017-12-06] MEDS ORDERED: Diltiazem DRIP* 100 MG/100 ML ADDV.BAG IVPB ONE (13:50)
[2017-12-06] MEDS ORDERED: Insulin REGULAR(*) 1 UNITS UNIT IV PUSH ONE ×2 (13:50)
[2017-12-06] MEDS ORDERED: cefTRIAXone(*) 1 GM in NS 0.9% 50 ML* 50 ML IVPB ONE (13:50)
[2017-12-06] MEDS: Diltiazem IV VIAL* 125 MG in NS 0.9% 100 ML* 100 ML IV SCH ×2 (14:36→17:00)
[2017-12-06 14:55] LABS: Urine Appearance Clear; Urine Blood Negative (Negative); Urine Color Straw; Urine Ketones Negative (Negative); Urine Protein Negative (Negative); Urine Specific Gravity 1.023 (1.010-1.030); Urine Urobilinogen Negative (Negative)
[2017-12-06] MEDS ORDERED: Dextrose 50% Syringe 50 ML* 25 GM/50 ML SYRINGE IV PUSH PRN (15:06)
[2017-12-06] MEDS ORDERED: Baclofen TAB* 10 MG PO PRN (15:37)
--- NOTE | 2017-12-06 15:51 | ED ---
Abdiel Lomas Angela, scribed for Merrill Aquino MD on 12/06/17 at 1242 . HPI Chest Pain - HPI Summary HPI Summary: This pt is a 57 y/o female [facility] c/o palpitations and chest discomfort today. Pt reports he was at her PCP's office when her heart rate increased to 185 bpm. She states she is now SOB and has chest discomfort. Denies nausea, vomiting, fever, dizziness. Pt has hx of atrial fibrillation and COPD. Pt was admitted at [facility] for COPD exacerbation for 1 week. Pt notes she was discharged last week. She is currently anticoagulated on Xarelto. - History of Current Complaint Chief Complaint: EDChestPainROMI Time Seen by Provider: 12/06/17 12:26 Hx Obtained From: Patient Onset/Duration: Started Minutes Ago, Still Present Timing: Lasting Minutes Current Severity: Moderate Pain Intensity: 5 Pain Scale Used: 0-10 Numeric Chest Pain Location: Diffuse Chest Pain Radiates: No Character: Fast, Other: - discomfort Aggravating Factor(s): Nothing Alleviating Factor(s): Nothing Associated Signs and Symptoms: Positive: Chest Pain, Shortness of Breath. Negative: Fever, Chills, Nausea, Vomiting - Additional Pertinent History Primary Care Physician: [id number] - Allergy/Home Medications Allergies/Adverse Reactions: Allergies Allergy/AdvReac Type Severity Reaction Status Date / Time meloxicam Allergy Intermediate Arms - Verified 12/06/17 12:43 rash and swelling ENVIRONMENTAL Allergy Intermediate ASTHMATIC Uncoded 12/06/17 12:43 REACTIONS Home Medications: Home Medications Alogliptin (NF) [Nesina (NF)] 25 mg PO DAILY 12/06/17 [History Confirmed ] Baclofen TAB* [Lioresal TAB*] 10 mg PO BID PRN 12/06/17 [History Confirmed 12/06] Diltiazem CD CAP* [Cardizem CD CAP*] 240 mg PO DAILY 12/06/17 [History Confirmed 12/06/17] Insulin GLARGINE(*) [Lantus(*)] 10 units SUBCUT QAM 12/06/17 [History Confirmed 12/06/17] Insulin GLARGINE(*) [Lantus(*)] 45 units SUBCUT QPM 12/06/17 [History Confirmed 12/06/17] Roflumilast (NF) [Daliresp (NF)] 500 mcg PO DAILY 12/06/17 [History Confirmed ] PMH/Surg Hx/FS Hx/Imm Hx Endocrine/Hematology History: Reports: Hx Diabetes Cardiovascular History: Reports: Hx Atrial Fibrillation, Hx Hypertension Denies: Hx Congestive Heart Failure, Hx Pacemaker/ICD Respiratory History: Reports: Hx Asthma, Hx Chronic Bronchitis, Hx Chronic Obstructive Pulmonary Disease (COPD), Hx Seasonal Allergies, Hx Sleep Apnea - JULIANA with CPAP GI History: Reports: Other GI Disorders - Ventral hernia repair History: Denies: Hx Renal Disease Musculoskeletal History: Reports: Hx Arthritis, Hx Fibromyalgia Sensory History: Reports: Hx Cataracts, Hx Contacts or Glasses Denies: Hx Hearing Aid Opthamlomology History: Reports: Hx Cataracts, Hx Contacts or Glasses Neurological History: Reports: Hx Migraine Denies: Other Neuro Impairments/Disorders Psychiatric History: Reports: Hx Depression Denies: Hx Panic Disorder - Cancer History Hx Chemotherapy: No Hx Radiation Therapy: No - Surgical History Surgery Procedure, Year, and Place: 1993, 1999, 2001 [facility], [facility]. 1998 right shoulder arthroscopy [facility]. 2009 left breast biopsy [facility]. 2004 RT cataract [facility]. right foot reconstruction [facility]. Ventral hernia repair. Bilateral knee arthroscopies. 2007 VENTRAL hernia repair [facility]. 2013 TORN MENISCUS REPAIR IN RIGHT KNEE [facility] Hx Anesthesia Reactions: No Infectious Disease History: No Infectious Disease History: Denies: Traveled Outside the [place] in Last 30 Days - Family History Known Family History: Positive: Cardiac Disease, Hypertension, Other - breast cancer, asthma - Social History Alcohol Use: None Substance Use Type: Reports: None Hx Tobacco Use: Yes Smoking Status (MU): Former Smoker Type: Cigarettes Amount Used/How Often: LESS THEN 1PPD 15 YRS STARTED AGE 15, QUIT MANY TIMES; NONE SINCE 2013 Have You Smoked in the Last Year: No Review of Systems Negative: Fever, Chills Eyes: Negative Positive: Palpitations - fast, Chest Pain Positive: Shortness Of Breath Negative: Vomiting, Nausea Skin: Negative Neurological: Negative All Other Systems Reviewed And Are Negative: Yes Physical Exam - Summary Physical Exam Summary: VITAL SIGNS: Reviewed. GENERAL: Patient is an obese female who is lying comfortable in the stretcher. Patient seems to be short of breath and is currently on 2L of NC O2. HEAD AND FACE: No signs of trauma. No ecchymosis, hematomas or skull depressions. No sinus tenderness. EYES: PERRLA, EOMI x 2, No injected conjunctiva, no nystagmus. EARS: Hearing grossly intact. Ear canals and tympanic membranes are within normal limits. MOUTH: Oropharynx within normal limits. NECK: Supple, trachea is midline, no adenopathy, no JVD, no carotid bruit, no c- spine tenderness, neck with full ROM. CHEST: Symmetric, no tenderness at palpation LUNGS: She has crackles in both bases of the lungs, more right than left. CVS: Irregular rate and rhythm, S1 and S2 present, no murmurs or gallops appreciated. ABDOMEN: Soft, non-tender. No signs of distention. No rebound no guarding, and no masses palpated. Bowel sounds are normal. EXTREMITIES: FROM in all major joints, no cyanosis or clubbing. Bilateral 1+ edema in lower extremity. NEURO: Alert and oriented x 3. No acute neurological deficits. Speech is normal and follows commands. SKIN: Dry and warm Triage Information Reviewed: Yes Vital Signs On Initial Exam: Initial Vitals Temp Pulse Resp BP Pulse Ox 98.4 F 138 24 133/83 95 12/06/17 12:10 12/06/17 12:10 12/06/17 12:10 12/06/17 12:10 12/06/17 12:10 Vital Signs Reviewed: Yes Diagnostics - Vital Signs Vital Signs Temp Pulse Resp BP Pulse Ox 12/06/17 12:23 165 97 12/06/17 12:10 98.4 F 138 24 133/83 95 - Laboratory Result Diagrams: 12/06/17 13:02 12/06/17 13:02 Lab Statement: Any lab studies that have been ordered have been reviewed, and results considered in the medical decision making process. - Radiology Chest XR Xray Interpretation: Positive (See Comments) - IMPRESSION: Small to moderate size right pleural effusion possibly loculated and increased in size. Recommend clinical correlation and follow-up chest X-rays to resolution. Dr. Aquino has reviewed this radiology report. Radiology Interpretation Completed By: Radiologist - EKG 12:24 Cardiac Rate: Tachycardia - at 140 bpm EKG Rhythm: Atrial Fibrillation - with RVR EKG Comparison: No Significant Change - Similar to prior on 07/20/17. Chest Pain Course/Dx - Course Assessment/Plan: Pt is a 57 y/o female who presents with palpitations and chest discomfort today. Pt reports he was at her PCP's office when her heart rate increased to 185 bpm. She states she is now SOB and has chest discomfort. Denies nausea, vomiting, fever, dizziness. Pt has hx of atrial fibrillation and COPD. Test results show WBC of 20.9 with 93.7% neutrophils but no bands, sodium of 137, glucose is 496, lactic acid is 4.5, troponin is 0.07. Chest XR: Small to moderate size right pleural effusion possibly loculated and increased in size. Recommend clinical correlation and follow-up chest X-rays to resolution. EKG shows atrial fibrillation with RVR at 140 bpm. Initially the pt came with atrial fibrillation with RVR, therefore she was placed in a interventional cardiologist. We obtained an IV access and the pt was given Cardizem 20 mg bolus. She was given Rocephin for what I think is pneumonia with pleural effusion. Since the heart rate is ranging 110-120 bpm, the pt was placed on a Cardizem drip. The pt is taking Xarelto therefore she declined aspirin since she has an increased troponin. I discussed the case with Dr. Bergman, hospitalist, who accepted the pt for admission. Pt is hemodynamically stable, alert and oriented x3. Dx: atrial fibrillation with RVR, elevated troponin, rule out ACS , pneumonia, pleural effusion. - Diagnoses Provider Diagnoses: Atrial fibrillation with RVR, Elevated troponin, Pneumonia, Pleural effusion - Provider Notifications Discussed Care Of Patient With: Candida Bergman Time Discussed With Above Provider: 14:07 Instructed by Provider To: Other - I discussed pt care with Dr. Bergman, hospitalist, who accepted the pt for admission. - Critical Care Time Critical Care Time: 75-104 min Discharge - Sign-Out/Discharge Documenting (check all that apply): Discharge/Admit/Transfer - Admit - Discharge Plan Condition: Stable Disposition: ADMITTED TO [facility] Referrals: Cristin Duncan MD [Primary Care Provider] - The documentation as recorded by the Abdiel huitron Angela accurately reflects the service I personally performed and the decisions made by va, Merrill Aquino MD.
[2017-12-06] MEDS ORDERED: Magnesium Sulfate 2 GM IV* 2 GM/50 ML BAG IVPB ONE (16:05)
[2017-12-06] MEDS: NS 0.9% 1000 ML* 1,000 ML IV SCH (17:00)
[2017-12-06] MEDS: Insulin LISPRO* 1 UNITS UNIT SUBCUT SCH (17:37)
[2017-12-06] MEDS: Insulin GLARGINE(*) 1 UNITS UNIT SUBCUT SCH (17:38)
[2017-12-06] MEDS ORDERED: Ipratropium 0.5MG/2.5ML NEB* 0.5 MG/2.5 ML NEB.SOLN INH SCH (19:00)
[2017-12-06] MEDS: Mometasone/Formoter 200/5 MDI INH SCH (19:51)
[2017-12-06] MEDS: Levalbuterol 1.25MG/0.5ML NEB INH SCH (19:51)
[2017-12-06] MEDS: Gabapentin CAP(*) 400 MG PO SCH (20:51)
[2017-12-06] MEDS: Montelukast Sodium TAB* 10 MG PO SCH (20:52)
[2017-12-06] MEDS: Dofetilide CAP* 250 MCG PO SCH (20:52)
[2017-12-06] MEDS: oxyCODONE/Acetamin 5/325 MG* TAB PO PRN (20:52)
[2017-12-06] MEDS: DULoxetine DR CAP* 60 MG CAP.DR PO SCH (20:52)
[2017-12-06] MEDS ORDERED: Aclidinium POWDER MDI(NF) INH SCH (21:00)
--- NOTE | 2017-12-06 23:41 | HP ---
CC: Dr. Cristin Duncan * HISTORY AND PHYSICAL: DATE OF ADMISSION: 12/06/17 PRIMARY CARE PROVIDER: Dr. Cristin Duncan. ATTENDING PHYSICIAN: Dr. Candida Bergman * (dictated by Dyan Jansen NP). CHIEF COMPLAINT: Shortness of breath and tachycardia. HISTORY OF PRESENT ILLNESS: Ms. Purvis is a 57-year-old female with past medical history significant for COPD, diabetes mellitus, paroxysmal atrial fibrillation, obstructive sleep apnea, hypertension, obesity, fibromyalgia, hyperlipidemia who states that 1 week ago, she was hospitalized at [facility] for a COPD exacerbation where she spent 1 week hospitalized. She states that since her hospitalization, she has continued to feel short of breath and not back to her baseline and just feeling not well. She states while hospitalized, she received 7 days of doxycycline and Zosyn. Additionally , she has been doing nebulizers q.4 hours around the clock and rescue inhaler in between at home. She states that she was supposed to be placed on a prednisone taper at discharge, but prednisone was never sent to the pharmacy, so she placed herself on 40 mg of prednisone daily for the last 7 days. She denies any fevers, chills. She reports chest discomfort today that she describes as a slight pressure. She denies palpitations. She reports a dry cough starting yesterday. She denies nausea, vomiting. She reports shortness of breath at rest, but worse with exertion. She also reports urinary urgency and frequency since having a urinary catheter while hospitalized last week. She was at her primary care provider's office today for followup when she was found to have a heart rate up into the 180s. Due to this, she was sent to the emergency room for further evaluation. While in the emergency room, the patient had an EKG showing an atrial fibrillation with a rate of 140. She received IV diltiazem bolus and was placed on a diltiazem drip. Additionally, she received ceftriaxone, regular insulin and a liter of normal saline. She had a chest x-ray showing a small to moderate right pleural effusion, possibly loculated and increased in size. She had labs remarkable for a white blood cell count of 20.9, hemoglobin at 11, which appears to be her baseline. She had glucose of 496, lactic acid of 4.5, magnesium 1.8, troponin 0.07, alk phos 129, CRP of 16.48, procalcitonin 0.1, TSH 1.39. She had a urinalysis that was unremarkable with the exception of 3+ glucose. She was afebrile. Her heart rate was controlled down into the low 100s with a Cardizem drip at 10 ml/h and Hospitalists were asked to evaluate the patient for admission. PAST MEDICAL HISTORY: 1. COPD. 2. Chronic hypoxic respiratory failure. 3. Diabetes mellitus. 4. Paroxysmal atrial fibrillation. 5. Obstructive sleep apnea. 6. Hypertension. 7. Obesity. 8. Fibromyalgia. 9. Hyperlipidemia. PAST SURGICAL HISTORY: 1. Status post right foot surgery. 2. Status post bilateral knee arthroscopies. 3. Status post tonsillectomy. 4. Status post hernia repair. 5. Status post 3 sections. 6. Status post shoulder arthroscopy. HOME MEDICATIONS: Include: 1. Daliresp 500 mcg oral daily. 2. Baclofen 10 mg oral twice daily as needed for muscle spasms. 3. Nesina 25 mg oral daily. 4. Lantus 10 units subcutaneous every morning and 45 units subcutaneous every evening. 5. Neurontin 800 mg oral twice daily. 6. Diltiazem CD 240 mg oral daily. 7. Prednisone 40 mg oral daily. 8. Percocet 5/325 one tablet oral every 8 hours as needed for pain. 9. Xarelto 20 mg oral daily. 10. Prilosec 40 mg oral daily. 11. Singulair 10 mg oral daily at bedtime. 12. Dulera 200/5 two puffs inhalation twice daily. 13. Lisinopril 40 mg oral daily. 14. Furosemide 20 mg oral daily as needed for leg swelling. 15. Tikosyn 250 mcg oral twice daily. 16. Cymbalta 600 mg oral twice daily. 17. Atorvastatin 10 mg oral daily. 18. DuoNeb 1 neb inhalation every 6 hours as needed for shortness of breath or wheeze. 19. Albuterol HFA inhaler 2 puffs inhalation every 4 hours as needed for shortness of breath or wheeze. 20. Albuterol nebulizer 2.5 mg inhalation every 4 hours as needed for shortness of breath or wheeze. 21. Tudorza Pressair 400 mcg inhalation twice daily. ALLERGIES: MELOXICAM. FAMILY HISTORY: The patient's father had a history of coronary artery disease. She denies any family history of diabetes mellitus. She had a sister with a history of breast cancer and a brother with history of a malignant tumor behind his eye. SOCIAL HISTORY: She is a former smoker smoking 1 pack a day since age 15. She quit in 2012. She denies alcohol or recreational drug use. Her , Dante Purvis, would be her surrogate decision maker in the event she is unable to make decisions for herself. REVIEW OF SYSTEMS: I performed 11-point review of systems, all the pertinent positives and negatives are mentioned in the history of present illness. The remaining review of systems are negative. PHYSICAL EXAMINATION GENERAL APPEARANCE: The patient is alert, pleasant, appears to be in no acute distress. HEENT: Normocephalic, atraumatic. Pupils are equal and reactive to light. Extraocular movements are intact. RESPIRATORY: There is no accessory muscle use. There are crackles in bilateral bases. There are no wheezes or rhonchi. CARDIOVASCULAR: Irregular rate and rhythm. S1, S2 present, tachycardic. There are no murmurs, rubs, gallops heard. ABDOMEN: Soft, nontender, nondistended. Large. There are bowel sounds present x4. EXTREMITIES: There is 2+ bilateral lower extremity edema. DP and PT pulses are 1+ and symmetric. MUSCULOSKELETAL: There is no clubbing or cyanosis noted. The patient exhibits good strength in all extremities. NEUROLOGIC: The patient is alert and oriented x4. Cranial nerves II through XII are grossly intact. PSYCHOLOGICAL: The patient is calm and cooperative. SKIN: There are no rashes or abnormalities seen. DIAGNOSTIC STUDIES/LABORATORY DATA: Sodium 137, potassium 4.2, chloride 97, CO2 28, BUN 22, creatinine 0.85, glucose 496. White blood cell count 20.9, hemoglobin 11.0, hematocrit 35, platelet count 209. Magnesium 1.8, alk phos 129 , INR 1.85, lactic acid 4.5, troponin 0.07, BNP 119, procalcitonin 0.1. Urinalysis negative except 3+ glucose. EKG shows an atrial fibrillation at a rate of 140. When compared to previous EKG, she was in sinus rhythm with a rate of 68 on 07/20/17. Chest x-ray from today. Radiologist impression: Small to moderate size right pleural effusion, possibly loculated and increased in size. Recommend clinical correlation and followup chest x-rays to resolution. IMPRESSION: Ms. Purvis is a 57-year-old female with past medical history significant for chronic obstructive pulmonary disease, diabetes mellitus, paroxysmal atrial fibrillation, obstructive sleep apnea, hypertension, obesity, fibromyalgia and hyperlipidemia who presents to the emergency room with complaints of shortness of breath and tachycardia from her primary care provider 's office. She will be admitted as an inpatient for atrial fibrillation with RVR , elevated troponin, and chest discomfort. ASSESSMENT/PLAN: 1. Atrial fibrillation with rapid ventricular response. I suspect this could be secondary to her recent chronic obstructive pulmonary disease exacerbation. Her heart rate is better controlled on a diltiazem drip. For now, she will be continued on diltiazem drip. Additionally, she will be continued on her home Tikosyn and Xarelto. If we are unable to control her heart rate, we will consider Cardiology consult in the morning. 2. Elevated troponin. We will trend the patient's troponin. I suspect this is secondary to her atrial fibrillation with RVR. 3. Chest discomfort. She reports a sternal chest discomfort described as a slight pressure. I suspect this is secondary to her A fib with RVR. She will be monitored on tele and we will continue to trend her troponin. 4. Leukocytosis. I suspect this is secondary to the patient's steroid use. I do not feel that she has pneumonia or other signs of infection at this time. She received ceftriaxone in the emergency room and we are going to hold on further antibiotics at this time and we will recheck her labs in the morning. 5. Chronic obstructive pulmonary disease with chronic hypoxic respiratory failure. The patient is a week out from being hospitalized from a chronic obstructive pulmonary disease exacerbation. She has no sign of acute chronic obstructive pulmonary disease exacerbation at this time. I am going to continue her on her Daliresp, Tudorza, Singulair, Dulera. We will also start tapering her prednisone, so we will place her on 30 mg starting in the morning. Also continue Xopenex and Atrovent nebulizers. The patient is currently on her home O2 requirements of 2 L via nasal cannula. 6. Lactic acidosis. I believe this is secondary to hypoperfusion in the setting of her atrial fibrillation with RVR. She has received fluids in the ER. We will recheck her lactic acid, give her some gentle hydration. 7. Hypomagnesium. The patient will receive magnesium replacement. We will recheck in the morning. 8. Diabetes mellitus. The patient will be continued on her home Lantus and placed on a lispro sliding scale. Due to her prednisone use, she is hyperglycemic and we may need to further adjust her meds. For now, while she is in the hospital, I am going to hold her Nesina. 9. Obstructive sleep apnea. The patient will be continued on CPAP. 10. Hypertension. The patient has been mostly normotensive in the emergency room. She will be continued on her home lisinopril. 11. Fibromyalgia. The patient will be continued on her home medications. 12. Hyperlipidemia. The patient will be continued on statin. 13. Morbid Obesity. BMI 53. 14. Fluids, electrolytes and nutrition. The patient will be on a consistent carbohydrate diet. 15. Code status: Full code. 16. DVT prophylaxis. She is at high risk and will be continued on Xarelto. 17. Disposition: Inpatient. TIME SPENT: Time for this admission was approximately 60 minutes, greater than half of that was spent with the patient and discussing medications, past medical history and the events leading up to her arrival today, performing a physical examination. The case has been reviewed with the attending, Dr. Bergman, who agrees with the plan of care. Reviewed by CANDELARIO HUBBARD 12/07/17 [id number]/[facility] #: [id number] [place]
[2017-12-07] MEDS: Levalbuterol 1.25MG/0.5ML NEB INH SCH ×2 (01:29→09:43)
[2017-12-07] MEDS ORDERED: Diltiazem IV VIAL* 125 MG in NS 0.9% 100 ML* 100 ML IVPB SCH (02:00)
[2017-12-07] MEDS: oxyCODONE/Acetamin 5/325 MG* TAB PO PRN ×2 (05:18→20:02)
[2017-12-07 06:29] LABS: ABS Basophils 0 10^3/ul (0-0.2); ABS Eosinophils 0.1 10^3/ul (0-0.6); ABS Lymphocytes 2.8 10^3/ul (1.0-4.8); ABS Monocytes 0.9 10^3/ul (0-0.8); ABS Neutrophils 12.9 10^3/ul (1.5-7.7); ABS Nucleated RBC 0 10^3/ul; Eosinophil % 0.3 % (0-6); Hematocrit 32 % (35-47); Hemoglobin 9.9 g/dl (12.0-16.0); Lymphocyte % 16.7 % (25-47); Mean Corpuscular HGB Conc 31 g/dl (31-36); Mean Corpuscular Hemoglobin 27 pg (27-31); Mean Corpuscular Volume 87 fL (80-97); Mean Platelet Volume 9.1 um3 (7.4-10.4); Nucleated Red Blood Cells % 0; Platelet Count 240 10^3/ul (150-450); Red Blood Count 3.63 10^6/ul (4.0-5.4); Red Cell Distribution Width 19 % (10.5-15); White Blood Count 16.6 10^3/ul (3.5-10.8)
[2017-12-07 06:49] LABS: EGFR Non-African American 70.6 (>60)
[2017-12-07] MEDS: NS 0.9% 1000 ML* 1,000 ML IV SCH (08:25)
[2017-12-07] MEDS ORDERED: Spiriva Inhaler DEVICE* 1 EACH DEVICE INH SCH (09:00)
[2017-12-07] MEDS ORDERED: predniSONE TAB* 10 MG PO SCH (09:00)
[2017-12-07] MEDS: DULoxetine DR CAP* 60 MG CAP.DR PO SCH ×2 (09:08→20:01)
[2017-12-07] MEDS: Gabapentin CAP(*) 400 MG PO SCH ×2 (09:08→20:01)
[2017-12-07] MEDS: Lisinopril TAB* 10 MG PO SCH (09:09)
[2017-12-07] MEDS: ROFLUMILAST 500 MCG PO SCH (09:09)
[2017-12-07] MEDS: Atorvastatin* 10 MG TAB PO SCH (09:09)
[2017-12-07] MEDS: Omeprazole CAP* 20 MG PO SCH (09:09)
[2017-12-07] MEDS: Rivaroxaban TAB(*) 20 MG TAB PO SCH (09:09)
[2017-12-07] MEDS: Insulin LISPRO* 1 UNITS UNIT SUBCUT SCH ×3 (09:09→18:27)
[2017-12-07] MEDS: Insulin GLARGINE(*) 1 UNITS UNIT SUBCUT SCH ×2 (09:09→18:28)
[2017-12-07] MEDS: Dofetilide CAP* 250 MCG PO SCH ×2 (09:10→20:02)
[2017-12-07] MEDS: Tiotropium CAP.INH* CAP.INH/18 MCG (USE ORDER SET !) INH SCH (09:27)
[2017-12-07] MEDS: Mometasone/Formoter 200/5 MDI INH SCH ×2 (09:28→20:04)
[2017-12-07] MEDS ORDERED: Levalbuterol 1.25MG/0.5ML NEB INH PRN (09:39)
[2017-12-07] MEDS ORDERED: Diltiazem CD CAP* 240 MG PO SCH (10:00)
[2017-12-07] MEDS ORDERED: Diltiazem CD CAP* 180 MG PO SCH (10:20)
--- NOTE | 2017-12-07 10:30 | PN ---
Subjective Date of Service: 12/07/17 Interval History: Feels much better today. She can never tell that she is having atrial fibrillation. Objective Active Medications: Atorvastatin Calcium (Lipitor*) 10 mg PO DAILY [facility] Last Admin: 12/07/17 09:09 Dose: 10 mg Baclofen (Lioresal Tab*) 10 mg PO BID PRN PRN Reason: PAIN Device (Tiotropium Inhaler Device*) 1 each INH .USE w/ SPIRIVA CAPS [facility] Dextrose (D50w Syringe 50 Ml*) 12.5 gm IV PUSH .FOR FS < 60 - SS PRN PRN Reason: FS < 60 Diltiazem HCl (Cardizem Cd Cap*) 360 mg PO DAILY [facility] Dofetilide (Tikosyn Cap*) 250 mcg PO BID [facility] Last Admin: 12/07/17 09:10 Dose: 250 mcg Duloxetine HCl (Cymbalta Cap*) 60 mg PO BID [facility] Last Admin: 12/07/17 09:08 Dose: 60 mg Gabapentin (Neurontin Cap(*)) 800 mg PO BID [facility] Last Admin: 12/07/17 09:08 Dose: 800 mg Sodium Chloride (Ns 0.9% 1000 Ml*) 1,000 mls @ 75 mls/hr IV PER RATE [facility] Last Admin: 12/07/17 08:25 Dose: 75 mls/hr Insulin Glargine (Lantus(*)) 10 units SUBCUT QAM [facility] Last Admin: 12/07/17 09:09 Dose: 10 units Insulin Glargine (Lantus(*)) 45 units SUBCUT QPM [facility] Last Admin: 12/06/17 17:38 Dose: 45 units Insulin Human Lispro (Humalog*) 0 - 15 units SUBCUT AC [facility] PRN Reason: Protocol Last Admin: 12/07/17 09:09 Dose: 6 units Levalbuterol HCl (Xopenex 1.25 Mg/0.5 Ml Neb.Belinda*) 1.25 mg INH Q6H PRN PRN Reason: SOB/WHEEZING Lisinopril (Prinivil Tab*) 40 mg PO DAILY [facility] Last Admin: 12/07/17 09:09 Dose: 40 mg Mometasone Furoate/Formoterol Fumar (Dulera 200/5 Mdi*) 2 puff INH BID [facility] Last Admin: 12/07/17 09:28 Dose: 2 puff Montelukast Sodium (Singulair Tab*) 10 mg PO BEDTIME [facility] Last Admin: 12/06/17 20:52 Dose: 10 mg Omeprazole (Prilosec Cap*) 40 mg PO DAILY@0730 [facility] Last Admin: 12/07/17 09:09 Dose: 40 mg Oxycodone/Acetaminophen (Percocet 5/325 Tab*) 1 tab PO Q8H PRN PRN Reason: PAIN Last Admin: 12/07/17 05:18 Dose: 1 tab Prednisone (Deltasone Tab*) 30 mg PO DAILY [facility] Last Admin: 12/07/17 09:08 Dose: 30 mg Rivaroxaban (Xarelto(*)) 20 mg PO DAILY WITH MEAL [facility] Last Admin: 12/07/17 09:09 Dose: 20 mg Roflumilast (Daliresp (Nf)) 500 mcg PO DAILY [facility] Last Admin: 12/07/17 09:09 Dose: 500 mcg Tiotropium [place] (Spiriva Cap.Inh*) 1 cap INH DAILY [facility] Last Admin: 12/07/17 09:27 Dose: 1 cap Vital Signs - 8 hr 12/07/17 12/07/17 12/07/17 02:30 02:45 03:00 Temperature Pulse Rate Respiratory 20 21 19 Rate Blood Pressure 140/84 141/93 143/101 (mmHg) O2 Sat by Pulse 98 99 99 Oximetry 12/07/17 12/07/17 12/07/17 03:15 03:30 03:45 Temperature Pulse Rate Respiratory 20 20 16 Rate Blood Pressure 150/97 156/99 127/71 (mmHg) O2 Sat by Pulse 99 99 100 Oximetry 12/07/17 12/07/17 12/07/17 04:00 04:01 04:15 Temperature Pulse Rate Respiratory 19 18 18 Rate Blood Pressure 150/80 138/70 (mmHg) O2 Sat by Pulse 99 99 99 Oximetry 12/07/17 12/07/17 12/07/17 04:30 04:34 04:45 Temperature 96.9 F Pulse Rate Respiratory 20 21 Rate Blood Pressure 147/79 159/92 (mmHg) O2 Sat by Pulse 97 98 Oximetry 12/07/17 12/07/17 12/07/17 05:00 05:15 05:18 Temperature Pulse Rate Respiratory 20 21 18 Rate Blood Pressure 133/76 158/69 (mmHg) O2 Sat by Pulse 100 99 Oximetry 12/07/17 12/07/17 12/07/17 05:23 05:30 06:00 Temperature Pulse Rate 87 Respiratory 18 26 21 Rate Blood Pressure 147/94 145/83 (mmHg) O2 Sat by Pulse 91 Oximetry 12/07/17 12/07/17 12/07/17 07:00 07:19 07:42 Temperature 97.4 F Pulse Rate 86 89 Respiratory 20 19 Rate Blood Pressure 173/95 169/87 (mmHg) O2 Sat by Pulse 90 89 Oximetry 12/07/17 12/07/17 12/07/17 08:00 09:00 09:31 Temperature Pulse Rate 84 95 Respiratory 17 27 20 Rate Blood Pressure 156/99 163/98 (mmHg) O2 Sat by Pulse 89 96 Oximetry 12/07/17 12/07/17 10:00 10:02 Temperature Pulse Rate 93 95 Respiratory 28 22 Rate Blood Pressure 178/128 (mmHg) O2 Sat by Pulse 100 90 Oximetry Oxygen Devices in Use Now: Nasal Cannula Appearance: Alert, in a chair in ICU. In good spirits. Looks comfortable. Eyes: No Scleral Icterus Respiratory: Symmetrical Chest Expansion and Respiratory Effort, Clear to Auscultation, Clear to Percussion Cardiovascular: NL Sounds; No Murmurs; No JVD, RRR, No Edema, - Extremities: No Clubbing, Cyanosis, - - Tr edema BL Neurological: Alert and Oriented x 3, NL Sensation, NL Gait, NL Muscle Strength and Tone, - Result Diagrams: 12/07/17 06:04 12/07/17 06:04 Assess/Plan/Problems-Billing Assessment: - Patient Problems (1) PAF (paroxysmal atrial fibrillation) Current Visit: Yes Status: Acute Code(s): I48.0 - PAROXYSMAL ATRIAL FIBRILLATION SNOMED Code(s): 337875696 Comment: Spontaneously converted to NSR early 12/07. Resume po diltiazem at higher dose of 360 mg daily. Continue rivaroxaban, dofetilide. (2) Morbid obesity Current Visit: Yes Status: Acute Code(s): E66.01 - MORBID (SEVERE) OBESITY DUE TO EXCESS CALORIES SNOMED Code(s): 154110704 Comment: BMI 55.0. (3) Diabetes Current Visit: No Status: Chronic Priority: High Code(s): E11.9 - TYPE 2 DIABETES MELLITUS WITHOUT COMPLICATIONS SNOMED Code(s): 40034433 Comment: Continue Lantus, SS Lispro. (4) COPD (chronic obstructive pulmonary disease) Current Visit: Yes Status: Acute Code(s): J44.9 - CHRONIC OBSTRUCTIVE PULMONARY DISEASE, UNSPECIFIED SNOMED Code(s): 43992814 Comment: Continue prednisone taper. Recent hospitalization in [facility] for COPD exacerbation, present illness mainly if not entirely due to PAF.
[2017-12-07] MEDS ORDERED: predniSONE TAB* 20 MG PO SCH (10:33)
[2017-12-07] MEDS: Diltiazem CD CAP* 180 MG PO SCH (10:35)
[2017-12-07] MEDS: Montelukast Sodium TAB* 10 MG PO SCH (20:02)
[2017-12-08] MEDS: Mometasone/Formoter 200/5 MDI INH SCH (07:38)
[2017-12-08] MEDS: Tiotropium CAP.INH* CAP.INH/18 MCG (USE ORDER SET !) INH SCH (07:38)
[2017-12-08] MEDS ORDERED: predniSONE TAB* 20 MG PO SCH (09:00)
[2017-12-08] MEDS: Insulin GLARGINE(*) 1 UNITS UNIT SUBCUT SCH (10:27)
[2017-12-08] MEDS: Insulin LISPRO* 1 UNITS UNIT SUBCUT SCH ×2 (10:27→12:57)
[2017-12-08] MEDS: ROFLUMILAST 500 MCG PO SCH (10:30)
[2017-12-08] MEDS: Dofetilide CAP* 250 MCG PO SCH (10:31)
[2017-12-08] MEDS: DULoxetine DR CAP* 60 MG CAP.DR PO SCH (10:31)
[2017-12-08] MEDS: Atorvastatin* 10 MG TAB PO SCH (10:31)
[2017-12-08] MEDS: Gabapentin CAP(*) 400 MG PO SCH (10:31)
[2017-12-08] MEDS: Lisinopril TAB* 10 MG PO SCH (10:31)
[2017-12-08] MEDS: Diltiazem CD CAP* 180 MG PO SCH (10:32)
[2017-12-08] MEDS: Omeprazole CAP* 20 MG PO SCH (10:32)
[2017-12-08] MEDS: Rivaroxaban TAB(*) 20 MG TAB PO SCH (10:32)
[2017-12-08 12:08] VITALS: BP 160/58
--- NOTE | 2017-12-08 13:33 | PN ---
Progress Note - Progress Note Date of Service: 12/08/17 Note: Time spent on discharge 55 minutes.
--- NOTE | 2017-12-09 10:37 | DS ---
CC: Dr. Cristin Duncan DISCHARGE SUMMARY: DATE OF ADMISSION: DATE OF DISCHARGE: 12/08/17 HISTORY OF PRESENT ILLNESS/HOSPITAL COURSE: This 57-year-old woman presented with shortness of breat h. Although she has paroxysmal atrial fibrillation, she is never aware when she is in atrial fibrill ation. She had been hospitalized at [facility] about a week before this admission for COPD ex acerbation. She has CPAP and oxygen at home. She was using nebulizers quite frequently. Although scott braxton apparently inadvertently did not prescribe prednisone when she left [place], she put herself on 40 mg of prednisone per day. Despite all these measures, she is still being short of breath. She wa s found to be in atrial fibrillation with the heart rate averaging over 140. She was admitted to a monitored unit and placed on a diltiazem drip. She eventually converted sponta neously to sinus rhythm. I have increased her diltiazem dose as when she is in atrial fibrillation t he rate was quite rapid. Otherwise, she was also placed on tiotropium, which possibly she was not on at home before. She was much improved by the time of discharge. FINAL DIAGNOSES: 1. Paroxysmal atrial fibrillation. 2. Morbid obesity. 3. Diabetes. 4. Chronic obstructive pulmonary disease. DISCHARGE MEDICATIONS: 1. Tiotropium 1 capsule daily. 2. Montelukast 10 mg h.s. 3. Rivaroxaban 20 mg daily. 4. Mometasone/formoterol 200/5 two puffs b.i.d. 5. Dofetilide 250 mcg b.i.d. 6. Albuterol/ipratropium by nebulizer every 6 hours p.r.n. 7. Albuterol 2.5 mg by nebulizer every 4 hours p.r.n. 8. Albuterol inhaler 2 puffs every 4 hours p.r.n. 9. Lisinopril [address] 10. Dul[address] 60 mg b.i.d. 11. Atorvastatin 10 mg daily. 12. Aclidinium bromide 400 mcg b.i.d. 13. Gabapentin 800 mg b.i.d. 14. Oxycodone/acetaminophen 5/325 one every 8 hours p.r.n. 15. Omeprazole 40 mg daily. 16. Furosemide 20 mg daily p.r.n. 17. Prednisone 5 mg tapered from 3 daily to none over 3 days. 18. Roflumilast 500 mcg daily. 19. Baclofen 10 mg b.i.d. p.r.n. 20. Alogliptin 25 mg daily. 21. Glargine insulin 45 units every evening and 10 units every morning. [id number]/[facility] #: [id number]
== END 2017-12-08 14:16 | disposition home or self-care (01) | DRG 201 ==
LOC: ED 12:05 → ICU 15:02 → MEDTELE 12-07 14:14
PROVIDERS: ADMIT Internal Medicine; ATTEND Internal Medicine
PROC: 5A09357 Assistance with Respiratory Ventilation, Less than 24 Consecutive Hours, Continuous Positive Airway Pressure (ICD-10-PCS; principal; 2017-12-06)
DX: I48.0 Paroxysmal atrial fibrillation (principal); J90 Pleural effusion, not elsewhere classified; J96.11 Chronic respiratory failure with hypoxia; Z68.43 Body mass index [BMI] 50.0-59.9, adult; E87.2 Acidosis; F32.9 Major depressive disorder, single episode, unspecified; G47.33 Obstructive sleep apnea (adult) (pediatric); J44.9 Chronic obstructive pulmonary disease, unspecified; M19.90 Unspecified osteoarthritis, unspecified site; M79.7 Fibromyalgia; G43.909 Migraine, unspecified, not intractable, without status migrainosus; I10 Essential (primary) hypertension; E66.01 Morbid (severe) obesity due to excess calories; E78.5 Hyperlipidemia, unspecified; E83.42 Hypomagnesemia; R74.8 Abnormal levels of other serum enzymes; D72.829 Elevated white blood cell count, unspecified; Z98.41 Cataract extraction status, right eye; Z88.6 Allergy status to analgesic agent; Z87.891 Personal history of nicotine dependence; Z80.3 Family history of malignant neoplasm of breast; Z82.5 Family history of asthma and other chronic lower respiratory diseases; Z82.3 Family history of stroke; Z82.49 Family history of ischemic heart disease and other diseases of the circulatory system; Z79.01 Long term (current) use of anticoagulants; Z79.4 Long term (current) use of insulin; E11.36 Type 2 diabetes mellitus with diabetic cataract; Z99.81 Dependence on supplemental oxygen
CPT/HCPCS: 36415; 71045; 80048; 80053; 81003; 82550; 82553; 83605; 83735; 83880; 84145; 84443; 84484; 85025; 85610; 86140; 93005; 94640; 99284; A9270-GY; J0696; J3475; J7512

== ENCOUNTER 2017-12-14 10:12 | Emergency (ER) | payer OTHER ==
[2017-12-14 10:51] LABS: ABS Basophils 0.1 10^3/ul (0-0.2); ABS Eosinophils 0.1 10^3/ul (0-0.6); ABS Lymphocytes 1.5 10^3/ul (1.0-4.8); ABS Monocytes 0.8 10^3/ul (0-0.8); ABS Neutrophils 10.9 10^3/ul (1.5-7.7); ABS Nucleated RBC 0 10^3/ul; Eosinophil % 0.4 % (0-6); Hematocrit 36 % (35-47); Hemoglobin 11.6 g/dl (12.0-16.0); Lymphocyte % 11.4 % (25-47); Mean Corpuscular HGB Conc 32 g/dl (31-36); Mean Corpuscular Hemoglobin 28 pg (27-31); Mean Corpuscular Volume 85 fL (80-97); Mean Platelet Volume 8.7 um3 (7.4-10.4); Nucleated Red Blood Cells % 0; Platelet Count 266 10^3/ul (150-450); Red Blood Count 4.18 10^6/ul (4.00-5.40); Red Cell Distribution Width 18 % (10.5-15); White Blood Count 13.4 10^3/ul (3.5-10.8)
[2017-12-14 11:25] LABS: EGFR Non-African American 65.1 (>60)
--- NOTE | 2017-12-14 12:18 | RAD ---
INDICATION: Chest pain COMPARISON: December 06, 2017 TECHNIQUE: An AP portable view obtained at 1120 hours is submitted. FINDINGS: Bones/Soft Tissues: There are no acute bony findings. Cardiomediastinal: The cardiomediastinal silhouette is normal. Lungs: There are no infiltrates. Pleura: There are no pleural effusions. Other: None IMPRESSION: NO ACTIVE DISEASE.
[2017-12-14] MEDS ORDERED: Insulin REGULAR(*) 1 UNITS UNIT IV PUSH ONE (13:14)
[2017-12-14] MEDS ORDERED: NS 0.9% 1000 ML* 1,000 ML IV SCH (13:15)
--- NOTE | 2017-12-14 16:25 | ED ---
Russell Lomas Stephanie, scribed for Merrill Aquino MD on 12/14/17 at 1046 . Shortness of Breath - HPI Summary HPI Summary: The pt is a 57 y/o F presenting to the ED with c/o SOB that began at 08:00 today. Symptoms include chest tightness and rapid heart rate. She states her HR at home was 165 BPM. She has home O2 PRN and she applied 2L NC for SOB with little relief. - History of Current Complaint Chief Complaint: EDDysrhythmPalp Time Seen by Provider: 12/14/17 10:27 Hx Obtained From: Patient Onset/Duration: Gradual Onset, Lasting Hours, Still Present Timing: Constant Current Severity: Mild Aggrevating Factors: Nothing Alleviating Factors: Nothing Associated Signs & Symptoms: Edema - chest tightness, increased HR - Allergy/Home Medications Allergies/Adverse Reactions: Allergies Allergy/AdvReac Type Severity Reaction Status Date / Time meloxicam Allergy Intermediate Arms - Verified 12/14/17 10:16 rash and swelling ENVIRONMENTAL Allergy Intermediate ASTHMATIC Uncoded 12/06/17 12:43 REACTIONS Home Medications: Home Medications Diltiazem CD CAP* [Cardizem CD CAP*] 360 mg PO DAILY 12/14/17 [History Confirmed 12/14/17] PMH/Surg Hx/FS Hx/Imm Hx Endocrine/Hematology History: Reports: Hx Diabetes Cardiovascular History: Reports: Hx Atrial Fibrillation, Hx Congestive Heart Failure, Hx Hypercholesterolemia, Hx Hypertension Denies: Hx Pacemaker/ICD Respiratory History: Reports: Hx Asthma, Hx Chronic Bronchitis, Hx Chronic Obstructive Pulmonary Disease (COPD), Hx Seasonal Allergies, Hx Sleep Apnea - JULIANA with CPAP GI History: Reports: Other GI Disorders - Ventral hernia repair History: Denies: Hx Renal Disease Musculoskeletal History: Reports: Hx Arthritis, Hx Fibromyalgia Sensory History: Reports: Hx Cataracts, Hx Contacts or Glasses Denies: Hx Hearing Aid Opthamlomology History: Reports: Hx Cataracts, Hx Contacts or Glasses Neurological History: Reports: Hx Migraine Denies: Other Neuro Impairments/Disorders Psychiatric History: Reports: Hx Depression Denies: Hx Panic Disorder - Cancer History Hx Chemotherapy: No Hx Radiation Therapy: No - Surgical History Surgery Procedure, Year, and Place: 1993, 1999, 2001 [facility]. 1998 right shoulder arthroscopy [facility]. 2009 left breast biopsy [facility]. 2004 RT cataract [facility]. right foot reconstruction [facility]. Ventral hernia repair. Bilateral knee arthroscopies. 2007 VENTRAL hernia repair [facility]. 2013 TORN MENISCUS REPAIR IN RIGHT KNEE [facility] Hx Anesthesia Reactions: No Infectious Disease History: No Infectious Disease History: Denies: Traveled Outside the [place] in Last 30 Days - Family History Known Family History: Positive: Cardiac Disease, Hypertension, Other - breast cancer, asthma - Social History Occupation: Employed Full-time Lives: With Family Alcohol Use: None Hx Substance Use: No Substance Use Type: Reports: None Hx Tobacco Use: Yes Smoking Status (MU): Former Smoker Type: Cigarettes Amount Used/How Often: LESS THEN 1PPD 15 YRS STARTED AGE 15, QUIT MANY TIMES; NONE SINCE 2014 Have You Smoked in the Last Year: No Review of Systems Negative: Fever Positive: Other - chest tightness, increased HR Positive: Shortness Of Breath Negative: Slurred Speech All Other Systems Reviewed And Are Negative: Yes Physical Exam - Summary Physical Exam Summary: VITAL SIGNS: Reviewed. GENERAL: Patient is an obese FEMALE who is lying comfortable in the stretcher. Patient is not in any acute respiratory distress. HEAD AND FACE: Normocephalic EYES: PERRLA, EOMI x 2. EARS: Hearing grossly intact. MOUTH: Oropharynx within normal limits. NECK: Supple, trachea is midline, no adenopathy, no JVD, no carotid bruit. CHEST: Symmetric, no tenderness at palpation LUNGS: Clear to auscultation bilaterally. No wheezing or crackles. CVS: Regular rate and rhythm, S1 and S2 present, no murmurs or gallops appreciated. ABDOMEN: Soft, non-tender. Bowel sounds are normal. No abdominal abnormal pulsations. EXTREMITIES: Full ROM in all major joints, no edema, no cyanosis or clubbing. NEURO: Alert and oriented x 3. No acute neurological deficits. Speech is normal and follows commands. SKIN: Dry and warm Triage Information Reviewed: Yes Vital Signs On Initial Exam: Initial Vitals Temp Pulse Resp BP Pulse Ox 96.7 F 101 20 126/61 98 12/14/17 10:14 12/14/17 10:14 12/14/17 10:14 12/14/17 10:14 12/14/17 10:14 Vital Signs Reviewed: Yes Diagnostics - Vital Signs Vital Signs Temp Pulse Resp BP Pulse Ox 12/14/17 10:14 96.7 F 101 20 126/61 98 - Laboratory Lab Results: Lab Results 12/14/17 12/14/17 12/14/17 Range/Units 10:37 10:37 10:37 WBC 13.4 H (3.5-10.8) 10^3/ul RBC 4.18 (4.00-5.40) 10^6/ul Hgb 11.6 L (12.0-16.0) g/dl Hct 36 (35-47) % MCV 85 (80-97) fL MCH 28 (27-31) pg MCHC 32 (31-36) g/dl RDW 18 H (10.5-15) % Plt Count 266 (150-450) 10^3/ul MPV 8.7 (7.4-10.4) um3 Neut % (Auto) 81.6 (38-83) % Lymph % (Auto) 11.4 L (25-47) % Lamar % (Auto) 6.2 (0-7) % Eos % (Auto) 0.4 (0-6) % Baso % (Auto) 0.4 (0-2) % Absolute Neuts (auto) 10.9 H (1.5-7.7) 10^3/ul Absolute Lymphs (auto) 1.5 (1.0-4.8) 10^3/ul Absolute Monos (auto) 0.8 (0-0.8) 10^3/ul Absolute Eos (auto) 0.1 (0-0.6) 10^3/ul Absolute Basos (auto) 0.1 (0-0.2) 10^3/ul Absolute Nucleated RBC 0 10^3/ul Nucleated RBC % 0 Sodium 141 (139-145) mmol/L Potassium 4.0 (3.5-5.0) mmol/L Chloride 101 (101-111) mmol/L Carbon Dioxide 30 (22-32) mmol/L Anion Gap 10 (2-11) mmol/L BUN 14 (6-24) mg/dL Creatinine 0.89 (0.51-0.95) mg/dL Est GFR ( Amer) 83.8 (>60) Est GFR (Non-Af Amer) 65.1 (>60) BUN/Creatinine Ratio 15.7 (8-20) Glucose 387 H (70-100) mg/dL Calcium 9.3 (8.6-10.3) mg/dL Magnesium 1.7 L (1.9-2.7) mg/dL Total Bilirubin 0.60 (0.2-1.0) mg/dL AST 13 (13-39) U/L ALT 22 (7-52) U/L Alkaline Phosphatase 108 H (34-104) U/L Total Creatine Kinase 33 (10-223) U/L CK-MB (CK-2) 5.1 (0.6-6.3) ng/mL Troponin I Pending B-Natriuretic Peptide 121 H ( - 100) pg/mL Total Protein 5.9 L (6.4-8.9) g/dL Albumin 3.6 (3.2-5.2) g/dL Globulin 2.3 (2-4) g/dL Albumin/Globulin Ratio 1.6 (1-3) TSH Pending Result Diagrams: 12/14/17 10:37 12/14/17 10:37 Lab Statement: Any lab studies that have been ordered have been reviewed, and results considered in the medical decision making process. - Radiology CXR Xray Interpretation: No Acute Changes Radiology Interpretation Completed By: Radiologist - NO ACTIVE DISEASE. ED physician has reviewed this report. - EKG 10:42 Cardiac Rate: NL EKG Rhythm: Sinus Rhythm - [address] Segment: Normal Ectopy: None EKG Interpretation: No ST elevations Course/Dx - Course Assessment/Plan: Blood test results without any significant abnormality. I did 2 troponins 4 hours apart which is 0.11. These increased warnings is at her baseline. I do not believe that the patient is having an understanding or an acute, my syndrome. The patient has the chest pain shows a blood palpitations. Since arrival to the emergency room the patient does have any symptoms. The heart rate has decreased to a normal heart rate and she is in normal sinus rhythm. She has no longer in atrial fibrillation. She reports that she took her medications currently is and this morning before she came and the systems are resolved. Since the patient has no other complaints, denies any chest pain , shortness of breath or palpitations the patient will be discharged home with follow-up with primary care physician. I discussed all the findings and test results with the patient. Patient was instructed to return to the emergency room immediately if any of the symptoms return or worsens. Plan of care was discussed with the patient and understands and agrees. All questions were answered at patient satisfaction. There were no further complaints or concerns. Lung exam before discharge: CTA B/L. Good air exchange. No wheezing or crackles heard. CVS: S1 and S2 present. No murmurs appreciated. Patient is alert and oriented x 3. Patient is hemodynamically stable. Patient will be discharged home with follow up PCP in the next 2-3 days - Diagnoses Differential Diagnosis/HQI/PQRI: Positive: Bronchitis, CHF, Pneumonia, Unstable Angina Provider Diagnoses: Atrial fibrillation Discharge - Sign-Out/Discharge Documenting (check all that apply): Discharge/Admit/Transfer - Discharge - Discharge Plan Condition: Stable Disposition: HOME Patient Education Materials: A-fib (Atrial Fibrillation) (ED) Referrals: Cristin Duncan MD [Primary Care Provider] - 3 Days Additional Instructions: Return to the ED for new or worsening symptoms. The documentation as recorded by the Russell huitron Stephanie accurately reflects the service I personally performed and the decisions made by Miles antonio Walter, MD.
[2017-12-14] MEDS ORDERED: Aspirin 81 mg CHEW TAB* 81 MG TAB.CHEW ONE (16:38)
[2017-12-14 19:16] VITALS: BP 154/74
== END 2017-12-14 15:30 | disposition home or self-care (01) ==
LOC: ED 10:12
DX: I48.91 Unspecified atrial fibrillation (principal); R06.02 Shortness of breath; Z87.891 Personal history of nicotine dependence
CPT/HCPCS: 36415; 71045; 80053; 82550; 82553; 83605; 83735; 83880; 84443; 84484; 85025; 93005; 99282; A9270-GY

== ENCOUNTER 2018-02-21 10:43 | Day surgery (SDC) | payer OTHER ==
[~2018-02-21 10:43] MED LIST: Acetaminophen TAB* 325 MG PO PRN; Buffered Lidocaine 0.9% SYRIN* 5 ML/SYR SYRINGE INTRADERM ONE; Cyclopentolate 1% OPTH.SOL* 2 ML BTL ONE; Ketorolac 0.5% OPHTH (NF) 0.5 % 5 ML BTL ONE; Levalbuterol 0.63MG/3ML NEB* UNIT OF USE INH ONE; Lidocaine 1%* 5 ML VIAL ONE; Lidocaine 2% EPI 1:200000 MPF*10-20 ML VIAL ONE; Neomycin/Polymy/Dex OPTH.SUSP* MAXITROL 0.1% 5 ML ONE; Phenylephrine 2.5% OPTH.SOL* 2 ML BTL ONE; Povidone Iodine 5% OPTH* 30 ML BTL ONE; Proparacaine 0.5% OPHTH.SOL* 15 ML BTL ONE; Trypan Blue 0.06% SOL* 0.5 ML BTL ONE; acetaZOLAMIDE TAB* 250 MG ONE
[2018-02-21] MEDS ORDERED: Midazolam* 1 MG/ML 2 ML VIAL (2 MG) ONE (12:34)
[2018-02-21 13:27] VITALS: BP 126/92
--- NOTE | 2018-02-21 16:32 | OP ---
DATE OF OPERATION: 02/21/2018 - [facility] DATE OF : 1960. SURGEON: Nilson Hadley M.D. PREOPERATIVE DIAGNOSIS: Cataract left eye. POSTOPERATIVE DIAGNOSIS: Cataract left eye. OPERATIVE PROCEDURE: Extracapsular cataract extraction with intraocular lens implant left eye. DESCRIPTION OF PROCEDURE: The patient was brought to the operating room after being given 1/2% Alcaine with epinephrine drops in the preoperative area. The eye was prepped and draped in the usual sterile fashion. Sterile drape and eyelid speculum were placed. Again, topical 1/2% Alcaine with epinephrine was given. A paracentesis incision was made at the 3 o'clock position with the No.75 blade. Clear cornea incision 2.2 x 2.2-mm was created at the 6 o'clock position starting at the anterior limbus using the 2.2-mm keratome. The anterior chamber was irrigated with 0.4 mL of 1% non-preservative intracameral lidocaine and filled with DisCoVisc. A capsulorrhexis was completed using the cystotome and the Utrata forceps. Hydrodissection was performed with balanced salt solution. The lens nucleus was removed with the Phacoemulsification handpiece without incident. Cortex was removed with the irrigation-aspiration handpiece. The capsular bag was re-inflated using DisCoVisc and an [id number] implant was inserted with the shooter. The irrigation-aspiration handpiece was used to remove all residual DisCoVisc. The eye was refilled with balanced salt solution and the wound checked and found to be watertight. Topical Maxitrol drops were given. Of note, the patient had a white cataract which required VisionBlue to stain the anterior capsule. Indication for complex cataract surgery: White cataract requiring capsular stain. [id number]/[facility] #: [id number] [facility]ITAL[facility]
== END 2018-02-21 13:32 | disposition home or self-care (01) ==
LOC: OREAST 10:43
PROVIDERS: ATTEND Specialist
DX: H25.812 Combined forms of age-related cataract, left eye (principal); E11.9 Type 2 diabetes mellitus without complications; Z79.4 Long term (current) use of insulin; I48.91 Unspecified atrial fibrillation; Z79.01 Long term (current) use of anticoagulants; J44.9 Chronic obstructive pulmonary disease, unspecified; I10 Essential (primary) hypertension; J30.2 Other seasonal allergic rhinitis
CPT/HCPCS: A9270-GY; J2250; V2632

== ENCOUNTER 2018-03-19 10:15 | Inpatient (IN) | payer OTHER ==
[2018-03-19] MEDS ORDERED: Albuterol/Ipratropium NEB.SOL* Albuterol 2.5 MG/Ipratropium 0.5 MG 3 ML INH ONE (10:29)
[2018-03-19] MEDS ORDERED: methylPREDNISolone 125 MG* 2 ML VIAL IV ONE (10:31)
--- NOTE | 2018-03-19 10:31 | ED ---
Shortness of Breath - HPI Summary HPI Summary: This pt is a 57 y/o female accompanied by her , Dante, presenting to [facility] for SOB and productive cough since yesterday. Pt has hx of COPD. Additionally she states she feels fatigued. Pt states "I feel like I have bronchitis, I have had it before and it feels like it." Pt notes her son recently caught a cold. Pt has oxygen at home and has used it in the past 2 days. Pt also uses CPAP for sleep apnea, 2L every night. Pt has used nebulizers every 3 hours albuterol and ipratropium. Her last duoneb was at 07:30 this morning. She does not use prednisone at home. Her PCP is Dr. Cristin Duncan. 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 Rosenberg in [place]. PMHx includes COPD, sleep apnea, pneumonia (last time was when she was 8 years old). Denies hx of KS. She is on Xarelto, diltiazem 360 mg once a day, Tikosyn 250 mcg BID. Pt is a former smoker, quit in 2009. Pt drinks alcohol rarely. Denies drug use. Home Medications Medication Instructions Recorded Confirmed Type Montelukast Sodium TAB* [Singulair 10 mg PO BEDTIME 12/17/15 03/19/18 History 10 MG TAB*] Albuterol 2.5MG/3ML (0.083%)* 2.5 mg INH Q4H PRN 03/03/17 03/19/18 History [Ventolin 2.5 MG/3 ML NEB.MATT*] Albuterol/Ipratropium NEB.MATT* 1 neb INH Q6H PRN 03/03/17 03/19/18 History [Duoneb (Albuterol 2.5 MG/Ipratropium 0.5 MG)] Dofetilide CAP* [Tikosyn CAP*] 250 mcg PO BID 03/03/17 03/19/18 History Mometasone/Formoter 200/5 MDI* 2 puff INH BID 03/03/17 03/19/18 History [Dulera 200/5 MDI*] Albuterol HFA INHALER* [Ventolin 2 puff INH Q4H PRN #0 ea 05/06/17 03/19/18 Rx HFA Inhaler*] Atorvastatin* [Lipitor 10 MG*] 10 mg PO QAM 07/20/17 03/19/[address] CAP* [Cymbalta CAP*] 60 mg PO BID 07/20/17 03/19/18 History Furosemide TAB* [Lasix TAB*] 20 mg PO QAM PRN 07/20/17 03/19/18 History Gabapentin CAP(*) [Neurontin 400 800 mg PO QAM 07/20/17 03/19/18 History mg CAP(*)] Omeprazole CAP* [Prilosec CAP* 20 40 mg PO QAM 07/20/17 03/19/18 History MG] Alogliptin (NF) [Nesina (NF)] 25 mg PO QAM 12/06/17 03/19/18 History Baclofen TAB* [Lioresal TAB*] 10 mg PO BID PRN 12/06/17 03/19/18 History Insulin GLARGINE(*) [Lantus(*)] 20 units SUBCUT QAM 12/06/17 03/19/18 History Insulin GLARGINE(*) [Lantus(*)] 45 units SUBCUT QPM 12/06/17 03/19/18 History Roflumilast (NF) [Daliresp (NF)] 500 mcg PO QAM 12/06/17 03/19/18 History Diltiazem CD CAP* [Cardizem CD 360 mg PO QAM 12/14/17 03/19/18 History CAP*] Lisinopril TAB* [Prinivil TAB 10 40 mg PO QAM 02/15/18 03/19/18 History MG*] Rivaroxaban TAB(*) [Xarelto 20 mg] 20 mg PO QAM 02/15/18 03/19/18 History Umeclidinium [place] [Incruse 1 puff INH QAM 02/15/18 03/19/18 History Ellipta] Gabapentin CAP(*) [Neurontin 400 1,600 mg PO QPM 03/19/18 03/19/18 History mg CAP(*)] LORazepam TAB(*) [Ativan 0.5 MG 0.5 mg PO BID PRN 03/19/18 03/19/18 History TAB (*)] oxyCODONE/Acetamin 5/325 MG* 1 tab PO TID PRN 03/19/18 03/19/18 History [Percocet 5/325 TAB*] - History of Current Complaint Chief Complaint: EDShortnessOfBreath Hx Obtained From: Patient Onset/Duration: Gradual Onset, Lasting Days - 1, Still Present Timing: Constant Current Severity: Moderate Dyspnea At: Rest Aggrevating Factors: Nothing Alleviating Factors: Nothing Associated Signs & Symptoms: Cough (Productive) Related History: Obesity - Allergy/Home Medications Allergies/Adverse Reactions: Allergies Allergy/AdvReac Type Severity Reaction Status Date / Time meloxicam Allergy Intermediate Arms - Verified 03/19/18 10:19 rash and swelling ENVIRONMENTAL Allergy Intermediate ASTHMATIC Uncoded 03/19/18 10:19 REACTIONS Home Medications: Home Medications Gabapentin CAP(*) [Neurontin 400 mg CAP(*)] 1,600 mg PO QPM 03/19/18 [History Confirmed 03/19/18] LORazepam TAB(*) [Ativan 0.5 MG TAB (*)] 0.5 mg PO BID PRN 03/19/18 [History Confirmed 03/19/18] Magnesium Oxide [Mag-Oxide] 200 mg PO DAILY 03/19/18 [History Confirmed 03/19/18 ] Potassium Chlor TAB* [Potassium Chlor TAB 20 MEQ*] 20 meq PO DAILY 03/19/18 [ History Confirmed 03/19/18] oxyCODONE/Acetamin 5/325 MG* [Percocet 5/325 TAB*] 1 tab PO TID PRN 03/19/18 [ History Confirmed 03/19/18] PMH/Surg Hx/FS Hx/Imm Hx Previously Healthy: No Endocrine/Hematology History: Reports: Hx Diabetes - Type 2 Cardiovascular History: Reports: Hx Atrial Fibrillation, Hx Congestive Heart Failure, Hx Hypercholesterolemia, Hx Hypertension Denies: Hx Myocardial Infarction, Hx Pacemaker/ICD Respiratory History: Reports: Hx Asthma - on medications, Hx Chronic Bronchitis , Hx Chronic Obstructive Pulmonary Disease (COPD), Hx Seasonal Allergies, Hx Sleep Apnea - JULIANA with CPAP, Other Respiratory Problems/Disorders - Chronic hypoxic respiratory failure,Uses O2 2l NC as needed and at night GI History: Reports: Hx Gastroesophageal Reflux Disease - GERD-on medication, Other GI Disorders - Ventral hernia repair History: Denies: Hx Renal Disease, Other Problems/Disorders Musculoskeletal History: Reports: Hx Arthritis - both hips, low back, bilateral hands, neck, Hx Fibromyalgia Denies: Other Musculoskeletal History Sensory History: Reports: Hx Cataracts - Right eye cataract removed 2009, Left cataract at present, Hx Contacts or Glasses - Glasses Denies: Hx Hearing Aid Opthamlomology History: Reports: Hx Cataracts - Right eye cataract removed 2009 , Left cataract at present, Hx Contacts or Glasses - Glasses Neurological History: Reports: Hx Migraine, 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 1998 right [place]rosc[place] [facility] [place] 2009 left breast biopsy [facility]. 2004 RT cataract [facility]. right foot reconstruction [facility]. Ventral hernia repair. Bilateral knee arthroscopies. 2007 VENTRAL hernia repair [facility]. 2012 TORN MENISCUS REPAIR IN RIGHT KNEE [facility]. Tonsillectomy. 2018 Left eye cataract removal Hx Anesthesia Reactions: No Infectious Disease History: No Infectious Disease History: Denies: Hx Hepatitis, Traveled Outside the [place] in Last 30 Days - Family History Known Family History: Positive: Cardiac Disease, Hypertension Family History: Asthma. Cancer - Social History Occupation: Disabled Lives: With Family - with and children Alcohol Use: Rare Hx Substance Use: No Substance Use Type: Reports: None Hx Tobacco Use: Yes Smoking Status (MU): Former Smoker Type: Cigarettes Amount Used/How Often: LESS THEN 1PPD 15 YRS STARTED AGE 15, QUIT MANY TIMES; NONE SINCE 2013 Have You Smoked in the Last Year: No Review of Systems Positive: Fatigue. Negative: Fever Eyes: Negative Cardiovascular: Negative Positive: Shortness Of Breath, Cough Gastrointestinal: Negative Genitourinary: Negative Skin: Negative Neurological: Negative Psychological: Normal All Other Systems Reviewed And Are Negative: Yes Physical Exam - Summary Physical Exam Summary: Appearance: Moderately ill-appearing, no pain distress, obese. SOB at rest, sitting upright. Pt is able to speak full sentences. Skin: Warm, color reflects adequate perfusion, dry Head: Normal Head/Face inspection, atraumatic Eyes: Conjunctiva clear ENT: Normal inspection Neck: Supple, no nodes, no JVD Respiratory: Lungs with scattered rhonchi throughout, deep congested cough Cardio: RRR, No murmur, pulses normal, brisk capillary refill Abdomen: Soft, nontender Bowel sounds: Present Musculoskeletal: Strength Intact/ROM intact, no calf tenderness, no edema. Psychological: Normal Neuro: Alert, muscle tone normal, no focal deficit Triage Information Reviewed: Yes Vital Signs On Initial Exam: Initial Vitals Temp Pulse Resp BP Pulse Ox 97.7 F 103 24 120/99 96 03/19/18 10:16 03/19/18 10:16 03/19/18 10:16 03/19/18 10:16 03/19/18 10:16 Vital Signs Reviewed: Yes Diagnostics - Vital Signs Vital Signs Temp Pulse Resp BP Pulse Ox 03/19/18 10:16 97.7 F 103 24 120/99 96 - Laboratory Result Diagrams: 03/23/18 07:06 03/23/18 07:06 Lab Statement: Any lab studies that have been ordered have been reviewed, and results considered in the medical decision making process. - Radiology Chest XR Xray Interpretation: Positive (See Comments) - IMPRESSION: Pulmonary vascular congestion. Dr. Caicedo has reviewed this report. Radiology Interpretation Completed By: Radiologist - EKG 10:47 Cardiac Rate: NL - at 93 bpm EKG Rhythm: Sinus Rhythm ST Segment: Non-Specific Ectopy: None EKG Interpretation: nml AV/IV CT, nml QTc, and nml axis. EKG Comparison: No Significant Change - from prior EKG on 12/14/17. 14:10 Cardiac Rate: NL - at 91 bpm EKG Rhythm: Sinus Rhythm ST Segment: Non-Specific Ectopy: None EKG Interpretation: nml AV/IV CT, nml QTc, and nml axis. EKG Comparison: No Significant Change - compared to prior at 10:47 today. Re-Evaluation - Re-Evaluation First Eval Re-Evaluation Time: 11:42 Change: Unchanged Comment: I reviewed the admission plan with the pt. She understands and agrees. Pt is still SOB at rest but able to speak full sentences. O2 sat is 98% on 2L of O2. Course/Dx - Course Course Of Treatment: Pt medications reviewed this visit. Allergies noted. Pt is a 57 y/o female with hx of COPD presenting to the ED for SOB and cough. ED provider aware of troponin of 0.05 at 11:15. Pt has abnormal labs of lactate of 5.7, WBC of 19.3, troponin is 0.05. Troponin has decreased compared to previous of 0.11. Chest XR shows pulmonary vascular congestion. Initiated sepsis protocol and IV antibiotics for pneumonia. I discussed pt care with Dr. Bergman, hospitalist, who accepted pt for admission. At 14:05 Dr. Bergman is aware of elevated troponin of 1.14. - Diagnoses Differential Diagnosis/HQI/PQRI: Positive: Bronchitis, CHF, COPD Exacerbation, KS, Pneumonia, Pulmonary Embolism Provider Diagnoses: Sepsis, Acute and chronic respiratory failure with hypoxia, Acute exacerbation of chronic obstructive pulmonary disease (COPD), Elevated troponin, Bronchitis - Physician Notifications Discussed Care of Patient With: Candida Bergman - hospitalist Time Discussed With Above Provider: 11:35 Instructed by Provider To: Admit As Inpatient - Critical Care Time Critical Care Time: 30-74 min - 30 mins Discharge - Sign-Out/Discharge Documenting (check all that apply): Patient Departure - Ad[place] [facility] [place] Discharge Plan Condition: Stable Disposition: ADMITTED TO [facility] - Billing Disposition and Condition Condition: STABLE Disposition: Admitted to [facility] - Attestation Statements Document Initiated by Scribe: Yes Documenting Scribe: Marialuisa Meadows Provider For Whom Scribe is Documenting (Include Credential): Dr. Kaela Caicedo MD Scribe Attestation: Marialuisa Lomas scribed for Dr. Kaela Caicedo MD on 03/26/18 at 2331. Scribe Documentation Reviewed: Yes Provider Attestation: The documentation as recorded by the Marialuisa huitron accurately reflects the service I personally performed and the decisions made by me, Dr. Kaela Caicedo MD
--- OUTSIDE RECORDS SUMMARY | 2018-03-19 10:31 | XMS REPORT ---
:1960 External Reference #:[id number] Author Organization [facility] Address [address] [place] [address] Phone [phone] Care Team Providers Name Role Phone Cristin Duncan M.D. 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 Primary Care Physician Unavailable Payers Type Date Identification Numbers Payment Provider Subscriber Medicaid Policy Number: [id number] [facility] Izabel Barron Group Name: [place] [address] [id number] PayID: [id number] [place] [address] Problems Date Description Provider Status Onset: 09/22/2005 [...] Duncan M.D. Active Onset: 08/14/2008 Essential hypertension eBnjamin Briggs M.D. Inactive Inactive: 10/22/2015 Onset: 02/24/2015 Impaired fasting glycaemia Cristin Duncan M.D. 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 every night Insulin 12/27 Active Misc 31G X 200un use twice a Syringe/U-100 /11/15" 1 its day with , /1ML/31G X ML insulin M.D. 11/15" Diltiazem HCL 12/13 Active Caps ER 360mg 30cap 1 tab daily Cristin ER Coated 24HR s Leana Duncan M.D. Incruse 12/06 Active Aerosol 62.5mcg/I 30uni 1 puff daily Cristin Ellipta nh ts Marge Duncan True Metrix 11/01 Active Kit w/Device 1unit test sugars Cristin s tid prn Marge Duncan True Metrix 11/01 Active Strips 100un test three Cristin Self its times a day Dakota, Monitoring prn Marge Blood Glucose Strips Lancets Ultra 11/01 Active Misc Thin 30G 300un tests blood Cristin Thin 30G its glucose three [place], times day M.DJeff Alogliptin 10/30 Active Tablets 25mg 30tab 1 tab by Cristin Benzoate s mouth every [place] M.DJeff Gabapentin 10/17 Active Tablets 800mg 90tab 1 tab am and M79.7 s 2 tab pm Marge Duncan Percocet 06/27 Active Tablets 5-325mg 90tab 1 tab by M15.0 s mouth three [place], times a day M.DJeff as needed Duloxetine 05/[address] 60mg 60cap 1 tab by M79.7 Cristin Part s mouth twice a , day M.DJeff Lisinopril 05/15 Active Tablets 40mg 30tab 1 by mouth I10 s every day Marge Duncan Atorvastatin 03/29 Active Tablets 10mg 90tab 1 by mouth E78.5 Cristin Calcium s every day Marge Duncan Dulera 02/24 Active Aerosol 200-5mcg/ 26uni inhale two Act ts puffs by [place], mouth twice a M.D. day Baclofen 11/23 Active Tablets 10mg 60tab 1 tab by M62.830 s mouth twice a Shilpi, day as needed HANDLE TURNER ; can cause sedation no driving or alcohol on medication Tikosyn 11/14 Active Capsules 125mcg 1 po bid Freestyle 10/07 Active Strips 100un test bld E11.9 Cristin Lite Test its sugar daily - Marge Duncan Pen [place] 10/06 Active Misc 31G X 5 1Box for use twice E11.9 Cristin mm daily with johan Duncan M.D. Kenney 10/06 Active Misc 100un test every E11.9 Cristin Microlet its day dx: e11.9 Russell Duncan.Roque Cpap 09/15 Active use as directed with Dakota oxygen M.DJeff attachment Nebulizer Set 09/15 Active use as Cristin Up And directed Marge Duncan Montelukast 07/25 Active Tablets 10mg 30tab 1 tab by Cristin s mouth every , night M.D. Furosemide 07/25 Active Tablets 20mg 30tab 1 by mouth I10 s every day as Dakota, needed for M.D. swelling Albuterol 04/08 Active Nebulizer (2.5mg/3M 1box 1 bullet R06.02 Nilson J. Sulfate /2015 L) 0.083% twice a day Breiman, as needed M.DJeff sob/bullock - seen 11/23/16 - Dx: R06.02 Ipratropium 03/28 Active Solution 0.5-2.5(3 540un inhale 1 vial J44.9 Cristin [place]/Albut )mg/3ML its via nebulizer Dakota debra Sulfate three times a M.D. day as needed for shortness of breath Ventolin HFA 08/17 Active Aerosol 108(90Bas 8gm 2 puffs every J45.998 Benjamin T. /2015 e) 4 hours as Steveura, mcg/Act needed M.D. Xarelto Active Tablets 20mg 30tab take 1 tablet s by mouth once [place], daily M.D. Daliresp Active Tablets 500mcg use 1 pill a day Omeprazole Active Capsules DR 40mg 1 by mouth every day Cardizem CD 12/13 Hx Caps ER 180mg 2 by mouth 24HR every day Dakota, - M.D. 12/13 Cheratussin 11/01 Hx Syrup 100-10mg/ 236ml 5-10 ml every J20.9 [facility] 5ML 4 hours as Dakota, - needed for M.D. 12/06 Nystatin 11/01 Hx Suspension [id number] 250ml 5 milliliters B37.9 t/ML swish and , - spit orally M.D. 12/06 four times a day Januvia 10/17 Hx Tablets 100mg 30tab 1 by mouth E11.65 s every day [place], - M.D. 11/01 Levofloxacin 10/17 Hx Tablets 750mg 7tabs 1 tab a day x J06.9 7 days [place], - M.D. 11/01 Cefuroxime 08/03 Hx Tablets 500mg 20tab 1 by mouth J44.9 Kassandra Axetil s twice a day x Shilpi, - 10 days HANDLE TURNER 10/01 Gabapentin 06/27 Hx Capsules 400mg 120ca 1 tab in in M79.7 ps the morning, , - 1 by mouth M.D. 10/17 afternoon and 2 tab in evening Basaglar 05/16 Hx Solution 100Unit/M 45ml inject 3 Laura ik Pen-Inject L units every Key, - night at HANDLE TURNER 11/01 bedtime Lantus 05/15 Hx Solution 100Unit/M 45ml 20 units Pen-Inject L afternoon and , - 45 units at M.D. 12/27 bed Tudorza 05/15 Hx Aerosol 400mcg/Ac 1unit 1 puff twice t s a day , - M.D. 12/13 Spiriva 05/06 Hx Capsules 18mcg inhale Unknown contents one - of capsule by 05/15 mouth daily Mucinex ER 05/06 Hx Tablets ER 1200mg 1 by mouth Unknown 12HR every 12 - hours as 12/13 needed Cheratussin 05/06 Hx Syrup 100-10mg/ 5ml every 4 Unknown ac 5ML hours as - needed 08/02 Prednisone 05/06 Hx Tablets 10mg 100ta 2 po qd J44.9 bs [place], - M.D. 12/13 Ketoconazole 03/29 Hx Cream 2% 60gm apply to feet B35.3 twice a day x [place], - 1 week M.D. 03/29 Fluconazole 03/29 Hx Tablets 150mg 2tabs one tab by B35.3 mouth once, [place], - may repeat in M.D. 03/29 five days /2016 Levemir 12/26 Hx Solution 100Unit/M 15uni inject 50 [facility] Flextouch Pen-Inject L ts units [place], - subcutaneous M.D. 12/26 once daily /2016 Basaglar 12/26 Hx Solution 100Unit/M 45ml inject 35-45 [facility] Kwikpen Pen-Inject L units every [place], - night at M.D. 05/15 bedtime /2016 Triamterene/H 11/05 Hx Capsules 37.5-25mg 90cap 1 by mouth I10 [facility] ydrochlorothi s every day [place], azide - M.D. 11/11 Prednisone 09/02 Hx Tablets 20mg 30tab 1 by mouth s every day [place], - M.D. 11/23 Lisinopril 08/23 Hx Tablets 20mg 30tab 1 by mouth I10 Cristin s every day [place], - M.D. 05/15 Lantus 05/19 Hx Solution 100Unit/M 30ml 10 units at [facility] Solostms Pen-Inject L bedtime [place], - M.D. 12/26 Physical 05/12 Hx treatment and [facility] evaluation of [place], - deconditionin M.D. 08/23 g and Walker With 04/29 Hx use as J44.9 Cristin Wheels directed [place] Brakes And - M.D. Seat 08/23 M15.0 M79.7 Prednisone 2016 - Hx Tablets 20mg 19tabs 4 po x 2 days J45.51 Laura 04/15/2016 3 po x 2 days Key, 2 po x 2 days HANDLE TURNER 1 po x 1 days then quit Prednisone 03/31/2016 - Hx Tablets 20mg 14tabs 1 twice a day J45.51 Kassandra 2016 x 7d Shilpi, HANDLE TURNER Clarithromycin 03/31/2016 - Hx Tablets 500mg 20tabs 1 by mouth J45.51 Laura 04/29/2016 twice a day x Key, 10 days HANDLE [employer] Tussionex 03/31/2016 - Hx Suer 10-8mg 115ml 1 tsp bid J45.51 Kassandra Pennkinetic 2016 /5ML Shilpi, Extended Release HANDLE [employer]URNER Guaifenesin 03/28/2016 - Hx 200 3 po bid Ivan Yang 04/29/2016 Marge Marroquin Symbicort 03/28/2016 - Hx Aerosol 160-4. 30.6uni inhale 2 J45.51 Cristin 05/15/2017 5mcg/A ts puffs by alexx Duncan mouth two M.D. times daily Work Note 03/28/2016 - Hx Izabel was J45.51 Kassandra 04/29/2016 seen by me Shilpi, today missed [employer] work yesterday due to illness and may not return to work until Monday, 10\\3\\16 Mometasone 03/02/2016 - Hx Cream 0.1% 45gm apply to arms L40.9 Cristin Furoate 12/13/2017 twice a day x Dakota, 1 week then M.D. as needed Metformin HCL 12/17/2015 - Hx Tablets 500mg 30tabs take 1 tablet E11.9 Carlene L. 04/29/2016 by mouth one Abby, time daily M.D. Triamterene/Tieton 12/17/2015 - Hx Capsules 50-25m 30caps 1 by mouth I10 Cristin chlorothiazide 11/05/2016 g daily Marge Duncan Hydrocodone-Aceta 10/28/2015 - Hx Tablets 10-325 60tabs 1 tab twice a M15.0 Cristin minophen 06/27/2017 mg day as needed Marge Duncan Hydrocodone-Aceta 08/28/2015 - Hx Tablets 5-325m 90tabs 1 by mouth M15.0 Cristin minophen 10/28/2015 g every 8 hours Dakota as needed JeffDJeff Lasix 08/28/2015 - Hx Tablets 20mg 30tabs 1 tab by I10 Ivan AJeff 07/25/2016 mouth every Darlow, day as needed M.D. for swelling Duloxetine HCL 02/18/2015 - Hx Caps DR 60mg 60caps 1 tab by Abbey Amaral 05/15/2017 Part mouth twice a [place], day M.DJeff Triamterene/Tieton 02/18/2015 - Hx Tablets 37.5-2 30tabs 1 by mouth I10 Cristin chlorothiazide 12/17/2015 5mg every day Marge Duncan Lisinopril 02/18/2015 - Hx Tablets 10mg 30tabs 1 by mouth I10 Cristin 08/23/2016 every day Marge Duncan Gabapentin 02/18/2015 - Hx Capsules 400mg 120caps 1 tab [facility] Cristin 05/15/2017 the morning, [place], 2 po M.DJeff afternoon and 1 tab in evening Handicap Parking 02/18/2015 - Hx cannot walk 715.09 [facility] Permit 03/23/2015 long [place], distance; M.DJeff needs handicap parking indefinitely Amlodipine 08/25/2014 - Hx Tablets 5mg 30tabs take one 401.1 Cristin Besylate 03/23/2015 tablet by [place], mouth one M.D. time daily Cyclobenzaprine 07/14/2014 - Hx Tablets 5mg 90tabs 1 tab by Abbey Amaral HCL 11/11/2016 mouth three [place] times a day M.DJeff as needed Levofloxacin 06/05/2014 - Hx Tablets 750mg 7tabs 1 tab a day x 493.90 Kassandra 08/24/2014 7 days ALYSON Dobbins Prednisone 06/05/2014 - Hx Tablets 20mg 21tabs 1 twice a day 493.90 Kassandra 08/24/2014 x 7d then Shilpi, once a day HANDLE [employer]URNER for 7d Note No Work 06/05/2014 - Hx Izabel was 493.90 Kassandra 08/24/2014 seen by me Dobbins today for HANDLE TURNER illness and may not return to work until [place], 12\\8\\14 Lisinopril 05/21/2014 - Hx Tablets 10mg 90tabs 1 by mouth 401.1 Cristin 08/24/2014 every day Marge Duncan Spironolactone 05/07/2014 - Hx Tablets 25mg 30tabs 1/2 by mouth 401.1 Cristin 02/18/2015 every day for Dakota leg swelling Marge Advair Diskus 03/31/2014 - Hx Aerosol 250-50 1units 1 puff twice 493.90 Carlene L. 03/31/2016 mcg/Do a day se Marge Mora Levofloxacin 03/31/2014 - Hx Tablets 750mg 5tabs 1 tab a day x 493.90 Cristin 05/07/2014 5 days Marge Duncan Singulair 03/31/2014 - Hx Tablets 10mg 30tabs 1 tab by Cristin 07/25/2016 mouth every [place], night Marge Cymbalta 03/31/2014 - Hx Caps DR 60mg 30caps 1 by mouth 729.1 [facility] 02/18/2015 Part every day Marge Duncan Tramadol HCL ER 12/13/2013 - Hx Tablets ER 100mg 30tabs 1 po qhs Mela F. 03/30/2014 24HR Marge Christie Ventolin HFA 12/14/2012 - Hx Aerosol 108(90 18units inhale 2 J45.998 [facility] 08/17/2015 Base) puffs every leeroy Duncan/Ac two to three M.DJeff t hours as needed for asthma, shortness of breath, cough,or wheeze mdd 5 Proair HFA 08/24/2012 - Hx Aerosol 108(90 1units 2 puffs four Mela F. 12/14/2012 Base) times a day leeroy Christie/Ac JeffDJeff t Biaxin 12/14/2011 - Hx Tablets 500mg 20tabs 1 po bid x10 465.9 Kassandra 08/24/2012 days ALYSON Dobbins Robitussin A-C 12/14/2011 - Hx 4Oz 1-2 tsp po 465.9 Kassandra 08/24/2012 q4h prn cough ALYSON Dobbins Prednisone 12/14/2011 - Hx Tablets 20mg 10tabs 1 bid x 5d 465.9 Kassandra 08/24/2012 ALYSON Dobbins Lisinopril 11/16/2011 - Hx Tablets 5mg 90tabs take 1 tablet Mela F. 05/21/2014 by mouth once chino Christie M.D. Triamterene/Tieton 09/21/2010 - Hx Tablets 37.5-2 30tabs 1 po qd Mela F. chlorothiazide 05/07/2014 5mg Marge Christie Ventolin HFA 05/20/2010 - Hx Aerosol 108(90 18units Inhale 2 465.9 Mela F. 08/24/2012 Base) Puffs Every Shallish, mcg/ac 2-3 Hours as M.D. Needed For Asthma, Shortness Of Breath, Cough, Wheeze. 493.90 Augmentin 09/16/2009 - Hx Tablets 500-125mg 20tabs one tab po 465.9 Jurado A. 05/20/2010 bid for ten Alvarez, days M.D. Robitussin A-C 08/14/2008 - Hx 4Oz 1-2 tsp po Benjamin T. 12/29/2008 q4h prn Midura, cough M.D. Augmentin 10/22/2007 - Hx Tablets 500mg 20tabs 1 po bid 461.9 Jurado A. 08/14/2008 with food x Alvarez, 10 days M.D. Doxycycline 03/27/2007 - Hx 0 100mg 20units 1 PO bid Celine 04/06/2007 Av Roy Mobic 12/08/2006 - Hx Tablets 7.5mg 30tabs 1 po qd Mela F. 10/22/2007 Marge Christie Ultracet 11/14/2006 - Hx Tablets 325mg;37.5 30tabs 2 tabs q4-6 719.40 Kaela A 12/08/2006 mg hr prn hip Wood, [employer]EEP [employer]IC pain. Max 8 tabs/24hrs Doxycycline 04/04/2006 - Hx Capsules 100mg 20caps 1 PO bid Celine Hyclate 04/14/2006 Av Roy Advair Diskus 04/04/2006 - Hx Inhaler 250McG;50Mc 1units 1 puff bid Celine 12/08/2006 Av Tinsley Ciprofloxacin 12/17/2005 - Hx Tablets 250mg 14tabs 1 po bid Benjamin T. 04/04/2006 Marge Briggs Pyridium 12/17/2005 - Hx Tablets 200mg 15tabs 1 po tid Benjamin T. 04/04/2006 prn for Midura, bladder sx M.D. Biaxin 09/22/2005 - Hx Tablets 500mg 20tabs 1 PO bid Benjamin T. 12/17/2005 X10 Days Marge Briggs Work Excuse 09/22/2005 - Hx unable to Benjamin TJeff 12/17/2005 work 09/23 Midura, Due To M.DJeff Illness Augmentin 05/06/2005 - Hx Tablets 875mg 20tabs 1 PO bid Benjamin Vaughan 09/22/2005 With Food Marge Briggs Levaquin 04/25/2005 - Hx Tablets 500mg 10tabs 1 po qd Benjamin TJeff 05/06/2005 Marge Briggs Kristie 01/07/2005 - Hx Tablets 180mg 30tabs 1 PO qd prn Mela F. 09/22/2005 Marge Christie Levaquin 11/11/2004 - Hx Tablets 500mg 14tabs 1 po qd X Kassandra 01/07/2005 14D ALYSON Dobbins Combivent Mdi 11/25/2003 - Hx 1units 2 puffs qid Mela F. 11/11/2004 Marge Christie Sporonox Pulse 11/25/2003 - Hx 1units 200mg po Mela F. Pack 11/11/2004 bid for one Pratik, week, then M.DJeff off for 3 weeks, repeat once Clarinex 01/13/2003 - Hx 5mg 30units 1 qd prn Kassandra 04/25/2005 ALYSON Dobbins Singulair 01/13/2003 - Hx 10mg 90units qd Mela F. 08/14/2008 Marge Christie Advair 250/50 01/13/2003 - Hx 1units 1 Celine 04/04/2006 Av Marroquin Return To Work 01/08/2003 - Hx May Return Mela F. 11/25/2003 To Work On Pratik, 01/13/03 Marge Bextra 07/17/2002 - Hx 20mg 30units 1 qd prn Kassandra 12/30/2002 ALYSON Dobbins Note 07/17/2002 - Hx MS Barron Kassandra 12/30/2002 May Not Shilpi, Return To [facility] Work Until Monday 1\\20\\03. Biaxin 12/27/2001 - Hx Tabs 500mg 20tabs 1 po bid Benjamin T. 12/29/2008 Marge Briggs Zithromax 03/21/2001 - Hx 250mg 0units 2 Tabs Day Celine 03/26/2001 1 Av Roy 1 Tab qd Days 2 Thru 5 Out Of Work 03/21/2001 - Hx Out Of Work Celine Until 03/26/2001 Until Manuela, 03/26/01 Afyung-C PT Has Been Seen Here Biaxin 10/18/2000 - Hx Tabs 500mg 20tabs 1 PO bid Kassandra 10/28/2000 Shilpi, HANDLE [employer]URNER Bactrim 05/26/2000 - Hx DS 14units One bid Abril 06/02/2000 Renay SET PAINTER-F Pyridium 05/26/2000 - Hx 200mg 15units 1 PO tid Abril 06/02/2000 prn TYRESE Niño-F Zestril 05/16/2000 - Hx Tablets 5mg 30tabs 1 po qd Nilson JJeff 08/24/2012 Marge Salinas Dyazide 04/12/2000 - Hx Capsules 37.5-25mg 30caps 1 po qd Mela F. 09/21/2010 Marge Christie Tequin 03/24/2000 - Hx 400mg 8units 1 PO qd Da Aguilar 04/03/2000 Marge Salazar Prednisone 03/10/2000 - Hx Tabs 20mg 70tabs One qid For Da Aguilar 04/09/2000 One Week, Martin One tid For Marge One Week, One bid For One Week Zithromax 03/10/2000 - Hx 250mg 6units 2 Tabs Day Da Aguilar 03/15/2000 1 Marge Salazar 1 Tab qd Days 2 Thru 5 Prednisone 02/28/2000 - Hx 10mg 50units as Directed Da Aguilar 03/19/2000 Marge Salazar Accolate 02/21/2000 - Hx 20mg 60units 1 PO bid Celine 01/13/2003 Av Roy Atrovent 02/21/2000 - Hx 1units 2 puffs bid Nilson Emelia Inhaler 11/11/2004 Marge Salinas Albuterol 02/21/2000 - Hx 2units 2Puffs Q4H Mela F. Inhaler 05/20/2010 prn Marge Christie Levaquin 02/08/2000 - Hx 500mg 10units 1 qd Sami S. 02/19/2000 Marge Stone Albuterol 02/02/2000 - Hx 0.083% 1BX25 as Dir For Sami S. Solution 04/02/2000 Use W/ Neb Marge Stone Zithromax 02/02/2000 - Hx 250mg 6units 2 Tabs Day Sami S. 02/12/2000 1 Marge Stone 1 Tab qd Days 2 Thru 5 Prednisone 02/02/2000 - Hx Tabs 20mg 12tabs 2/D X 4DDa 02/12/2000 Then 1/D X Blumkin, 4D JeffDJeff Keflex 08/17/1999 - Hx 250mg 30units 1 PO tid Abril 08/27/1999 TYRESE Niño-F Augmentin 07/12/1999 - Hx 500mg 20units 1 PO bid X Celine 07/22/1999 10 Days H[place]dorf, Afnp-C Amoxicillin 07/02/1999 - Hx 250mg 30units 1 PO tid Da Aguilar 07/12/1999 Marge Salazar Physical 08/20/1998 - Hx Treatment Da Aguilar Therapy 02/19/2000 And Martin Evaluation Marge Of R Shoulder Pain Naproxen 08/17/1998 - Hx 375mg Tab 50units 1 tid For Da Aguilar 09/06/1998 One Week [place], Then tid M.DJeff prn Out Of Work 08/17/1998 - Hx Will Be Out Da Aguilar 08/18/1998 Of Work Jessa Salazar M.D. 08/18/98 Until 08/20/98 Amoxicillin 07/30/1998 - Hx 250mg 30units 1 PO tid Da Aguilar 08/09/1998 Marge Salazar Out Of Work 07/30/1998 - Hx Will Be Out Da Aguilar 07/31/1998 Of Work On Martin, 07/31/98 Marge Zithromax 02/11/1998 - Hx Tabs 250mg 6tabs 2 Tabs Day Mela F. 02/16/1998 1 Marge Christie 1 Tab qd Days 2 Thru 5 Prednisone 02/11/1998 - Hx Tabs 20mg 16tabs 3 PO qd X Mela F. 02/20/1998 3D,2 PO qd Pratik X3D, 1 PO M.DJeff QDX 3D Doxycycline 10/28/1997 - Hx 100mg 20units One bid Sierra 02/11/1998 Av Busch Augmentin 09/19/1997 - Hx 875 20units 1 PO bid Da Aguilar 10/28/1997 Marge Salazar Entex LA 07/05/1997 - Hx 20units 1 [...] ac - Hx Syrup 100-10mg/5M 4oz 1-2 Unknown 08/24/2014 L teaspoon every 4 hours as needed for cough [...] - Hx Capsules 100mg 1 po bid Unknown 05/18/2016 prn Guaifenesin ER - Hx Tablets ER 1200mg 1 po bid Unknown 05/18/2016 12HR Prednisone - Hx Tablets 10mg 2 po qd Unknown 05/18/2016 Cardizem CD - Hx Caps ER 180mg 90caps 1 by mouth Laura 12/13/2017 24HR every day Key, HANDLE [employer]URNER Benzonatate - Hx Capsules 100mg 1 by mouth Unknown 12/13/2017 twice a day as needed Glipizide - Hx Tablets 10mg 60tabs take one Nilson J. 03/14/2018 tablet by Breiman, mouth twice M.D. a day Cardizem CD - Hx Caps ER 300mg take 1 Unknown 12/13/2017 24HR capsule by mouth every day Immunizations CPT Code Status Date Vaccine Lot # 11338 Given 03/29/2017 Influenza Vac, Quadrivalent, Slit Virus, Im [id number] Given 05/25/2015 Tdap Tetanus, W Pertussis [id number] Vital Signs Date Vital Result Comment 03/14/2018 BP Systolic 156 mmHg BP Diastolic 78 mmHg Heart Rate 90 /min Body Temperature 97.5 F Respiratory Rate 28 /min O2 % BldC Oximetry 99 % 2 liters n/c Weight 235.00 lb 02/14/2018 BP Systolic 112 mmHg BP Diastolic 58 mmHg Heart Rate 84 /min Body Temperature 97.9 F Respiratory Rate 16 /min Height 59.5 inches 4'11.50" Weight 240.50 lb BMI (Body Mass Index) 47.8 kg/m2 12/13/2017 BP Systolic 140 mmHg BP Diastolic 80 mmHg Heart Rate 96 /min Body Temperature 97.8 F Respiratory Rate 20 /min O2 % BldC Oximetry 96 % Ra Weight 249.00 lb 12/06/2017 BP Systolic 136 mmHg BP Diastolic 60 mmHg Heart Rate 182 /min Body Temperature 98.7 F Respiratory Rate 17 /min O2 % BldC Oximetry 98 % 2L Weight 258.38 lb 11/01/2017 BP Systolic 160 mmHg BP Diastolic 90 mmHg Heart Rate 97 /min Body Temperature 98.0 F Respiratory Rate 22 /min O2 % BldC Oximetry 94 % 2L Weight 266.00 lb 10/17/2017 BP Systolic 140 mmHg BP Diastolic 78 mmHg Heart Rate 104 /min Body Temperature 97.5 F 08/03/2017 BP Systolic 160 mmHg BP Diastolic 80 mmHg Heart Rate 104 /min Body Temperature 97.3 F Respiratory Rate 20 /min O2 % BldC Oximetry 92 % pt had her own pulse ox/ours was broken Height 59.5 inches 4'11.50" 06/27/2017 BP Systolic 160 mmHg BP Diastolic [...] Result H/L Range Note Laboratory test finding 03/14/2018 Lipase 21 U/L 11.0-82.0 1 CBC Electronic Fma 03/14/2018 WBC 12.8 x10^3/UL High 4.0-10.0 RBC 3.48 x10^6/UL Low 3.93-6.00 HGB 9.3 g/dL Low 12.0-17.0 HCT 30 % Low 35-50 MCV 85.6 fL 80.0-95.0 MCH 26.7 pg 25.6-32.2 MCHC 31.2 g/dL Low 32.2-36.0 RDW-CV 16.7 % High 11.6-14.4 PLT 258 x10^3/UL 163-400 MPV 10.4 fL 9.4-12.4 Beba# 9.81 x10^3/UL High 1.56-6.13 Lymph# 2.05 x10^3/UL 1.18-3.74 Trinity# 0.74 x10^3/UL 0.24-0.82 Eos # 0.1 x10^3/UL 0.0-0.5 Baso # 0.02 x10^3/UL 0.01-0.08 Beba% 76.9 % High 34.0-70.0 Lymph % 16.1 % Low 20.0-52.0 Trinity% 5.8 % 5.0-12.0 Eos% 0.5 % Low 0.7-7.0 Baso% 0.2 % 0.1-1.2 Comprehensive Metabolic Prof 03/14/2018 Sodium 139 mEq/L 134-149 Potassium 3.8 mEq/L 3.6-5.5 Chloride 101 mEq/L 94-112 Carbon Dioxide 28 mEq/L 21-32 Glucose 156 mg/dL High 70-105 2 BUN 7 mg/dL 6-26 Creatinine 0.6 mg/dL 0.6-1.4 BUN/Creat Ratio 11.7 CALC 8.0-36.0 Calcium 9.6 mg/dL 8.6-10.2 Total Protein 6.3 g/dL Low 6.4-8.3 3 Albumin 4.3 g/dL 3.8-5.5 Globulin 2.0 g/dL 2.0-4.8 A/G Ratio 2.2 CALC 0.6-2.3 Alk. Phosphatase 90 U/L 30-110 Alt (SGPT) 11 U/L 7-35 Ast (Sgot) 14 U/L 5-34 Total Bilirubin 0.4 mg/dL 0.2-1.3 GFR Non- >60 ml/min/1.73m^ >=60 GFR >60 ml/min/1.73m^ >=60 Laboratory test finding 03/14/2018 Amylase, Serum 47 U/L 20-105 4 Laboratory test finding 02/21/2018 Point of Care Glucose 284 mg/dL High 70 -100 5 Laboratory test finding 12/14/2017 Troponin I 0.11 ng/mL High <0.04 6 CBC Auto Diff 12/14/2017 White Blood Count 13.4 10^3/uL High 3.5-10.8 Red Blood Count 4.18 10^6/uL 4.00-5.40 Hemoglobin 11.6 g/dL Low 12.0-16.0 Hematocrit 36 % 35-47 Mean Corpuscular Volume 85 fL 80-97 Mean Corpuscular Hemoglobin 28 pg 27-31 Mean Corpuscular HGB Conc 32 g/dL 31-36 Red Cell Distribution Width 18 % High 10.5-15 Platelet Count 266 10^3/uL 150-450 Mean Platelet Volume 8.7 um3 7.4-10.4 Abs Neutrophils 10.9 10^3/uL High 1.5-7.7 Abs Lymphocytes 1.5 10^3/uL 1.0-4.8 Abs Monocytes 0.8 10^3/uL 0-0.8 Abs Eosinophils 0.1 10^3/uL 0-0.6 Abs Basophils 0.1 10^3/uL 0-0.2 Abs Nucleated RBC 0 10^3/uL Granulocyte % 81.6 % 38-83 Lymphocyte % 11.4 % Low 25-47 Monocyte % 6.2 % 0-7 Eosinophil % 0.4 % 0-6 Basophil % 0.4 % 0-2 Nucleated Red Blood Cells % 0 Laboratory test finding 12/14/2017 Magnesium 1.7 mg/dL Low 1.9-2.7 Creatine Kinase(CK) 33 U/L 10-223 Troponin I 0.11 ng/mL High <0.04 7 TSH (Thyroid Stim Horm) 1.42 mcIU/mL 0.34-5.60 Comp Metabolic Panel 12/14/2017 Sodium 141 mmol/L 139-145 Potassium 4.0 mmol/L 3.5-5.0 Chloride 101 mmol/L 101-111 Co2 Carbon Dioxide 30 mmol/L 22-32 Anion Gap 10 mmol/L 2-11 Glucose 387 mg/dL High 70-100 Blood Urea Nitrogen 14 mg/dL 6-24 Creatinine 0.89 mg/dL 0.51-0.95 BUN/Creatinine Ratio 15.7 8-20 Calcium 9.3 mg/dL 8.6-10.3 Total Protein 5.9 g/dL Low 6.4-8.9 Albumin 3.6 g/dL 3.2-5.2 Globulin 2.3 g/dL 2-4 Albumin/Globulin Ratio 1.6 1-3 Total Bilirubin 0.60 mg/dL 0.2-1.0 Alkaline Phosphatase 108 U/L High 34-104 Alt 22 U/L 7-52 Ast 13 U/L 13-39 Egfr Non- 65.1 >60 Egfr 83.8 >60 8 CKMB 12/14/2017 CKMB ng/mL 5.1 ng/mL 0.6-6.3 Laboratory test finding 12/14/2017 B-Type Natriuretic 121 pg/mL High 9 Peptide BNP Lactic Acid 2.4 mmol/L High 0.5-2.0 10 Urinalysis Profile 12/06/2017 Urine Color Straw Urine Appearance Clear Urine Specific Creole 1.023 1.010-1.030 Urine pH 7.0 5-9 Urine Urobilinogen Negative Negative Urine Ketones Negative Negative Urine Protein Negative Negative Urine Leukocytes Negative Negative Urine Blood Negative Negative Urine Nitrite Negative Negative Urine Bilirubin Negative Negative Urine Glucose 3+(>=500 mg/dL) Negative CBC Auto Diff 12/06/2017 White Blood Count 20.9 10^3/uL High 3.5-10.8 Red Blood Count 3.99 10^6/uL Low 4.0-5.4 Hemoglobin 11.0 g/dL Low 12.0-16.0 Hematocrit 35 % 35-47 Mean Corpuscular Volume 87 fL 80-97 Mean Corpuscular Hemoglobin 28 pg 27-31 Mean Corpuscular HGB Conc 32 g/dL 31-36 Red Cell Distribution Width 18 % High 10.5-15 Platelet Count 209 10^3/uL 150-450 Mean Platelet Volume 9.3 um3 7.4-10.4 Abs Neutrophils 19.5 10^3/uL High 1.5-7.7 Abs Lymphocytes 0.6 10^3/uL Low 1.0-4.8 Abs Monocytes 0.7 10^3/uL 0-0.8 Abs Eosinophils 0 10^3/uL 0-0.6 Abs Basophils 0 10^3/uL 0-0.2 Abs Nucleated RBC 0 10^3/uL Granulocyte % 93.7 % High 38-83 Lymphocyte % 3.0 % Low 25-47 Monocyte % 3.1 % 0-7 Eosinophil % 0.1 % 0-6 Basophil % 0.1 % 0-2 Nucleated Red Blood Cells % 0 Laboratory test finding 12/06/2017 Lactic Acid 4.5 mmol/L High 0.5-2.0 11 B-Type Natriuretic Peptide BNP 119 pg/mL High 12 Inr/Protime 12/06/2017 Inr 1.85 High 0.77-1.02 Laboratory test finding 12/06/2017 Procalcitonin 0.1 ng/mL <0.6 13 Comp Metabolic Panel 12/06/2017 Sodium 137 mmol/L Low 139-145 Potassium 4.2 mmol/L 3.5-5.0 Chloride 97 mmol/L Low 101-111 Co2 Carbon Dioxide 28 mmol/L 22-32 Anion Gap 12 mmol/L High 2-11 Glucose 496 mg/dL High 70-100 Blood Urea Nitrogen 22 mg/dL 6-24 Creatinine 0.85 mg/dL 0.51-0.95 BUN/Creatinine Ratio 25.9 High 8-20 Calcium 9.2 mg/dL 8.6-10.3 Total Protein 6.0 g/dL Low 6.4-8.9 Albumin 3.6 g/dL 3.2-5.2 Globulin 2.4 g/dL 2-4 Albumin/Globulin Ratio 1.5 1-3 Total Bilirubin 0.50 mg/dL 0.2-1.0 Alkaline Phosphatase 129 U/L High 34-104 Alt 46 U/L 7-52 Ast 21 U/L 13-39 Egfr Non- 68.7 >60 Egfr 88.3 >60 14 Laboratory test finding 12/06/2017 Magnesium 1.8 mg/dL Low 1.9-2.7 Creatine Kinase(CK) 61 U/L 10-223 CKMB 12/06/2017 CKMB ng/mL 4.0 ng/mL 0.6-6.3 Laboratory test finding 12/06/2017 TSH (Thyroid Stim Horm) 1.39 mcIU/mL 0.34-5.60 Troponin I 0.07 ng/mL High <0.04 15 C Reactive Protein 16.48 mg/L High < 5.00 16 CBC Electronic Fma 10/17/2017 WBC 10.6 x10^3/UL High 4.0-10.0 RBC 3.70 x10^6/UL Low 3.93-6.00 HGB 10.4 g/dL Low 12.0-17.0 HCT 33 % Low 35-50 MCV 88.6 fL 80.0-95.0 MCH 28.1 pg 25.6-32.2 MCHC 31.7 g/dL Low 32.2-36.0 RDW-CV 14.6 % High 11.6-14.4 PLT 224 x10^3/UL 163-400 MPV 10.7 fL 9.4-12.4 Beba# 8.54 x10^3/UL High 1.56-6.13 Lymph# 1.37 x10^3/UL 1.18-3.74 Trinity# 0.53 x10^3/UL 0.24-0.82 Eos # 0.1 x10^3/UL 0.0-0.5 Baso # 0.02 x10^3/UL 0.01-0.08 Beba% 80.7 % High 34.0-70.0 Lymph % 12.9 % Low 20.0-52.0 Trinity% 5.0 % 5.0-12.0 Eos% 0.9 % 0.7-7.0 Baso% 0.2 % 0.1-1.2 Comprehensive Metabolic Prof 10/17/2017 Sodium 141 mEq/L 134-149 Potassium 4.7 mEq/L 3.6-5.5 Chloride 102 mEq/L 94-112 Carbon Dioxide 27 mEq/L 21-32 Glucose 378 mg/dL High 70-105 17 BUN 14 mg/dL 6-26 Creatinine 0.7 mg/dL 0.6-1.4 BUN/Creat Ratio 20.0 CALC 8.0-36.0 Calcium 9.0 mg/dL 8.6-10.2 Total Protein 5.6 g/dL Low 6.4-8.3 18 Albumin 3.7 g/dL Low 3.8-5.5 19 Globulin 1.9 g/dL Low 2.0-4.8 A/G Ratio 1.9 CALC 0.6-2.3 Alk. Phosphatase 120 U/L High 30-110 20 Alt (SGPT) 15 U/L 7-35 Ast (Sgot) 17 U/L 5-34 Total Bilirubin 0.4 mg/dL 0.2-1.3 GFR Non- >60 ml/min/1.73m^ >=60 GFR >60 ml/min/1.73m^ >=60 Laboratory test finding 10/17/2017 Hemoglobin A1c (Fma) 10.6 % High 4.1- 5.7 Lipid Profile 06/14/2017 Cholesterol 234 mg/dL High 120-200 Triglycerides 233 mg/dL High 30-200 HDL Cholesterol 65 mg/dL 30-85 LDL (Calculated) 122 CALC 0-129 VLDL Cholesterol 47 mg/dL 0-50 HDL Risk Factor 3.6 CALC 0.0-4.4 Complete Blood Count 06/14/2017 WBC 18.7 x10^3/UL High 3.6-9.6 21 RBC 4.49 x10^6/UL 3.90-5.70 HGB 13.4 g/dL 12.1-17.2 HCT 41 % 36-50 MCV 90.0 fL 82.2-97.4 MCH 29.9 pg 27.6-33.3 MCHC 33.1 g/dL 33.0-35.5 RDW 16.6 % High 11.6-13.7 PLT 263 x10^3/UL 150-400 MPV 8.3 fL 7.4-10.4 Gran # 17.0 x10^3/UL High 1.5-7.2 Lymph# 1.2 x10^3/UL 0.7-4.9 Trinity# 0.5 x10^3/UL 0.1-0.9 Gran % 89.9 % High 42.2-75.2 Lymph % 6.9 % Low 20.5-51.1 Trinity% 3.2 % 1.7-9.3 Laboratory test finding 06/14/2017 TSH 0.53 mIU/L 0.50-6.00 Free T4 1.18 ng/dL 0.75-1.54 Comprehensive Metabolic Prof 06/14/2017 Sodium 142 mEq/L 134-149 Potassium 4.4 mEq/L 3.6-5.5 Chloride 105 mEq/L [...] GFR >60 ml/min/1.73m^ >=60 Laboratory test finding 06/14/2017 Hemoglobin A1c (Fma) 10.7 % High 4.1- 5.7 Arterial Blood Gas 04/30/2017 Fio2 30 PH Arterial 7.40 7.35-7.45 Pco2 Arterial 49 mmHg High 35-45 Po2 Arterial 95 mmHg 80-100 O2 Saturation Arterial 99.1 % High 95-98 Base Excess Arterial 4.5 High -2.0-2.0 22 Hco3 Arterial 28.4 mmol/L 19-31 CBC Auto [...] PTT Lactic Acid 4.3 mmol/L High 0.5-2.0 23 Comp Metabolic Panel 04/30/2017 Sodium 138 mmol/L [...] Egfr Non- 58.3 >60 Egfr 75.0 >60 24 Laboratory test finding 04/30/2017 Magnesium 1.9 mg/dL 1.9-2.7 Troponin I 0.11 ng/mL High <0.04 25 B-Type Natriuretic Peptide BNP 150 pg/mL High 26 TSH (Thyroid Stim Horm) 4.08 mcIU/mL 0.34-5.60 Laboratory test finding 03/22/2017 Magnesium, Serum 1.5 mEq/L 1.2-2.1 Comprehensive Metabolic Prof 03/22/2017 Sodium 140 mEq/L 134-149 Potassium 5.1 mEq/L 3.6-5.5 Chloride 99 mEq/L 94-112 Carbon Dioxide 26 mEq/L 21-32 Glucose 253 mg/dL High 70-105 27 BUN 11 mg/dL 6-26 Creatinine 0.9 mg/dL 0.6-1.4 BUN/Creat Ratio 12.2 CALC 8.0-36.0 Calcium 9.3 mg/dL 8.6-10.2 Total Protein 6.2 g/dL Low 6.4-8.3 28 Albumin 4.0 g/dL 3.8-5.5 Globulin 2.2 g/dL [...] Count 03/22/2017 WBC 10.8 x10^3/UL High 3.6-9.6 29 RBC 4.41 x10^6/UL 3.90-5.70 HGB 13.0 g/dL 12.1-17.2 HCT 39 % 36-50 MCV 88.0 fL 82.2-97.4 MCH 29.5 pg 27.6-33.3 MCHC 33.3 g/dL 33.0-35.5 RDW 15.1 % High 11.6-13.7 PLT 262 x10^3/UL 150-400 MPV 8.0 fL 7.4-10.4 Gran # 8.5 x10^3/UL High 1.5-7.2 Lymph# 1.8 x10^3/UL 0.7-4.9 Trinity# 0.5 x10^3/UL 0.1-0.9 Gran % 78.0 % High 42.2-75.2 Lymph % 17.0 % Low 20.5-51.1 Trinity% 5.0 % 1.7-9.3 Laboratory test finding 03/22/2017 [...] PTT Lactic Acid 3.9 mmol/L High 0.5-2.0 30 B-Type Natriuretic Peptide BNP 177 pg/mL High 31 Comp Metabolic Panel 08/13/2016 Sodium 135 mmol/L [...] Egfr Non- 56.5 >60 Egfr 72.7 >60 32 Laboratory test finding 08/13/2016 Magnesium 1.9 mg/dL 1.9-2.7 CKMB 08/13/2016 CKMB ng/mL 4.7 ng/mL 0.6-6.3 Laboratory test finding 08/13/2016 Troponin I 0.05 ng/mL High <0.04 33 Thyroxine 7.38 ?g/dL 6.09-12.23 TSH (Thyroid Stim Horm) 2.12 mcIU/mL 0.34-5.60 Blood Culture SEE RESULT BELOW 34 Laboratory test finding 05/18/2016 Hemoglobin A1c (Fma) 9.9 % High 4.1- 5.7 Complete Blood Count 05/18/2016 WBC 10.0 x10^3/UL High 3.6-9.6 35 RBC 3.67 x10^6/UL Low 3.90-5.70 36 HGB 11.9 g/dL Low 12.1-17.2 37 HCT 35 % Low 36-50 38 MCV 94.0 fL 82.2-97.4 MCH 32.3 pg 27.6-33.3 MCHC 34.4 g/dL 33.0-35.5 RDW 16.1 % High 11.6-13.7 39 PLT 306 x10^3/UL 150-400 MPV 6.7 fL Low 7.4-10.4 40 Gran # 7.4 x10^3/UL High 1.5-7.2 41 Lymph# 2.2 x10^3/UL 0.7-4.9 Trinity# 0.4 x10^3/UL 0.1-0.9 Gran % 73.1 % 42.2-75.2 Lymph % 22.0 % 20.5-51.1 Trinity% 4.9 % 1.7-9.3 Laboratory test finding 05/18/2016 TSH 4.64 mIU/L 0.50-6.00 Free T4 1.21 ng/dL 0.75-1.54 Comprehensive Metabolic Prof 05/18/2016 Sodium 139 mEq/L 134-149 Potassium 4.5 mEq/L 3.6-5.5 Chloride 95 mEq/L 94-112 Carbon Dioxide 29 mEq/L 21-32 Glucose 125 mg/dL High 70-105 42 BUN 25 mg/dL 6-26 Creatinine 1.1 mg/dL 0.6-1.4 BUN/Creat Ratio 22.7 CALC 8.0-36.0 Calcium 8.6 mg/dL 8.6-10.2 Total Protein 6.0 g/dL Low 6.4-8.3 43 Albumin 3.8 g/dL 3.8-5.5 Globulin 2.2 g/dL 2.0-4.8 A/G Ratio 1.7 CALC 0.6-2.3 Alk. Phosphatase 79 U/L 30-110 Alt (SGPT) 40 U/L High 7-35 44 Ast (Sgot) 23 U/L 5-34 Total Bilirubin 0.5 mg/dL 0.2-1.3 GFR Non- 54 ml/min/1.73m^ Low >=60 GFR >60 ml/min/1.73m^ >=60 Laboratory test finding 03/27/2016 Inr/Protime 0.91 0.89-1.11 [...] finding 03/27/2016 Lactic Acid 2.0 mmol/L 0.5-2.0 45 Comp Metabolic Panel 03/27/2016 Sodium 135 mmol/L [...] Egfr Non- 89.5 >60 Egfr 115.1 >60 46 Laboratory test finding 03/27/2016 C Reactive Protein 17.77 mg/L High < 5.00 47 B-Type Natriuretic Peptide BNP 148 pg/mL High 48 Blood Culture SEE RESULT BELOW 49 Laboratory test finding 12/24/2015 Point of Care Glucose 101 mg/dL 74- 106 50 Laboratory test finding 12/24/2015 Point of Care Glucose 109 mg/dL High 74 -106 51 Comprehensive Metabolic 12/17/2015 Sodium 138 mEq/L 134-149 Prof Potassium 4.4 mEq/L 3.6-5.5 Chloride 96 mEq/L 94-112 Carbon Dioxide 32 mEq/L 21-32 Glucose 124 mg/dL High 70-105 52 BUN 15 mg/dL 6-26 Creatinine 0.7 mg/dL [...] >60 ml/min/1.73m^ >=60 GFR >60 ml/min/1.73m^ >=60 Complete Blood Count 12/17/2015 WBC 11.4 x10^3/UL High 3.6-9.6 53 RBC 4.36 x10^6/UL 3.90-5.70 HGB 13.5 g/dL 12.1-17.2 HCT 41 % 36-50 MCV 93.0 fL 82.2-97.4 MCH 30.9 pg 27.6-33.3 MCHC 33.1 g/dL 33.0-35.5 RDW 13.7 % 11.6-13.7 PLT 241 x10^3/UL 150-400 MPV 8.0 fL 7.4-10.4 Gran # 8.2 x10^3/UL High 1.5-7.2 Lymph# 2.7 x10^3/UL 0.7-4.9 Trinity# 0.5 x10^3/UL 0.1-0.9 Gran % 71.1 % 42.2-75.2 Lymph % 24.2 % 20.5-51.1 Trinity% 4.7 % 1.7-9.3 PT And PTT 12/17/2015 Inr 1.0 54, 55 Prothrombin Time 9.9 seconds 9.6-11.5 54 aPTT 25.4 seconds 25.0-31.3 54 Lipid Profile 10/21/2015 Cholesterol 236 mg/dL High 120-200 Triglycerides 189 mg/dL 30-200 HDL Cholesterol 53 mg/dL 30-85 LDL (Calculated) 145 CALC High 0-129 VLDL Cholesterol 38 mg/dL 0-50 HDL Risk Factor 4.5 CALC High 0.0-4.4 Complete Blood Count 10/21/2015 WBC 13.1 x10^3/UL High 3.6-9.6 56 RBC 4.43 x10^6/UL 3.90-5.70 HGB 13.6 g/dL 12.1-17.2 HCT 41 % 36-50 MCV 92.0 fL 82.2-97.4 MCH 30.7 pg 27.6-33.3 MCHC 33.3 g/dL 33.0-35.5 RDW 14.6 % High 11.6-13.7 PLT 248 x10^3/UL 150-400 MPV 8.2 fL 7.4-10.4 Gran # 9.8 x10^3/UL High 1.5-7.2 Lymph# 2.7 x10^3/UL 0.7-4.9 Trinity# 0.6 x10^3/UL 0.1-0.9 Gran % 74.2 % 42.2-75.2 Lymph % 21.0 % 20.5-51.1 Trinity% 4.8 % 1.7-9.3 Comprehensive Metabolic Prof 10/21/2015 Sodium 137 mEq/L 134-149 Potassium 4.7 mEq/L 3.6-5.5 Chloride 97 mEq/L 94-112 Carbon Dioxide 31 mEq/L 21-32 Glucose 160 mg/dL High 70-105 57 BUN 25 mg/dL 6-26 Creatinine 0.7 mg/dL 0.6-1.4 BUN/Creat Ratio 35.7 CALC 8.0-36.0 Calcium 9.2 mg/dL 8.6-10.2 Total Protein 6.2 g/dL Low 6.4-8.3 58 Albumin 3.8 g/dL 3.8-5.5 Globulin 2.4 g/dL 2.0-4.8 A/G Ratio 1.6 CALC 0.6-2.3 Alk. Phosphatase 80 U/L 30-110 Alt (SGPT) 31 U/L 7-35 Ast (Sgot) 17 U/L 5-34 Total Bilirubin 0.5 mg/dL 0.2-1.3 GFR Non- >60 ml/min/1.73m^ >=60 GFR >60 ml/min/1.73m^ >=60 Ua - Non Micro (Fma) 10/21/2015 Appearance yellow Color clear Glucose, Urine (Fma/CMC/CTX) neg Bilirubin neg Ketones neg SP Grav 1.025 Blood neg PH 5.5 Protein neg Urobil 0.2 Nitrite neg Leukocytes (Fma/CMC/Centrex) neg Laboratory test 10/21/2015 Hemoglobin A1c 7.0 % High 4.1-5.7 finding (a) HIV 1/O/2 Ag/AB 10/21/2015 HIV Screen 4th Non Reactive Non Reactive 59 Prelim W/[place] RFX Generation wRfx Sup Pap HPV High Risk 05/25/2015 Diagn See Comment: 60 Adeq See Comment: 61 [email or web address] See Comment: 62 Perfor See Comment: 63 Comm . Note See Comment: 64 Iglbp See Comment: 65 HPV, high-risk Negative Negative 66 Laboratory test finding 05/25/2015 PDF [id number] SEE IMAGE Ua - Micro (Fma) 05/25/2015 [...] /Lpf Crystals, Fluid (Fma/CMC/CTX) - Z#Comments - Laboratory test finding 02/20/2015 Hemoglobin A1c 6.2 % High 4.1-5.7 (Fma/CMC,CX) Comprehensive Metabolic 02/20/2015 Sodium 138 mEq/L 134-149 Prof Potassium 4.8 mEq/L 3.6-5.5 Chloride 98 mEq/L [...] >=60 GFR >60 ml/min/1.73m^ >=60 Lipid Profile 02/20/2015 Cholesterol 234 mg/dL High 120-200 Triglycerides 177 mg/dL 30-200 HDL Cholesterol 54 mg/dL 30-85 LDL (Calculated) 145 CALC High 0-129 VLDL Cholesterol 35 mg/dL 0-50 HDL Risk Factor 4.3 CALC 0.0-4.4 Laboratory test finding 02/20/2015 TSH 1.68 mIU/L 0.50-6.00 Free T4 1.23 ng/dL 0.75-1.54 Complete Blood Count 02/20/2015 WBC 8.9 x10^3/UL 3.6-9.6 RBC 4.78 x10^6/UL 3.90-5.70 HGB 14.5 g/dL 12.1-17.2 HCT 43 % 36-50 MCV 91.0 fL 82.2-97.4 MCH 30.4 pg 27.6-33.3 MCHC 33.5 g/dL 33.0-35.5 RDW 14.2 % High 11.6-13.7 PLT 309 x10^3/UL 150-400 MPV 8.1 fL 7.4-10.4 Gran # 6.1 x10^3/UL 1.5-7.2 Lymph# 2.3 x10^3/UL 0.7-4.9 Trinity# 0.5 x10^3/UL 0.1-0.9 Gran % 67.4 % 42.2-75.2 Lymph % 26.6 % 20.5-51.1 Trinity% 6.0 % 1.7-9.3 Comprehensive Metabolic Prof 05/07/2014 Sodium 135 mEq/L 134-149 Potassium 4.9 mEq/L 3.6-5.5 Chloride 97 mEq/L [...] Count 05/07/2014 WBC 11.1 x10^3/UL High 3.6-9.6 67 RBC 4.53 x10^6/UL 3.90-5.70 HGB 13.8 g/dL 12.1-17.2 HCT 42 % 36-50 MCV 92.0 fL 82.2-97.4 MCH 30.5 pg 27.6-33.3 MCHC 33.0 g/dL 33.0-35.5 RDW 12.6 % 11.6-13.7 PLT 242 x10^3/UL 150-400 MPV 7.8 fL 7.4-10.4 Gran # 8.2 x10^3/UL High 1.5-7.2 Lymph# 2.6 x10^3/UL 0.7-4.9 Trinity# 0.3 x10^3/UL 0.1-0.9 Gran % 72.8 % 42.2-75.2 Lymph % 23.7 % 20.5-51.1 Trinity% 3.5 % 1.7-9.3 Laboratory test finding 12/16/2013 Lyme Disease Serology Negative Negative 68 Rheumatoid Factor <15 IU/mL <15 69 Laboratory test finding 12/16/2013 T4 7.62 g/dL 6.09-12.23 TSH (Thyroid Stimulating Horm) 1.83 IU/mL 0.34-5.60 Laboratory test finding 12/16/2013 Sandra (Anti-Nuclear AB) Negative Negative Screen Laboratory test finding 12/16/2013 Erythrocyte Sed Rate 20 mm/Hr 0-30 CBC 12/16/2013 White Blood Count 8.8 10^3/uL [...] 0-2 Nucleated Red Blood Cells % 0 Lipid Profile (Trig/Chol/HDL) 12/16/2013 Triglycerides 172 mg/dL 70 Cholesterol 186 mg/dL 71 HDL Cholesterol 42.6 mg/dL 72 LDL Cholesterol 109 mg/dL 73 Comp Metabolic Panel 12/16/2013 Sodium 135 mmol/L [...] Egfr Non- 96.7 >60 Egfr 124.4 >60 74 Laboratory test 08/24/2012 Thin Prep SEE NOTE 75 finding W/HPV(Lsil/KAMILAH/Asc) Comprehensive 08/24/2012 Albumin 4.8 g/dL 3.8-5.5 Metabolic Prof Alk. Phos. 78 U/L 30-110 Alt (SGPT) [...] Calc 0.6-2.3 BUN/Creat Ratio 14.6 Calc 8.0-36.0 Lipid Profile 08/24/2012 Cholesterol 211 mg/dL High 120-200 HDL 40 mg/dL 30-85 Triglycerides 178 mg/dL 30-200 HDL Risk Factor 5.3 CALC High 0.0-4.4 LDL (Calculated) 136 CALC High 0-129 VLDL (Calculated) 36 mg/dL 0-50 Laboratory test finding 08/24/2012 Free T4 1.13 ng/dL 0.75-1.54 TSH 1.21 mIU/L 0.50-6.00 PT + PTT No Therpy/Unkn 08/24/2012 PTT 26.4 seconds 23.7-35.5 76 PT (No Therapy/Unknown) 12.5 seconds 11.7-14.5 76, 77 Inr 1.0 76, 78 Ua - Non Micro (a) 08/24/2012 Appearance CLEAR Color YELLOW Glucose, Urine (Fma/CMC/CTX) NEG Bilirubin NEG Ketones NEG SP Grav 1.020 Blood NEG PH 7.5 Protein NEG Urobil 0.2 Nitrite NEG Leukocytes (Fma/CMC/Centrex) NEG CBC Electronic (a) 08/24/2012 WBC 9.8 High 3.6-9.6 RBC 4.52 3.90-5.70 Hemoglobin (Fma/CMC/CTX) 13.1 g/dL 12.1 - 17.2 Hematocrit (Fma/CMC/CTX) 39.5 % 36.1 - 50.3 Platelets 291 10^3/ul 150-400 Lymph% 23.3 20.5-51.1 Mixed% 4.4 Neutrophils % 72.3 Mean Corpuscular Vol 87 82.2-97.4 Mean Corpuscular Hemoglobin 28.9 27.6-33.3 Mean Corpuscular Hemo Concen 33.1 32.0-36.0 RDW 13.4 11.6-13.7 Mean Platelet Volume 8.1 6.5-11.0 CBC Auto Diff 01/14/2011 White Blood Count [...] mmol/L 22-32 Anion Gap 11.0 mmol/L 2-11 79 Glucose 99 mg/dL 70-100 BUN 12 mg/dL 6-24 Creatinine 0.90 mg/dL 0.50-1.40 One Over Creatinine 1.10 BUN/Creatinine Ratio 13.3 8-20 Calcium 9.5 mg/dL 8.1-9.9 Total Protein 6.9 GM/DL 6.2-8.1 Albumin 4.3 GM/DL 3.6-5.4 Globulin 2.6 GM/DL 2-4 Albumin/Globulin Ratio 1.7 1-3 Bilirubin Total 0.9 mg/dL 0.4-1.5 80 Alkaline Phosphatase 80 U/L 30-110 Alt (SGPT) 19 U/L 14-54 Ast (Sgot) 23 U/L 12-42 eGFR Non- 66.0 > 60 eGFR 84.9 > 60 81 Laboratory test finding 01/14/2011 Troponin-I 0.01 NG/ML 0-0.06 82 Magnesium 2.1 mg/dL 1.7-2.6 Protime 01/14/2011 Inr 0.94 0.82-1.17 83 Protime 11.0 SEC 10.2-14.8 84 Laboratory test finding 01/14/2011 PTT (Aptt) 25.7 25.15-38.53 Basic Metabolic Profile 05/20/2010 BUN 13 mg/dL 6-26 Calcium 9.7 mg/dL 8.6-10.2 Chloride 101 mEq/L 94-112 Creatinine 0.8 mg/dL 0.6-1.4 Carbon Dioxide 25 mEq/L 21-32 Glucose 111 mg/dL High 70-105 85 Sodium 141 mEq/L 134-149 Potassium 5.0 mEq/L 3.6-5.5 BUN/Creat Ratio 16.4 Calc 8.0-36.0 Laboratory test finding 05/20/2010 Magnesium 2.0 mEq/L 1.2-2.1 Comprehensive Metabolic Prof 01/16/2009 Albumin 4.2 g/dL 3.8-5.5 86 Alk. Phos. 67 U/L 30-110 86 Alt (SGPT) 12 U/L 7-35 86 Ast (Sgot) 12 U/L 5-34 86 BUN 11 mg/dL 6-26 86 Calcium 9.1 mg/dL 8.6-10.2 86 Chloride 99 mEq/L 94-112 86 Creatinine 0.9 mg/dL 0.6-1.4 86 Carbon Dioxide 30 mEq/L 21-32 86 Glucose 102 mg/dL 70-105 86 Sodium 139 mEq/L 134-149 86 Total Bilirubin 0.3 mg/dL 0.2-1.3 86 Total Protein 6.8 g/dL 6.3-8.1 86 Potassium 4.0 mEq/L 3.6-5.5 86 Globulin 2.6 g/dL 2.0-4.8 86 A/G Ratio 1.6 Calc 0.6-2.2 86 BUN/Creat Ratio 12.5 Calc 8.0-36.0 86 Complete Blood Count 01/16/2009 WBC 8.7 x10^3/uL 3.6-9.6 86 Gran# 5.9 x10^3/uL 1.5-7.2 86 Gran% 68.3 % 42.2-75.2 86 HCT 39 % 36-50 86 HGB 13.2 g/dL 12.1-17.2 86 Lymph# 2.4 x10^3/uL 0.7-4.9 86 Lymph% 27.2 % 20.5-51.1 86 MCH 29.7 pg 27.6-33.3 86 MCV 87.1 fL 82.2-97.4 86 MCHC 34.1 g/dL 33.0-35.5 86 Mo# 0.4 x10^3/uL 0.1-0.9 86 Mo% 4.5 % 1.7-9.3 86 MPV 8.9 fL 7.4-10.4 86 PLT 209 x10^3/uL 150-400 86 RBC 4.43 x10^6/uL 3.90-5.70 86 RDW 14.0 % High 11.6-13.7 86 Lipid Profile 01/16/2009 Cholesterol 172 mg/dL 120-200 86 HDL 42 mg/dL 30-85 86 Triglycerides 134 mg/dL 30-200 86 HDL Risk Factor 4.1 CALC Low 4.2-7.0 86 LDL (Calculated) 103 CALC 0-129 86 VLDL (Calculated) 27 mg/dL 0-50 86 Laboratory test finding 01/16/2009 TSH 1.34 mIU/L 0.50-6.00 86 Ua - Micro (a) 12/17/2005 Appearance HAZY Color LIGHT YELLOW Glucose, Urine (a/CMC/CTX) NEGATIVE Bilirubin NEGATIVE Ketones NEGATIVE SP Grav 1.010 Blood MODERATE PH 8.0 Protein, Random Urine SSA NEGATIVE Urobil 0.2 Nitrite NEGATIVE Leukocytes (a/CMC/Centrex) MODERATE Hyaline - /Lpf Granular - /Lpf WBC (a,Centrex) 20-25 SOME CLUMPED RBC, Fluid 15-20 Mucus (Fma/CBC/Centrex) - /Lpf Epith OCC /Lpf Bacteria TRACE /Hpf Amorphous (Fma/CMC/Centrex) - /Lpf Crystals, Urine (Fma/CMC/CTX) - /Lpf Z#Comments - Laboratory test finding 01/31/2005 [facility] Labs BASIC MET PANEL See Image Report Lipid Profile(Fma) Male 01/07/2005 Cholesterol 177 mg/dL 120-200 Triglyceride 128 mg/dL 30-200 HDL Cholesterol (Fma) Male 47 mg/dL 30-70 LDL, Calculated (a/CMC) 105 CALC 0-129 LDL, Direct - mg/dL 0-130 VLDL 26 0-50 HDL Risk Factor (Fma) 3.8 CALC Low 4.2-7.0 Comp Metabolic (a) 01/07/2005 Glucose, Serum (Fma/CMC/CTX) 101 mg/dL 70 -105 Female BUN (a/CMC/Centrex) 10 mg/dL 6-26 Creatinine, Serum 0.8 mg/dL 0.6-1.4 BUN/Creatinin Ratio 13.2 8.0-36 Sodium 140 134-149 Potassium 4.3 3.6-5.5 Chloride 100 mEq/L 94-112 Co2 27 21-32 Calcium (a/[facility]/Centrex) 10.0 mg/dL 8.6-10.2 Total Protein 6.3 g/dL 6.3-8.1 Albumin ([facility]rex) 4.2 3.8-5.5 Globulin 2.1 2.0-4.8 A/G Ratio (A/G Ratio) 2.0 0.6-2.2 Alkaline Phosphatase (F/C/CTX) 81 U/L 22-95 Alt (SGPT) (a/[facility]rex) 13 7-35 Ast (Sgot) ([facility]rex) 13 U/mL 5-34 Bilirubin, Total 0.5 mg/dL 0.2-1.3 CBC Electronic ([facility]) 01/07/2005 WBC 8.7 3.6-9.6 Lymphocytes 30.4 % 20.5 - 51.1 Monocytes 6.2 % 1.7-9.3 Granulocytes 63.4 % 42.2 - 75.2 Lymphocytes 2.6 10^3/uL 0.7 - 4.9 Monocytes 0.5 10^3/uL 0.1 - 0.9 Granulocytes 5.5 10^3/uL 1.5 - 7.2 RBC 4.37 3.90-5.70 Hemoglobin (a/CMC/CTX) 13.0 g/dL 12.1 - 17.2 Hematocrit (a/[facility]/CTX) 38.6 % 36.1 - 50.3 Mean Corpuscular Vol 88.3 82.2-97.4 Mean Corpuscular Hemaglobin 29.8 27.6-33.3 Mean Corpuscular Hemo Concen 33.7 33.0-36.0 RDW 14.4 High 11.6-13.7 Platelets 200. 10^3/ul 150-400 Mean Platelet Volume 9.0 7.4-10.4 Laboratory test finding 01/07/2005 Sed Rate ([facility]) 17 MM Ua - Non Micro ([facility] New) 01/07/2005 Appearance CLEAR Color LIGHT YELLOW Glucose NEGATIVE Bilirubin NEGATIVE Ketones NEGATIVE SP Grav 1.015 Blood NEGATIVE PH 7.5 Protein NEGATIVE Urobil 0.2 Nitrite NEGATIVE Leukocytes NEGATIVE Free T4/TSH 01/07/2005 TSH ([facility]) 1.90 uIU/ml 0.5-6.0 ([facility]) Free T4 0.96 ng/dL 0.75-1.54 Laboratory test finding 01/07/2005 Antinuclear AB (Sandra) NEGATIVE Negative 87 C-Reactive Protein <0.3 mg/dL 0.0-0.5 Rheumatoid Factor (RF) <11.0 IU/mL 0.0-20.0 Lipid Profile ([facility]) 01/16/2003 Cholesterol 237 mg/dL High 120-200 Triglyceride 124 mg/dL 30-200 HDL-Chol 49 30-85 LDL-Calculated ([facility]) 163 CALC High 0-129 VLDL 25 0-50 HDL Risk Factor ([facility]) 4.9 CALC 4.2-7.0 Laboratory test finding 07/17/2002 Sed Rate ([facility]) 34MM Sandra W/RF ([facility]) 07/17/2002 Antinuclear AB ([facility]) NEGATIVE Rheumatoid Factor (RF) <11.0 IU/mL 0 - 20 Type And Screen 10/18/2001 Patient Abo, RH B POSITIVE Antibody Screen NEGATIVE Negative Spec Discarded On - Comp Metabolic ([facility]) 10/18/2001 Sodium 138 mmol/L 135-145 Potassium 4.2 [...] 6.8 mg/dL 2.4-7.0 CBC With Manual Diff ([facility]) 10/18/2001 WBC 12.8 High 4.8-10.8 RBC 4.06 Low 4.2-5.4 Hemoglobin 12.2 g/dL 12.0-16.0 Hematocrit 34 % Low 35-47 Mean Corpuscular Vol 85 79-97 Mean Corpuscular Hemaglobin 30 27-31 Mean Corpuscular Hemo Concen 36 32-36 RDW 14 10.5-15 Platelets 196 CUMM 150-450 Mean Platelet Volume 9.7 7.4-10.4 Poly From [facility] 73 38-83 Band - 0-8 Lymph From [facility] 20 5-47 Trinity From [facility] 5 0-13 Eos From [facility] 2 0-6 Atypical Lymph - 0-6 Morphology NORMAL Basophils - Ua - Non Micro ([facility]) 05/26/2000 Appearance CLOUDY LT YELLOW Glucose - Bilirubin - Ketones - SP Grav >=1.030 Blood SMALL PH 5.0 Protein >=300 Urobil 0.2 Nitrite POSITIVE Leukocytes SMALL 1 [id number] FASTING 1 sst 2 consistent w/ previous results 3 consistent w/ previous results 4 FASTING 5 Trainmaster: [id number] 6 Result TnIDx:0.11 Called to RYAN Schneider at: 14:10:49 by:[id number] Read back by: RYAN Schneider 7 Result TnIDx:0.11 Called to [id number] at: 11:34:16 by:[id number] Read back by: [id number] 8 Because ethnic data is not always readily [...] 15-29 5 Kidney failure <15 (or dialysis) 9 >100 to <200 pg/mL: likely compensated congestive heart failure (CHF) 200 to 400 pg/mL: likely moderate CHF >400 pg/mL: likely moderate to severe CHF 10 Critical Result LACT:2.4 Called to [id number] at: 11:37:38 by:[id number] Read back by:[id number] CTS Severe Sepsis and Septic Shock Management Bundle Measure requires all lactic acids initially measuring >2.0 mmol/L be repeated. 11 Critical Result LACT:4.5 Called to [id number] at: 13:31:33 by:[id number] Read back by:[id number] [facility] Severe Sepsis and Septic Shock Management Bundle Measure requires all lactic acids initially measuring >2.0 mmol/L be repeated. 12 >100 to <200 pg/mL: likely compensated congestive heart failure (CHF) 200 to 400 pg/mL: likely moderate CHF >400 pg/mL: likely moderate to severe CHF 13 Interpretive information available on [facility] Test [facility] at [email or web address] 14 Because ethnic data is not always readily [...] 15-29 5 Kidney failure <15 (or dialysis) 15 Result TnIDx:0.07 Called to [id number] at: 13:40:29 by:[id number] Read back by: [id number] 16 Acute inflammation: >10.00 17 RESULTS VERIFIED BY REPEAT ANALYSIS 18 RESULTS VERIFIED BY REPEAT ANALYSIS 19 RESULTS VERIFIED BY REPEAT ANALYSIS 20 consistent w/ previous results 21 RESULTS VERIFIED BY REPEAT ANALYSIS-provider aware-pt on prednisone 22 Reference ranges based on room air. 23 Critical Result LACT:4.3 Called to [id number] at: 01:49:41 by:[id number] Read back by:[id number] CTS Severe Sepsis and Septic Shock Management Bundle Measure requires all lactic acids initially measuring >2.0 mmol/L be repeated. 24 Because ethnic data is not always readily [...] 15-29 5 Kidney failure <15 (or dialysis) 25 Result TnIDx:0.11 Called to [id number] at: 01:49:57 by:[id number] Read back by: [id number] 26 >100 to <200 pg/mL: likely compensated congestive heart failure (CHF) 200 to 400 pg/mL: likely moderate CHF >400 pg/mL: likely moderate to severe CHF 27 RESULTS VERIFIED BY REPEAT ANALYSIS 28 RESULTS VERIFIED BY REPEAT ANALYSIS 29 consistent w/ previous results 30 Critical Result LACT:3.9 Called to [id number] at: 15:06:21 by:[id number] Read back by:[id number] [facility] Severe Sepsis and Septic Shock Management Bundle Measure requires all lactic acids initially measuring >2.0 mmol/L be repeated. 31 >100 to <200 pg/mL: likely compensated congestive heart failure (CHF) 200 to 400 pg/mL: likely moderate CHF >400 pg/mL: likely moderate to severe CHF 32 Because ethnic data is not always readily [...] 15-29 5 Kidney failure <15 (or dialysis) 33 Result TnIDx:0.05 Called to [id number] at: 15:07:53 by:[id number] Read back by: [id number] 99th percentile=0.04 ng/mL Troponin results at [facility] and [facility] are not interchangeable. 34 SEE RESULT BELOW Name: IZABEL BARRON : [address]: Eliane Lopez DO Acct: [id number] Unit: [id number] AGE: 56 Location: [place] [address] Re08/13/16 SEX: F Status: ADM IN SPEC: [id number] YAO: 08/14/[address]: Merrill Aquino MD REQ: [id number] RECD: 08/14/16 STATUS: COMP HUMBERTO DR: Cristin Duncan MD _ SOURCE: BLOOD,VENO SPDESC: ORDERED: Blood Cult Procedure Result Reported Site Aerobic Culture Bottle Final 08/19/16- 32 ML No Growth Day 5 Anaerobic Culture Bottle Final 08/19/16- 531 ML No Growth Day 5 * ML - MAIN LAB ([facility]) . END OF REPORT * ML=Testing performed at Main Lab DEPARTMENT OF PATHOLOGY, [address] [place] [address] Da Mistry M.D. Director [facility] # [id number] 35 RESULTS VERIFIED BY REPEAT ANALYSIS 36 RESULTS VERIFIED BY REPEAT ANALYSIS 37 RESULTS VERIFIED BY REPEAT ANALYSIS 38 RESULTS VERIFIED BY REPEAT ANALYSIS 39 RESULTS VERIFIED BY REPEAT ANALYSIS 40 RESULTS VERIFIED BY REPEAT ANALYSIS 41 RESULTS VERIFIED BY REPEAT ANALYSIS 42 RESULTS VERIFIED BY REPEAT ANALYSIS 43 RESULTS VERIFIED BY REPEAT ANALYSIS 44 RESULTS VERIFIED BY REPEAT ANALYSIS 45 [facility] Severe Sepsis and Septic Shock Management Bundle Measure requires all lactic acids initially measuring >2.0 mmol/L be repeated. 46 Because ethnic data is not always readily [...] 15-29 5 Kidney failure <15 (or dialysis) 47 Acute inflammation: >10.00 48 >100 to <200 pg/mL: likely compensated congestive heart failure (CHF) 200 to 400 pg/mL: likely moderate CHF >400 pg/mL: likely moderate to severe CHF 49 SEE RESULT BELOW Name: ANDERSONLUCRETIAIZABEL A : [address]: Asher Handy MD Acct: [id number] Unit: [id number] AGE: 55 Location: ED Re03/27/16 SEX: F Status: DEP ER SPEC: [id number] YAO: 03/27/16-1449 [facility] DR: Asher Handy MD REQ: [id number] RECD: 03/27/16 STATUS: GILMER PAUL DR: Cristin Duncan MD _ SOURCE: BLOOD,VENO SPDESC: ORDERED: Blood Cult COMMENTS: Patient is On Antibiotics? NO Procedure Result Reported Site Aerobic Culture Bottle Final 04/01/16- 1501 ML No Growth Day 5 Anaerobic Culture Bottle Final 04/01/16- 1501 ML No Growth Day 5 * ML - MAIN LAB ([facility]) . END OF REPORT * ML=Testing performed at Main Lab DEPARTMENT OF PATHOLOGY, [address] [place] [address] Da Mistry M.D. Director [facility] # [id number] 50 Trainmaster: [id number] BREANN DIAZ 51 Trainmaster: [id number] ROCHELLE SHELBY 52 NON-FASTING 53 consistent w/ previous results 54 1 blue top tubesodium citr ate 55 INTERNATIONAL NORMALIZED RATIO(INR) INDICATIONS INR RANGE PATIENTS [...] WITH AN UNACCEPTABLY HIGH RISK OF BLEEDING. 56 RESULTS VERIFIED BY REPEAT ANALYSIS 57 consistent w/ previous results 58 RESULTS VERIFIED BY REPEAT ANALYSIS 59 60 NEGATIVE FOR INTRAEPITHELIAL LESION AND MALIGNANCY. 61 Satisfactory for evaluation. Endocervical and/or squamous metaplastic cells (endocervical component) are present. 62 Z00.00 Z12.4 63 Ryan Paulino, Marketing Sales Supervisor (ASCP) 64 The Pap smear is a screening test designed to aid in the detection of premalignant and malignant conditions of the uterine cervix. It is not a diagnostic procedure and should not be used as the sole means of detecting cervical cancer. Both false-positive and false-negative reports do occur. 65 This liquid based ThinPrep(R) pap test was screened with the use of an image guided system. 66 This high-risk HPV test detects thirteen high-risk types (16/18/31/33/35/39/45/51/52/56/58/59/68) without differentiation. 67 RESULTS VERIFIED BY REPEAT ANALYSIS 68 Serologic response to B. burgdorferi infection is not detected, but cannot rule out early infection during which low or undetectable antibody levels to B. burgdorferi may be present. If clinically indicated, a new serum specimen should be submitted in 7-14 days. Test Performed by: [address] [address] Adult Basic Education Manager: Gustavo Aquino III, M.D. 69 Test Performed by: [address] [address] Adult Basic Education Manager: Gustavo Aquino III, M.D. 70 Desirable <150 Borderline high 150-199 High 200-499 Very High >500 71 Desirable <200 Borderline high 200-239 High >239 72 Low <40 Desirable: 40-60 High: >60 73 Desirable <100 Near Optimal 100-129 Borderline high 130-159 High 160-189 Very High >189 74 Because ethnic data is not always readily [...] 15-29 5 Kidney failure <15 (or dialysis) 75 Manifest. DEPARTMENT OF PATHOLOGY or Extension 8249 [employer] INSTALL[employer] HELPER CYTOLOGY REPORT PATIENT: IZABEL BARRON : 1960 AGE: 52 Y SEX: F ACCT: [id number] PROCEDURE DATE: 08/24/2012 DATE RECEIVED: 08/27/2012 REQUESTING PROVIDER: MELA CHRISTIE MD LOCATION: [facility] [place] [facility] Case No. [id number] PATIENT DATA: [id number] SPECIMEN SUBMITTED: * * (HPVII) THIN PREP [...] Electronically Signed Sign Out Date/Time: by: by: ARIELLE DEY MD 08/28/2012 13:32 PATHOLOGIST Note: The Pap smear is a screening test designed to aid in the detection of premalignant and malignant conditions of the uterine cervix. It is not a diagnostic procedure and should not be used as the sole means of detecting cervical cancer. Both false-positive and false-negative reports do occur. 00 UA Pap Smear performed at [employer] 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 78 INTERNATIONAL NORMALIZED RATIO(INR) INDICATIONS INR RANGE PATIENTS [...] WITH AN UNACCEPTABLY HIGH RISK OF BLEEDING. 79 Anion gap measurement may be of limited value in the presence of any alkalosis, especially in a combined acid base disorder. . 80 A metabolite of Naproxen, O-desmethylnaproxen, has been shown to interfere with the Jendrtiffanieik-Santana method for measuring total bilirubin. Samples from patients who have taken Naproxen have shown spurious elevation in total bilirubin levels. 81 Because ethnic data is not always readily [...] 15-29 5 Kidney failure <15 (or dialysis) 82 New Reference Range and Interpretation effective 04/05/2002 TnI (ng/ml) INTERPRETATION Less Than 0.06 ng/mL NOT SUPPORTIVE OF DIAGNOSIS OF [place] 0.06 - 0.50 ng/ml INDETERMINATE: SUGGEST SERIAL STUDIES IF CLINICALLY INDICATED. Greater than 0.5 ng/mL CONSISTENT WITH DIAGNOSIS OF [place] . 83 Recommended INR for Patients on Oral Anticoagulants Prophylaxis 2.0 - 3.0 Treatment of thrombosis 2.0 - 3.0 Prevention of embolism 2.0 - 3.0 Prevention of embolism from prosthetic heart valves 2.5 - 3.5 84 DIAGNOSIS,TREATMENT,AND THERAPY MUST BE BASED ON THE INR VALUE ALONE. 85 RESULT SUSAN'D 86 FASTING 87 (Performed by Enzyme Immunoassay, EIA) Procedures Date CPT Code Description Status 12/29/2017 Mammogram Completed 12/13/2017 23283 Pulse Oximetry Completed 12/06/2017 15933 Pulse Oximetry Completed 12/06/2017 56335 Electrocardiogram Complete Completed 11/01/2017 14980 Pulse Oximetry Completed 05/15/2017 22189 Pulse Oximetry Completed 11/23/2016 38086 Pulse Oximetry Completed 08/29/2016 88947 Pulse Oximetry Completed 08/29/2016 48939 Pulse Oximetry Completed 08/23/2016 41887 Pulse Oximetry Completed 06/29/2016 76358 Pulse Oximetry Completed 06/08/2016 43994 Pulse Oximetry Completed 04/29/2016 32013 Pulse Oximetry Completed 04/15/2016 03830 Pulse Oximetry Completed 2016 98056 Nebulizer Treatment Completed 2016 37854 Pulse Oximetry Completed 03/28/2016 43758 Pulse Oximetry Completed 03/28/2016 52461 Nebulizer Treatment Completed 12/17/2015 70373 Electrocardiogram Complete Completed 04/10/2015 Mammogram Completed 10/31/2014 Colonoscopy Completed 12/27/2013 Mammogram Completed 09/03/2012 Mammogram Completed 08/24/2012 77516 Electrocardiogram Complete Completed 12/29/2008 45432 Electrocardiogram Complete Completed 01/07/2005 92041 Electrocardiogram Complete Completed 02/19/2000 96855 Nebulizer Treatment Completed Encounters Type Date Location Provider CPT E/M Dx Office Visit 02/14/2018 2:40p Main Office Nilson Salinas M.D. 78645 H25.22 I48.0 J44.9 E11.65 I50.22 E66.2 Z01.818 Office Visit 12/13/2017 8:40a [facility] Cristin Duncan M.D. 40084 I48.0 J44.9 E11.65 Z12.31 Office Visit 12/06/2017 11:00a [facility] Cristin Duncan M.D. 68600 I48.0 R00.0 J44.9 Office Visit 11/01/2017 10:50a [facility] Cristin Duncan M.D. 73296 E11.65 I48.0 J20.9 B37.9 Office Visit 10/17/2017 3:30p [facility] Cristin Duncan M.D. 20278 E11.65 I48.0 J44.9 E66.2 I50.22 D72.829 M79.7 J06.9 Office Visit 08/03/2017 10:30a [facility] ALYSON Dias 19951 J44.9 Office Visit 06/27/2017 1:00p [facility] Cristin Duncan M.D. 49406 E11.65 I48.0 G47.33 J44.9 E66.2 I50.22 D72.829 R09.1 M25.551 M79.7 Office Visit 05/15/2017 6:00p Main Office Cristin Duncan M.D. 47902 R06.02 E11.65 I48.0 G47.33 J44.9 E66.2 I50.22 R09.02 M79.7 Office Visit 03/29/2017 1:00p [facility] Cristin Duncan M.D. 51855 E11.65 I48.0 G47.33 I10 J44.9 E66.01 E78.5 Z00.01 Z12.31 B35.3 R60.0 Z23 Office Visit 11/23/2016 9:40a [facility] Cristin Duncan M.D. 50479 I48.0 G47.33 E11.9 I10 J44.9 M62.830 R09.02 D72.829 Office Visit 08/29/2016 11:00a [facility] Cristin Duncan M.D. 15252 J44.9 R09.02 Office Visit 08/23/2016 10:50a [facility] Cristin Duncan M.D. 84320 I48.0 J44.9 G47.33 E11.9 I10 J20.9 R09.02 Office Visit 06/29/2016 4:40p [facility] Cristin Duncan M.D. 15220 I10 E11.9 J44.9 I48.0 E66.01 G47.33 Office Visit 06/08/2016 11:30a [facility] Cristin Duncan M.D. 80410 I10 E11.9 J44.9 I48.0 E66.01 R53.83 Office Visit 05/18/2016 11:10a [facility] Cristin Duncan M.D. 09293 J44.9 I10 E11.9 R60.0 I48.0 Office Visit 04/29/2016 3:00p [facility] Cristin Duncan M.D. 46666 J44.9 I10 E11.9 R60.0 I48.0 E66.01 E86.0 Office Visit 04/15/2016 9:15a [facility] Laura Mackey HANDLE TURNER 16319 J45.51 R05 R06.02 R49.0 R60.0 Office Visit 2016 10:00a [facility] Laura Mackey HANDLE TURNER 76810 J45.51 R05 R06.02 R49.0 Office Visit 03/31/2016 10:30a [facility] Kassandra Dobbins ALYSON 70498 J45.51 Office Visit 03/28/2016 1:10p [facility] Ivan Marroquin M.D. 49717 J45.51 Office Visit 03/02/2016 4:00p [facility] Cristin Duncan M.D. 09246 E11.9 I10 M15.0 M79.7 E66.8 G47.33 L40.9 Office Visit 12/17/2015 2:40p [facility] Carlene Mora M.D. 59890 Z01.818 M25.562 S83.232A M17.12 E11.9 I10 Office Visit 10/28/2015 2:40p [facility] Cristin Duncan M.D. 55291 I10 M15.0 E11.9 M79.7 E66.8 E78.4 Office Visit 08/28/2015 4:00p [facility] Cristin Duncan M.D. 29055 I10 M15.0 M79.7 M25.562 Z11.4 Office Visit 05/25/2015 4:00p [facility] Cristin Duncan M.D. 68469 Z00.00 I10 M15.0 M79.7 Z11.3 Z23 R80.9 Office Visit 03/23/2015 4:00p [facility] Cristin Duncan M.D. 19095 401.1 278.00 715.09 729.1 V76.12 Office Visit 02/18/2015 4:20p [facility] Cristin Duncan M.D. 10098 401.1 278.00 493.90 715.09 729.1 Office Visit 08/25/2014 4:30p [facility] Cristin Duncan M.D. 03747 401.1 V76.51 729.1 278.00 Office Visit 07/14/2014 4:00p [facility] Cristin Duncan M.D. 75699 401.1 729.1 493.90 Office Visit 06/05/2014 11:15a [facility] ALYSON Dias 24290 493.90 Office Visit 05/21/2014 8:20a [facility] Cristin Duncan M.D. 65266 401.1 Office Visit 05/07/2014 4:30p [facility] Cristin Duncan M.D. 54024 401.1 Office Visit 03/31/2014 3:50p [facility] Cristin Duncan M.D. 38143 729.1 493.90 Office Visit 12/13/2013 3:20p [facility] Mela Christie M.D. 70260 493.90 401.1 715.09 Office Visit 08/24/2012 11:00a [facility] Mela Christie M.D. 71185 493.90 401.1 V16.3 715.09 V76.51 719.46 V72.83 Office Visit 12/14/2011 1:15p [facility] Kassandra ALYSON Dobbins 92255 465.9 Office Visit 01/14/2011 3:30p [facility] Mela Christie M.D. 09797 780.2 Office Visit 05/20/2010 11:10a [facility] Benjamin Briggs M.D. 92364 401.9 327.52 Office Visit 09/16/2009 10:40a [facility] Adrien Alvarez M.D. 94799 465.9 493.90 Office Visit 12/29/2008 3:40p [facility] Mela Christie M.D. 99389 401.9 493.90 V76.41 V72.83 Office Visit 08/14/2008 11:10a [facility] Benjamin Briggs M.D. 80400 465.9 493.90 490 401.9 Office Visit 10/22/2007 3:30p Main Office Adrien Alvarez M.D. 13173 461.9 Office Visit 03/27/2007 11:30a [facility] Av Carbajal 81833 465.9 493.90 Office Visit 01/22/2007 10:30a Main Office Av Dudley 05092 995.3 Office Visit 12/08/2006 2:30p Main Office Mela Christie M.D. 37276 493.90 719.40 401.9 Office Visit 11/14/2006 8:20p [place] [address] 719.40 Office Visit 04/04/2006 3:45p [facility] Av Carbajal 76618 465.9 490 Office Visit 12/17/2005 12:40p [facility] Benjamin Briggs M.D. 93485 599.0 Office Visit 09/22/2005 11:50a [facility] Benjamin Briggs M.D. 92363 465.9 461.9 493.90 Office Visit 04/25/2005 1:10p Main Office Benjamin Briggs M.D. 23983 466.0 461.9 493.90 Office Visit 01/07/2005 8:00a [facility] Mela Christie M.D. 37891 401.9 995.3 493.90 V13.4 V16.3 272.4 553.20 V70.0 Office Visit 11/11/2004 11:00a [facility] ALYSON Dias 63248 473.9 401.9 Office Visit 01/21/2004 2:40p Main Office Nilson Salinas M.D. 43077 401.9 Office Visit 11/25/2003 3:45p Main Office Mela Christie M.D. 50541 995.3 493.90 117.9 Office Visit 01/13/2003 10:45a [facility] Mela Christie M.D. 18038 493.90 401.1 V76.41 Office Visit 07/17/2002 10:15a Main Office ALYSON Dias 90829 719.44 719.43 719.41 Office Visit 12/27/2001 2:15p [facility] ALYSON Dias 04606 Office Visit 03/21/2001 8:30p Main Office Zuleika Carbajal-C 20829 Office Visit 10/18/2000 1:30p [facility] ALYSON Dias 20354 Office Visit 06/06/2000 4:00p Main Office Da Salazar M.D. 50505 Office Visit 05/26/2000 12:30p Main Office Abril Niño CNP-F 68517 Office Visit 05/16/2000 4:00p Main Office Da Salazar M.D. 17741 Office Visit 04/12/2000 4:10p Main Office Da Salazar M.D. 44693 Office Visit 03/24/2000 4:00p [facility] Da Salazar M.D. 54427 Office Visit 03/10/2000 4:00p Main Office Da Salazar M.D. 43934 Office Visit 02/28/2000 4:20p [facility] Da Salazar M.D. 54169 Office Visit 02/19/2000 10:20a Main Office Mela Christie M.D. 70655 Plan of Care Future Appointment(s):05/01/2018 3:50 pm - Cristin Duncan M.D. at [facility] Oivqmv7003/14/2018 - Laura Mackey, FNPR19.7 Diarrhea, unspecifiedNew Medication:Lorazepam 0.5 mgNew Labs:C Difficile PCRStool CultureO&P Ova &amp ; Parasites ScreenUa - Micro (Fma)R11.10 Vomiting, unspecifiedNew Labs:Stool CultureO&P Ova & Parasites EjxwzfC29.65 Type 2 diabetes mellitus with hyperglycemiaAllComments:~B_~U_Medication Management~b_~u_ Patient Understands medications he 's taking? Yes No Are there Barriers to Adherence? Yes No Has the patient been asked about herbal supplements and therapies, and OTC meds? Yes No As always, we strongly encourage a healthy diet and makingphysical activity a part of your every day life. If you have questions about how or where to start, please contact the office.
--- OUTSIDE RECORDS SUMMARY | 2018-03-19 10:31 | XMS REPORT | Continuity of Care Document ---
:1960 External Reference #:[id number] Author Name Yuki Broussard O.D. Address [address] [place] [address] Care Team Providers Name Role Phone Cristin Duncan M.D. Primary Care Physician Unavailable Payers Type Date Identification Numbers Payment Provider Subscriber Policy Number: [id number] Martinez/[employer] Medicaid Madhavi Purvis PayID: [id number] [place] [address] Advance Directives Description No Information Available Problems Date Description Provider Status Onset: 02/12/2018 Vitreous degeneration Karly Lee O.D. Active Onset: 02/12/2018 Nuclear senile cataract Nilson Hadley M.D. Active Onset: Atrial fibrillation Active Onset: Chronic obstructive lung disease Active Onset: Type 2 diabetes mellitus Active Onset: Hypercholesterolemia Active Onset: 02/12/2018 Combined form of senile cataract Nilson Hadley M.D. Active Onset: 02/12/2018 Presence of intraocular lens Nilson Hadley M.D. 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 Lantus / Active Solution 100Unit/ML [place], Cristin Edwards M.D. Daliresp / Active Tablets 500mcg Unknown 0000 Omeprazole / Active Capsules DR 40mg Unknown 0000 Oxycodone-Aceta / Active Tablets 5-325mg [place] minophen 0000 Cristin Edwards M.D. Xarelto / Active Tablets 20mg Unknown 0000 Baclofen / Active Tablets 10mg Unknown 0000 Montelukast / Active Tablets 10mg [place], Sodium Cristin Edwards M.D. Lisinopril / Active Tablets 40mg [place], Cristin Edwards M.D. Furosemide / Active Tablets 20mg Dakota, Cristin Edwards M.D. Duloxetine HCL / Active Caps DR Fritz 60mg [place], Cristin Edwards M.D. Diltiazem HCL / Active Caps ER 24HR 360mg [place], ER Beads 0000 Cristin Edwards M.D. Atorvastatin / Active Tablets 10mg Unknown Calcium 0000 Dulera / Active Aerosol 200-5mcg/A [place], 0000 mt Cristin Edwards M.D. Incruse Ellipta / Active Aerosol 62.5mcg/In Unknown 0000 h Multi Vitamin / Active Tablets Unknown Daily 0000 Artificial / Active Solution 0.2-0.2-1% as needed Unknown Tears 0000 Vigamox 02/16/ Hx Solution 0.5% 3ml one drop Nilson Kapoor 2018 - left eye [place], 02/14/ three M.D. 2018 times a day, start the day before surgery Ketorolac 02/16/ Hx Solution 0.5% 10ml use one Nilson Kapoor Tromethamine 2018 - drop in [place], 03/08/ the left M.D. 2018 eye three times a day, start the day before surgery Prednisolone 02/16/ Hx Suspension 1% 15ml 1 drops Nilson J. Acetate 2018 - left eye [place], 03/08/ three M.D. 2018 times a day. taper as directed Ciprofloxacin 02/16/ Hx Solution 0.3% 10uni instill Nilson J. HCL 2018 - ts one drop [place], 03/03/ in the M.D. 2018 left eye three times a day, start the day before surgery Gentamicin 02/16/ Hx Solution 0.3% 5ml One drop Nilson J. Sulfate 2018 - left eye [place], 03/03/ three M.D. 2018 times per day, start the day before surgery Immunizations Description No Information Available Vital Signs Description No Information Available Results Test Date Facility Test Result H/L Range Note Laboratory test 02/21/2018 [facility] [place] [facility] 284 mg/dL High 70-[address] [place] [address] (311)- - 1 Software Specialist: [id number] Procedures Date Code Description Status 02/21/2018 22037 Cataract Surgery Complex Completed 02/16/2018 84722 Ophthalmic Biometry Completed 02/12/2018 97571 New Patient Comprehensive Exam Completed 11/12/2009 00164 Est Patient Intermediate Exam Completed 07/21/2009 59349 Est Patient Intermediate Exam Completed 01/07/2009 62144 Cataract Surgery Complex Completed 12/26/2008 13010 Ophthalmic Biometry Completed 12/19/2008 26143 New Patient Comprehensive Exam Completed Encounters Type Date Location Provider Dx Diagnosis Office Visit 02/16/2018 Nilson Fitzgerald, H25.812 Combined forms of 11:45a may SABILLON M.D. age-related cataract, left eye Z96.1 Presence of intraocular lens E11.9 Type 2 diabetes mellitus without complications Office Visit 12/14/2009 4:15p Nilson Marie 379.21 Vitreous MD Jomar, may Lee O.D. Degeneration Office Visit 12/26/2008 10:15a Nilson Kapoor 366.16 Senile Nuclear MD Jomar, may Hadley M.D. Sclerosis / Cataract Plan of Treatment 03/09/2018 - Yuki Broussard O.D.Z96.1 Presence of intraocular lensComments: Smoking can increase the risk of developing or worsening any eye related disease , as well as affect your overall health. If you are a smoker, we strongly recommend that you quit.If you are not a smoker, we strongly recommend that you do not start. Your lens implant looks stable in both eyes at this time. You should be done, or almost done with your drops at this time according to your surgical calendar. I have given you a prescription for glasses. If you have any questions, please feel free to call our office at .Follow up: 1 month MR check (no drops)
--- OUTSIDE RECORDS SUMMARY | 2018-03-19 10:31 | XMS REPORT ---
:1960 External Reference #:[id number] Author Organization [facility] Address [address] [place] [address] Phone [phone] Care Team Providers Name Role Phone Cristin Duncan M.D. 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 eye three times a day, start the day before surgery Prednisolone 02/16/ Active Suspension 1% 15ml 1 drops Nilson J. Acetate 2018 left eye [place], three M.D. times a day. taper as directed Ciprofloxacin 02/16/ Active Solution 0.3% 10uni instill Nilson J. HCL 2018 ts one drop [place], in the M.D. left eye three times a day, start the day before surgery Gentamicin 02/16/ Active Solution 0.3% 5ml One drop Nilson J. Sulfate 2018 left eye [place], three M.D. times per day, start the day before surgery Dofetilide / Active Capsules 250mcg Unknown 0000 Ventolin HFA / Active Aerosol 108(90Base inhale 2 Unknown 0000 ) mcg/Act puffs by mouth every 4 hours if needed Alogliptin / Active Tablets 25mg [place], Benzoate Cristin Edwards M.D. Lantus / Active Solution 100Unit/ML , Cristin Edwards M.D. Daliresp / Active Tablets 500mcg Unknown 0000 Omeprazole / Active Capsules DR 40mg Unknown 0000 Oxycodone-Aceta / Active Tablets 5-325mg [place] minophen Cristin Edwards M.D. Xarelto / Active Tablets 20mg Unknown 0000 Baclofen / Active Tablets 10mg Unknown 0000 Montelukast / Active Tablets 10mg [place], Sodium Cristin Edwards M.D. Lisinopril / Active Tablets 40mg [place], Cristin Edwards M.D. Furosemide / Active Tablets 20mg [place], Cristin Edwards M.D. Duloxetine HCL / Active Caps DR Part 60mg [place], Cristin Edwards M.D. Diltiazem HCL / Active Caps ER 24HR 360mg [place], ER Beads Cristin Edwards M.D. Atorvastatin / Active Tablets 10mg Unknown Calcium 0000 Dulera / Active Aerosol 200-5mcg/A [place], 0000 or Cristin Edwards M.D. Incruse Ellipta / Active Aerosol 62.5mcg/In Unknown 0000 h Multi Vitamin 0000/ Active Tablets Unknown Daily 0000 Vigamox 02/16/ Hx Solution 0.5% 3ml one drop Nilson Kapoor 2018 - left eye Jomar, 02/14/ emmanuel M.DJeff 2018 times a day, start the day before surgery Results Test Date Test Result H/L Range Note Laboratory test finding 02/21/2018 Point of Care Glucose 284 mg/dL High 70 -100 1 1 Law Office Manager: [id number] Procedures Date CPT Code Description Status 02/21/2018 82583 Cataract Surgery Complex Completed 02/16/2018 00968 Ophthalmic Biometry Completed 02/12/2018 44283 New Patient Comprehensive Exam Completed 11/12/2009 73907 Est Patient Intermediate Exam Completed 07/21/2009 25671 Est Patient Intermediate Exam Completed 01/07/2009 33968 Cataract Surgery Complex Completed 12/26/2008 88156 Ophthalmic Biometry Completed 12/19/2008 59609 New Patient Comprehensive Exam Completed Encounters Type Date Location Provider CPT E/M Office Visit 02/16/2018 11:45a Nilson Hadley MD, [facility] Nilson Hadley M.D. [id number] Office Visit 12/14/2009 4:15p Nilson Hadley MD, pc Karly Lee O.D. [id number] Office Visit 12/26/2008 10:15a Nilson Hadley MD, pc Nilson Hadley M.D. [id number]
[2018-03-19 10:53] LABS: ABS Basophils 0 10^3/ul (0-0.2); ABS Eosinophils 0 10^3/ul (0-0.6); ABS Lymphocytes 0.5 10^3/ul (1.0-4.8); ABS Monocytes 0.5 10^3/ul (0-0.8); ABS Neutrophils 18.2 10^3/ul (1.5-7.7); ABS Nucleated RBC 0 10^3/ul; Eosinophil % 0 % (0-6); Hematocrit 29 % (35-47); Hemoglobin 9.3 g/dl (12.0-16.0); Lymphocyte % 2.8 % (25-47); Mean Corpuscular HGB Conc 32 g/dl (31-36); Mean Corpuscular Hemoglobin 26 pg (27-31); Mean Corpuscular Volume 82 fL (80-97); Mean Platelet Volume 8.3 um3 (7.4-10.4); Nucleated Red Blood Cells % 0; Platelet Count 282 10^3/ul (150-450); Red Blood Count 3.55 10^6/ul (4.00-5.40); Red Cell Distribution Width 18 % (10.5-15); White Blood Count 19.3 10^3/ul (3.5-10.8)
[2018-03-19 11:04] LABS: INR 1.85 (0.77-1.02)
[2018-03-19 11:11] LABS: EGFR Non-African American 78.2 (>60)
--- NOTE | 2018-03-19 11:18 | RAD ---
HISTORY: SOB, COPD COMPARISONS: December 14, 2017 VIEWS: 4: Frontal dual-energy and lateral views of the chest. FINDINGS: CARDIOMEDIASTINAL SILHOUETTE: The cardiomediastinal silhouette is normal. NEWTON: The newton are normal. PLEURA: The costophrenic angles are sharp. No pleural abnormalities are noted. LUNG PARENCHYMA: There is prominence of the central pulmonary vasculature. ABDOMEN: The upper abdomen is clear. There is no subphrenic gas. BONES AND SOFT TISSUES: No bone or soft tissue abnormalities are noted. OTHER: None. IMPRESSION: PULMONARY VASCULAR CONGESTION
[2018-03-19] MEDS ORDERED: Levofloxacin 750 MG IVPREMIX(* 750 MG/150 ML BAG IVPB ONE (11:37)
[2018-03-19] MEDS ORDERED: NS 0.9% 1000 ML*IV.FLUID IV ONE (11:37)
[2018-03-19] MEDS ORDERED: Piperacillin/Tazobac ADVAN(*) 3.375 GM in NS 0.9% 100 ML* 100 ML IVPB ONE (11:37)
[2018-03-19] MEDS ORDERED: Acetaminophen TAB* 325 MG PO PRN (12:04)
[2018-03-19] MEDS ORDERED: Al Hydrox/Mg Hydrox/Simet LIQ* 30 ML UDC PO PRN (12:04)
[2018-03-19] MEDS ORDERED: LORazepam TAB(*) 0.5 MG PO PRN (12:13)
[2018-03-19] MEDS ORDERED: Baclofen TAB* 10 MG PO PRN (12:13)
[2018-03-19] MEDS ORDERED: Insulin GLARGINE(*) 1 UNITS UNIT SUBCUT ONE ×2 (12:33→16:24)
[2018-03-19] MEDS ORDERED: Dextrose 50% Syringe 50 ML* 25 GM/50 ML SYRINGE IV PUSH PRN (12:34)
[2018-03-19] MEDS: Albuterol/Ipratropium NEB.SOL* Albuterol 2.5 MG/Ipratropium 0.5 MG 3 ML INH SCH ×2 (13:09→20:00)
[2018-03-19] MEDS ORDERED: Perflutren Lipid Microsphere* 3 ML VIAL ONE (14:26)
[2018-03-19] MEDS: Albuterol HFA INHALER* 8 gm MDI INH PRN (15:10)
--- NOTE | 2018-03-19 15:26 | ECHO ---
Patient: IZABEL BARRON [facility] Rec#: [id number] : 1960 Date: 03/19/2018 Age: 57y Height: 147 cm / 57.9 in Weight: 104 kg / 229.2 lbs Sex: F BSA: 1.93 Room#: ED 4 Admit Date#: 03/19/2018 Type: Inpatient Referring: Candida Bergman MD Reading: Chico Alonso MD Seam Rubber: Shayna Toledo,ESTUARDOCS,RDMS CC: Cristin Duncan Transthoracic Echocardiogram Indication: SOB, Elevated TROP BP: 185/89 HR: 93 Rhythm: NSR Findings History: COPD, former smoker, AFIB, CHF, HTN, HLD Technical Comments: The study is technically difficult. The study is technically limited due to the patient's history of COPD. Left Ventricle: The left ventricular chamber size is normal. Mild concentric left ventricular hypertrophy is observed. Global left ventricular wall motion and contractility are within normal limits. There is normal left ventricular systolic function. The estimated ejection fraction is greater than 65%. Abnormal left ventricular diastolic function is observed. Left Atrium: The left atrium is moderately dilated. Right Ventricle: The right ventricle wall thickness is moderately increased. The right ventricular cavity size is normal. The right ventricular global systolic function is normal. Right Atrium: The right atrium is not well visualized. Aortic Valve: There is no evidence of aortic valve thickening. Systolic excursion of the aortic valve is normal. There is no evidence of aortic regurgitation. There is no evidence of aortic stenosis. Mitral Valve: Moderate mitral annular calcification present. The mitral valve leaflets are mildly thickened. There is a trace of mitral regurgitation. There is mild mitral stenosis. Tricuspid Valve: The tricuspid valve leaflets are normal. There is no evidence of tricuspid valve regurgitation. Unable to estimate the right ventricular systolic pressure. Pulmonic Valve: The pulmonic valve structure is not well visualized. There is no evidence of pulmonic valve thickening. There is a trace pulmonic regurgitation. Pericardium: A trivial pericardial effusion is visualized. Aorta: The aortic root appears normal. There is no dilatation of the aortic arch. Pulmonary Artery: The main pulmonary artery is not well visualized. Venous: The inferior vena cava appears normal in size. Contrast: Definity was used to optimize study. A total of 2 ml was used Summary: There are no significant changes when compared to the previous study done on 07/20/17 Conclusions Mild concentric left ventricular hypertrophy is observed. Global left ventricular wall motion and contractility are within normal limits. The estimated ejection fraction is greater than 65%. The right ventricular global systolic function is normal. There is no evidence of aortic stenosis. There is a trace of mitral regurgitation. There is no evidence of tricuspid valve regurgitation. Unable to estimate the right ventricular systolic pressure. A trivial pericardial effusion is visualized. There are no significant changes when compared to the previous study done on 07/20/17 Measurements Name Value Normal Range RVIDd (AP) 2D 2.5 cm (0.9 - 2.6) IVSd (2D) 1.3 cm (0.6 - 1) LVPWd (2D) 1.2 cm (0.6 - 1) LVIDd (2D) 4.6 cm (3.6 - 5.4) LVIDs (2D) 3 cm - LV FS (2D) 36 % (25 - 45) Aortic Annulus 2 cm (1.4 - 2.6) Ao root diameter (2D) 2.7 cm (2.1 - 3.5) Ascending Ao 2.6 cm (2.1 - 3.4) Aortic arch 2.4 cm (1.8 - 3.4) LA dimension (AP) 2D 4.6 cm (2.3 - 3.8) LAd ISD 4CH 6.9 cm (2.9 - 5.3) LA ISD 4CH W 5.1 cm (2.5 - 4.5) Name Value Normal Range LA ESV BP (A/L) index 47 ml/m2 - Name Value Normal Range MV E-wave Vmax 2.1 m/sec - MV deceleration time 259 msec - MV A-wave Vmax 1.5 m/sec - MV E:A ratio 1.4 ratio - P. vein S-wave Vmax 0.5 m/sec - P. vein D-wave Vmax 0.4 m/sec - P. vein S:D Vmax ratio 1.3 ratio - P. vein A-wave duration 103 msec - LV septal e' Vmax 0.05 m/sec - LV lateral e' Vmax 0.05 m/sec - LV E:e' septal ratio 42 ratio - LV E:e' lateral ratio 42 ratio - Name Value Normal Range AV Vmax 1.8 m/sec - AV VTI 32 cm - AV peak gradient 13 mmHg - AV mean gradient 7 mmHg - LVOT diameter 2 cm - LVOT Vmax 1.4 m/sec - LVOT VTI 26 cm - LVOT peak gradient 8 mmHg - LVOT mean gradient 4 mmHg - DOI (VTI) 0.8 ratio - ANTONIO (continuity VTI) 2.6 cm2 - BETH Vmax 1.5 m/sec - Name Value Normal Range MV Vmax 2.4 m/sec - MV VTI 64 cm - MV peak gradient 23 mmHg - MV mean gradient 12 mmHg - MV PHT 97 msec - MVA (PHT) 2.3 cm2 - MVA (continuity VTI) 1.3 cm2 - Name Value Normal Range RAP 8 mmHg - IVC diameter 1.7 cm - Name Value Normal Range PV Vmax 1.3 m/sec - PV peak gradient 7 mmHg -
--- NOTE | 2018-03-19 16:01 | HP ---
CC: Dr. Cristin Duncan; Dr. Alonso; Dr. Francis * HISTORY AND PHYSICAL: DATE OF ADMISSION: 03/19/18 PRIMARY CARE PROVIDER: Dr. Cristin Duncan. CHIEF COMPLAINT: Shortness of breath and cough. HISTORY OF PRESENT ILLNESS: Madhavi Purvis is a 57-year-old female with a history of COPD, who uses oxygen at night only as well as obstructive sleep apnea, on CPAP, who presents to [facility] complaining of shortness of breath, wheezing, and coughing up yellow sputum. Those symptoms have been ongoing for approximately 24 hours. The patient stated that her son who lives with her had "a cold" a few days ago. The patient denies any fevers. She was hypoxemic in the emergency department as well as tachycardic. She is going to be admitted to the hospital with diagnosis of likely bronchitis and sepsis due to that. PAST MEDICAL/SURGICAL HISTORY: 1. History of COPD, on oxygen at night. 2. History of diabetes, type 2. 3. Obstructive sleep apnea, on CPAP. 4. Paroxysmal atrial fibrillation. 5. Hypertension. 6. Obesity. 7. Fibromyalgia. 8. Hyperlipidemia. 9. Status post tonsillectomy. 10. History of hernia repair. 11. x3. 12. History of shoulder arthroscopy. 13. History of bilateral knee surgeries in the past. 14. History of right foot surgery. CURRENT MEDICATIONS: Include: 1. Oxygen at 2 L and CPAP at night. 2. Omeprazole 40 mg daily. 3. DuoNeb inhaler on a p.r.n. basis. 4. Furosemide 20 mg daily p.r.n. The patient stated that she uses it for leg edema and she took it 2 days ago. 5. Baclofen 10 mg b.i.d. p.r.n. 6. Oxycodone/acetaminophen 5/325 mg 1 tablet up to 3 times a day p.r.n. 7. Dulera 200/5 two puffs inhalation b.i.d. 8. Duloxetine 60 mg b.i.d. 9. Gabapentin 1600 mg p.o. q.p.m. 10. Gabapentin 800 mg q.a.m. 11. Lorazepam 0.5 mg b.i.d. p.r.n. 12. Insulin Lantus 20 units in the morning and 45 at night. 13. Incruse Ellipta 1 puff q.a.m. 14. Tikosyn 250 mg b.i.d. 15. Lipitor 10 mg daily. 16. Albuterol inhaler 2 puffs every 4 hours p.r.n. 17. Daliresp 500 mcg daily. 18. Xarelto 20 mg daily. 19. Alogliptin 25 mg daily. 20. Singulair 10 mg daily. 21. Lisinopril 40 mg daily. 22. Diltiazem CD 360 mg daily. ALLERGIES: Include MELOXICAM. FAMILY HISTORY: Positive for mother with history of asthma. Father with history of heart disease. SOCIAL HISTORY: The patient quit smoking in 2012. She denies any alcohol or drug use. She lives with her and she is fully independent with activities of daily living. Her surrogate is her . The patient has a history of 16-pack- year smoking. REVIEW OF SYSTEMS: Please see history of present illness. In addition to the above mentioned, the patient stated that she has chronic leg edema that sometimes gets worse and then she takes Lasix for it. She does not record her weight on a daily basis. All the remaining 12 systems were reviewed with the patient and were otherwise negative. PHYSICAL EXAMINATION GENERAL: The patient is a pleasant 57-year-old female, who is in no acute distress. Alert, awake, and oriented x3. VITAL SIGNS: Blood pressure of 136/64, heart rate 94 and regular, respiratory rate 18, oxygen saturation 98% on 3 L of oxygen nasal cannula, temperature of 97.7. HEENT: Head: Atraumatic, normocephalic. Eyes: Pupils are equal, reactive to light and accommodation. Oropharynx clear. Mucosa moist. NECK: Supple. No JVD. No bruits bilaterally. RESPIRATORY: Diffuse wheezes and rhonchi bilaterally with prolonged expiratory phase noted. CARDIOVASCULAR: Regular rate and rhythm. No murmur. ABDOMEN: Soft, nontender. Bowel sounds are present in all 4 quadrants. EXTREMITIES: There is 1+ nonpitting pedal edema bilaterally. Pulses are +2 bilaterally. There is no clubbing or cyanosis. NEUROLOGIC: Speech is clear. Cranial nerves II through XII grossly intact. Motor strength is 5/5 bilaterally. PSYCHIATRIC: Pleasant, cooperative with evaluation with no evidence of anxiety or depression. SKIN: On evaluation of the skin, no ecchymotic areas or rashes noted. DIAGNOSTIC STUDIES/LAB DATA: Showed white blood cell count of 19.3, hemoglobin is 9.3, hematocrit of 29, and platelets of 282. The patient's INR is 1.85. D-dimer of below 200. Sodium is 138, potassium 3.9, chloride 101, carbon dioxide 23, BUN 14, creatinine 0.76. Liver function tests unremarkable apart from mild elevation of alkaline phosphatase of 113; that is chronic. The patient's C-reactive protein was 27. Troponin of 0.05. Please note that the patient's random glucose was 349. The patient's influenza testing was negative. Portable chest x-ray, impression: "Pulmonary vascular congestion" ASSESSMENT AND PLAN: 1. The patient is septic on admission, likely due to bronchitis. There is no evidence of infiltrate on the x-ray. At this point, the patient is going to be admitted to the telemetry monitored floor with a diagnosis of sepsis likely due to bronchitis. The patient's blood cultures were obtained. Due to the patient being on Tikosyn, her Levaquin that was started in the emergency department is not going to be continued. I am going to place the patient on doxycycline. I will also place the patient on ceftriaxone. Please note that the patient received Levaquin and Zosyn in the emergency department. 2. Acute respiratory failure with hypoxemia likely due to chronic obstructive pulmonary disease exacerbation. The patient is going to be placed on Solu- Medrol for chronic obstructive pulmonary disease exacerbation as well as scheduled DuoNebs. Dulera is going to be continued. 3. For history of atrial fibrillation, currently, the patient is in sinus rhythm. Her EKG shows sinus tachycardia with a heart rate of 93 beats per minute and no significant ST changes. At this point, her antiarrhythmics including Cardizem and Tikosyn are going to be continued. We will also continue Xarelto. 4. In regards to the patient's diabetes, obtain hemoglobin A1c to evaluate the patient's outpatient glucose control. Her sugars currently are over 300 and she is going to be on steroids. The patient is going to be continued on diabetic diet and her outpatient Lantus doses. The patient is going to be treated with additional dose of Lantus insulin today. 5. The patient has elevated troponin. Her echocardiogram obtained in July of 2017 showed moderate mitral annular calcification with mild mitral stenosis. The ejection fraction showed 60% to 65% at that point. Please note that the patient denied any chest pain today. Her troponins in the past 2 years had ranged between 0.03 to 0.11 when she would come in with chronic obstructive pulmonary disease exacerbation to the hospital. At this point, I suspect it is demand ischemia, but we will follow with troponins and place the patient on telemetry monitored bed. 6. For obstructive sleep apnea, the patient is going to be placed with continuation of CPAP at night. 7. The patient's code status is full. Her surrogate is her . 8. For DVT prophylaxis, the patient is going to be continued on Xarelto. TIME SPENT: Approximately 72 minutes was spent on admission of this patient, more than half of that time was spent [id number] with the patient during the interview and physical exam. [id number] #: [id number] MADDISON
[2018-03-19] MEDS ORDERED: Furosemide IV* 10 MG/ML VIAL (40 MG) IV ONE (16:28)
[2018-03-19] MEDS: Insulin LISPRO* 1 UNITS UNIT SUBCUT SCH ×2 (16:37→21:57)
[2018-03-19] MEDS: methylPREDNISolone SOD 40 MG* 1 ML VIAL IV SCH ×2 (16:37→21:57)
--- NOTE | 2018-03-19 16:37 | PN ---
Sepsis Event Evaluation Date of Evaluation: 03/19/18 Time of Evaluation: 16:00 Current Stage of Sepsis: Severe Sepsis Vital Signs - Last 12 Hours: Vital Signs - 12 hr Temp Pulse Resp BP Pulse Ox 03/19/18 15:46 98.5 F 92 28 145/67 97 03/19/18 15:15 95 36 96 03/19/18 14:39 98.2 F 89 22 154/70 99 03/19/18 13:09 90 20 99 03/19/18 13:00 94 18 185/89 98 03/19/18 12:15 92 18 164/79 98 03/19/18 11:44 94 18 136/64 98 03/19/18 11:31 96 03/19/18 10:57 93 24 147/99 99 03/19/18 10:16 97.7 F 103 24 120/99 96 Lactic Acid: 03/19/18 03/19/18 10:44 15:41 Lactic Acid 5.7 H* 6.3 H* Exceptions to Standard of Care: Pt is now in CHF. IVF bolus was stopped. Lasix 40 mg IV ordered. Lactic acid elevated, but ABG with no evidence of metabolic acidosis and pt non toxic appearing. Called lab and questioned lab results. will obtain repeat LA at 8 PM - Cardiopulmonary Exam Capillary Refill: Immediate Respiratory: Symmetrical Chest Expansion and Respiratory Effort, - - rales b/l, pt is tripoding Cardiovascular: NL Sounds; No Murmurs; No JVD, RRR - Peripheral Pulse Exam Radial Pulses: Bilateral Normal Pedal Pulses: Bilateral Normal Posterior Tibial Pulse: Bilateral Normal Femoral Pulses: Bilateral Normal Popliteal Pulses: Bilateral Normal - Skin Exam Skin Exam: Normal Turgor, Unremarkable - Mumtaz Coma Scale Best Eye Response: 4 - Spontaneous Best Motor Response: 6 - Obeys Commands Best Verbal Response: 5 - Oriented Coma Scale Total: 15 Assess/Plan/Problems-Billing Assessment:
[2018-03-19] MEDS: Gabapentin CAP(*) 400 MG PO SCH (17:17)
[2018-03-19 17:41] LABS: Urine Appearance Clear; Urine Blood Negative (Negative); Urine Color Straw; Urine Ketones Trace (Negative); Urine Protein 1+(30 mg/dL) (Negative); Urine Red Blood Cell Absent (Absent); Urine Specific Gravity 1.025 (1.010-1.030); Urine Urobilinogen Negative (Negative); Urine White Blood Cell Trace(0-5/hpf) (Absent)
[2018-03-19] MEDS ORDERED: guaiFENesin ER TAB 600 MG PO ONE (17:44)
[2018-03-19] MEDS ORDERED: Insulin GLARGINE(*) 1 UNITS UNIT SUBCUT SCH (18:00)
[2018-03-19] MEDS: Mometasone/Formoter 200/5 MDI INH SCH (20:06)
[2018-03-19] MEDS ORDERED: Furosemide IV* 10 MG/ML 2 ML VIAL (20 MG) IV ONE (20:17)
[2018-03-19] MEDS: guaiFENesin ER TAB 600 MG PO SCH (21:57)
[2018-03-19] MEDS: Dofetilide CAP* 250 MCG PO SCH (21:57)
[2018-03-19] MEDS: DULoxetine DR CAP* 60 MG CAP.DR PO SCH (21:57)
[2018-03-19] MEDS: Montelukast Sodium TAB* 10 MG PO SCH (21:57)
[2018-03-19] MEDS: DOXYcycline CAP(*) 100 MG PO SCH (21:57)
[2018-03-20] MEDS: Magnesium Oxide TAB* 400 MG PO SCH ×2 (00:03→08:21)
[2018-03-20] MEDS: Temazepam CAP* 15 MG PO PRN ×2 (00:04→22:38)
[2018-03-20] MEDS: Potassium Chlor TAB* 20 MEQ TAB.ER PO SCH ×2 (00:04→08:21)
[2018-03-20] MEDS: oxyCODONE/Acetamin 5/325 MG* TAB PO PRN ×2 (00:04→22:38)
[2018-03-20] MEDS: Albuterol/Ipratropium NEB.SOL* Albuterol 2.5 MG/Ipratropium 0.5 MG 3 ML INH SCH ×4 (02:00→19:20)
[2018-03-20 03:46] LABS: ABS Basophils 0 10^3/ul (0-0.2); ABS Eosinophils 0 10^3/ul (0-0.6); ABS Lymphocytes 0.6 10^3/ul (1.0-4.8); ABS Monocytes 0.3 10^3/ul (0-0.8); ABS Neutrophils 18.7 10^3/ul (1.5-7.7); ABS Nucleated RBC 0 10^3/ul; Eosinophil % 0 % (0-6); Hematocrit 30 % (35-47); Hemoglobin 9.4 g/dl (12.0-16.0); Lymphocyte % 2.9 % (25-47); Mean Corpuscular HGB Conc 32 g/dl (31-36); Mean Corpuscular Hemoglobin 26 pg (27-31); Mean Corpuscular Volume 82 fL (80-97); Mean Platelet Volume 8.7 um3 (7.4-10.4); Nucleated Red Blood Cells % 0; Platelet Count 298 10^3/ul (150-450); Red Blood Count 3.59 10^6/ul (4.00-5.40); Red Cell Distribution Width 18 % (10.5-15); White Blood Count 19.5 10^3/ul (3.5-10.8)
[2018-03-20 04:12] LABS: EGFR Non-African American 65.1 (>60)
[2018-03-20] MEDS: methylPREDNISolone SOD 40 MG* 1 ML VIAL IV SCH (06:25)
[2018-03-20] MEDS: cefTRIAXone(*) 1 GM in NS 0.9% 50 ML* 50 ML IVPB SCH (06:25)
[2018-03-20] MEDS: Mometasone/Formoter 200/5 MDI INH SCH ×2 (07:12→19:20)
[2018-03-20] MEDS ORDERED: Azithromycin IV(*) 500 MG in NS 0.9% 250 ML* 250 ML IVPB SCH (08:00)
--- NOTE | 2018-03-20 08:08 | RAD ---
Indication: Shortness of breath. Single frontal view of the chest performed at 2016 hours was reviewed. Comparison is made with previous exam dated December 14, 2017. No mediastinal shift is noted. Heart is of normal size and configuration. Lung chavez appear clear. IMPRESSION: NO ACTIVE CARDIOPULMONARY DISEASE IS NOTED. R1
[2018-03-20] MEDS: Diltiazem CD CAP* 180 MG PO SCH (08:21)
[2018-03-20] MEDS: predniSONE TAB* 50 MG PO SCH (08:21)
[2018-03-20] MEDS: Rivaroxaban TAB(*) 20 MG TAB PO SCH (08:21)
[2018-03-20] MEDS: DULoxetine DR CAP* 60 MG CAP.DR PO SCH ×2 (08:21→21:03)
[2018-03-20] MEDS: Lisinopril TAB* 10 MG PO SCH (08:21)
[2018-03-20] MEDS: guaiFENesin ER TAB 600 MG PO SCH ×2 (08:22→21:03)
[2018-03-20] MEDS: Dofetilide CAP* 250 MCG PO SCH ×2 (08:22→21:03)
[2018-03-20] MEDS: DOXYcycline CAP(*) 100 MG PO SCH ×2 (08:22→21:03)
[2018-03-20] MEDS: Atorvastatin* 10 MG TAB PO SCH (08:22)
[2018-03-20] MEDS: Gabapentin CAP(*) 400 MG PO SCH ×2 (08:22→17:47)
[2018-03-20] MEDS: Omeprazole CAP* 20 MG PO SCH (08:22)
[2018-03-20] MEDS: Insulin LISPRO* 1 UNITS UNIT SUBCUT SCH ×4 (08:26→21:05)
[2018-03-20] MEDS ORDERED: ALOGLIPTIN 25 MG PO SCH (09:00)
[2018-03-20] MEDS ORDERED: Insulin GLARGINE(*) 1 UNITS UNIT SUBCUT SCH (09:00)
[2018-03-20] MEDS ORDERED: Furosemide IV* 10 MG/ML VIAL (40 MG) IV ONE (09:53)
[2018-03-20] MEDS ORDERED: Insulin GLARGINE(*) 1 UNITS UNIT SUBCUT ONE (09:55)
--- NOTE | 2018-03-20 09:56 | PN ---
Subjective Date of Service: 03/20/18 Interval History: Pt feels better. Got an additional does of Lasix IV last night Objective Active Medications: Acetaminophen (Tylenol Tab*) 650 mg PO Q4H PRN PRN Reason: FEVER/PAIN Al Hydrox/Mg Hydrox/Simethicone (Maalox Plus*) 30 ml PO Q6H PRN PRN Reason: INDIGESTION Albuterol (Ventolin Hfa Inhaler*) 2 puff INH Q4H PRN PRN Reason: SOB/WHEEZING Last Admin: 03/19/18 15:10 Dose: 2 puff Albuterol/Ipratropium (Duoneb (Albuterol 2.5 Mg/Ipratropium 0.5 Mg)) 1 neb INH Q6H [facility] Last Admin: 03/20/18 07:11 Dose: 1 neb Alogliptin Benzoate ([place] (Nf)) [facility] Last Admin: 03/20/18 08:28 Dose: Not Given Atorvastatin Calcium (Lipitor*) [facility] Last Admin: 03/20/18 08:22 Dose: 10 mg Baclofen (Lioresal Tab*) 10 mg PO BID PRN PRN Reason: PAIN Last Admin: 03/20/18 03:46 Dose: 10 mg Dextrose (D50w Syringe 50 Ml*) 12.5 gm IV PUSH .FOR FS < 60 - SS PRN PRN Reason: FS < 60 Diltiazem HCl (Cardizem Cd Cap*) 360 mg PO [facility] Last Admin: 03/20/18 08:21 Dose: 360 mg Dofetilide (Tikosyn Cap*) 250 mcg PO BID [facility] Last Admin: 03/20/18 08:22 Dose: 250 mcg Doxycycline Hyclate (Vibramycin Cap(*)) 100 mg PO BID [facility] Last Admin: 03/20/18 08:22 Dose: 100 mg Duloxetine HCl (Cymbalta Cap*) 60 mg PO BID [facility] Last Admin: 03/20/18 08:21 Dose: 60 mg Furosemide (Lasix Iv*) 40 mg IV 0800,1700 [facility] Furosemide (Lasix Iv*) 40 mg IV ONCE ONE Stop: 03/20/18 09:54 Gabapentin (Neurontin Cap(*)) 800 mg PO [facility] Last Admin: 03/20/18 08:22 Dose: 800 mg Gabapentin (Neurontin Cap(*)) 1,600 mg PO QPM [facility] Last Admin: 03/19/18 17:17 Dose: 1,600 mg Guaifenesin (Mucinex*) 600 mg PO BID [facility] Last Admin: 03/20/18 08:22 Dose: 600 mg Ceftriaxone Sodium 1 gm/ (Sodium Chloride) 50 mls @ 200 mls/hr IVPB Q24H [facility] Last Admin: 03/20/18 06:25 Dose: 200 mls/hr Influenza Virus Vaccine (Fluarix *Quad* *) 0.5 ml IM .ONCE ONE Stop: 03/21/18 09:01 Insulin Glargine (Lantus(*)) 20 units SUBCUT ONCE ONE Stop: 03/20/18 09:56 Insulin Glargine (Lantus(*)) 30 units SUBCUT QAM [facility] Insulin Glargine (Lantus(*)) 60 units SUBCUT QPM [facility] Insulin Human Lispro (Humalog*) 0 units SUBCUT ACHS [facility]; Protocol Last Admin: 03/20/18 08:26 Dose: 10 units Lisinopril (Prinivil Tab*) 40 mg PO QAM [facility] Last Admin: 03/20/18 08:21 Dose: 40 mg Lorazepam (Ativan Tab(*)) 0.5 mg PO BID PRN PRN Reason: NAUSEA Magnesium Oxide (Magox 400 Tab*) 400 mg PO DAILY [facility] Last Admin: 03/20/18 08:21 Dose: 400 mg Mometasone Furoate/Formoterol Fumar (Dulera 200/5 Mdi*) 2 puff INH BID [facility] Last Admin: 03/20/18 07:12 Dose: 2 puff Montelukast Sodium (Singulair Tab*) 10 mg PO BEDTIME [facility] Last Admin: 03/19/18 21:57 Dose: 10 mg Omeprazole (Prilosec Cap*) 40 mg PO QAM [facility] Last Admin: 03/20/18 08:22 Dose: 40 mg Oxycodone/Acetaminophen (Percocet 5/325 Tab*) 1 tab PO TID PRN PRN Reason: PAIN Last Admin: 03/20/18 00:04 Dose: 1 tab Potassium Chloride (Klor Con Er Tab*) 20 meq PO DAILY [facility] Last Admin: 03/20/18 08:21 Dose: 20 meq Prednisone (Deltasone Tab*) 50 mg PO DAILY [facility] Last Admin: 03/20/18 08:21 Dose: 50 mg Rivaroxaban (Xarelto(*)) 20 mg PO QAM [facility] Last Admin: 03/20/18 08:21 Dose: 20 mg Temazepam (Restoril Cap*) 15 mg PO BEDTIME PRN PRN Reason: INSOMNIA Last Admin: 03/20/18 00:04 Dose: 15 mg Vital Signs - 8 hr 03/20/18 03/20/18 03/20/18 02:46 03:41 07:14 Temperature 98.4 F Pulse Rate 86 90 Respiratory 20 22 18 Rate Blood Pressure 175/77 (mmHg) O2 Sat by Pulse 99 96 Oximetry 03/20/18 03/20/18 03/20/18 07:42 07:50 08:22 Temperature 98.0 F Pulse Rate 89 Respiratory 22 22 22 Rate Blood Pressure 145/75 (mmHg) O2 Sat by Pulse 99 Oximetry Oxygen Devices in Use Now: Nasal Cannula Appearance: 57 yo obese F in nAD, AAOx3 Eyes: No Scleral Icterus, PERRLA Ears/Nose/Mouth/Throat: NL Teeth, Lips, Gums, Mucous Membranes Moist Neck: NL Appearance and Movements; NL JVP, Trachea Midline Respiratory: Symmetrical Chest Expansion and Respiratory Effort, - - diffuse wheezes and prolonged exp. phase b/l Cardiovascular: NL Sounds; No Murmurs; No JVD Abdominal: NL Sounds; No Tenderness; No Distention, No Hepatosplenomegaly Lymphatic: No Cervical Adenopathy Extremities: No Clubbing, Cyanosis, - - +2 pitting edema b/l Skin: No Rash or Ulcers, No Nodules or Sclerosis Neurological: Alert and Oriented x 3, NL Muscle Strength and Tone Result Diagrams: 03/20/18 03:33 03/20/18 03:33 Microbiology and Other Data: Microbiology 03/19/18 13:37 Gram Stain - Final Sputum 03/19/18 11:39 Influenza Types A,B Antigen - Final Nasal Specimen received for Influenza A/B Molecular testing Assess/Plan/Problems-Billing Assessment: 57 y/o female with PMH significant for COPD, DM, afib, JULIANA, HTN, obesity, HLD, and fibromyalgia who presented to the emergency room with complaints of sob, and found to be septic, received sepsis IVF bolus in ED and developed CHF - Patient Problems (1) Acute and chronic respiratory failure with hypoxia Comment: Better today. Continue steroid and antibiotic therapy as well as oxygen supplementation as needed. cont scheduled nebs (2) Acute exacerbation of chronic obstructive pulmonary disease (COPD) Comment: Improving Solu Medrol switched to prednisone today (3) Elevated troponin Comment: Trop peaked at 1.14 although the value is not consistent with other reports and suspect it's a lab error. Pt c/o no CP Echo - no significant findings Likely secondary to demand ischemia (4) Lactic acid increased Comment: Resolved. likely due to bronchodilator therapy. pt has chronically elevated lactic acid (5) PAF (paroxysmal atrial fibrillation) Comment: H/o, now in NSR Continue rivaroxaban, dofetilide/cardizem (6) Severe sepsis Comment: due to bronchitis. Blood cx pending cont Ceftriaxone/Doxy Pt appears to have chronic leukocytosis and once off steroids should have repeated CBC and poss oncology consult (7) Diabetes Comment: Continue Lantus (increased due to uncontrolled DM secondary to steroid tx), SS Lispro. (8) HTN (hypertension) Comment: - SBP 140-180s. - Continue Cardizem and Lisinopril. (9) Acute diastolic CHF (congestive heart failure) Comment: developed after IVF tx for sepsis Cont Lasix IV BID Daily weights Echo shows EF 65%-unchanged from prior (10) DVT prophylaxis Comment: - Xarelto Status and Disposition: Inpatient
[2018-03-20] MEDS: Furosemide IV* 10 MG/ML VIAL (40 MG) IV SCH (17:47)
[2018-03-20] MEDS: Insulin GLARGINE(*) 1 UNITS UNIT SUBCUT SCH (17:48)
[2018-03-20] MEDS: Montelukast Sodium TAB* 10 MG PO SCH (21:03)
[2018-03-21] MEDS: Albuterol/Ipratropium NEB.SOL* Albuterol 2.5 MG/Ipratropium 0.5 MG 3 ML INH SCH ×4 (01:05→20:02)
[2018-03-21] MEDS: Albuterol HFA INHALER* 8 gm MDI INH PRN (05:00)
[2018-03-21 06:13] LABS: ABS Basophils 0.1 10^3/ul (0-0.2); ABS Eosinophils 0 10^3/ul (0-0.6); ABS Lymphocytes 0.7 10^3/ul (1.0-4.8); ABS Monocytes 0.9 10^3/ul (0-0.8); ABS Neutrophils 18.9 10^3/ul (1.5-7.7); ABS Nucleated RBC 0 10^3/ul; Eosinophil % 0 % (0-6); Hematocrit 28 % (35-47); Hemoglobin 8.9 g/dl (12.0-16.0); Lymphocyte % 3.4 % (25-47); Mean Corpuscular HGB Conc 31 g/dl (31-36); Mean Corpuscular Hemoglobin 26 pg (27-31); Mean Corpuscular Volume 83 fL (80-97); Mean Platelet Volume 8.8 um3 (7.4-10.4); Nucleated Red Blood Cells % 0; Platelet Count 305 10^3/ul (150-450); Red Cell Distribution Width 18 % (10.5-15); White Blood Count 20.6 10^3/ul (3.5-10.8)
[2018-03-21 06:38] LABS: EGFR Non-African American 64.3 (>60)
[2018-03-21] MEDS: cefTRIAXone(*) 1 GM in NS 0.9% 50 ML* 50 ML IVPB SCH (06:43)
[2018-03-21] MEDS: Mometasone/Formoter 200/5 MDI INH SCH ×2 (07:26→20:03)
[2018-03-21] MEDS ORDERED: Insulin GLARGINE(*) 1 UNITS UNIT SUBCUT SCH (09:00)
[2018-03-21] MEDS: Diltiazem CD CAP* 180 MG PO SCH (09:03)
[2018-03-21] MEDS: Lisinopril TAB* 10 MG PO SCH (09:03)
[2018-03-21] MEDS: Magnesium Oxide TAB* 400 MG PO SCH (09:03)
[2018-03-21] MEDS: DOXYcycline CAP(*) 100 MG PO SCH ×2 (09:04→22:15)
[2018-03-21] MEDS: predniSONE TAB* 50 MG PO SCH (09:04)
[2018-03-21] MEDS: guaiFENesin ER TAB 600 MG PO SCH ×2 (09:04→22:15)
[2018-03-21] MEDS: Gabapentin CAP(*) 400 MG PO SCH ×2 (09:04→17:21)
[2018-03-21] MEDS: Omeprazole CAP* 20 MG PO SCH (09:04)
[2018-03-21] MEDS: Atorvastatin* 10 MG TAB PO SCH (09:04)
[2018-03-21] MEDS: Potassium Chlor TAB* 20 MEQ TAB.ER PO SCH (09:04)
[2018-03-21] MEDS: Insulin GLARGINE(*) 1 UNITS UNIT SUBCUT SCH ×2 (09:05→17:23)
[2018-03-21] MEDS: Dofetilide CAP* 250 MCG PO SCH ×2 (09:05→22:15)
[2018-03-21] MEDS: Insulin LISPRO* 1 UNITS UNIT SUBCUT SCH ×5 (09:05→21:53)
[2018-03-21] MEDS: Rivaroxaban TAB(*) 20 MG TAB PO SCH (09:05)
[2018-03-21] MEDS: DULoxetine DR CAP* 60 MG CAP.DR PO SCH ×2 (09:05→22:15)
[2018-03-21] MEDS: Furosemide IV* 10 MG/ML VIAL (40 MG) IV SCH ×2 (09:05→17:23)
--- NOTE | 2018-03-21 10:21 | PN ---
Subjective Date of Service: 03/21/18 Interval History: Pt feels "a little better". Still coughing up yellow sputum. Not interested in flutter valve Objective Active Medications: Acetaminophen (Tylenol Tab*) 650 mg PO Q4H PRN PRN Reason: FEVER/PAIN Al Hydrox/Mg Hydrox/Simethicone (Maalox Plus*) 30 ml PO Q6H PRN PRN Reason: INDIGESTION Albuterol (Ventolin Hfa Inhaler*) 2 puff INH Q4H PRN PRN Reason: SOB/WHEEZING Last Admin: 03/21/18 05:00 Dose: 2 puff Albuterol/Ipratropium (Duoneb (Albuterol 2.5 Mg/Ipratropium 0.5 Mg)) 1 neb INH Q6H [facility] Last Admin: 03/21/18 07:23 Dose: 1 neb Atorvastatin Calcium (Lipitor*) 10 mg PO QAM [facility] Last Admin: 03/21/18 09:04 Dose: 10 mg Baclofen (Lioresal Tab*) 10 mg PO BID PRN PRN Reason: PAIN Last Admin: 03/20/18 03:46 Dose: 10 mg Dextrose (D50w Syringe 50 Ml*) 12.5 gm IV PUSH .FOR FS < 60 - SS PRN PRN Reason: FS < 60 Diltiazem HCl (Cardizem Cd Cap*) 360 mg PO QAM [facility] Last Admin: 03/21/18 09:03 Dose: 360 mg Dofetilide (Tikosyn Cap*) 250 mcg PO BID [facility] Last Admin: 03/21/18 09:05 Dose: 250 mcg Doxycycline Hyclate (Vibramycin Cap(*)) 100 mg PO BID [facility] Last Admin: 03/21/18 09:04 Dose: 100 mg Duloxetine HCl (Cymbalta Cap*) 60 mg PO BID [facility] Last Admin: 03/21/18 09:05 Dose: 60 mg Furosemide (Lasix Iv*) 40 mg IV 0800,1700 [facility] Last Admin: 03/21/18 09:05 Dose: 40 mg Gabapentin (Neurontin Cap(*)) 800 mg PO QAM [facility] Last Admin: 03/21/18 09:04 Dose: 800 mg Gabapentin (Neurontin Cap(*)) 1,600 mg PO QPM [facility] Last Admin: 09/18/18 17:47 Dose: 1,600 mg Guaifenesin (Mucinex*) 600 mg PO BID [facility] Last Admin: 03/21/18 09:04 Dose: 600 mg Ceftriaxone Sodium 1 gm/ (Sodium Chloride) 50 mls @ 200 mls/hr IVPB Q24H [facility] Last Admin: 03/21/18 06:43 Dose: 200 mls/hr Insulin Glargine (Lantus(*)) 60 units SUBCUT QPM [facility] Last Admin: 03/20/18 17:48 Dose: 60 units Insulin Glargine (Lantus(*)) 40 units SUBCUT QAM [facility] Last Admin: 03/21/18 09:05 Dose: 40 units Insulin Human Lispro (Humalog*) 0 units SUBCUT ACHS [facility]; Protocol Last Admin: 03/21/18 09:05 Dose: 10 units Lisinopril (Prinivil Tab*) 40 mg PO QAM [facility] Last Admin: 03/21/18 09:03 Dose: 40 mg Lorazepam (Ativan Tab(*)) 0.5 mg PO BID PRN PRN Reason: NAUSEA Magnesium Oxide (Magox 400 Tab*) 400 mg PO DAILY [facility] Last Admin: 03/21/18 09:03 Dose: 400 mg Mometasone Furoate/Formoterol Fumar (Dulera 200/5 Mdi*) 2 puff INH BID [facility] Last Admin: 03/21/18 07:26 Dose: 2 puff Montelukast Sodium (Singulair Tab*) 10 mg PO BEDTIME [facility] Last Admin: 03/20/18 21:03 Dose: 10 mg Omeprazole (Prilosec Cap*) 40 mg PO QAM [facility] Last Admin: 03/21/18 09:04 Dose: 40 mg Oxycodone/Acetaminophen (Percocet 5/325 Tab*) 1 tab PO TID PRN PRN Reason: PAIN Last Admin: 03/20/18 22:38 Dose: 1 tab Potassium Chloride (Klor Con Er Tab*) 20 meq PO DAILY [facility] Last Admin: 03/21/18 09:04 Dose: 20 meq Prednisone (Deltasone Tab*) 50 mg PO DAILY [facility] Last Admin: 03/21/18 09:04 Dose: 50 mg Rivaroxaban (Xarelto(*)) 20 mg PO QAM [facility] Last Admin: 03/21/18 09:05 Dose: 20 mg Temazepam (Restoril Cap*) 15 mg PO BEDTIME PRN PRN Reason: INSOMNIA Last Admin: 03/20/18 22:38 Dose: 15 mg Vital Signs - 8 hr 03/21/18 03/21/18 03/21/18 04:32 05:04 07:28 Temperature 97.9 F Pulse Rate 82 64 84 Respiratory 20 14 16 Rate Blood Pressure 149/63 (mmHg) O2 Sat by Pulse 100 98 98 Oximetry 03/21/18 03/21/18 03/21/18 08:00 08:02 09:04 Temperature 98.0 F Pulse Rate 83 Respiratory 16 16 20 Rate Blood Pressure 138/54 (mmHg) O2 Sat by Pulse 99 99 Oximetry Oxygen Devices in Use Now: Nasal Cannula Appearance: 57 yo F in nAD, AAOx3 Eyes: No Scleral Icterus, PERRLA Ears/Nose/Mouth/Throat: NL Teeth, Lips, Gums, Mucous Membranes Moist Neck: NL Appearance and Movements; NL JVP, Trachea Midline Respiratory: - - difuse wheezes b/ improving Cardiovascular: NL Sounds; No Murmurs; No JVD, RRR Abdominal: NL Sounds; No Tenderness; No Distention, No Hepatosplenomegaly Extremities: No Clubbing, Cyanosis, - - +2 pitting pedal edema b/l Skin: No Nodules or Sclerosis Neurological: Alert and Oriented x 3, NL Muscle Strength and Tone Result Diagrams: 03/21/18 05:52 03/21/18 05:52 Microbiology and Other Data: Microbiology 03/19/18 13:37 Gram Stain - Final Sputum 03/19/18 11:39 Influenza Types A,B Antigen - Final Nasal Specimen received for Influenza A/B Molecular testing Assess/Plan/Problems-Billing Assessment: 57 y/o female with PMH significant for COPD, DM, afib, JULIANA, HTN, obesity, HLD, and fibromyalgia who presented to the emergency room with complaints of sob, and found to be septic, received sepsis IVF bolus in ED and developed CHF - Patient Problems (1) Acute and chronic respiratory failure with hypoxia Comment: Better today. Continue steroid and antibiotic therapy as well as oxygen supplementation as needed. cont scheduled nebs (2) Acute exacerbation of chronic obstructive pulmonary disease (COPD) Comment: Improving cont prednisone (3) Elevated troponin Comment: Trop peaked at 1.14 although the value is not consistent with other reports and suspect it's a lab error. Pt c/o no CP Echo - no significant findings Likely secondary to demand ischemia (4) Lactic acid increased Comment: Resolved. likely due to bronchodilator therapy. pt has chronically elevated lactic acid (5) PAF (paroxysmal atrial fibrillation) Comment: H/o, now in NSR Continue rivaroxaban, dofetilide/cardizem (6) Severe sepsis Comment: due to bronchitis. Blood cx pending cont Ceftriaxone/Doxy Pt appears to have chronic leukocytosis and once off steroids should have repeated CBC and poss oncology consult (7) Diabetes Comment: Continue Lantus (increased due to uncontrolled DM secondary to steroid tx), SS Lispro. Uncontrolled due to steroids (8) HTN (hypertension) Comment: - SBP 140-180s. - Continue Cardizem and Lisinopril. (9) Acute diastolic CHF (congestive heart failure) Comment: developed after IVF tx for sepsis Cont Lasix IV BID Daily weights Echo shows EF 65%-unchanged from prior (10) DVT prophylaxis Comment: - Xarelto Status and Disposition: Inpatient
[2018-03-21] MEDS ORDERED: Insulin GLARGINE(*) 1 UNITS UNIT SUBCUT ONE (10:58)
[2018-03-21] MEDS ORDERED: Dextrose 50% Syringe 50 ML* 25 GM/50 ML SYRINGE IV PUSH PRN ×2 (17:32→21:42)
[2018-03-21] MEDS ORDERED: NS 0.9% 1000 ML* 1,000 ML IV ONE (21:42)
[2018-03-21] MEDS ORDERED: Insulin LISPRO* 1 UNITS UNIT SUBCUT ONE (21:42)
[2018-03-21] MEDS: Montelukast Sodium TAB* 10 MG PO SCH (22:16)
[2018-03-21] MEDS: oxyCODONE/Acetamin 5/325 MG* TAB PO PRN (22:20)
[2018-03-21] MEDS: Temazepam CAP* 15 MG PO PRN (22:20)
[2018-03-22] MEDS: Albuterol/Ipratropium NEB.SOL* Albuterol 2.5 MG/Ipratropium 0.5 MG 3 ML INH SCH ×4 (01:38→19:52)
[2018-03-22 05:55] LABS: ABS Basophils 0.1 10^3/ul (0-0.2); ABS Eosinophils 0.1 10^3/ul (0-0.6); ABS Lymphocytes 1.9 10^3/ul (1.0-4.8); ABS Neutrophils 12.6 10^3/ul (1.5-7.7); ABS Nucleated RBC 0 10^3/ul; Eosinophil % 0.5 % (0-6); Hematocrit 29 % (35-47); Hemoglobin 9.3 g/dl (12.0-16.0); Lymphocyte % 12.3 % (25-47); Mean Corpuscular HGB Conc 32 g/dl (31-36); Mean Corpuscular Hemoglobin 26 pg (27-31); Mean Corpuscular Volume 82 fL (80-97); Mean Platelet Volume 8.8 um3 (7.4-10.4); Nucleated Red Blood Cells % 0; Platelet Count 297 10^3/ul (150-450); Red Blood Count 3.52 10^6/ul (4.00-5.40); Red Cell Distribution Width 18 % (10.5-15); White Blood Count 15.7 10^3/ul (3.5-10.8)
[2018-03-22] MEDS: cefTRIAXone(*) 1 GM in NS 0.9% 50 ML* 50 ML IVPB SCH (05:59)
[2018-03-22 06:40] LABS: EGFR Non-African American 81.9 (>60)
[2018-03-22] MEDS: Mometasone/Formoter 200/5 MDI INH SCH ×2 (07:48→19:52)
[2018-03-22] MEDS: Insulin LISPRO* 1 UNITS UNIT SUBCUT SCH ×7 (08:01→20:45)
[2018-03-22] MEDS: Insulin GLARGINE(*) 1 UNITS UNIT SUBCUT SCH ×2 (09:36→17:20)
[2018-03-22] MEDS: Potassium Chlor TAB* 20 MEQ TAB.ER PO SCH (09:38)
[2018-03-22] MEDS: Omeprazole CAP* 20 MG PO SCH (09:38)
[2018-03-22] MEDS: Furosemide IV* 10 MG/ML VIAL (40 MG) IV SCH ×2 (09:38→17:19)
[2018-03-22] MEDS: Atorvastatin* 10 MG TAB PO SCH (09:38)
[2018-03-22] MEDS: predniSONE TAB* 50 MG PO SCH (09:38)
[2018-03-22] MEDS: Diltiazem CD CAP* 180 MG PO SCH (09:38)
[2018-03-22] MEDS: DOXYcycline CAP(*) 100 MG PO SCH ×2 (09:39→20:47)
[2018-03-22] MEDS: Rivaroxaban TAB(*) 20 MG TAB PO SCH (09:39)
[2018-03-22] MEDS: Gabapentin CAP(*) 400 MG PO SCH ×2 (09:39→17:18)
[2018-03-22] MEDS: guaiFENesin ER TAB 600 MG PO SCH ×2 (09:39→20:47)
[2018-03-22] MEDS: Lisinopril TAB* 10 MG PO SCH (09:39)
[2018-03-22] MEDS: Magnesium Oxide TAB* 400 MG PO SCH (09:39)
[2018-03-22] MEDS: DULoxetine DR CAP* 60 MG CAP.DR PO SCH ×2 (14:45→20:46)
[2018-03-22] MEDS: Dofetilide CAP* 250 MCG PO SCH ×2 (14:45→20:47)
--- NOTE | 2018-03-22 15:19 | PN ---
Subjective Date of Service: 03/22/18 Interval History: feeling better, still coughing a lot. Objective Active Medications: Acetaminophen (Tylenol Tab*) 650 mg PO Q4H PRN PRN Reason: FEVER/PAIN Al Hydrox/Mg Hydrox/Simethicone (Maalox Plus*) 30 ml PO Q6H PRN PRN Reason: INDIGESTION Albuterol (Ventolin Hfa Inhaler*) 2 puff INH Q4H PRN PRN Reason: SOB/WHEEZING Last Admin: 03/21/18 05:00 Dose: 2 puff Albuterol/Ipratropium (Duoneb (Albuterol 2.5 Mg/Ipratropium 0.5 Mg)) 1 neb INH Q6H [facility] Last Admin: 03/22/18 07:48 Dose: 1 neb Atorvastatin Calcium (Lipitor*) 10 mg PO QAM [facility] Last Admin: 03/22/18 09:38 Dose: 10 mg Baclofen (Lioresal Tab*) 10 mg PO BID PRN PRN Reason: PAIN Last Admin: 03/20/18 03:46 Dose: 10 mg Dextrose (D50w Syringe 50 Ml*) 12.5 gm IV PUSH .FOR FS < 60 - SS PRN PRN Reason: FS < 60 Diltiazem HCl (Cardizem Cd Cap*) 360 mg PO QAM [facility] Last Admin: 03/22/18 09:38 Dose: 360 mg Dofetilide (Tikosyn Cap*) 250 mcg PO BID [facility] Last Admin: 03/21/18 22:15 Dose: 250 mcg Doxycycline Hyclate (Vibramycin Cap(*)) 100 mg PO BID [facility] Last Admin: 03/22/18 09:39 Dose: 100 mg Duloxetine HCl (Cymbalta Cap*) 60 mg PO BID [facility] Last Admin: 03/21/18 22:15 Dose: 60 mg Furosemide (Lasix Iv*) 40 mg IV 0800,1700 [facility] Last Admin: 03/22/18 09:38 Dose: 40 mg Gabapentin (Neurontin Cap(*)) 800 mg PO QAM [facility] Last Admin: 03/22/18 09:39 Dose: 800 mg Gabapentin (Neurontin Cap(*)) 1,600 mg PO QPM [facility] Last Admin: 03/21/18 17:21 Dose: 1,600 mg Guaifenesin (Mucinex*) 600 mg PO BID [facility] Last Admin: 03/22/18 09:39 Dose: 600 mg Ceftriaxone Sodium 1 gm/ (Sodium Chloride) 50 mls @ 200 mls/hr IVPB Q24H [facility] Last Admin: 03/22/18 05:59 Dose: 200 mls/hr Insulin Glargine (Lantus(*)) 60 units SUBCUT QPM [facility] Last Admin: 03/21/18 17:23 Dose: 60 units Insulin Glargine (Lantus(*)) 40 units SUBCUT QAM [facility] Last Admin: 03/22/18 09:36 Dose: 40 units Insulin Human Lispro (Humalog*) 0 units SUBCUT ACHS [facility]; Protocol Last Admin: 03/22/18 08:01 Dose: Not Given Insulin Human Lispro (Humalog*) 20 units SUBCUT AC [facility] Last Admin: 03/22/18 09:37 Dose: 20 units Lisinopril (Prinivil Tab*) [facility] Last Admin: 03/22/18 09:39 Dose: 40 mg Lorazepam (Ativan Tab(*)) 0.5 mg PO BID PRN PRN Reason: NAUSEA Magnesium Oxide (Magox 400 Tab*) 400 mg PO DAILY [facility] Last Admin: 03/22/18 09:39 Dose: 400 mg Mometasone Furoate/Formoterol Fumar (Dulera 200/5 Mdi*) 2 puff INH BID [facility] Last Admin: 03/22/18 07:48 Dose: 2 puff Montelukast Sodium (Singulair Tab*) 10 mg PO BEDTIME [facility] Last Admin: 03/21/18 22:16 Dose: 10 mg Omeprazole (Prilosec Cap*) 40 mg PO QAM [facility] Last Admin: 03/22/18 09:38 Dose: 40 mg Oxycodone/Acetaminophen (Percocet 5/325 Tab*) 1 tab PO TID PRN PRN Reason: PAIN Last Admin: 03/21/18 22:20 Dose: 1 tab Potassium Chloride (Klor Con Er Tab*) 20 meq PO DAILY [facility] Last Admin: 03/22/18 09:38 Dose: 20 meq Prednisone (Deltasone Tab*) 50 mg PO DAILY [facility] Last Admin: 03/22/18 09:38 Dose: 50 mg Rivaroxaban (Xarelto(*)) 20 mg PO QAM [facility] Last Admin: 03/22/18 09:39 Dose: 20 mg Temazepam (Restoril Cap*) 15 mg PO BEDTIME PRN PRN Reason: INSOMNIA Last Admin: 03/21/18 22:20 Dose: 15 mg Vital Signs - 8 hr 03/22/18 03/22/18 03/22/18 07:39 07:48 08:00 Temperature Pulse Rate 82 Respiratory 20 18 Rate Blood Pressure (mmHg) O2 Sat by Pulse 99 98 Oximetry 03/22/18 03/22/18 08:16 09:39 Temperature 97.3 F Pulse Rate 82 Respiratory 18 18 Rate Blood Pressure 154/67 (mmHg) O2 Sat by Pulse 98 Oximetry Oxygen Devices in Use Now: Nasal Cannula Appearance: 57 yo obese F in nAD, aAOx3 Eyes: No Scleral Icterus, PERRLA Ears/Nose/Mouth/Throat: NL Teeth, Lips, Gums, Mucous Membranes Moist Neck: NL Appearance and Movements; NL JVP, Trachea Midline Respiratory: Symmetrical Chest Expansion and Respiratory Effort, Clear to Auscultation Cardiovascular: NL Sounds; No Murmurs; No JVD, RRR Abdominal: NL Sounds; No Tenderness; No Distention, No Hepatosplenomegaly Lymphatic: No Cervical Adenopathy Extremities: No Clubbing, Cyanosis, - - +2 pitting edema b/l Skin: No Rash or Ulcers, No Nodules or Sclerosis Neurological: Alert and Oriented x 3, NL Muscle Strength and Tone Result Diagrams: 03/22/18 05:41 03/22/18 07:14 Microbiology and Other Data: Microbiology 03/19/18 13:37 Gram Stain - Final Sputum 03/19/18 11:39 Influenza Types A,B Antigen - Final Nasal Specimen received for Influenza A/B Molecular testing Assess/Plan/Problems-Billing Assessment: 57 y/o female with PMH significant for COPD, DM, afib, JULIANA, HTN, obesity, HLD, and fibromyalgia who presented to the emergency room with complaints of sob, and found to be septic, received sepsis IVF bolus in ED and developed CHF - Patient Problems (1) Acute and chronic respiratory failure with hypoxia Comment: Better today. Continue steroid and antibiotic therapy as well as oxygen supplementation as needed. cont scheduled nebs (2) Acute exacerbation of chronic obstructive pulmonary disease (COPD) Comment: Improving cont prednisone (3) Elevated troponin Comment: Trop peaked at 1.14 although the value is not consistent with other reports and suspect it's a lab error. Pt c/o no CP Echo - no significant findings Likely secondary to demand ischemia (4) Lactic acid increased Comment: Resolved. likely due to bronchodilator therapy. pt has chronically elevated lactic acid (5) PAF (paroxysmal atrial fibrillation) Comment: H/o, now in NSR Continue rivaroxaban, dofetilide/cardizem (6) Severe sepsis Comment: due to bronchitis. Blood cx NTD cont Ceftriaxone/Doxy Pt appears to have chronic leukocytosis and once off steroids should have repeated CBC and poss oncology consult (7) Diabetes Comment: Continue Lantus (increased due to uncontrolled DM secondary to steroid tx), SS Lispro. Uncontrolled due to steroids (8) HTN (hypertension) Comment: - SBP 140-180s. - Continue Cardizem and Lisinopril. (9) Acute diastolic CHF (congestive heart failure) Comment: developed after IVF tx for sepsis Cont Lasix IV BID x one more day, close to euvolemia today. Daily weights Echo shows EF 65%-unchanged from prior (10) DVT prophylaxis Comment: - Xarelto Status and Disposition: Inpatient
[2018-03-22] MEDS: Montelukast Sodium TAB* 10 MG PO SCH (20:48)
[2018-03-22] MEDS: oxyCODONE/Acetamin 5/325 MG* TAB PO PRN (20:54)
[2018-03-22] MEDS: Temazepam CAP* 15 MG PO PRN (20:54)
[2018-03-23] MEDS: Albuterol/Ipratropium NEB.SOL* Albuterol 2.5 MG/Ipratropium 0.5 MG 3 ML INH SCH ×3 (01:05→13:32)
[2018-03-23] MEDS: oxyCODONE/Acetamin 5/325 MG* TAB PO PRN (03:42)
[2018-03-23] MEDS: cefTRIAXone(*) 1 GM in NS 0.9% 50 ML* 50 ML IVPB SCH (06:25)
[2018-03-23 07:16] LABS: Hematocrit 30 % (35-47); Hemoglobin 9.7 g/dl (12.0-16.0); Mean Corpuscular HGB Conc 32 g/dl (31-36); Mean Corpuscular Hemoglobin 26 pg (27-31); Mean Corpuscular Volume 82 fL (80-97); Mean Platelet Volume 8.1 um3 (7.4-10.4); Platelet Count 311 10^3/ul (150-450); Red Cell Distribution Width 18 % (10.5-15); White Blood Count 15.1 10^3/ul (3.5-10.8)
[2018-03-23] MEDS: Mometasone/Formoter 200/5 MDI INH SCH (07:18)
[2018-03-23 07:36] LABS: EGFR Non-African American 73.7 (>60)
[2018-03-23] MEDS: Insulin LISPRO* 1 UNITS UNIT SUBCUT SCH ×4 (08:09→12:44)
[2018-03-23] MEDS: Furosemide IV* 10 MG/ML VIAL (40 MG) IV SCH (08:45)
[2018-03-23] MEDS: Lisinopril TAB* 10 MG PO SCH (08:45)
[2018-03-23] MEDS: Dofetilide CAP* 250 MCG PO SCH (08:45)
[2018-03-23] MEDS: guaiFENesin ER TAB 600 MG PO SCH (08:45)
[2018-03-23] MEDS: Magnesium Oxide TAB* 400 MG PO SCH (08:45)
[2018-03-23] MEDS: Diltiazem CD CAP* 180 MG PO SCH (08:45)
[2018-03-23] MEDS: Insulin GLARGINE(*) 1 UNITS UNIT SUBCUT SCH (08:45)
[2018-03-23] MEDS: Potassium Chlor TAB* 20 MEQ TAB.ER PO SCH (08:46)
[2018-03-23] MEDS: DULoxetine DR CAP* 60 MG CAP.DR PO SCH (08:46)
[2018-03-23] MEDS: DOXYcycline CAP(*) 100 MG PO SCH (08:46)
[2018-03-23] MEDS: Atorvastatin* 10 MG TAB PO SCH (08:46)
[2018-03-23] MEDS: Omeprazole CAP* 20 MG PO SCH (08:46)
[2018-03-23] MEDS: predniSONE TAB* 50 MG PO SCH (08:46)
[2018-03-23] MEDS: Gabapentin CAP(*) 400 MG PO SCH (08:46)
[2018-03-23] MEDS: Rivaroxaban TAB(*) 20 MG TAB PO SCH (08:46)
[2018-03-23 11:57] VITALS: BP 145/61
--- NOTE | 2018-03-24 07:30 | DS ---
CC: Dr. Cristin Duncan; Dr. Alonso; Dr. Francis * DISCHARGE SUMMARY: DATE OF ADMISSION: 03/19/18 DATE OF DISCHARGE: 03/23/18 PRIMARY CARE PROVIDER: Cristin Duncan MD DISCHARGE DIAGNOSES: 1. Sepsis due to bronchitis. 2. Acute chronic obstructive pulmonary disease exacerbation. 3. Acute exacerbation of chronic diastolic congestive heart failure. SECONDARY DIAGNOSES: 1. History of chronic obstructive pulmonary disease, on oxygen p.r.n. and at night. 2. History of diabetes, type 2. 3. Obstructive sleep apnea, on CPAP. 4. Paroxysmal atrial fibrillation. 5. Hypertension. 6. Obesity. 7. Fibromyalgia. 8. Hyperlipidemia. 9. Tonsillectomy. 10. Hernia repair. 11. C-sections in the past. 12. History of shoulder arthroscopy. 13. Bilateral knee surgeries. 14. History of right foot surgery. MEDICATIONS AT DISCHARGE: Include: 1. Oxygen at 2 L p.r.n. and on CPAP at night. 2. Albuterol inhaler on a p.r.n. basis. 3. DuoNeb on a p.r.n. basis. 4. Alogliptin 25 mg daily. 5. Lipitor 10 mg daily. 6. Baclofen 10 mg b.i.d. 7. Cardizem CD 360 mg daily. 8. Tikosyn 250 mcg b.i.d. 9. Cymbalta 60 mg b.i.d. 10. Neurontin 800 mg in a.m. 11. Neurontin 1600 mg q.p.m. 12. Lisinopril 40 mg daily. 13. Lorazepam 0.5 mg b.i.d. p.r.n. 14. Mag-Ox 400 mg daily. 15. Dulera 200/5 two inhalations b.i.d. 16. Singulair 10 mg at bedtime. 17. Omeprazole 40 mg daily. 18. Percocet on a p.r.n. basis. 19. Potassium chloride 20 mEq daily. 20. Xarelto 20 mg daily. 21. Daliresp 500 mcg daily. 22. Incruse Ellipta 1 inhalation q.a.m. 23. Furosemide 20 mg, it was changed from p.r.n. to daily schedule. 24. Insulin was increased from 45 units in the afternoon to 60 units in the afternoon only when the patient is on prednisone and then to be changed back to 45 units once off prednisone. 25. Insulin morning dose was increased from 20 units in the morning to 40 units in the morning while on prednisone. Please go back to 20 units in the morning once off prednisone. 26. Monistat 3, 1 application vaginally daily for 3 days at the bedtime as directed in the kit. 27. Prednisone taper 10 mg tablets, 3 tablets daily for 2 days, then 2 tablets daily for 2 days, then 1 tablet daily for 2 days, then stop. LABORATORY DATA AND STUDIES PERFORMED DURING THE HOSPITAL STAY: Included: On 03/23/18, sodium of 141, potassium 4.5, chloride 99, carbon dioxide 36, BUN 30, creatinine 0.8. Hemoglobin A1c was noted to be 10.0. Lactic acid at admission was 5.7, peaked at 7.2, the lowest was reported on 03/20/18 was 2.2. The patient is known to have elevated lactic acids in the past likely related to nebulizer treatments. The patient's troponin peaked at 1.14, which was likely a lab error since the remaining troponins had been between 0.04 to 0.07, which is consistent with prior troponins in this patient. C-reactive protein at admission was 27.3. Procalcitonin was 0.1. ABG at admission showed pH of 7.4, pCO2 of 39, pO2 of 119, and bicarb of 24. Influenza testing was negative. Chest x-ray, most recently reported on 03/19/18, impression, "no active cardiopulmonary disease is noted." Transthoracic echocardiogram reported on 03/19/18, impression, "mild concentric left ventricular hypertrophy. Global left ventricular wall motion and contractility within normal limits. Estimated ejection fraction is greater than 65%. Right ventricular global systolic function is normal. There is no evidence of aortic stenosis and trace mitral regurgitation. There is no evidence of tricuspid valve regurgitation. Unable to estimate the right ventricular systolic pressures. There was a trivial pericardial effusion visualized. There were no significant changes when compared to previous study from 07/20/17." HOSPITALIZATION COURSE: Madhavi Purvis is a 57-year-old female who presented with symptoms of COPD exacerbation to the hospital on 03/19/18. She had problems with coughing yellow sputum. She met sepsis criteria. She was septic at admission and received sepsis protocol intravenous bolus. She was treated initially with steroids and antibiotics. [place] through her intravenous bolus , she developed acute diastolic CHF for which she needed to be treated with intravenous diuretics. She continues to be treated with ceftriaxone and azithromycin for a total of 5 days on tapering dose of steroids. Due to the steroids, she developed uncontrolled hyperglycemia and her insulin doses had to be adjusted multiple times. She was noted to have elevated troponin, which is consistent with prior likely due to demand ischemia. Her transthoracic echocardiogram was unremarkable and she never complained of chest pain. By the time of discharge, she was back to room air while nonambulating. She is known to need oxygen in the past on as needed basis. At discharge, the patient is going to be placed on slow taper of prednisone. She started to use increased dose of insulin Lantus and so she is off prednisone and she can go back to her regular home doses. She is recommended to follow up with her primary care provider in approximately 4 to 7 days. PHYSICAL EXAM AT THE TIME OF DISCHARGE: Blood pressure of 145/61, heart rate of 76 and regular, respiratory rate 14, oxygen saturation 96% on room air, temperature 98.2. General: The patient is a very pleasant, obese 57-year-old female who is in no acute distress. Alert, awake, and oriented x3. HEENT: Head: Atraumatic, normocephalic. Eyes: Pupils are equal, reactive to light and accommodation. Oropharynx is clear. Mucosa moist. Neck: Supple. No JVD. No bruits bilaterally. Cardiovascular: Regular rate and rhythm. No murmur. Respiratory: Coarse mild rhonchi in bilateral mid lungs, otherwise clear and no wheezes appreciated. Abdomen: Soft, nontender. Bowel sounds are present in all 4 quadrants. Extremities: There is +1 pitting pedal edema, much improved from prior. There is no clubbing, cyanosis. On neuro evaluation, speech clear. Cranial nerves II through XII grossly intact. Motor strength is 5 /5 bilaterally. Please note that for the patient's congestive heart failure, IV diuretics was discontinued at discharge and the patient is recommended to continue her Lasix 20 mg daily scheduled instead of as needed in the past. Please note that this is a short summary of the patient's hospital stay. Please refer to further medical records for details. TIME SPENT: Approximately 45 minutes were spent on the patient's discharge. [id number]/[facility] #: [id number] [facility]
[2018-03-24] MEDS ORDERED: Furosemide TAB* 20 MG PO SCH (08:00)
== END 2018-03-23 14:22 | disposition home or self-care (01) | DRG 720 ==
LOC: ED 10:15 → MEDTELE 13:55
PROVIDERS: ADMIT Internal Medicine; ATTEND Internal Medicine
PROC: 5A09357 Assistance with Respiratory Ventilation, Less than 24 Consecutive Hours, Continuous Positive Airway Pressure (ICD-10-PCS; principal; 2018-03-20)
DX: A41.9 Sepsis, unspecified organism (principal); J96.21 Acute and chronic respiratory failure with hypoxia; I50.33 Acute on chronic diastolic (congestive) heart failure; J44.1 Chronic obstructive pulmonary disease with (acute) exacerbation; Z68.42 Body mass index [BMI] 45.0-49.9, adult; I24.8 Other forms of acute ischemic heart disease; G47.33 Obstructive sleep apnea (adult) (pediatric); I48.0 Paroxysmal atrial fibrillation; E66.9 Obesity, unspecified; E78.5 Hyperlipidemia, unspecified; M79.7 Fibromyalgia; R74.8 Abnormal levels of other serum enzymes; I11.0 Hypertensive heart disease with heart failure; J30.2 Other seasonal allergic rhinitis; K21.9 Gastro-esophageal reflux disease without esophagitis; M16.0 Bilateral primary osteoarthritis of hip; M19.042 Primary osteoarthritis, left hand; M19.041 Primary osteoarthritis, right hand; M47.9 Spondylosis, unspecified; G43.909 Migraine, unspecified, not intractable, without status migrainosus; E11.40 Type 2 diabetes mellitus with diabetic neuropathy, unspecified; F41.9 Anxiety disorder, unspecified; J40 Bronchitis, not specified as acute or chronic; F32.9 Major depressive disorder, single episode, unspecified; I34.0 Nonrheumatic mitral (valve) insufficiency; E11.65 Type 2 diabetes mellitus with hyperglycemia; R65.20 Severe sepsis without septic shock; R40.2364 Coma scale, best motor response, obeys commands, 24 hours or more after hospital admission; R40.2144 Coma scale, eyes open, spontaneous, 24 hours or more after hospital admission; R40.2254 Coma scale, best verbal response, oriented, 24 hours or more after hospital admission; Z99.81 Dependence on supplemental oxygen; Z98.41 Cataract extraction status, right eye; Z80.9 Family history of malignant neoplasm, unspecified; Z79.4 Long term (current) use of insulin; Z23 Encounter for immunization; Z88.8 Allergy status to other drugs, medicaments and biological substances; Z82.49 Family history of ischemic heart disease and other diseases of the circulatory system; Z82.5 Family history of asthma and other chronic lower respiratory diseases; Z87.891 Personal history of nicotine dependence; Z87.01 Personal history of pneumonia (recurrent); Z72.89 Other problems related to lifestyle; Z91.048 Other nonmedicinal substance allergy status; Z98.42 Cataract extraction status, left eye; Z79.01 Long term (current) use of anticoagulants; T38.0X5A Adverse effect of glucocorticoids and synthetic analogues, initial encounter; Y92.239 Unspecified place in hospital as the place of occurrence of the external cause
CPT/HCPCS: 36415; 71045; 71046; 80048; 80053; 81003; 81015; 82550; 82553; 82803; 82947; 83036; 83605; 83880; 84145; 84484; 85025; 85027; 85379; 85610; 85652; 85730; 86140; 87040; 87070; 87077; 87086; 87205; 90686; 93005; 93306; 94640; 94660; 99285; A9270-GY; C8929; J0696; J1940; J2543; J2920; J2930; J7512

== ENCOUNTER 2018-10-18 09:18 | Emergency (ER) | payer MEDICARE, OTHER ==
--- OUTSIDE RECORDS SUMMARY | 2018-10-18 09:34 | XMS REPORT | Continuity of Care Document ---
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 Cristin Duncan MD Primary Care Physician Unavailable Payers Date Identification Numbers Payment Provider Subscriber Effective: 2017 Policy Number: [id number] [place] Medicaid Madhavi Purvis PayID: [id number] [address] [address] [place] [address] Advance Directives Description No Information Available Problems Date Description Provider Status Onset: 09/19/2018 Ex-smoker Alma Vaughn PA Active Onset: 09/19/2018 Obstructive sleep apnea syndrome Alma Vaughn PA Active Onset: 09/19/2018 Uncomplicated moderate persistent asthma Alma Vaughn PA Active Onset: 09/19/2018 Solitary nodule of lung Alma Vaughn PA Active Family History Date Family Member(s) Observation Comments Father CAD Mother Asthma Social History Type Date Description Comments Sex Unknown Marital Status Occupation Disabled Tobacco Use Start: Unknown End: Unknown Former Cigarette Smoker ETOH Use Denies alcohol use Recreational Drug Use Never Used Drugs Tobacco Use Start: Unknown End: Unknown Patient is a former smoker Smoking Status Reviewed: 09/19/18 Patient is a former smoker Allergies, Adverse Reactions, Alerts Date Description Reaction Status Severity Comments 11/02/2017 Mobic Active Medications Medication Date Status Form Strength Qnty SIG Indications Ordering Provider Anoro Ellipta Active Aerosol 62.5-25mc 90uni 1 Kheti, 9 g/Inh ts inhalation MD Burt every day. please teach use. Arnuity Active Aerosol 200mcg/Ac 30uni 1 Shakira, Ellipta 9 t ts inhalation MD Burt daily, Please teach on use. Rinse mouth after every use. Peak Air Peak Active Device please J45.40 Shakira, Flow Meter 8 provide 1 MD Burt Adult/Pediatri peak flow c meter. Diagnosis: Asthma Daliresp Active Tablets 500mcg 30tab 1 by mouth J44.9 Shakira, 8 s every day MD Burt Ipratropium Active Solution 0.5-2.5(3 inhale the Unknown [place] 0 )mg/3ML contents of rol Sulfate one vial via nebulizer every 6 hours as needed for shortness of breath Furosemide Active Tablets 20mg 1 by mouth Unknown 0 every day Singulair Active Tablets 10mg 1 by mouth Unknown 0 every day Atorvastatin Active Tablets 10mg 1 by mouth Unknown Calcium 0 every day Dofetilide Active Capsules 250mcg 1 PO twice Unknown 0 daily Omeprazole Active Capsules 40mg 1 by mouth Unknown 0 DR every day Xarelto Active Tablets 20mg 1 by mouth Unknown 0 every day Lisinopril Active Tablets 40mg 1 by mouth Unknown 0 every day Ventolin HFA Active Aerosol 108(90Bas take 2 Unknown 0 e) puffs every mcg/Act 6 hours as needed for shortness of breath. Diltiazem HCL Active Caps ER 360mg 1 tablet by Unknown ER Beads 0 24HR mouth once a day Lantus Active Solution 100Unit/M 40 units in Unknown Solostar 0 Pen-Injec L Am and 60 t untis PM Lyrica Active Capsules 150mg 1-2 tab by Unknown 0 mouth twice a day as needed reference #: [id number] Victoza Active Solution 18mg/3ML inject Unknown 0 Pen-Injec 0.6mg subq t once daily then after one week increase to 1.2mg once daily Oxycodone HCL Active Tab ER 20mg 1 by mouth Unknown ER 0 12H three times Abuse-Det a day Arnuity Hx Aerosol 100mcg/Ac 30uni inhale one Kheti, Ellipta 8 - t ts puff by MD Burt mouth every 9 day, rinse mouth after use Dulera Hx Aerosol 100-5mcg/ 8.800 2 puffs Kheti, 0 - Act gm twice a day MD Burt Unknown Incruse Hx Aerosol 62.5mcg/I take 1 puff Unknown Ellipta 0 - nh once daily. 9 Tudorza Hx Aerosol 400mcg/Ac inhale one Unknown Pressair 0 - t puff by mouth twice 8 a day Diltiazem CD Hx Caps ER 240mg 1 by mouth Unknown 0 - 24HR every day 8 Lisinopril Hx Tablets 20mg 1 by mouth Unknown 0 - every day 8 Gabapentin Hx Capsules 400mg take one Unknown 0 - capsule by Unknown mouth three times a day Basaglar Hx Solution 100Unit/M 35-45u sq Unknown Kwikpen 0 - Pen-Injec L at bedtime Unknown t Cartia XT Hx Caps ER 180mg 1 by mouth Unknown 0 - 24HR every day Unknown Byetta 5 mcg Hx Solution 5mcg/0.02 once daily Erik-Berli Pen 0 - Pen-Injec ML n, Cristin, Unknown t Immunizations Description No Information Available Vital Signs Date Vital Result Comment 09/19/2018 3:56pm BP Systolic Sitting Left Arm 118 mmHg BP Diastolic Sitting Left Arm 60 mmHg Heart Rate 84 /min Respiratory Rate 18 /min Height 58 inches 4'10" Weight 242.00 lb BMI (Body Mass Index) 50.6 kg/m2 BSA (Body Surface Area) 1.97 m2 [place] body weight in kilograms 45 kg O2 % BldC Oximetry 93 % Ora 06/21/2018 1:06pm BP Systolic Sitting Left Arm 156 mmHg BP Diastolic Sitting Left Arm 68 mmHg Heart Rate 90 /min Respiratory Rate 20 /min Height 58 inches 4'10" Weight 243.00 lb BMI (Body Mass Index) 50.8 kg/m2 BSA (Body Surface Area) 1.98 m2 [place] body weight in kilograms 45 kg O2 % BldC Oximetry 96 % 04/24/2018 11:54am BP Systolic Sitting Left Arm 118 mmHg BP Diastolic Sitting Left Arm 80 mmHg Heart Rate 80 /min Respiratory Rate 18 /min Height 58 inches 4'10" Weight 240.00 lb BMI (Body Mass Index) 50.2 kg/m2 BSA (Body Surface Area) 1.97 m2 [place] body weight in kilograms 45 kg O2 % BldC Oximetry 97 % 11/02/2017 1:11pm BP Systolic Sitting Left Arm 118 mmHg BP Diastolic Sitting Left Arm 60 mmHg Heart Rate 84 /min Respiratory Rate 16 /min Weight 263.00 lb O2 % BldC Oximetry 93 % 2L/min Results Test Date Facility Test Result H/L Range Note Lymphocytes/leuk NFr 04/10/20 N2N/CCD Import Lymphocytes/leuk 2.6 Low 20.0-42. Bld Auto 18 NFr Bld Auto 0 Monocytes/leuk NFr 04/10/20 N2N/CCD Import Monocytes/leuk NFr 0.7 Low 4.3 -13.2 Bld Auto 18 Bld Auto Neutrophils # Bld 04/10/20 N2N/CCD Import Neutrophils # Bld 13.29 High 1.8-7.0 Auto 18 Auto Neutrophils/leuk NFr 04/10/20 N2N/CCD Import Neutrophils/leuk 96.7 High 40.4-72. Bld Auto 18 NFr Bld Auto 8 Potassium SerPl-sCnc 04/10/20 N2N/CCD Import Potassium 4.8 # 3.5-5.1 18 SerPl-sCnc RDW RBC Auto 04/10/20 N2N/CCD Import RDW RBC Auto 55.0 High 3-47 18 RDW RBC Auto-Rto 04/10/20 N2N/CCD Import RDW RBC Auto-Rto 18.0 High 11.7- 14. 18 4 Serum carbon dioxide 04/10/20 N2N/CCD Import Serum carbon 27 21-32 measurement 18 dioxide measurement Serum or plasma 04/10/20 N2N/CCD Import Serum or plasma 9.1 8.5-10.1 calcium measurement 18 calcium measurement (mass/volume) (mass/volume) Serum or plasma 04/10/20 N2N/CCD Import Serum or plasma 0.9 0.6-1.3 creatinine 18 creatinine measurement measurement (mass/volum (mass/volume) Serum or plasma 04/10/20 N2N/CCD Import Serum or plasma 428 High 74-106 glucose measurement 18 glucose measurement (mass/volume) (mass/volume) Serum or plasma urea 04/10/20 N2N/CCD Import Serum or plasma 17 7-18 nitrogen measurement 18 urea nitrogen (mass/vo measurement (mass/volume) Serum or plasma urea 04/10/20 N2N/CCD Import Serum or plasma 18.8 nitrogen/creatinine 18 urea mass rati nitrogen/creatinine mass ratio Serum sodium 04/10/20 N2N/CCD Import Serum sodium 138 136-145 measurement 18 measurement Venous blood base 04/10/20 N2N/CCD Import Venous blood base -2.8 excess determination 18 excess by calculat determination by calculation Venous blood 04/10/20 N2N/CCD Import Venous blood 22.0 bicarbonate 18 bicarbonate measurement measurement (moles/volume (moles/volume) Venous blood oxygen 04/10/20 N2N/CCD Import Venous blood oxygen 98.5 *H 60-80 saturation (mass 18 saturation (mass fraction) fraction) Venous blood pH 04/10/20 N2N/CCD Import Venous blood pH 7.38 7.25-7.5 measurement with 18 measurement with 5 patient temperatu patient temperature correction Venous blood partial 04/10/20 N2N/CCD Import Venous blood 38 Low 45-50 pressure of carbon 18 partial pressure of dioxide me carbon dioxide measurement adjusted to patient's actual temperature Venous blood partial 04/10/20 N2N/CCD Import Venous blood 140 *H 40-60 pressure of oxygen 18 partial pressure of measuremen oxygen measurement adjusted to patient's actual temperature Capillary blood 04/10/20 N2N/CCD Import Capillary blood 433 High 70-110 glucose measurement 18 glucose measurement by glucometer by glucometer (mass/volume) Serum or plasma 04/10/20 N2N/CCD Import Serum or plasma 4.9 *H 0.4-1.9 lactate measurement 18 lactate measurement (moles/volume) (moles/volume) Anion Gap SerPl-sCnc 04/10/20 N2N/CCD Import Anion Gap 8 8-16 18 SerPl-sCnc Automated blood 04/10/20 N2N/CCD Import Automated blood 0.00 0.0-0.1 basophil count 18 basophil count (count/volume) (count/volume) Automated blood 04/10/20 N2N/CCD Import Automated blood 0.00 0.0-0.5 eosinophil count 18 eosinophil count Automated blood 04/10/20 N2N/CCD Import Automated blood 31.9 Low 36.0- 46. hematocrit (volume 18 hematocrit (volume 1 fraction) fraction) Automated blood 04/10/20 N2N/CCD Import Automated blood 0.36 Low 1.0-4.0 lymphocyte count 18 lymphocyte count (number/volume) (number/volume) Automated blood 04/10/20 N2N/CCD Import Automated blood 243 155-360 platelet count 18 platelet count Automated blood 04/10/20 N2N/CCD Import Automated blood 10.8 8.9-12.4 platelet mean volume 18 platelet mean measurement volume measurement Automated 04/10/20 N2N/CCD Import Automated 26.9 25.9-32. erythrocyte mean 18 erythrocyte mean 7 corpuscular corpuscular hemoglobin hemoglobin (mass per erythrocyte) Automated 04/10/20 N2N/CCD Import Automated 31.0 30.8-34. erythrocyte mean 18 erythrocyte mean 3 corpuscular corpuscular hemoglobin hemoglobin concentration measurement (mass/volume) Automated 04/10/20 N2N/CCD Import Automated 86.7 80.9-99. erythrocyte mean 18 erythrocyte mean 0 corpuscular volume corpuscular volume Basophils/leuk NFr 04/10/20 N2N/CCD Import Basophils/leuk NFr 0.0 0.0- 1.1 Bld Auto 18 Bld Auto Blood erythrocytes 04/10/20 N2N/CCD Import Blood erythrocytes 3.68 Low 3.90-5.4 automated count 18 automated count 0 (number/volume) (number/volume) Blood estimated 04/10/20 N2N/CCD Import Blood estimated 240 average glucose 18 average glucose determination by e determination by estimation from glycated hemoglobin (mass/volume) Blood hemoglobin 04/10/20 N2N/CCD Import Blood hemoglobin 9.9 Low 11.6- 15. measurement 18 measurement 8 (mass/volume) (mass/volume) Blood leukocytes 04/10/20 N2N/CCD Import Blood leukocytes 13.8 High 3.1- 10.7 automated count 18 automated count (number/volume) (number/volume) Blood monocytes 04/10/20 N2N/CCD Import Blood monocytes 0.10 Low 0.3-0.9 automated count 18 automated count (number/volume) (number/volume) Chloride SerPl-sCnc 04/10/20 N2N/CCD Import Chloride SerPl-sCnc 103 98- 107 18 Eosinophil/leuk NFr 04/10/20 N2N/CCD Import Eosinophil/leuk NFr 0.0 0.0- 6.6 Bld Auto 18 Bld Auto Hgb A1c MFr Bld 04/10/20 N2N/CCD Import Hgb A1c MFr Bld 10.0 High 4.2- 6.3 18 Unloinc 04/09/20 N2N/CCD Import Unloinc See Note 1 18 Serum or plasma 04/09/20 N2N/CCD Import Serum or plasma 0.016 troponin i.cardiac 18 troponin i.cardiac measurement (ma measurement (mass/volume) Serum or plasma 04/09/20 N2N/CCD Import Serum or plasma 0.3 0.2-1.0 total bilirubin 18 total bilirubin measurement (mass/ measurement (mass/volume) Serum or plasma 04/09/20 N2N/CCD Import Serum or plasma 6.4 6.4-8.2 protein measurement 18 protein measurement (mass/volume) (mass/volume) Serum or plasma 04/09/20 N2N/CCD Import Serum or plasma 40 26-192 creatine kinase 18 creatine kinase measurement (enzym measurement (enzymatic activity/volume) Serum or plasma 04/09/20 N2N/CCD Import Serum or plasma 6 Low 15-37 aspartate 18 aspartate aminotransferase aminotransferase measure measurement (enzymatic activity/volume) Serum or plasma 04/09/20 N2N/CCD Import Serum or plasma 111 45-117 alkaline phosphatase 18 alkaline measurement ( phosphatase measurement (enzymatic activity/volume) Serum or plasma 04/09/20 N2N/CCD Import Serum or plasma 2.8 Low 3.4-5.0 albumin measurement 18 albumin measurement (mass/volume) (mass/volume) Globulin Ser 04/09/20 N2N/CCD Import Globulin Ser 3.6 1.9-4.3 Calc-mCnc 18 Calc-mCnc Albumin/Glob SerPl 04/09/20 N2N/CCD Import Albumin/Glob SerPl 0.8 18 Alt SerPl-cCnc 04/09/20 N2N/CCD Import Alt SerPl-cCnc 24 12-78 18 Unloinc 02/08/20 N2N/CCD Import Unloinc See Note 2 18 Serum or plasma IgE 02/08/20 N2N/CCD Import Serum or plasma IgE 6 0-100 measurement 18 measurement (units/volume) (units/volume) Serum house 02/08/20 N2N/CCD Import Serum 0.17 A Class dust mite IgE 18 house dust mite IgE 0/I antibody assay antibody assay (units/volume) Serum Israeli house 02/08/20 N2N/CCD Import Serum Israeli 0.15 A Class dust mite IgE 18 house dust mite IgE 0/I antibody assay antibody assay (units/volume) Allergens,Zone 1 [facility] (Text (SEE 3, [address] Only) NOTE) [place] [address] [phone] D Pteronyssinus 0.17 kU/L Class 0/I D Farinae Mite 0.15 kU/L Class 0/I Cat Hair/Dander <0.10 kU/L Class 0 Dog Hair/Dander <0.10 kU/L Class 0 [place],[facility] <0.10 kU/L Class 0 Bermuda Grass <0.10 kU/L Class 0 Bahia Grass <0.10 kU/L Class 0 Cockroach,Israeli <0.10 kU/L Class 0 Penicillium Not <0.10 kU/L Class 0 Cladosporium Herbarum <0.10 kU/L Class 0 Apergillis Fumigatus Ige <0.10 kU/L Class 0 Mucor Racemosus <0.10 kU/L Class 0 Alternaria Alternata <0.10 kU/L Class 0 Stemphylium Bot <0.10 kU/L Class 0 Birch,White <0.10 kU/L Class 0 Gateway,White <0.10 kU/L Class 0 Elm,Israeli (White) <0.10 kU/L Class 0 Jay,White <0.10 kU/L Class 0 Hazelnut Tree T004 Ige <0.10 kU/L Class 0 Windham,White <0.10 kU/L Class 0 Riverton,White <0.10 kU/L Class 0 Cleburne,Mountain <0.10 kU/L Class 0 Ragweed,Short/ <0.10 kU/L Class 0 Mugwort <0.10 kU/L Class 0 Plantain,Singaporean <0.10 kU/L Class 0 Pigweed,Rough <0.10 kU/L Class 0 Sheep Vance (DO <0.10 kU/L Class 0 Nettle <0.10 kU/L Class 0 Maple/Pelham Ige T001 <0.10 kU/L Class 0 5 Laboratory test 02/07/2018 [facility] Immunoglobulin 6 IU/mL 0-100 6 finding [address], [place] [id number] [phone] pH Ur Strip.auto 02/05/2018 N2N/CCD Import pH Ur Strip.auto 5.5 Low 6.5- 7.5 Yeast detection 02/05/2018 N2N/CCD Import Yeast detection in Few None Seen in urine urine sediment by sediment by light microscopy light microsc Urobilinogen Ur 02/05/2018 N2N/CCD Import Urobilinogen Ur 0.2 0.2-1.0 Strip-aCnc Strip-aCnc Urine total 02/05/2018 N2N/CCD Import Urine total Negative Negative bilirubin bilirubin detection by detection by automated test automated test strip Urine hemoglobin 02/05/2018 N2N/CCD Import Urine hemoglobin Moderate High Negative detection by detection by automated test automated test strip strip Urine appearance 02/05/2018 N2N/CCD Import Urine appearance Clear Clear determination determination Specific gravity 02/05/2018 N2N/CCD Import Specific gravity 1.020 1.010- 1.0 of Urine by of Urine by 30 Automated test Automated test strip strip Prot Ur 02/05/2018 N2N/CCD Import Prot Ur Trace Negative Strip.auto-mCnc Strip.auto-mCnc Nitrite Ur Ql 02/05/2018 N2N/CCD Import Nitrite Ur Ql Negative Negative Strip.auto Strip.auto * Miscellaneous 02/05/2018 N2N/CCD Import * Miscellaneous Test(s) studies (set) studies (set) added Aerobic blood 02/05/2018 N2N/CCD Import Aerobic blood No culture culture Growth: Final Report Anaerobic blood 02/05/2018 N2N/CCD Import Anaerobic blood No culture culture Growth: Final Report Serum or plasma 02/05/2018 N2N/CCD Import Serum or plasma C 10.7 High < 3.0 C reactive reactive protein protein measurement measurement (ma (mass/volume) Serum or plasma 02/05/2018 N2N/CCD Import Serum or plasma 2.2 1.8-2.4 magnesium magnesium measurement measurement (mass/volume (mass/volume) Bacterial urine 02/05/2018 N2N/CCD Import Bacterial urine Organism: culture culture Mixed Urethral Opal Color Ur 02/05/2018 N2N/CCD Import Color Ur Yellow Yellow Epithelial cells 02/05/2018 N2N/CCD Import Epithelial cells Many None Seen detection in detection in urine urine sediment sediment by light by li microscopy Ketones Ur 02/05/2018 N2N/CCD Import Ketones Ur Trace High Negative Strip.auto-mCnc Strip.auto-mCnc Legionella 02/05/2018 N2N/CCD Import Legionella Negative Negative pneumophila 1 Ag pneumophila 1 Ag [Presence] in [Presence] in Urine by Urine by Immunoassay Leukocyte 02/05/2018 N2N/CCD Import Leukocyte esterase Negative Negative esterase Ur Ql Ur Ql Strip.auto Strip.auto Chloride 11/28/2017 N2N/CCD Import Chloride 101 98-107 SerPl-sCnc SerPl-sCnc Eosinophil/leuk 11/28/2017 N2N/CCD Import Eosinophil/leuk 0.3 0.0-6.6 NFr Bld Auto NFr Bld Auto Lymphocytes/leuk 11/28/2017 N2N/CCD Import Lymphocytes/leuk 19.4 Low 20.0 -42.0 NFr Bld Auto NFr Bld Auto Monocytes/leuk 11/28/2017 N2N/CCD Import Monocytes/leuk NFr 6.5 4.3- 13.2 NFr Bld Auto Bld Auto Neutrophils # 11/28/2017 N2N/CCD Import Neutrophils # Bld 11.22 High 1.8- 7.0 Bld Auto Auto Neutrophils/leuk 11/28/2017 N2N/CCD Import Neutrophils/leuk 73.7 High 40.4-72.8 NFr Bld Auto NFr Bld Auto Potassium 11/28/2017 N2N/CCD Import Potassium 3.5 3.5-5.1 SerPl-sCnc SerPl-sCnc RDW RBC Auto 11/28/2017 N2N/CCD Import RDW RBC Auto 52.3 High 3-47 RDW RBC Auto-Rto 11/28/2017 N2N/CCD Import RDW RBC Auto-Rto 16.5 High 11.7-14.4 Serum carbon 11/28/2017 N2N/CCD Import Serum carbon 34 High 21-32 dioxide dioxide measurement measurement Serum or plasma 11/28/2017 N2N/CCD Import Serum or plasma 9.0 8.5-10.1 calcium calcium measurement measurement (mass/volume) (mass/volume) Serum or plasma 11/28/2017 N2N/CCD Import Serum or plasma 0.9 0.6-1.3 creatinine creatinine measurement measurement (mass/volum (mass/volume) Serum or plasma 11/28/2017 N2N/CCD Import Serum or plasma 116 High 74- 106 glucose glucose measurement measurement (mass/volume) (mass/volume) Serum or plasma 11/28/2017 N2N/CCD Import Serum or plasma 24 High 7-18 urea nitrogen urea nitrogen measurement measurement (mass/vo (mass/volume) Serum sodium 11/28/2017 N2N/CCD Import Serum sodium 140 136-145 measurement measurement Capillary blood 11/28/2017 N2N/CCD Import Capillary blood 189 High 70- 110 glucose glucose measurement by measurement by glucometer glucometer (mass/volume) Anion Gap 11/28/2017 N2N/CCD Import Anion Gap 5 Low 8-16 SerPl-sCnc SerPl-sCnc Automated blood 11/28/2017 N2N/CCD Import Automated blood 0.01 0.0-0.1 basophil count basophil count (count/volume) (count/volume) Automated blood 11/28/2017 N2N/CCD Import Automated blood 0.05 0.0-0.5 eosinophil count eosinophil count Automated blood 11/28/2017 N2N/CCD Import Automated blood 34.2 Low 36.0- 46.1 hematocrit hematocrit (volume (volume fraction) fraction) Automated blood 11/28/2017 N2N/CCD Import Automated blood 2.96 1.0-4.0 lymphocyte count lymphocyte count (number/volume) (number/volume) Automated blood 11/28/2017 N2N/CCD Import Automated blood 266 155-360 platelet count platelet count Automated blood 11/28/2017 N2N/CCD Import Automated blood 10.6 8.9-12.4 platelet mean platelet mean volume volume measurement measurement Automated 11/28/2017 N2N/CCD Import Automated 27.9 25.9-32.7 erythrocyte mean erythrocyte mean corpuscular corpuscular hemoglobin hemoglobin (mass per erythrocyte) Automated 11/28/2017 N2N/CCD Import Automated 31.3 30.8-34.3 erythrocyte mean erythrocyte mean corpuscular corpuscular hemoglobin hemoglobin concentration measurement (mass/volume) Automated 11/28/2017 N2N/CCD Import Automated 89.3 80.9-99.0 erythrocyte mean erythrocyte mean corpuscular corpuscular volume volume BUN/Creat SerPl 11/28/2017 N2N/CCD Import BUN/Creat SerPl 26.6 Basophils/leuk 11/28/2017 N2N/CCD Import Basophils/leuk NFr 0.1 0.0-1.1 NFr Bld Auto Bld Auto Blood 11/28/2017 N2N/CCD Import Blood erythrocytes 3.83 Low 3.90-5.40 erythrocytes automated count automated count (number/volume) (number/volume) Blood hemoglobin 11/28/2017 N2N/CCD Import Blood hemoglobin 10.7 Low 11.6 -15.8 measurement measurement (mass/volume) (mass/volume) Blood leukocytes 11/28/2017 N2N/CCD Import Blood leukocytes 15.2 High 3.1 -10.7 automated count automated count (number/volume) (number/volume) Blood monocytes 11/28/2017 N2N/CCD Import Blood monocytes 0.99 High 0.3- 0.9 automated count automated count (number/volume) (number/volume) Serum or plasma 11/27/2017 N2N/CCD Import Serum or plasma 4.2 *H 0.4-1.9 lactate lactate measurement measurement (moles/volume) (moles/volume) Unloinc 11/27/2017 N2N/CCD Import Unloinc See Note 7 Serum or plasma 11/26/2017 N2N/CCD Import Serum or plasma 0.2 0.2-1.0 total bilirubin total bilirubin measurement measurement (mass/ (mass/volume) Serum or plasma 11/26/2017 N2N/CCD Import Serum or plasma 6.0 Low 6.4- 8.2 protein protein measurement measurement (mass/volume) (mass/volume) Serum or plasma 11/26/2017 N2N/CCD Import Serum or plasma 2.0 1.8-2.4 magnesium magnesium measurement measurement (mass/volume (mass/volume) Serum or plasma 11/26/2017 N2N/CCD Import Serum or plasma 20 15-37 aspartate aspartate aminotransferase aminotransferase measure measurement (enzymatic activity/volume) Serum or plasma 11/26/2017 N2N/CCD Import Serum or plasma 115 45-117 alkaline alkaline phosphatase phosphatase measurement ( measurement (enzymatic activity/volume) Serum or plasma 11/26/2017 N2N/CCD Import Serum or plasma 2.9 Low 3.4- 5.0 albumin albumin measurement measurement (mass/volume) (mass/volume) Hgb A1c MFr Bld 11/26/2017 N2N/CCD Import Hgb A1c MFr Bld 11.3 High 4.2- 6.3 Globulin Ser 11/26/2017 N2N/CCD Import Globulin Ser 3.1 1.9-4.3 Calc-mCnc Calc-mCnc Blood estimated 11/26/2017 N2N/CCD Import Blood estimated 278 average glucose average glucose determination by determination by e estimation from glycated hemoglobin (mass/volume) Albumin/Glob 11/26/2017 N2N/CCD Import Albumin/Glob SerPl 0.9 SerPl Alt SerPl-cCnc 11/26/2017 N2N/CCD Import Alt SerPl-cCnc 49 12-78 * Breath rate 11/23/2017 N2N/CCD Import * Breath rate 16 setting setting ventilator ventilator Arterial blood 11/23/2017 N2N/CCD Import Arterial blood 3 High -2-2 base excess base excess determination by determination by calcul calculation Arterial blood 11/23/2017 N2N/CCD Import Arterial blood 28 High 22-26 bicarbonate bicarbonate measurement measurement (moles/volu (moles/volume) Arterial blood 11/23/2017 N2N/CCD Import Arterial blood gas L.Rad.Art gas measurement measurement . Arterial blood 11/23/2017 N2N/CCD Import Arterial blood 97 90-99 oxygen oxygen saturation saturation measurement measurement Arterial blood 11/23/2017 N2N/CCD Import Arterial blood pH 7.38 7.35- 7.45 pH measurement measurement with with patient patient tempera temperature correction Arterial blood 11/23/2017 N2N/CCD Import Arterial blood 49 High 35-45 partial pressure partial pressure of carbon of carbon dioxide dioxide with temperature correction Arterial blood 11/23/2017 N2N/CCD Import Arterial blood 99 80-105 partial pressure partial pressure of oxygen of oxygen adjusted adjusted to patient's actualtemperature Determination of 11/23/2017 N2N/CCD Import Determination of 40 20-101 inhaled oxygen inhaled oxygen concentration concentration (vol (volume fraction) Positive end 11/23/2017 N2N/CCD Import Positive end 6 expiratory expiratory pressure pressure respiratory respiratory system syste Resp rate 11/23/2017 N2N/CCD Import Resp rate 26 Unloinc 11/23/2017 N2N/CCD Import Unloinc Yes Unloinc Bipap Unloinc 16 0-50 Anaerobic blood 11/23/2017 N2N/CCD Import Anaerobic blood No Growth: culture culture Final Report Aerobic blood 11/23/2017 N2N/CCD Import Aerobic blood No Growth: culture culture Final Report Aerobic bacterial 11/23/2017 N2N/CCD Import Aerobic bacterial Respiratory respiratory respiratory culture Opal culture Serum or plasma 11/23/2017 N2N/CCD Import Serum or plasma Negative Negative acetone detection acetone detection Color Ur 11/23/2017 N2N/CCD Import Color Ur Yellow Yellow Ketones Ur 11/23/2017 N2N/CCD Import Ketones Ur Trace High Negative Strip.auto-mCnc Strip.auto-mCnc Legionella 11/23/2017 N2N/CCD Import Legionella Negative Negative pneumophila 1 Ag pneumophila 1 Ag [Presence] in [Presence] in Urine Urine by by Immunoassay Leukocyte esterase 11/23/2017 N2N/CCD Import Leukocyte esterase Negative Negative Ur Ql Strip.auto Ur Ql Strip.auto Nitrite Ur Ql 11/23/2017 N2N/CCD Import Nitrite Ur Ql Negative Negative Strip.auto Strip.auto Prot Ur 11/23/2017 N2N/CCD Import Prot Ur 30 High Negative Strip.auto-mCnc Strip.auto-mCnc Specific gravity 11/23/2017 N2N/CCD Import Specific gravity of 1.020 1.010-1.0 of Urine by Urine by Automated 30 Automated test test strip strip Urine appearance 11/23/2017 N2N/CCD Import Urine appearance Clear Clear determination determination Urine hemoglobin 11/23/2017 N2N/CCD Import Urine hemoglobin Negative Negative detection by detection by automated test automated test strip strip Urine total 11/23/2017 N2N/CCD Import Urine total Negative Negative bilirubin bilirubin detection detection by by automated test automated test strip Urobilinogen Ur 11/23/2017 N2N/CCD Import Urobilinogen Ur 0.2 0.2-1.0 Strip-aCnc Strip-aCnc pH Ur Strip.auto 11/23/2017 N2N/CCD Import pH Ur Strip.auto 5.5 Low 6.5- 7.5 Serum or plasma 11/22/2017 N2N/CCD Import Serum or plasma 0.038 troponin i.cardiac troponin i.cardiac measurement (ma measurement (mass/volume) Serum or plasma 11/22/2017 N2N/CCD Import Serum or plasma 908.0 High < 125 natriuretic natriuretic peptide peptide B B prohormone prohormone N N-terminal measurement (mass/volume) Serum or plasma 11/22/2017 N2N/CCD Import Serum or plasma 67 26-192 creatine kinase creatine kinase measurement (enzym measurement (enzymatic activity/volume) Manual blood 11/22/2017 N2N/CCD Import Manual blood 79 High 33-73 segmented segmented neutrophils/100 neutrophils/100 leukocytes leukocytes Manual blood 11/22/2017 N2N/CCD Import Manual blood 7 0-10 monocytes/100 monocytes/100 leukocytes leukocytes Manual blood 11/22/2017 N2N/CCD Import Manual blood 14 Low 20-42 lymphocytes/100 lymphocytes/100 leukocytes leukocytes Fibrin D-dimer Feu 11/22/2017 N2N/CCD Import Fibrin D-dimer Feu 1.49 *H measurement in measurement in platelet poor pl platelet poor plasma (mass/volume) Blood total cell 11/22/2017 N2N/CCD Import Blood total cell 100 count count Blood platelet 11/22/2017 N2N/CCD Import Blood platelet Slight adequacy detection adequacy detection Increase by light microsc by light microscopy Blood manual 11/22/2017 N2N/CCD Import Blood manual Few LRG PLTS differential differential Seen comment comment interpretation ( interpretation (narrative result) Blood anisocytosis 11/22/2017 N2N/CCD Import Blood anisocytosis 2+ detection by light detection by light microscopy microscopy RDW RBC Auto-Rto 10/28/2017 N2N/CCD Import RDW RBC Auto-Rto 15.3 High 11.7-14.4 Serum carbon 10/28/2017 N2N/CCD Import Serum carbon 33 High 21-32 dioxide dioxide measurement measurement Serum or plasma 10/28/2017 N2N/CCD Import Serum or plasma 9.3 8.5-10.1 calcium calcium measurement measurement (mass/volume) (mass/volume) Serum or plasma 10/28/2017 N2N/CCD Import Serum or plasma 0.9 0.6-1.3 creatinine creatinine measurement measurement (mass/volum (mass/volume) Serum or plasma 10/28/2017 N2N/CCD Import Serum or plasma 0.8 0.8-2.0 digoxin digoxin measurement measurement (mass/volume) (mass/volume) Serum or plasma 10/28/2017 N2N/CCD Import Serum or plasma 257 High 74- 106 glucose glucose measurement measurement (mass/volume) (mass/volume) Serum or plasma 10/28/2017 N2N/CCD Import Serum or plasma 2.3 1.8-2.4 magnesium magnesium measurement measurement (mass/volume (mass/volume) Serum or plasma 10/28/2017 N2N/CCD Import Serum or plasma 27 High 7-18 urea nitrogen urea nitrogen measurement measurement (mass/vo (mass/volume) Serum sodium 10/28/2017 N2N/CCD Import Serum sodium 139 136-145 measurement measurement Potassium 10/28/2017 N2N/CCD Import Potassium 4.0 3.5-5.1 SerPl-sCnc SerPl-sCnc Chloride 10/28/2017 N2N/CCD Import Chloride SerPl-sCnc 99 98-107 SerPl-sCnc Blood leukocytes 10/28/2017 N2N/CCD Import Blood leukocytes 17.9 High 3.1 -10.7 automated count automated count (number/volume) (number/volume) Blood hemoglobin 10/28/2017 N2N/CCD Import Blood hemoglobin 11.6 11.6- 15.8 measurement measurement (mass/volume) (mass/volume) Blood erythrocytes 10/28/2017 N2N/CCD Import Blood erythrocytes 4.14 3.90-5.40 automated count automated count (number/volume) (number/volume) BUN/Creat SerPl 10/28/2017 N2N/CCD Import BUN/Creat SerPl 30.0 Automated 10/28/2017 N2N/CCD Import Automated 89.9 80.9-99.0 erythrocyte mean erythrocyte mean corpuscular volume corpuscular volume Automated 10/28/2017 N2N/CCD Import Automated 31.2 30.8-34.3 erythrocyte mean erythrocyte mean corpuscular corpuscular hemoglobin hemoglobin concentration measurement (mass/volume) Automated 10/28/2017 N2N/CCD Import Automated 28.0 25.9-32.7 erythrocyte mean erythrocyte mean corpuscular corpuscular hemoglobin hemoglobin (mass per erythrocyte) Automated blood 10/28/2017 N2N/CCD Import Automated blood 10.5 8.9-12.4 platelet mean platelet mean volume measurement volume measurement Capillary blood 10/28/2017 N2N/CCD Import Capillary blood 462 *H 70-110 glucose glucose measurement measurement by by glucometer glucometer (mass/volume) Anion Gap 10/28/2017 N2N/CCD Import Anion Gap 7 Low 8-16 SerPl-sCnc SerPl-sCnc Automated blood 10/28/2017 N2N/CCD Import Automated blood 37.2 36.0- 46.1 hematocrit (volume hematocrit (volume fraction) fraction) Automated blood 10/28/2017 N2N/CCD Import Automated blood 281 155-360 platelet count platelet count Serum or plasma 10/26/2017 N2N/CCD Import Serum or plasma 383.0 High < 125 natriuretic natriuretic peptide peptide B B prohormone prohormone N N-terminal measurement (mass/volume) Serum or plasma 10/26/2017 N2N/CCD Import Serum or plasma 0.023 troponin i.cardiac troponin i.cardiac measurement (ma measurement (mass/volume) Serum or plasma 10/26/2017 N2N/CCD Import Serum or plasma 9.1 Low 15.0- 20.0 trough vancomycin trough vancomycin level at trough level at trough (mass/volume) Blood estimated 10/25/2017 N2N/CCD Import Blood estimated 272 average glucose average glucose determination by e determination by estimation from glycated hemoglobin (mass/volume) Hgb A1c MFr Bld 10/25/2017 N2N/CCD Import Hgb A1c MFr Bld 11.1 High 4.2- 6.3 Serum or plasma 10/25/2017 N2N/CCD Import Serum or plasma 1.7 0.4-1.9 lactate lactate measurement measurement (moles/volume) (moles/volume) Blood total cell 10/24/2017 N2N/CCD Import Blood total cell 100 count count Eosinophil/leuk 10/24/2017 N2N/CCD Import Eosinophil/leuk NFr 0.6 0.0- 6.6 NFr Bld Auto Bld Auto Globulin Ser 10/24/2017 N2N/CCD Import Globulin Ser 3.8 1.9-4.3 Calc-mCnc Calc-mCnc Lymphocytes/leuk 10/24/2017 N2N/CCD Import Lymphocytes/leuk 15.4 Low 20.0 -42.0 NFr Bld Auto NFr Bld Auto Manual blood 10/24/2017 N2N/CCD Import Manual blood 18 Low 20-42 lymphocytes/100 lymphocytes/100 leukocytes leukocytes Manual blood 10/24/2017 N2N/CCD Import Manual blood 2 0-10 monocytes/100 monocytes/100 leukocytes leukocytes Manual blood 10/24/2017 N2N/CCD Import Manual blood 79 High 33-73 segmented segmented neutrophils/100 neutrophils/100 leukocytes leukocytes Manual blood 10/24/2017 N2N/CCD Import Manual blood 1 0-7 variant variant lymphocytes lymphocytes as as percentage of percentage of leukocytes Monocytes/leuk NFr 10/24/2017 N2N/CCD Import Monocytes/leuk NFr 7.3 4.3- 13.2 Bld Auto Bld Auto Neutrophils # Bld 10/24/2017 N2N/CCD Import Neutrophils # Bld 10.91 High 1.8-7.0 Auto Auto Neutrophils/leuk 10/24/2017 N2N/CCD Import Neutrophils/leuk 76.6 High 40.4-72.8 NFr Bld Auto NFr Bld Auto RDW RBC Auto 10/24/2017 N2N/CCD Import RDW RBC Auto 50.0 High 3-47 Serum or plasma 10/24/2017 N2N/CCD Import Serum or plasma 3.2 Low 3.4- 5.0 albumin albumin measurement measurement (mass/volume) (mass/volume) Serum or plasma 10/24/2017 N2N/CCD Import Serum or plasma 140 High 45- 117 alkaline alkaline phosphatase phosphatase measurement ( measurement (enzymatic activity/volume) Serum or plasma 10/24/2017 N2N/CCD Import Serum or plasma 19 15-37 aspartate aspartate aminotransferase aminotransferase measure measurement (enzymatic activity/volume) Serum or plasma 10/24/2017 N2N/CCD Import Serum or plasma 96 26-192 creatine kinase creatine kinase measurement (enzym measurement (enzymatic activity/volume) Serum or plasma 10/24/2017 N2N/CCD Import Serum or plasma 7.0 6.4-8.2 protein protein measurement measurement (mass/volume) (mass/volume) Serum or plasma 10/24/2017 N2N/CCD Import Serum or plasma 0.2 0.2-1.0 total bilirubin total bilirubin measurement (mass/ measurement (mass/volume) Unloinc 10/24/2017 N2N/CCD Import Unloinc Diff Ordered Leukocyte esterase 10/24/2017 N2N/CCD Import Leukocyte esterase Negative Negative Ur Ql Strip.auto Ur Ql Strip.auto Legionella 10/24/2017 N2N/CCD Import Legionella Negative Negative pneumophila 1 Ag pneumophila 1 Ag [Presence] in [Presence] in Urine Urine by by Immunoassay Ketones Ur 10/24/2017 N2N/CCD Import Ketones Ur Trace High Negative Strip.auto-mCnc Strip.auto-mCnc Color Ur 10/24/2017 N2N/CCD Import Color Ur Yellow Yellow Nitrite Ur Ql 10/24/2017 N2N/CCD Import Nitrite Ur Ql Negative Negative Strip.auto Strip.auto Prot Ur 10/24/2017 N2N/CCD Import Prot Ur 30 High Negative Strip.auto-mCnc Strip.auto-mCnc Specific gravity 10/24/2017 N2N/CCD Import Specific gravity of 1.010 1.010-1.0 of Urine by Urine by Automated 30 Automated test test strip strip Urine appearance 10/24/2017 N2N/CCD Import Urine appearance Clear Clear determination determination Urine hemoglobin 10/24/2017 N2N/CCD Import Urine hemoglobin Trace Negative detection by detection by automated test automated test strip strip Urine total 10/24/2017 N2N/CCD Import Urine total Negative Negative bilirubin bilirubin detection detection by by automated test automated test strip Urobilinogen Ur 10/24/2017 N2N/CCD Import Urobilinogen Ur 0.2 0.2-1.0 Strip-aCnc Strip-aCnc pH Ur Strip.auto 10/24/2017 N2N/CCD Import pH Ur Strip.auto 6.0 Low 6.5- 7.5 Arterial blood 10/24/2017 N2N/CCD Import Arterial blood base 4 High -2-2 base excess excess determination by determination by calcul calculation Arterial blood 10/24/2017 N2N/CCD Import Arterial blood 29 High 22-26 bicarbonate bicarbonate measurement measurement (moles/volu (moles/volume) Arterial blood 10/24/2017 N2N/CCD Import Arterial blood 96 90-99 oxygen saturation oxygen saturation measurement measurement Arterial blood pH 10/24/2017 N2N/CCD Import Arterial blood pH 7.43 7.35- 7.45 measurement with measurement with patient tempera patient temperature correction Arterial blood 10/24/2017 N2N/CCD Import Arterial blood 45 35-45 partial pressure partial pressure of of carbon dioxide carbon dioxide with temperature correction Arterial blood 10/24/2017 N2N/CCD Import Arterial blood 83 80-105 partial pressure partial pressure of of oxygen adjusted oxygen adjusted to patient's actualtemperature Aerobic blood 10/24/2017 N2N/CCD Import Aerobic blood No Growth culture culture Anaerobic blood 10/24/2017 N2N/CCD Import Anaerobic blood No Growth culture culture Alt SerPl-cCnc 10/24/2017 N2N/CCD Import Alt SerPl-cCnc 24 12-78 Albumin/Glob SerPl 10/24/2017 N2N/CCD Import Albumin/Glob SerPl 0.8 Automated blood 10/24/2017 N2N/CCD Import Automated blood 0.02 0.0-0.1 basophil count basophil count (count/volume) (count/volume) Automated blood 10/24/2017 N2N/CCD Import Automated blood 0.09 0.0-0.5 eosinophil count eosinophil count Automated blood 10/24/2017 N2N/CCD Import Automated blood 2.19 1.0-4.0 lymphocyte count lymphocyte count (number/volume) (number/volume) Basophils/leuk NFr 10/24/2017 N2N/CCD Import Basophils/leuk NFr 0.1 0.0- 1.1 Bld Auto Bld Auto Blood monocytes 10/24/2017 N2N/CCD Import Blood monocytes 1.04 High 0.3- 0.9 automated count automated count (number/volume) (number/volume) Blood platelet 10/24/2017 N2N/CCD Import Blood platelet Normal adequacy detection adequacy detection by light microsc by light microscopy 1 Instrument flagged sample for slide review. Less than 10% Bands seen, no other immature WBC's seen. RBC morphology essentially normal. Platelet estimate= Normal 2 Levels of Specific IgE Class Description of Class ----- < 0.10 0 Negative 0.10 - 0.31 0/I Equivocal/Low 0.32 - 0.55 I Low 0.56 - 1.40 II Moderate 1.41 - 3.90 III - 19.00 IV Very High 19.01 - 100.00 V Very High >100.00 Very High 3 [facility] 02/12 MEME 4 Levels of Specific IgE Class Description of Class ----- < 0.10 0 Negative 0.10 - 0.31 0/I Equivocal/Low 0.32 - 0.55 I Low 0.56 - 1.40 II Moderate 1.41 - 3.90 III High 3.91 - 19.00 IV Very High 19.01 - 100.00 V Very High >100.00 Very High 5 Performed at: [address] [id number] Senior Cost Analyst: Asher Chavez MD, Phone: [phone] Test(s) [id number] Cockroach, [place]; [id number] Mickey Nish were developed and had performance characteristics determined by [facility]. These tests have not been cleared or approved by the U.S. Food and Drug Administration. The FDA has determined that such clearance or approval is not necessary. These tests are used for clinical purposes. These should not be regarded as investigational or for research. 7 Instrument flagged sample for slide review. Less than 10% Bands seen, no other immature WBC's seen. RBC morphology essentially normal. Platelet estimate= Normal Procedures Date Code Description Status 12/04/2017 60525 Bronchospasm Provocation Evaluation Multi Spirometric Completed Determinati 12/04/2017 18826 Spirometry Completed 10/26/2017 69383 EKG Interpretation And Report Only Completed Encounters Type Date Location Provider Dx Diagnosis Office Visit 09/19/2018 Pulmonology Alma Vaughn PA R91.1 Solitary pulmonary 3:40p nodule J45.40 Moderate persistent asthma, uncomplicated G47.33 Obstructive sleep apnea (adult) (pediatric) Z87.891 Personal history of nicotine dependence Office Visit 06/21/2018 1:00p Pulmonology Burt Rosenberg J45.40 Moderate persistent MD asthma, uncomplicated G47.33 Obstructive sleep apnea (adult) (pediatric) R09.02 Hypoxemia Office Visit 04/24/2018 11:30a Pulmonology Burt Rosenberg J45.40 Moderate persistent MD asthma, uncomplicated G47.33 Obstructive sleep apnea (adult) (pediatric) E66.8 Other obesity Office Visit 11/02/2017 1:00p Pulmonology Burt Rosenberg MD J44.9 Chronic obstructive pulmonary disease, unspecified G47.33 Obstructive sleep apnea (adult) (pediatric) R91.1 Solitary pulmonary nodule E66.8 Other obesity Plan of Treatment Future Appointment(s):03/26/2019 3:40 pm - Alma Vaughn PA at [email or web address]/ 20/2019 - Alma Vaughn, PAR91.1 Solitary pulmonary noduleNew Xrays:CT, Chest W Out Contrast, Ordered: 09/19/18Comments:It is time to repeat your chest CT to monitor your nodule in 10/20180608M68.40 Moderate persistent asthma, uncomplicatedComments:Likely ACOS, Asthma-COPD Overlap Syndrome.Continue to use Anoro and Arnuity once daily. Daliresp andSingulair daily by mouth. Please carry your Ventolin inhaler with you at all times. Please monitor your peak flows and keep a record of this. Use your oxygen to maintain oxygen levels 89-95 %.Follow up:6 nwhbuyP27.33 Obstructive sleep apnea (adult) (pediatric)Comments: Please continue to use your CPAP nightly.Z87.495 Personal history of nicotine dependence
[2018-10-18 09:37] VITALS: BP 150/55
--- NOTE | 2018-10-18 10:16 | ED ---
Throat Pain/Nasal Congestion - HPI Summary HPI Summary: 58 yr old with ulcers on anterior tongue and one back of throat. Onset over past few days with sore throat, and then ulcers on front of tongue. She has had some tender right side neck glands. Mild fever. Recent treatment of pneumonia at the hospital. She is on home Oxygen by a concentrator. Symptoms are moderate. - History of Current Complaint Chief Complaint: UCGeneralIllness Time Seen by Provider: 10/18/18 09:57 - Allergies/Home Medications Allergies/Adverse Reactions: Allergies Allergy/AdvReac Type Severity Reaction Status Date / Time meloxicam Allergy Intermediate Arms - Verified 03/19/18 10:19 rash and swelling ENVIRONMENTAL Allergy Intermediate ASTHMATIC Uncoded 03/19/18 10:19 REACTIONS Home Medications: Home Medications Pregabalin [Lyrica] 150 mg PO BID 10/18/18 [History Confirmed 10/18/18] PMH/Surg Hx/FS Hx/Imm Hx Endocrine/Hematology History: Reports: Hx Diabetes - Type 2 Cardiovascular History: Reports: Hx Atrial Fibrillation, Hx Congestive Heart Failure, Hx Hypercholesterolemia, Hx Hypertension, Other Cardiovascular Problems /Disorders - Paroxysmal Atrial fibrillaltion, Hyperlipidemia Denies: Hx Myocardial Infarction, Hx Pacemaker/ICD Respiratory History: Reports: Hx Asthma - on medications, Hx Chronic Bronchitis , Hx Chronic Obstructive Pulmonary Disease (COPD), Hx Seasonal Allergies, Hx Sleep Apnea - JULIANA with CPAP, Other Respiratory Problems/Disorders - Chronic hypoxic respiratory failure,Uses O2 2l NC as needed and at night GI History: Reports: Hx Gastroesophageal Reflux Disease - GERD-on medication, Other GI Disorders - Ventral hernia repair History: Denies: Hx Renal Disease, Other Problems/Disorders Musculoskeletal History: Reports: Hx Arthritis - both hips, low back, bilateral hands, neck, Hx Fibromyalgia Denies: Other Musculoskeletal History Sensory History: Reports: Hx Cataracts - Right eye cataract removed 2008, Left cataract at present, Hx Contacts or Glasses - Glasses Denies: Hx Hearing Aid Opthamlomology History: Reports: Hx Cataracts - Right eye cataract removed 2008 , Left cataract at present, Hx Contacts or Glasses - Glasses Neurological History: Reports: Hx Migraine, 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 1998 right shoulder arthroscopy [facility]. 2009 left breast biopsy [facility]. 2004 RT cataract [facility]. right foot reconstruction [facility]. Ventral hernia repair. Bilateral knee arthroscopies. 2007 VENTRAL hernia repair [facility]. 2013 TORN MENISCUS REPAIR IN RIGHT KNEE [facility]. Tonsillectomy. 2018 Left eye cataract removal Hx Anesthesia Reactions: No Infectious Disease History: No Infectious Disease History: Denies: Hx Hepatitis, Traveled Outside the [place] in Last 30 Days - Family History Known Family History: Positive: Cardiac Disease, Hypertension, Other - breast cancer, asthma Family History: Asthma. Cancer - Social History Alcohol Use: Rare Hx Substance Use: No Substance Use Type: Reports: None Hx Tobacco Use: Yes Smoking Status (MU): Former Smoker Type: Cigarettes Amount Used/How Often: LESS THEN 1PPD 15 YRS STARTED AGE 15, QUIT MANY TIMES; NONE SINCE 2013 Have You Smoked in the Last Year: No Review of Systems Constitutional: Negative Positive: Sore Throat, Other - ulcer on tongue. All Other Systems Reviewed And Are Negative: Yes Physical Exam Triage Information Reviewed: Yes Vital Signs On Initial Exam: Initial Vitals Temp Pulse Resp BP Pulse Ox 98.2 F 82 32 150/55 100 10/18/18 09:32 10/18/18 09:32 10/18/18 09:32 10/18/18 09:32 10/18/18 09:32 Vital Signs Reviewed: Yes Appearance: Positive: Well-Appearing, No Pain Distress Skin: Positive: Warm, Skin Color Reflects Adequate Perfusion Head/Face: Positive: Normal Head/Face Inspection Eyes: Positive: EOMI ENT: Positive: Nasal congestion, TMs normal, Other - the anterior tongue is with ulcers bilateral with one left side soft palate. Neck: Positive: Supple, Nontender Respiratory/Lung Sounds: Positive: Clear to Auscultation, Breath Sounds Present Cardiovascular: Positive: RRR. Negative: Murmur Abdomen Description: Negative: Distended Musculoskeletal: Positive: Strength/ROM Intact Neurological: Positive: Sensory/Motor Intact, Alert, Oriented to Person Place, Time, CN Intact II-III, Speech Normal Psychiatric: Positive: Normal - Mumtaz Coma Scale Best Eye Response: 4 - Spontaneous Best Motor Response: 6 - Obeys Commands Best Verbal Response: 5 - Oriented Coma Scale Total: 15 Diagnostics - Vital Signs Vital Signs Temp Pulse Resp BP Pulse Ox 04/18/19 09:32 98.2 F 82 32 150/55 100 - Laboratory Lab Statement: Any lab studies that have been ordered have been reviewed, and results considered in the medical decision making process. EENT Course/Dx - Course Course Of Treatment: 58 yr old female with viral URI, ulcers on tongue. Plan Rx with magic mouth wash. - Diagnoses Provider Diagnoses: Aphthous ulcer of tongue, Upper respiratory infection, Hypertension Discharge - Sign-Out/Discharge Documenting (check all that apply): Patient Departure All imaging exams completed and their final reports reviewed: No Studies - Discharge Plan Condition: Good Disposition: HOME Prescriptions: Magic Mouth Was-JESUS ALBERTO/MAAL/LIDO* 5 ml SWISH SPIT QID #80 ml Patient Education Materials: Canker Sores (ED), Upper Respiratory Infection (ED ), Hypertension (ED) Referrals: Cristin Duncan MD [Primary Care Provider] - 2 Days - Billing Disposition and Condition Condition: GOOD Disposition: Home
== END 2018-10-18 10:25 | disposition home or self-care (01) ==
LOC: UCCORT 09:18
DX: K12.0 Recurrent oral aphthae (principal); J06.9 Acute upper respiratory infection, unspecified; I11.0 Hypertensive heart disease with heart failure; I50.9 Heart failure, unspecified; J44.9 Chronic obstructive pulmonary disease, unspecified; E11.9 Type 2 diabetes mellitus without complications; M79.7 Fibromyalgia; F41.9 Anxiety disorder, unspecified; Z91.09 Other allergy status, other than to drugs and biological substances; Z88.8 Allergy status to other drugs, medicaments and biological substances; Z87.891 Personal history of nicotine dependence; Z87.01 Personal history of pneumonia (recurrent)
CPT/HCPCS: 99212; G0463

== ENCOUNTER 2018-11-30 12:17 | Inpatient (IN) | payer MEDICARE, OTHER ==
[2018-11-30] MEDS ORDERED: NS 0.9% 1000 ML** 1,000 ML IV ONE (12:37)
[2018-11-30] MEDS ORDERED: Ondansetron INJ* 2 MG/ML VIAL IV ONE (12:37)
[2018-11-30 13:05] LABS: INR 1.05 (0.82-1.09)
[2018-11-30 13:19] LABS: ABS Monocytes 0.9 10^3/ul (0-0.8); ABS Neutrophils 11.5 10^3/ul (1.5-7.7); Eosinophil % 0.2 %; Hematocrit 35 % (35-47); Hemoglobin 10.9 g/dL (12.0-16.0); Lymphocyte % 13.5 %; Mean Corpuscular HGB Conc 32 g/dL (31-36); Mean Corpuscular Hemoglobin 24 pg (27-31); Mean Corpuscular Volume 77 fL (80-97); Mean Platelet Volume 8.2 fL (7.4-10.4); Platelet Count 372 10^3/uL (150-450); Red Blood Count 4.51 10^6 /uL (3.70-4.87); Red Cell Distribution Width 21 % (10.5-15); White Blood Count 14.5 10^3/uL (3.5-10.8)
[2018-11-30 13:26] LABS: Albumin 4.3 g/dL (3.2-5.2); Albumin/Globulin Ratio 1.4 (1-3); BUN/Creatinine Ratio 8.9 (8-20); C Reactive Protein 13.05 mg/L (<8.01); Calcium 10.2 mg/dL (8.6-10.3); EGFR African American 90.1 (>60); EGFR Non-African American 74.5 (>60); Potassium 3.4 mmol/L (3.5-5.0); Total Bilirubin 0.6 mg/dL (0.2-1.0); Total Protein 7.3 g/dL (6.4-8.9)
--- NOTE | 2018-11-30 13:34 | ED ---
Complex/Multi-Sys Presentation - HPI Summary HPI Summary: 58 year old F presenting to [facility] with a chief complaint of nausea and vomiting since 11/26/18. The patient rates the pain 0/10 in severity. Symptoms aggravated by nothing. Symptoms alleviated by nothing. Patient reports intermittent episodes of diarrhea. She additionally complains of dull/achey epigastric pain that does not radiate, and is rated 1/10 in severity. Patient denies fever, emesis, bloody stools, headache, dizziness, dysuria. Patient has hx A-fib. A few weeks ago, patient went to [place] ED for A-fib. She also had similar nausea, vomiting and received Reglan with some relief. Patient takes Tikosyn for A-fib and Xarelto. Patient takes Cardizem, atorvastatin, alogliptin for hx diabetes, 40 units insulin morning, 60 units insulin at night, Victoza, daily resp for hx COPD, Anoro inhaler, Arnuity inhaler, and omeprazole. She does not have hx ulcers. Patient has 2L O2 at home. Patient uses C-pap at night for hx sleep apnea. Patient checked her blood glucose levels this morning which was 104. Patient's father had hx NH. Patient has never had stress test. Patient s primary care provider is Dr. Cristin Duncan. Patient is a former smoker. Cardiac risk factors: Hypertension, diabetes, hypercholesterolemia, cardiac FHx , former smoker Vital signs at triage: HR 93 bpm, BP 178/109, O2 sat 99% Home Medications Medication Instructions Recorded Confirmed Type Albuterol 2.5MG/3ML (0.083%)* 2.5 mg INH BID PRN 11/30/18 11/30/18 History [Ventolin 2.5 MG/3 ML NEB.MATT*] Albuterol HFA INHALER* [Ventolin 2 puff INH Q4H PRN 11/30/18 11/30/18 History HFA Inhaler*] Albuterol HFA INHALER* [Ventolin 2 puff INH Q4H PRN 11/30/18 11/30/18 History HFA Inhaler*] Alogliptin (NF) [Nesina (NF)] 25 mg PO DAILY 11/30/18 11/30/18 History Baclofen TAB* [Lioresal TAB*] 10 mg PO BID PRN 11/30/18 11/30/18 History Benzonatate CAP* [Tessalon 100 MG 100 - 200 mg PO Q6HR PRN 11/30/18 11/30/18 History CAP*] DULoxetine DR CAP* [Cymbalta CAP*] 60 mg PO BID 11/30/18 11/30/18 History Docusate CAP* [Colace Cap*] 200 mg PO BEDTIME 11/30/18 11/30/18 History Fluticasone Furoate [Arnuity 1 puff INH DAILY 11/30/18 11/30/18 History Ellipta] Furosemide TAB* [Lasix TAB*] 20 mg PO DAILY PRN 11/30/18 11/30/18 History Insulin GLARGINE(*) [Lantus(*)] 40 units SUBCUT QAM 11/30/18 11/30/18 History Insulin GLARGINE(*) [Lantus(*)] 60 units SUBCUT QPM 11/30/18 11/30/18 History Ipratropium 0.5MG/2.5ML NEB* 0.5 mg INH TID PRN 11/30/18 11/30/18 History [Atrovent 0.5 MG NEB.MATT*] Liraglutide (NF) [Victoza (NF)] 1.2 mg SUBCUT DAILY 11/30/18 11/30/18 History Lisinopril TAB* [Prinivil TAB*] 40 mg PO DAILY 11/30/18 11/30/18 History Montelukast Sodium TAB* [Singulair 10 mg PO BEDTIME 11/30/18 11/30/18 History TAB*] Morphine TAB Extended Rel(*) [Ms 15 mg PO BID 11/30/18 11/30/18 History Contin(*)] Oxycodone Myristate [Xtampza ER] 18 mg PO BID 11/30/18 11/30/18 History Pregabalin CAP(*) [Lyrica CAP(*)] 150 mg PO BID 11/30/18 11/30/18 History Rivaroxaban TAB(*) [Xarelto 20 mg] 20 mg PO DAILY 11/30/18 11/30/18 History Roflumilast (NF) [Daliresp (NF)] 500 mcg PO DAILY 11/30/18 11/30/18 History Umeclidin/Vilant 62.5 MDI(NF) 1 puff INH QAM 11/30/18 11/30/18 History [ANORO 62.5/25 Ellipta DEVICE (NF)] dilTIAZem HCl [Tiazac] 360 mg PO DAILY 11/30/18 11/30/18 History - History Of Current Complaint Chief Complaint: EDNauseaVomitDiarrh Time Seen by Provider: 11/30/18 13:00 Hx Obtained From: Patient Onset/Duration: Lasting Days - 4, Still Present Timing: Constant Severity Currently: None Aggravating Factor(s): Nothing Alleviating Factor(s): Nothing Associated Signs And Symptoms: Positive: Other - Patient reports intermittent episodes of diarrhea. She additionally complains of dull/achey epigastric pain that does not radiate, and is rated 1/10 in severity. Patient denies fever, emesis, bloody stools, headache, dizziness, dysuria. - Allergies/Home Medications Allergies/Adverse Reactions: Allergies Allergy/AdvReac Type Severity Reaction Status Date / Time meloxicam Allergy Intermediate Arms - Verified 11/30/18 12:26 rash and swelling metformin Allergy Diarrhea Verified 11/30/18 12:26 ENVIRONMENTAL Allergy Intermediate ASTHMATIC Uncoded 11/30/18 12:26 REACTIONS Home Medications: Home Medications Albuterol 2.5MG/3ML (0.083%)* [Ventolin 2.5 MG/3 ML NEB.MATT*] 2.5 mg INH BID PRN 11/30/18 [History Confirmed 11/30/18] Albuterol HFA INHALER* [Ventolin HFA Inhaler*] 2 puff INH Q4H PRN 11/30/18 [ History Confirmed 11/30/18] Albuterol HFA INHALER* [Ventolin HFA Inhaler*] 2 puff INH Q4H PRN 11/30/18 [ History Confirmed 11/30/18] Alogliptin (NF) [Nesina (NF)] 25 mg PO DAILY 11/30/18 [History Confirmed ] Baclofen TAB* [Lioresal TAB*] 10 mg PO BID PRN 11/30/18 [History Confirmed 11/30] Benzonatate CAP* [Tessalon 100 MG CAP*] 100 - 200 mg PO Q6HR PRN 11/30/18 [ History Confirmed 11/30/18] DULoxetine DR CAP* [Cymbalta CAP*] 60 mg PO BID 11/30/18 [History Confirmed ] Docusate CAP* [Colace Cap*] 200 mg PO BEDTIME 11/30/18 [History Confirmed ] Dofetilide CAP* [Tikosyn CAP*] 250 mcg PO BID 11/30/18 [History Confirmed ] Fluticasone Furoate [Arnuity Ellipta] 1 puff INH DAILY 11/30/18 [History Confirmed 11/30/18] Furosemide TAB* [Lasix TAB*] 20 mg PO DAILY PRN 11/30/18 [History Confirmed ] Insulin GLARGINE(*) [Lantus(*)] 40 units SUBCUT QAM 11/30/18 [History Confirmed 11/30/18] Insulin GLARGINE(*) [Lantus(*)] 60 units SUBCUT QPM 11/30/18 [History Confirmed 11/30/18] Ipratropium 0.5MG/2.5ML NEB* [Atrovent 0.5 MG NEB.MATT*] 0.5 mg INH TID PRN 11/30 [History Confirmed 11/30/18] Liraglutide (NF) [Victoza (NF)] 1.2 mg SUBCUT DAILY 11/30/18 [History Confirmed 11/30/18] Lisinopril TAB* [Prinivil TAB*] 40 mg PO DAILY 11/30/18 [History Confirmed 11/30] Montelukast Sodium TAB* [Singulair TAB*] 10 mg PO BEDTIME 11/30/18 [History Confirmed 11/30/18] Morphine TAB Extended Rel(*) [Ms Contin(*)] 15 mg PO BID 11/30/18 [History Confirmed 11/30/18] Oxycodone Myristate [Xtampza ER] 18 mg PO BID 11/30/18 [History Confirmed ] Pregabalin CAP(*) [Lyrica CAP(*)] 150 mg PO BID 11/30/18 [History Confirmed ] Rivaroxaban TAB(*) [Xarelto 20 mg] 20 mg PO DAILY 11/30/18 [History Confirmed ] Roflumilast (NF) [Daliresp (NF)] 500 mcg PO DAILY 11/30/18 [History Confirmed ] Umeclidin/Vilant 62.5 MDI(NF) [ANORO 62.5/25 Ellipta DEVICE (NF)] 1 puff INH QAM 11/30/18 [History Confirmed 11/30/18] dilTIAZem HCl [Tiazac] 360 mg PO DAILY 11/30/18 [History Confirmed 11/30/18] PMH/Surg Hx/FS Hx/Imm Hx Previously Healthy: No Endocrine/Hematology History: Reports: Hx Diabetes - Type 2 Cardiovascular History: Reports: Hx Atrial Fibrillation, Hx Congestive Heart Failure, Hx Hypercholesterolemia, Hx Hypertension, Other Cardiovascular Problems /Disorders - Paroxysmal Atrial fibrillaltion, Hyperlipidemia Denies: Hx Myocardial Infarction, Hx Pacemaker/ICD Respiratory History: Reports: Hx Asthma - on medications, Hx Chronic Bronchitis , Hx Chronic Obstructive Pulmonary Disease (COPD), Hx Seasonal Allergies, Hx Sleep Apnea - JULIANA with CPAP, Other Respiratory Problems/Disorders - Chronic hypoxic respiratory failure,Uses O2 2l NC as needed and at night GI History: Reports: Hx Gastroesophageal Reflux Disease - GERD-on medication, Other GI Disorders - Ventral hernia repair History: Denies: Hx Renal Disease, Other Problems/Disorders Musculoskeletal History: Reports: Hx Arthritis - both hips, low back, bilateral hands, neck, Hx Fibromyalgia Denies: Other Musculoskeletal History Sensory History: Reports: Hx Cataracts - Right eye cataract removed 2008, Left cataract at present, Hx Contacts or Glasses - Glasses Denies: Hx Hearing Aid Opthamlomology History: Reports: Hx Cataracts - Right eye cataract removed 2008 , Left cataract at present, Hx Contacts or Glasses - Glasses Neurological History: Reports: Hx Migraine, 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 1998 right shoulder arthroscopy [facility]. 2009 left breast biopsy [facility]. 2004 RT cataract [facility]. right foot reconstruction [facility]. Ventral hernia repair. Bilateral knee arthroscopies. 2008 VENTRAL hernia repair [facility]. 2013 TORN MENISCUS REPAIR IN RIGHT KNEE [facility]. Tonsillectomy. 2018 Left eye cataract removal Hx Anesthesia Reactions: No Infectious Disease History: No Infectious Disease History: Denies: Hx Hepatitis, Traveled Outside the [place] in Last 30 Days - Family History Known Family History: Positive: Cardiac Disease - father, Hypertension, Other - breast cancer, asthma Family History: Asthma. Cancer - Social History Alcohol Use: Rare Hx Substance Use: No Substance Use Type: Reports: None Hx Tobacco Use: Yes Smoking Status (MU): Former Smoker Type: Cigarettes Amount Used/How Often: LESS THEN 1PPD 15 YRS STARTED AGE 15, QUIT MANY TIMES; NONE SINCE 2013 Have You Smoked in the Last Year: No Review of Systems Negative: Fever Gastrointestinal: Negative - emesis, bloody stools Positive: Vomiting, Diarrhea, Nausea, Other - dull/achey epigastric pain Negative: dysuria Neurological: Negative - Dizziness Negative: Headache All Other Systems Reviewed And Are Negative: Yes Physical Exam - Summary Physical Exam Summary: Appearance: Ill-appearing, moderate pain distress, obese Skin: Warm, color reflects adequate perfusion, dry Head: Normal Head/Face inspection, atraumatic Eyes: Conjunctiva clear ENT: Normal inspection Neck: Supple, no nodes, no JVD Respiratory: Lungs clear, normal breath sounds, no respiratory distress Cardio: RRR, No murmur, pulses normal, brisk capillary refill Abdomen: Tender epigastrium, no rebound, no guarding, no masses, non-distended Bowel sounds: Present Musculoskeletal: Strength Intact/ROM intact, no calf tenderness, no edema. Psychological: Normal Neuro: Alert, muscle tone normal, no focal deficit Triage Information Reviewed: Yes Vital Signs On Initial Exam: Initial Vitals Temp Pulse Resp BP Pulse Ox 98.3 F 93 17 178/109 99 11/30/18 12:22 11/30/18 12:22 11/30/18 12:22 11/30/18 12:22 11/30/18 12:22 Vital Signs Reviewed: Yes Diagnostics - Vital Signs Vital Signs Temp Pulse Resp BP Pulse Ox 11/30/18 12:22 98.3 F 93 17 178/109 99 - Laboratory Lab Results: Lab Results 11/30/18 11/30/18 11/30/18 Range/Units 12:48 12:48 12:48 WBC 14.5 H (3.5-10.8) 10^3/uL RBC 4.51 (3.70-4.87) 10^6 /uL Hgb 10.9 L (12.0-16.0) g/dL Hct 35 (35-47) % MCV 77 L (80-97) fL MCH 24 L (27-31) pg MCHC 32 (31-36) g/dL RDW 21 H (10.5-15) % Plt Count 372 (150-450) 10^3/uL MPV 8.2 (7.4-10.4) fL Neut % (Auto) 79.6 % Lymph % (Auto) 13.5 % Beadle % (Auto) 6.5 % Eos % (Auto) 0.2 % Baso % (Auto) 0.2 % Absolute Neuts (auto) 11.5 H (1.5-7.7) 10^3/ul Absolute Lymphs (auto) 2.0 (1.0-4.8) 10^3/ul Absolute Monos (auto) 0.9 H (0-0.8) 10^3/ul Absolute Eos (auto) 0.0 (0-0.6) 10^3/ul Absolute Basos (auto) 0.0 (0-0.2) 10^3/ul Absolute Nucleated RBC 0.0 10^3/ul Nucleated RBC % 0.0 INR (Anticoag Therapy) (0.82-1.09) Sodium 141 (135-145) mmol/L Potassium 3.4 L (3.5-5.0) mmol/L Chloride 105 (101-111) mmol/L Carbon Dioxide 25 (22-32) mmol/L Anion Gap 11 (2-11) mmol/L BUN 7 (6-24) mg/dL Creatinine 0.79 (0.51-0.95) mg/dL Est GFR ( Amer) 90.1 (>60) Est GFR (Non-Af Amer) 74.5 (>60) BUN/Creatinine Ratio 8.9 (8-20) Glucose 116 H (70-100) mg/dL Lactic Acid 1.5 (0.5-2.0) mmol/L Calcium 10.2 (8.6-10.3) mg/dL Total Bilirubin 0.60 (0.2-1.0) mg/dL AST 11 L (13-39) U/L ALT 9 (7-52) U/L Alkaline Phosphatase 108 H (34-104) U/L Troponin I Pending C-Reactive Protein 13.05 H (<8.01) mg/L Total Protein 7.3 (6.4-8.9) g/dL Albumin 4.3 (3.2-5.2) g/dL Globulin 3.0 (2-4) g/dL Albumin/Globulin Ratio 1.4 (1-3) Lipase 73 (11.0-82.0) U/L 11/30/18 Range/Units 12:48 WBC (3.5-10.8) 10^3/uL RBC (3.70-4.87) 10^6 /uL Hgb (12.0-16.0) g/dL Hct (35-47) % MCV (80-97) fL MCH (27-31) pg MCHC (31-36) g/dL RDW (10.5-15) % Plt Count (150-450) 10^3/uL MPV (7.4-10.4) fL Neut % (Auto) % Lymph % (Auto) % Beadle % (Auto) % Eos % (Auto) % Baso % (Auto) % Absolute Neuts (auto) (1.5-7.7) 10^3/ul Absolute Lymphs (auto) (1.0-4.8) 10^3/ul Absolute Monos (auto) (0-0.8) 10^3/ul Absolute Eos (auto) (0-0.6) 10^3/ul Absolute Basos (auto) (0-0.2) 10^3/ul Absolute Nucleated RBC 10^3/ul Nucleated RBC % INR (Anticoag Therapy) 1.05 (0.82-1.09) Sodium (135-145) mmol/L Potassium (3.5-5.0) mmol/L Chloride (101-111) mmol/L Carbon Dioxide (22-32) mmol/L Anion Gap (2-11) mmol/L BUN (6-24) mg/dL Creatinine (0.51-0.95) mg/dL Est GFR ( Amer) (>60) Est GFR (Non-Af Amer) (>60) BUN/Creatinine Ratio (8-20) Glucose (70-100) mg/dL Lactic Acid (0.5-2.0) mmol/L Calcium (8.6-10.3) mg/dL Total Bilirubin (0.2-1.0) mg/dL AST (13-39) U/L ALT (7-52) U/L Alkaline Phosphatase (34-104) U/L Troponin I C-Reactive Protein (<8.01) mg/L Total Protein (6.4-8.9) g/dL Albumin (3.2-5.2) g/dL Globulin (2-4) g/dL Albumin/Globulin Ratio (1-3) Lipase (11.0-82.0) U/L Result Diagrams: 11/30/18 12:48 11/30/18 18:58 Lab Statement: Any lab studies that have been ordered have been reviewed, and results considered in the medical decision making process. - Ultrasound No standard instances Ultrasound Interpretation Completed By: Radiologist Summary of Ultrasound Findings: US Gallbladder shows Hepatomegaly without biliary duct dilatation. No gallstones are identified. ED physician has reviewed this report. - EKG 1251 Cardiac Rate: NL - [address] Segment: Non-Specific Ectopy: PVCs - 1 EKG Comparison: No Significant Change - 03/20/18 Summary of EKG Findings: Nml AV/IV CT, nml QTc, and nml axis. No acute changes. ED MD has reviewed and interpreted this EKG. 1336 Cardiac Rate: NL - 95 BPM EKG Rhythm: Sinus Rhythm ST Segment: Non-Specific Ectopy: PVCs - 1 EKG Comparison: No Significant Change - From 03/20/18 Summary of EKG Findings: Nml AV/IV CT, nml QTc, and nml axis. No acute changes. ED MD has reviewed and interpreted this EKG. Re-Evaluation - Re-Evaluation First Eval Re-Evaluation Time: 13:35 Change: Unchanged Comment: Pain is still at 1 or 2. Patient states she has had elevated troponins in the past. Second Eval Re-Evaluation Time: 14:18 Change: Worse Comment: BP is 220/118. She has low back pain. Third Eval Re-Evaluation Time: 16:49 Change: Unchanged Comment: BP 191/100. Giving labetalol IV 10 mg. Fourth Eval Re-Evaluation Time: 17:28 Change: Improved Comment: Blood pressure is improved. BP is 160s systolic. She still has pain. She agrees to admission. Complex Multi-Symp Course/Dx Course Of Treatment: Patient medications reviewed this visit. Nurses notes reviewed. Allergies noted. High blood pressure noted. Bloodwork obtained. Aware of troponin 0.65 at 1333. Asked lab to rerun her tests 1334. Lab reran and troponin is 0.04. Aware of this 1347. Patient states she has hx elevated troponin levels. Per previous medical records, patient had troponin 0.07 on , during which she was dx COPD exacerbation, heart failure, bronchitis, sepsis. In ED course, patient was given Reglan due to Tikosyn. Patient was given labetalol. She was given Toradol and IV fluids. She was also given morphine. US Gallbladder shows Hepatomegaly without biliary duct dilatation. No gallstones are identified. EKG showed no change from 03/20/18. Spoke with Dr. Márquez hospitalist, who agrees to admit patient. The patient will be [facility] to [facility]. The patient is agreeable to admission. - Diagnoses Provider Diagnoses: Epigastric pain, Elevated troponin, Nausea, Vomiting - Physician Notifications Discussed Care Of Patient With: Tammy Márquez Time Discussed With Above Provider: 17:44 Instructed by Provider To: Other - [facility], agrees to admit patient - Critical Care Time Critical Care Time: 30-74 min - 30 minutes Discharge - Sign-Out/Discharge Documenting (check all that apply): Patient Departure - Admit Patient Received Moderate/Deep Sedation with Procedure: No - Discharge Plan Condition: Stable - Attestation Statements Document Initiated by Scribe: Yes Documenting Scribe: Devi Plasencia Provider For Whom Scribe is Documenting (Include Credential): Kaela Caicedo MD Scribe Attestation: Devi Lomas, scribed for Kaela Caicedo MD on 11/30/18 at 2024.
[2018-11-30 13:45] LABS: Troponin I 0.04 ng/mL (<0.04)
[2018-11-30] MEDS ORDERED: Metoclopramide IV* 5 MG/ML 2 ML VIAL IV SLOW PU ONE (13:50)
[2018-11-30] MEDS ORDERED: Ketorolac INJ* 30 MG/ML 1 ML VIAL IV PUSH ONE (14:47)
[2018-11-30] MEDS ORDERED: NS 0.9% 1000 ML** 1,000 ML IV.FLUID IV SCH (16:15)
[2018-11-30 16:26] LABS: Troponin I 0.04 ng/mL (<0.04)
[2018-11-30 16:38] LABS: Urine Appearance Cloudy; Urine Bacteria Absent (Absent); Urine Bilirubin Negative (Negative); Urine Blood Negative (Negative); Urine Color Amber; Urine Glucose Negative (Negative); Urine Ketones Negative (Negative); Urine Nitrite Negative (Negative); Urine Protein 1+(30 mg/dL) (Negative); Urine Red Blood Cell Trace(0-2/hpf) (Absent); Urine Squamous Epithelial Cell Present (Absent); Urine Urobilinogen Negative (Negative); Urine White Blood Cell Trace(0-5/hpf) (Absent)
[2018-11-30] MEDS ORDERED: Labetalol IV* 5 MG/ML 20 ML VIAL IV PUSH ONE (16:48)
[2018-11-30] MEDS ORDERED: Morphine 4 MG/ML VIAL (1 ml) 4 MG/ML VIAL IV ONE (17:44)
[2018-11-30] MEDS ORDERED: Al Hydrox/Mg Hydrox/Simet LIQ* 30 ML UDC PO PRN (18:18)
[2018-11-30] MEDS ORDERED: Acetaminophen TAB* 325 MG PO PRN (18:18)
[2018-11-30] MEDS ORDERED: Albuterol 2.5 MG/3 ML NEB.SOL* (0.083%) INH PRN (18:22)
[2018-11-30] MEDS ORDERED: Baclofen TAB* 10 MG PO PRN (18:22)
[2018-11-30] MEDS ORDERED: Furosemide TAB* 20 MG PO PRN (18:22)
[2018-11-30] MEDS ORDERED: Diltiazem CD CAP* 180 MG PO ONE (18:22)
[2018-11-30] MEDS ORDERED: Ipratropium 0.5MG/2.5ML NEB* 0.5 MG/2.5 ML NEB.SOLN INH PRN (18:22)
[2018-11-30] MEDS ORDERED: Albuterol HFA INHALER* 8 gm MDI INH PRN ×2 (18:22)
[2018-11-30] MEDS ORDERED: Dextrose 50% Syringe 50 ML* 25 GM/50 ML SYRINGE IV PUSH PRN (18:25)
[2018-11-30] MEDS ORDERED: hydrALAZINE IV* 20 MG/ML VIAL IV SLOW PU PRN (18:26)
[2018-11-30 19:23] LABS: BUN/Creatinine Ratio 9.2 (8-20); Calcium 9.3 mg/dL (8.6-10.3); EGFR African American 80.6 (>60); EGFR Non-African American 66.6 (>60); Potassium 3.6 mmol/L (3.5-5.0)
[2018-11-30] MEDS ORDERED: Scopolamine 1.5 mg* PATCH TRANSDERM SCH (20:00)
--- NOTE | 2018-11-30 20:13 | HP ---
CC: Dr. Cristin Duncan, Dr. Alonso.* HISTORY AND PHYSICAL: DATE OF ADMISSION: 11/30/18. PRIMARY CARE PROVIDER: Dr. Cristin Duncan. CHIEF COMPLAINT: Nausea and vomiting. HISTORY OF PRESENT ILLNESS: Madhavi Purvis is a 58-year-old female with a history of diabetes, obesity, chronic pain, COPD, obstructive sleep apnea as well as paroxysmal atrial fibrillation who presented to the hospital directly from the primary care provider's office who saw her for 3-days' duration of nausea, vomiting, and diarrhea. Patient stated that she had been retching and throwing up for the past 3 days and basically could not take her medications in the morning. She also has had 2 to 3 loose bowel movements in the past 2 days. She complains of epigastric pain that is worse when she throws up and catches this area, likely muscular related to vomiting. Due to patient being unable to take her medications, she is going to be placed on overnight observation. Patient is on Tikosyn at home. PAST MEDICAL HISTORY: 1. History of COPD, on oxygen on p.r.n. basis as well as at night. 2. History of diabetes type 2. 3. Obstructive sleep apnea, on CPAP. 4. Paroxysmal atrial fibrillation, on Tikosyn. 5. Hypertension. 6. Obesity. 7. Fibromyalgia, on chronic narcotics. 8. Hyperlipidemia. 9. Tonsillectomy. 10. Hernia repair. 11. C-sections x3. 12. Shoulder arthroscopy. 13. Bilateral knee surgeries in the past. 14. Right foot surgery in the past. MEDICATIONS AT HOME: Include: 1. Tikosyn 250 mcg b.i.d. 2. Arnuity Ellipta 1 puff daily. 3. Anoro Ellipta 62.5/25 one puff daily. 4. Daliresp 500 mcg daily. 5. Xarelto 20 mg daily. 6. Morphine extended release 15 mg b.i.d. 7. Albuterol inhaler on p.r.n. basis. 8. Atrovent nebulizer 0.5 mg inhalation 2 times a day. 9. Albuterol nebulizer on a p.r.n. basis. 10. Furosemide 20 mg daily. 11. Singulair 10 mg at bedtime. 12. Baclofen 10 mg b.i.d. p.r.n. 13. Lisinopril 40 mg daily. 14. Cymbalta 60 mg b.i.d. 15. Alogliptin 25 mg daily. 16. Cardizem CD 360 mg daily. 17. Lyrica 150 mg b.i.d. 18. Victoza 1.2 mg subcutaneously daily. 19. Oxycodone ER (Xtampza). 20. Colace 200 mg at bedtime. 21. Tessalon Perles on a p.r.n. basis. 22. Insulin glargine 60 units q.p.m. and 40 units q.a.m. ALLERGIES: To include MELOXICAM, METFORMIN. FAMILY HISTORY: Positive for mother with asthma, father with heart disease. SOCIAL HISTORY: The patient quit smoking in 2012. She denies any alcohol or drug use. She lives with her and her surrogate is her . She also lives with 3 of her adult children. She has a history of [id number] smoking. REVIEW OF SYSTEMS: Please see history of present illness. In addition the above mentioned, the patient denies any chest pain or shortness of breath. All the remaining 12 systems reviewed with the patient and were otherwise negative. PHYSICAL EXAMINATION GENERAL: The patient is a very pleasant 58-year-old female with a BMI of 46.4, who is in no acute distress. Alert, awake, and oriented x3. VITAL SIGNS: Blood pressure of 162/81, blood pressure was as high as over 200 during the ED stay, heart rate of 88, respiratory rate 18, oxygen saturation 99 % on 2 L oxygen nasal cannula, temperature 98.3. HEENT: Head: Atraumatic, normocephalic. Eyes: Pupils are equal, reactive to light and accommodation. Oropharynx clear. Mucosa moist. NECK: Supple. No JVD. No bruits bilaterally. RESPIRATORY: Grossly clear to auscultation bilaterally apart from scant wheezes at the left upper lobe. CARDIOVASCULAR: Regular rate and rhythm. No murmur. ABDOMEN: Soft, tenderness in the epigastrium mildly with no rebound, no guarding. Bowel sounds are present in all 4 quadrants. EXTREMITIES: There is trace bilateral pedal edema. Pulses are +2 bilaterally. There is no clubbing or cyanosis. NEUROLOGIC: Speech is clear. Cranial nerves II through XII grossly intact. Motor strength is 5/5 bilaterally. SKIN: On evaluation of the skin, no ecchymotic areas or rashes noted. PSYCHIATRIC EVALUATION: Oriented x3. No evidence of anxiety or depression. DIAGNOSTIC STUDIES/LAB DATA: Showed white blood cell count of 14.5, hemoglobin 10.9, hematocrit 35, MCV 77, platelets of 372. Sodium is 141, potassium 3.4, chloride 105, carbon dioxide 25, BUN 7, creatinine 0.79. Liver function tests: AST of 11, ALT of 9, alkaline phosphatase of 108. Troponin between 0.02 and 0.04, which is chronic for the patient. C-reactive protein of 13. Lipase of 73. As for urinalysis, positive for protein, squamous epithelial cells. Gallbladder ultrasound: Impression: Hepatomegaly without biliary duct dilatation. No gallstones. Patient's EKG shows normal sinus rhythm with a heart rate of 95 beats per minute with occasional PVCs. No ST changes. ASSESSMENT AND PLAN: 1. In regard to patient's intractable nausea and vomiting, it appears to be due to gastroenteritis. She already received intravenous hydration in the hospital. As she has a history of leg edema for which she is on Lasix. I will not give any more diuretic or any more IV fluids today, but her diuretic likely can be started tomorrow. For the time being she is going to be placed on clear liquid diet. Due to her being on Tikosyn, I am going to withhold from QT prolongation meds including Reglan, Compazine, and Zofran and place patient on a scopolamine patch. 2. For paroxysmal atrial fibrillation, patient is in normal sinus rhythm. Cardizem and Tikosyn are going to be continued. 3. For obstructive sleep apnea, patient is going to be placed on CPAP at night. 4. For diabetes, patient is going to be placed on insulin sliding scale and her insulin Lantus is going to be restarted in the morning. 5. For patient's chronic obstructive pulmonary disease, she is not in exacerbation and her inhalers are going to be continued. 6. Patient's troponin is elevated, but from my review of medical records, patient had always had elevated troponins in the past. Patient complains of no chest pain. She is going to be placed on telemetry-monitored bed. At this point , due to her ongoing illness, I do not think a stress test necessary, but it will be a good idea for the patient to have an outpatient stress test when she is feeling better. 7. For DVT prophylaxis, patient is going to be continued on Xarelto, which she normally takes at home. 8. Code status is full. Her surrogate is her . TIME SPENT: Approximately 70 minutes was spent on admission of this patient, more than half of that time was spent [id number] with the patient during the interview and physical exam. [id number]/[facility] #: [id number] MTDD
[2018-11-30] MEDS: Insulin LISPRO* 1 UNITS UNIT SUBCUT SCH (20:19)
[2018-11-30] MEDS: Dofetilide CAP* 250 MCG PO SCH (20:33)
[2018-11-30] MEDS: DULoxetine DR CAP* 60 MG CAP.DR PO SCH (20:34)
[2018-11-30] MEDS: Pregabalin CAP(*) 50 MG PO SCH (20:34)
[2018-11-30] MEDS: Lisinopril TAB* 10 MG PO SCH (20:35)
[2018-11-30] MEDS: Morphine TAB Extended Release (*) 15 MG TAB.ER PO SCH (20:36)
[2018-11-30] MEDS: Montelukast Sodium TAB* 10 MG PO SCH (20:37)
[2018-11-30] MEDS: KCL 20 MEQ/100 ML IVPREMIX* 20 MEQ/100 ML BAG IV SCH ×2 (20:40→22:13)
[2018-11-30] MEDS ORDERED: Potassium Chloride* LIQUID 20 MEQ/15 ML UDC PO ONE (21:54)
[2018-12-01 05:43] LABS: ABS Eosinophils 0.1 10^3/ul (0-0.6); ABS Lymphocytes 1.9 10^3/ul (1.0-4.8); ABS Monocytes 1.1 10^3/ul (0-0.8); ABS Neutrophils 8.6 10^3/ul (1.5-7.7); Eosinophil % 1.1 %; Hematocrit 29 % (35-47); Hemoglobin 9.1 g/dL (12.0-16.0); Lymphocyte % 16.3 %; Mean Corpuscular HGB Conc 31 g/dL (31-36); Mean Corpuscular Hemoglobin 24 pg (27-31); Mean Corpuscular Volume 77 fL (80-97); Platelet Count 285 10^3/uL (150-450); Red Blood Count 3.78 10^6 /uL (3.70-4.87); Red Cell Distribution Width 21 % (10.5-15); White Blood Count 11.8 10^3/uL (3.5-10.8)
[2018-12-01] MEDS: Insulin LISPRO* 1 UNITS UNIT SUBCUT SCH ×4 (07:35→21:47)
[2018-12-01] MEDS: Morphine TAB Extended Release (*) 15 MG TAB.ER PO SCH ×2 (09:03→21:46)
[2018-12-01] MEDS: Pregabalin CAP(*) 50 MG PO SCH ×2 (09:03→21:46)
[2018-12-01] MEDS: Dofetilide CAP* 250 MCG PO SCH ×2 (09:03→21:45)
[2018-12-01] MEDS: DULoxetine DR CAP* 60 MG CAP.DR PO SCH ×2 (09:04→21:45)
[2018-12-01] MEDS: Diltiazem CD CAP* 180 MG PO SCH (09:04)
[2018-12-01] MEDS: Insulin GLARGINE(*) 1 UNITS UNIT SUBCUT SCH (09:04)
[2018-12-01] MEDS: Rivaroxaban TAB(*) 20 MG TAB PO SCH (09:04)
[2018-12-01] MEDS: Lisinopril TAB* 10 MG PO SCH (09:04)
[2018-12-01] MEDS ORDERED: Insulin GLARGINE(*) 1 UNITS UNIT SUBCUT SCH (18:00)
--- NOTE | 2018-12-01 21:31 | PN ---
Subjective Date of Service: 12/01/18 Interval History: No overnight events. Advanced diet today. Still light headed on standing. Objective Active Medications: Acetaminophen (Tylenol Tab*) 650 mg PO Q4H PRN PRN Reason: FEVER/PAIN Al Hydrox/Mg Hydrox/Simethicone (Maalox Plus*) 30 ml PO Q6H PRN PRN Reason: INDIGESTION Albuterol (Ventolin 2.5 Mg/3 Ml Neb.Belinda*) 2.5 mg INH BID PRN PRN Reason: SHORTNESS OF BREATH Albuterol (Ventolin Hfa Inhaler*) 2 puff INH Q4H PRN PRN Reason: SHORTNESS OF BREATH Baclofen (Lioresal Tab*) 10 mg PO BID PRN PRN Reason: PAIN Last Admin: 11/30/18 20:37 Dose: 10 mg Dextrose (D50w Syringe 50 Ml*) 12.5 gm IV PUSH .FOR FS < 60 - SS PRN PRN Reason: FS < 60 Diltiazem HCl (Cardizem Cd Cap*) 360 mg PO DAILY [facility] Last Admin: 12/01/18 09:04 Dose: 360 mg Dofetilide (Tikosyn Cap*) 250 mcg PO BID [facility] Last Admin: 12/01/18 09:03 Dose: 250 mcg Duloxetine HCl (Cymbalta Cap*) 60 mg PO BID [facility] Last Admin: 12/01/18 09:04 Dose: 60 mg Furosemide (Lasix Tab*) 20 mg PO DAILY PRN PRN Reason: PER PROTOCOL Last Admin: 12/01/18 09:04 Dose: 20 mg Hydralazine HCl (Apresoline Iv*) 5 mg IV SLOW PU Q6H PRN PRN Reason: HTN Insulin Glargine (Lantus(*)) 40 units SUBCUT QAM [facility] Last Admin: 12/01/18 09:04 Dose: 40 unit Insulin Glargine (Lantus(*)) 60 units SUBCUT QPM [facility] Last Admin: 12/01/18 17:24 Dose: 60 unit Insulin Human Lispro (Humalog*) 0 units SUBCUT ACHS [facility]; Protocol Last Admin: 12/01/18 17:25 Dose: 1 unit Ipratropium [place] (Atrovent 0.5 Mg Neb.Belinda*) 0.5 mg INH TID PRN PRN Reason: SHORTNESS OF BREATH Lisinopril (Prinivil Tab*) 40 mg PO DAILY [facility] Last Admin: 12/01/18 09:04 Dose: 40 mg Montelukast Sodium (Singulair Tab*) 10 mg PO BEDTIME [facility] Last Admin: 11/30/18 20:37 Dose: 10 mg Morphine Sulfate (Ms Contin(*)) 15 mg PO BID [facility] Last Admin: 12/01/18 09:03 Dose: 15 mg Pharmacy Profile Note (Scopolamine Patch Remove*) 1 note PATCH OFF Q72H [facility] Pregabalin (Lyrica Cap(*)) 150 mg PO BID [facility] Last Admin: 12/01/18 09:03 Dose: 150 mg Rivaroxaban (Xarelto(*)) 20 mg PO DAILY WITH MEAL [facility] Last Admin: 12/01/18 09:04 Dose: 20 mg Scopolamine (Transderm-Scop 1.5 Mg Patch*) 1 patch TRANSDERM Q72H [facility] Last Admin: 11/30/18 20:40 Dose: 1 patch Sodium Chloride (Ns 0.9% 1000 Ml) 1,000 ml IV WIDE OPEN [facility] Vital Signs - 8 hr 12/01/18 12/01/18 12/01/18 13:42 15:19 16:11 Temperature 98.2 F Pulse Rate 75 73 Respiratory 20 Rate Blood Pressure 109/56 107/49 134/72 (mmHg) O2 Sat by Pulse 100 100 Oximetry 12/01/18 19:21 Temperature Pulse Rate Respiratory 20 Rate Blood Pressure (mmHg) O2 Sat by Pulse Oximetry Oxygen Devices in Use Now: Nasal Cannula Appearance: well appearing, alert and interactive, ox3 Ears/Nose/Mouth/Throat: Mucous Membranes Moist Neck: NL Appearance and Movements; NL JVP Respiratory: Clear to Auscultation Cardiovascular: NL Sounds; No Murmurs; No JVD, RRR Abdominal: NL Sounds; No Tenderness; No Distention Lymphatic: No Cervical Adenopathy Extremities: No Edema Skin: No Rash or Ulcers Neurological: Alert and Oriented x 3, NL Gait Result Diagrams: 12/01/18 05:09 11/30/18 18:58 Additional Lab and Data: Lab Results 11/30/18 11/30/18 11/30/18 Range/Units 12:48 12:48 12:48 WBC 14.5 H (3.5-10.8) 10^3/uL RBC 4.51 (3.70-4.87) 10^6 /uL Hgb 10.9 L (12.0-16.0) g/dL Hct 35 (35-47) % MCV 77 L (80-97) fL MCH 24 L (27-31) pg MCHC 32 (31-36) g/dL RDW 21 H (10.5-15) % Plt Count 372 (150-450) 10^3/uL MPV 8.2 (7.4-10.4) fL Neut % (Auto) 79.6 % Lymph % (Auto) 13.5 % Kimble % (Auto) 6.5 % Eos % (Auto) 0.2 % Baso % (Auto) 0.2 % Absolute Neuts (auto) 11.5 H (1.5-7.7) 10^3/ul Absolute Lymphs (auto) 2.0 (1.0-4.8) 10^3/ul Absolute Monos (auto) 0.9 H (0-0.8) 10^3/ul Absolute Eos (auto) 0.0 (0-0.6) 10^3/ul Absolute Basos (auto) 0.0 (0-0.2) 10^3/ul Absolute Nucleated RBC 0.0 10^3/ul Nucleated RBC % 0.0 INR (Anticoag Therapy) (0.82-1.09) Sodium 141 (135-145) mmol/L Potassium 3.4 L (3.5-5.0) mmol/L Chloride 105 (101-111) mmol/L Carbon Dioxide 25 (22-32) mmol/L Anion Gap 11 (2-11) mmol/L BUN 7 (6-24) mg/dL Creatinine 0.79 (0.51-0.95) mg/dL Est GFR ( Amer) 90.1 (>60) Est GFR (Non-Af Amer) 74.5 (>60) BUN/Creatinine Ratio 8.9 (8-20) Glucose 116 H (70-100) mg/dL Lactic Acid 1.5 (0.5-2.0) mmol/L Calcium 10.2 (8.6-10.3) mg/dL Total Bilirubin 0.60 (0.2-1.0) mg/dL AST 11 L (13-39) U/L ALT 9 (7-52) U/L Alkaline Phosphatase 108 H (34-104) U/L Troponin I Pending C-Reactive Protein 13.05 H (<8.01) mg/L Total Protein 7.3 (6.4-8.9) g/dL Albumin 4.3 (3.2-5.2) g/dL Globulin 3.0 (2-4) g/dL Albumin/Globulin Ratio 1.4 (1-3) Lipase 73 (11.0-82.0) U/L 11/30/18 Range/Units 12:48 WBC (3.5-10.8) 10^3/uL RBC (3.70-4.87) 10^6 /uL Hgb (12.0-16.0) g/dL Hct (35-47) % MCV (80-97) fL MCH (27-31) pg MCHC (31-36) g/dL RDW (10.5-15) % Plt Count (150-450) 10^3/uL MPV (7.4-10.4) fL Neut % (Auto) % Lymph % (Auto) % Kimble % (Auto) % Eos % (Auto) % Baso % (Auto) % Absolute Neuts (auto) (1.5-7.7) 10^3/ul Absolute Lymphs (auto) (1.0-4.8) 10^3/ul Absolute Monos (auto) (0-0.8) 10^3/ul Absolute Eos (auto) (0-0.6) 10^3/ul Absolute Basos (auto) (0-0.2) 10^3/ul Absolute Nucleated RBC 10^3/ul Nucleated RBC % INR (Anticoag Therapy) 1.05 (0.82-1.09) Sodium (135-145) mmol/L Potassium (3.5-5.0) mmol/L Chloride (101-111) mmol/L Carbon Dioxide (22-32) mmol/L Anion Gap (2-11) mmol/L BUN (6-24) mg/dL Creatinine (0.51-0.95) mg/dL Est GFR ( Amer) (>60) Est GFR (Non-Af Amer) (>60) BUN/Creatinine Ratio (8-20) Glucose (70-100) mg/dL Lactic Acid (0.5-2.0) mmol/L Calcium (8.6-10.3) mg/dL Total Bilirubin (0.2-1.0) mg/dL AST (13-39) U/L ALT (7-52) U/L Alkaline Phosphatase (34-104) U/L Troponin I C-Reactive Protein (<8.01) mg/L Total Protein (6.4-8.9) g/dL Albumin (3.2-5.2) g/dL Globulin (2-4) g/dL Albumin/Globulin Ratio (1-3) Lipase (11.0-82.0) U/L Microbiology and Other Data: Microbiology 11/30/18 16:10 Urine Culture - Final Urine Assess/Plan/Problems-Billing Assessment: 58W with DM2, obestiy, COPD on home O2, chronic pain, JULIANA, pAFib, who presents from PCP office for nausea, vomiting, and diarrhea. Initially unable to tolerate medications but now symptoms resolving spontaneously. - Patient Problems (1) Vomiting Comment: resolved. advancing diet. on Scopolamine patch. Avoiding QTc prolonging meds. (2) Atrial fibrillation with RVR Current Visit: No Status: Acute Priority: High Code(s): I48.91 - UNSPECIFIED ATRIAL FIBRILLATION SNOMED Code(s): 741318819370735 Comment: cont home meds and AC (3) COPD (chronic obstructive pulmonary disease) Current Visit: No Status: Acute Code(s): J44.9 - CHRONIC OBSTRUCTIVE PULMONARY DISEASE, UNSPECIFIED SNOMED Code(s): 40171951 Comment: Not in exacerbation. Cont home meds. (4) JULIANA (obstructive sleep apnea) Current Visit: No Status: Chronic Priority: High Code(s): G47.33 - OBSTRUCTIVE SLEEP APNEA (ADULT) (PEDIATRIC) SNOMED Code(s): 57317763 Comment: - Cpap
[2018-12-01] MEDS: Montelukast Sodium TAB* 10 MG PO SCH (21:47)
[2018-12-02 05:29] LABS: Hematocrit 29 % (35-47); Hemoglobin 9.2 g/dL (12.0-16.0); Mean Corpuscular HGB Conc 32 g/dL (31-36); Mean Corpuscular Hemoglobin 25 pg (27-31); Mean Corpuscular Volume 78 fL (80-97); Platelet Count 306 10^3/uL (150-450); Red Blood Count 3.74 10^6 /uL (3.70-4.87); Red Cell Distribution Width 21 % (10.5-15); White Blood Count 12.3 10^3/uL (3.5-10.8)
[2018-12-02 05:44] LABS: Anion Gap 7 mmol/L (2-11); BUN/Creatinine Ratio 17.3 (8-20); Blood Urea Nitrogen 17 mg/dL (6-24); CO2 Carbon Dioxide 25 mmol/L (22-32); Calcium 9.2 mg/dL (8.6-10.3); Chloride 105 mmol/L (101-111); EGFR African American 70.3 (>60); EGFR Non-African American 58.1 (>60); Glucose 152 mg/dL (70-100); Magnesium 1.8 mg/dL (1.9-2.7); Potassium 3.8 mmol/L (3.5-5.0); Sodium 137 mmol/L (135-145)
[2018-12-02] MEDS ORDERED: Magnesium Sulfate 1 GM IV* 1 GM/100 ML BAG IV ONE (08:30)
[2018-12-02 08:56] LABS: % Iron Saturation 6 % (15-55); Iron 21 ug/dL (50-212); Total Iron Binding Capacity 342 mcg/dL (250-450); Transferrin 244 mg/dL (203-362)
[2018-12-02] MEDS: Lisinopril TAB* 10 MG PO SCH (09:09)
[2018-12-02] MEDS: Dofetilide CAP* 250 MCG PO SCH (09:09)
[2018-12-02] MEDS: Insulin GLARGINE(*) 1 UNITS UNIT SUBCUT SCH (09:10)
[2018-12-02] MEDS: DULoxetine DR CAP* 60 MG CAP.DR PO SCH (09:10)
[2018-12-02] MEDS: Morphine TAB Extended Release (*) 15 MG TAB.ER PO SCH (09:10)
[2018-12-02] MEDS: Insulin LISPRO* 1 UNITS UNIT SUBCUT SCH ×2 (09:10→12:23)
[2018-12-02] MEDS: Rivaroxaban TAB(*) 20 MG TAB PO SCH (09:10)
[2018-12-02] MEDS: Diltiazem CD CAP* 180 MG PO SCH (09:10)
[2018-12-02] MEDS: Pregabalin CAP(*) 50 MG PO SCH (09:41)
[2018-12-02 11:54] VITALS: BP 128/69
--- NOTE | 2018-12-02 22:51 | DS ---
CC: Dr. Cristin Duncan * DISCHARGE SUMMARY: DATE OF ADMISSION: 11/30/18 DATE OF DISCHARGE: 12/02/18 PRIMARY CARE PROVIDER: Dr. Cristin Duncan. PRIMARY DIAGNOSIS: Viral gastroenteritis. SECONDARY DIAGNOSES: 1. Chronic obstructive pulmonary disease, on home O2. 2. Diabetes. 3. Obstructive sleep apnea, on CPAP. 4. Atrial fibrillation, on Tikosyn. 5. Hypertension. 6. Obesity. 7. Fibromyalgia. 8. Hyperlipidemia. CONSULTATIONS/PROCEDURES: No consults or procedures. DISCHARGE MEDICATIONS: 1. Tikosyn 250 mcg twice a day. 2. Fluticasone 1 puff daily. 3. Anoro 1 puff daily. 4. Roflumilast 500 mcg daily. 5. Rivaroxaban 20 mg daily. 6. Morphine extended-release 15 mg twice a day. 7. Albuterol 2 puffs every 4 hours as needed for shortness of breath. 8. Furosemide 20 mg daily. 9. Montelukast 10 mg nightly. 10. Baclofen 10 mg twice a day as needed for muscle spasm. 11. Lisinopril 40 mg daily. 12. Duloxetine 60 mg twice a day. 13. Alogliptin 25 mg daily. 14. Diltiazem 360 mg daily. 15. Pregabalin 150 mg twice a day. 16. Liraglutide 1.2 mg subcutaneously daily. 17. Oxycodone 80 mg twice a day. 18. Docusate 200 mg once a day. 19. Glargine 60 units nightly, 40 units daily. 20. Iron 325 mg daily. HISTORY OF PRESENT ILLNESS: A 58-year-old woman with diabetes; obesity; chronic pain; COPD; obstructive sleep apnea, on CPAP; and paroxysmal atrial fibrillation who presented to the hospital from her primary care provider's office, who had an appointment for 3 days of nausea, vomiting, diarrhea. The patient states that she had been retching and throwing up for 3 days and was unable to take her home medications. She is also experiencing 2 to 3 loose bowel movements for the last 2 days. She complains that these symptoms were associated with epigastric pain that was worse when she throws up. As she was unable to take her medications, her provider referred her to the ER and she was admitted in observation. HOSPITAL COURSE: The patient was given IV hydration and her diuretics were held for her first day of her hospitalization. Given desire to avoid QTc prolonging medications, she was placed on a scopolamine patch and experienced complete resolution of her symptoms of nausea and vomiting. By the next morning , she was able to tolerate her medications and a clear diet and was advanced to a regular diet; however, she was still experiencing dizziness upon standing, so she remained in observation for 1 more night. By the morning of discharge, she reports good appetite, no nausea or vomiting, able to tolerate medications and a regular diet, and she has no longer experienced dizziness on standing. She is experiencing her chronic pain that is unchanged and well controlled with her home pain medication regimen. REVIEW OF SYSTEMS: A complete 10-point review of systems was performed and pertinent positives and negatives have been listed. PHYSICAL EXAMINATION: Afebrile, heart rate 80s, blood pressure 128/69, respiratory rate 18, oxygen saturation 98% on 2 L. In general, she is a chronically ill- appearing woman, in no acute distress, appears slightly older than her stated age. HEENT: OP clear. Moist mucous membranes. Neck: Supple. Full range of motion. No JVD. Heart: Regular rate and rhythm. No murmurs, gallops, or rubs. Lungs: Clear to auscultation bilaterally. Abdomen: Soft, nontender, nondistended. No guarding, no rebound. Extremities: Warm and well perfused. No lower extremity edema. DP pulses 2+ bilaterally. Neuro: A and O x3. Fluent speech. CN II through XII intact. Skin: Normal skin turgor. PERTINENT STUDIES AND LABS: Leukocytosis 12, lower than baseline. Hemoglobin 9.2, microcytic, new baseline from this year with TIBC normal and iron low at 21 with ferritin 20. Creatinine 0.98. Gallbladder ultrasound: Hepatomegaly without biliary ductal dilatation. No gallstones are evident. DISCHARGE PLAN: The patient is to follow up closely with her primary care physician for ongoing management of her chronic medical illnesses. Her medications are listed above with the following change: Iron has been added to her home medication regimen given recent history of iron-deficiency anemia for which she should receive age appropriate cancer screening with her primary care physician. She had no signs of active bleeding throughout hospitalization. She was educated on return precautions which include, but are not limited to, recurrence of nausea and vomiting or new symptoms of hematemesis or melena. She is to eat a healthy diet, low in processed food and resume activity level as tolerated. DISPOSITION: To home. CONDITION: Good. TIME SPENT: Approximately 60 minutes was spent on discharge of this patient, more than half of which was spent with care coordination at bedside for interview and exam. [id number]/[facility] #: [id number] [place]
[2018-12-03] MEDS ORDERED: Scopolamine PATCH Remove* 1 NOTE MISC PATCH OFF SCH (19:59)
== END 2018-12-02 13:50 | disposition home or self-care (01) | DRG 392 ==
LOC: ED 12:17 → MEDTELE 19:33 → OBSVTOIN 19:33
PROVIDERS: ADMIT Internal Medicine; ATTEND Internal Medicine
DX: A08.4 Viral intestinal infection, unspecified (principal); Z68.42 Body mass index [BMI] 45.0-49.9, adult; Z99.81 Dependence on supplemental oxygen; I48.0 Paroxysmal atrial fibrillation; E11.9 Type 2 diabetes mellitus without complications; J44.9 Chronic obstructive pulmonary disease, unspecified; I10 Essential (primary) hypertension; E66.9 Obesity, unspecified; G47.33 Obstructive sleep apnea (adult) (pediatric); M79.7 Fibromyalgia; E78.5 Hyperlipidemia, unspecified; G89.29 Other chronic pain; Z99.89 Dependence on other enabling machines and devices; Z79.01 Long term (current) use of anticoagulants; Z79.4 Long term (current) use of insulin; Z79.891 Long term (current) use of opiate analgesic; Z79.51 Long term (current) use of inhaled steroids; Z79.899 Other long term (current) drug therapy; Z88.8 Allergy status to other drugs, medicaments and biological substances; Z82.5 Family history of asthma and other chronic lower respiratory diseases; Z82.49 Family history of ischemic heart disease and other diseases of the circulatory system; Z87.891 Personal history of nicotine dependence; R74.8 Abnormal levels of other serum enzymes
CPT/HCPCS: 36415; 76705; 80048; 80053; 81003; 81015; 82728; 83540; 83550; 83605; 83690; 83735; 84484; 85025; 85027; 85610; 86140; 87086; 93005; 94660; 99284; A9270-GY; J1885; J2270; J2765; J3475; J3480

== ENCOUNTER → 2019-04-19 10:53 | Day surgery (SDC) | payer MEDICARE, MEDICAID ==
[~2019-04-19 10:53] MED LIST changes: -Acetaminophen TAB* 325 MG PO PRN; -Buffered Lidocaine 0.9% SYRIN* 5 ML/SYR SYRINGE INTRADERM ONE; +Buffered Lidocaine 1% SYRIN* 1 ML/SYRINGE INTRADERM ONE; -Cyclopentolate 1% OPTH.SOL* 2 ML BTL ONE; +Dexamethasone IV* 4 MG/ML 1 ML (4 MG) ONE; +Diltiazem CD CAP* 180 MG PO ONE; +Famotidine IV* 10 MG/ML 2 ML (20 mg) IV ONE; +Famotidine IV* 10 MG/ML 2 ML (20 mg) ONE; +KETAMINE HCL* 50 MG/ML 10 ML VIAL ONE; -Ketorolac 0.5% OPHTH (NF) 0.5 % 5 ML BTL ONE; +Lactated Ringers 1000 ML Bag* 1,000 ML IV SCH; -Levalbuterol 0.63MG/3ML NEB* UNIT OF USE INH ONE; +Levalbuterol 0.63MG/3ML NEB* UNIT OF USE INH PRN; -Lidocaine 1%* 5 ML VIAL ONE; -Lidocaine 2% EPI 1:200000 MPF*10-20 ML VIAL ONE; +Lidocaine 2% PF * 5 ML VIAL ONE; +Midazolam* 1 MG/ML 10 ML VIAL (10 MG) ONE; +Midazolam* 1 MG/ML 2 ML VIAL (2 MG) ONE; +Naloxone* 0.4 MG/ML 1 ML VIAL IV PRN; -Neomycin/Polymy/Dex OPTH.SUSP* MAXITROL 0.1% 5 ML ONE; +Ondansetron INJ* 2 MG/ML VIAL IV PRN; +Ondansetron INJ* 2 MG/ML VIAL ONE; -Phenylephrine 2.5% OPTH.SOL* 2 ML BTL ONE; +Phenylephrine 40 MCG/ML SYRINGE ONE; -Povidone Iodine 5% OPTH* 30 ML BTL ONE; -Proparacaine 0.5% OPHTH.SOL* 15 ML BTL ONE; +Propofol* 10 MG/ML 20 ML BTL ONE; -Trypan Blue 0.06% SOL* 0.5 ML BTL ONE; -acetaZOLAMIDE TAB* 250 MG ONE; +fentaNYL* 50 MCG/ML 2 ML VIAL (100 MCG VIAL) ONE
[2019-04-19 15:47] VITALS: BP 124/100
--- NOTE | 2019-04-20 22:32 | PRO ---
CC: Dr. Cristin Duncan; Dr. Rivas * EGD AND COLONOSCOPY REPORT: DATE OF PROCEDURE: 04/19/19 - [facility] PRIMARY CARE PHYSICIAN: Cristin Duncan MD. INDICATION FOR PROCEDURE: Anemia. PROCEDURES PERFORMED: Complete esophagogastroduodenoscopy with biopsies and complete colonoscopy to the cecum. MEDICATIONS GIVEN: Please see Anesthesia record. DESCRIPTION OF PROCEDURE: After the EGD and colonoscopy procedures, including the risks, benefits, and alternatives, with the risks not limited to perforation , surgery, missed lesions, and/or were explained to the patient, written informed consent was obtained, IV medication was given, and a bite-block was placed between the teeth. The adult Olympus gastroscope was then inserted into the patient's oropharynx and into the tubular esophagus. Initial views were quite limited secondary to a viscous blue material the patient had ingested with one of her medications. After extensive washing, I was able to obtain fairly descent views; however, they were slighted limited. She had very mild Z- line variability. I did biopsy this. There were no masses or lesions appreciated. The scope was then advanced through the lower esophageal sphincter , into the stomach. Direct views on both antegrade and retrograde were normal. The scope was advanced through the widely patent pylorus into the duodenal bulb, C-loop, and distal duodenum. These were normal in appearance. The scope was then removed from the patient. She tolerated the procedure well. She was then rotated, given additional IV sedation medication. A rectal exam was performed. The rectal exam was unremarkable. The adult Olympus colonoscope was then inserted into the patient's rectum and advanced very carefully through the entirety of the colon into the cecal base. Cecal base was carefully inspected and normal in appearance. The preparation was good. A photograph was taken of the cecal cap. The terminal ileal valve was identified and normal in appearance. Over the next 10 minutes, the scope was carefully withdrawn, inspecting the colon. Two small polyps removed with biopsy polypectomy in entirety. There was moderate diverticulosis coli throughout, left greater than right. On return to the rectum, direct views were normal. On retroflexion, the views were normal as well. The scope was then removed from the patient. She tolerated the procedure well. She returned to the recovery room in stable condition. IMPRESSION: 1. Complete esophagogastroduodenoscopy with biopsies. 2. Mild Z-line variability, biopsied. 3. Otherwise unremarkable EGD, but was limited by some medication that was taken prior. 4. Complete colonoscopy to cecum. 5. Moderate diverticulosis coli, left greater than right. 6. Biopsy polypectomy of 2 polyps, as above. RECOMMENDATIONS: Repeat colonoscopy in 5 to 10 years. Given no clear cause of the anemia identified today, we would recommend the capsule endoscopy. [id number]/[facility] #: [id number] [facility]ITALRacheal
== END | disposition home or self-care (01) ==
LOC: OR 10:53
PROVIDERS: ATTEND Internal Medicine Gastroenterology
DX: D50.9 Iron deficiency anemia, unspecified (principal); K63.5 Polyp of colon; K62.1 Rectal polyp; I48.91 Unspecified atrial fibrillation; J44.9 Chronic obstructive pulmonary disease, unspecified; M79.7 Fibromyalgia; G47.33 Obstructive sleep apnea (adult) (pediatric); Z79.01 Long term (current) use of anticoagulants; I10 Essential (primary) hypertension; E11.9 Type 2 diabetes mellitus without complications; Z79.4 Long term (current) use of insulin
CPT/HCPCS: 88305; A9270-GY; J1100; J2250; J2405; J2704; J3010

== ENCOUNTER 2022-02-26 05:08 | Inpatient (IN) ==
[2022-02-26] MEDS ORDERED: NS 0.9% 1000 ml BAG 1,000 ML IV ONE (05:48)
[2022-02-26 06:10] LABS: PCO2 Arterial 44 mmHg (35-45)
[2022-02-26 06:26] LABS: Hematocrit 48 % (35-47); Hemoglobin 16.3 g/dL (12.0-16.0); Mean Corpuscular HGB Conc 34 g/dL (31-36); Mean Corpuscular Hemoglobin 28 pg (27-31); Mean Corpuscular Volume 84 fL (80-97); Mean Platelet Volume 10.5 fL (7.4-10.4); Platelet Count 234 10^3/uL (150-450); Red Blood Count 5.75 10^6 /uL (3.70-4.87); Red Cell Distribution Width 17 % (10-15); White Blood Count 26.7 10^3/uL (3.5-10.8)
[2022-02-26] MEDS ORDERED: cefTRIAXone 1 gm/50 mL D5W 1 GM/50 ML BAG IV ONE (06:51)
[2022-02-26] MEDS ORDERED: DOXYcycline 100 MG in NS 0.9% 250 ml 250 ML IVPB ONE (06:52)
[2022-02-26 07:12] LABS: Albumin 4.2 g/dL (3.2-5.2); Albumin/Globulin Ratio 1.4 (1-3); C Reactive Protein 22.64 mg/L (<8.01); Calcium 11.1 mg/dL (8.6-10.3); Globulin 2.9 g/dL (2-4); Magnesium 3.9 mg/dL (1.9-2.7); Potassium 2.9 mmol/L (3.5-5.0); Total Bilirubin 1.5 mg/dL (0.2-1.0); Total Protein 7.1 g/dL (6.4-8.9); eGFR CKD-EPI 21.7 (>60)
[2022-02-26] MEDS ORDERED: Potassium Chlor 20 meq TAB.ER PO ONE ×2 (07:22→14:00)
[2022-02-26 07:23] LABS: TSH Ultra Thyroid Stim Horm 3.37 mcIU/mL (0.34-5.60)
[2022-02-26] MEDS ORDERED: NS 0.9% 1000 ml BAG 1,000 ML IV SCH (07:30)
[2022-02-26 07:48] LABS: High Sensitivity Troponin 1 Hr 346 pg/mL (<15)
[2022-02-26 08:29] LABS: ABS Basophils 0.1 10^3/ul (0-0.2); ABS Eosinophils 0.1 10^3/ul (0-0.6); ABS Lymphocytes 2.5 10^3/ul (1.0-4.8); ABS Monocytes 2.4 10^3/ul (0-0.8); ABS Neutrophils 21.6 10^3/ul (1.5-7.7); Eosinophil % 0.3 %; Lymphocyte % 9.2 %
[2022-02-26 09:06] LABS: PCO2 Arterial 47 mmHg (35-45); PO2 Arterial 117 mmHg (80-100)
[2022-02-26] MEDS ORDERED: Dextrose 50% Syringe 50 ml 25 GM/50 ML SYRINGE IV PUSH PRN (11:51)
[2022-02-26] MEDS ORDERED: KCL 20 MEQ/100 ML IVPREMIX 20 MEQ/100 ML BAG IV SCH (13:00)
[2022-02-26] MEDS ORDERED: SPIRIVA Respimat (tiotropium) 2.5 mcg/inh Inhaler INH PRN (13:37)
[2022-02-26 14:30] LABS: Hematocrit 45 % (35-47); Hemoglobin 14.5 g/dL (12.0-16.0); Mean Corpuscular HGB Conc 33 g/dL (31-36); Mean Corpuscular Hemoglobin 28 pg (27-31); Mean Corpuscular Volume 85 fL (80-97); Mean Platelet Volume 10.3 fL (7.4-10.4); Platelet Count 160 10^3/uL (150-450); Red Blood Count 5.21 10^6 /uL (3.70-4.87); Red Cell Distribution Width 16 % (10-15); White Blood Count 17.7 10^3/uL (3.5-10.8)
[2022-02-26] MEDS: NS 0.9% w/ 40 Meq KCL 1000 ML 1,000 ML IV SCH (14:50)
[2022-02-26 15:18] LABS: Calcium 9.7 mg/dL (8.6-10.3); Potassium 3.2 mmol/L (3.5-5.0); eGFR CKD-EPI 25.9 (>60)
[2022-02-26] MEDS: Heparin DRIP 25,000 UNITS BAG 25,000 UNITS/500 ML BAG IV SCH (15:35)
[2022-02-26] MEDS: Heparin 5000 UNITS/ML 1 mL VIAL IV SCH (15:37)
[2022-02-26] MEDS ORDERED: Ondansetron 4 mg VIAL 2 MG/ML 2 ml VIAL IV ONE (15:40)
[2022-02-26 15:50] LABS: ABS Eosinophils 0.1 10^3/ul (0-0.6); ABS Lymphocytes 1.9 10^3/ul (1.0-4.8); ABS Monocytes 1.8 10^3/ul (0-0.8); ABS Neutrophils 13.9 10^3/ul (1.5-7.7); Eosinophil % 0.3 %; Lymphocyte % 10.9 %
[2022-02-26 16:23] LABS: Magnesium 3.3 mg/dL (1.9-2.7)
[2022-02-26 18:13] LABS: Urine Creatinine Concentration 79.61 mg/dL; Urine Potassium Concentration 44.6 mmol/L
[2022-02-26 18:27] LABS: Urine Appearance Clear; Urine Bilirubin Negative (Negative); Urine Blood Negative (Negative); Urine Color Straw; Urine Glucose Negative (Negative); Urine Ketones Negative (Negative); Urine Nitrite Negative (Negative); Urine Protein Negative (Negative); Urine Specific Gravity 1.015 (1.005-1.030); Urine Urobilinogen 0.2 (Negative) (Negative); Urine pH 6.5 (5.0-9.0)
[2022-02-26 18:41] LABS: Urine Bacteria Absent (Absent); Urine Red Blood Cell Trace(0-2/hpf) (Absent); Urine Squamous Epithelial Cell Present (Absent); Urine White Blood Cell 2+(11-20/hpf) (Absent)
[2022-02-26 19:11] LABS: Urine Osmo 409 mOsm/kg (150-1150)
[2022-02-26] MEDS: Levalbuterol HFA INHALER MDI INH PRN (20:30)
[2022-02-26 23:00] LABS: Calcium 9.3 mg/dL (8.6-10.3); Potassium 3.1 mmol/L (3.5-5.0); eGFR CKD-EPI 33.7 (>60)
[2022-02-27] MEDS: Levalbuterol HFA INHALER MDI INH PRN (02:03)
[2022-02-27] MEDS: NS 0.9% w/ 40 Meq KCL 1000 ML 1,000 ML IV SCH (04:05)
[2022-02-27 04:46] LABS: Hematocrit 40 % (35-47); Hemoglobin 13.2 g/dL (12.0-16.0); Mean Corpuscular HGB Conc 33 g/dL (31-36); Mean Corpuscular Hemoglobin 28 pg (27-31); Mean Corpuscular Volume 85 fL (80-97); Mean Platelet Volume 10.4 fL (7.4-10.4); Platelet Count 144 10^3/uL (150-450); Red Blood Count 4.74 10^6 /uL (3.70-4.87); Red Cell Distribution Width 17 % (10-15); White Blood Count 16.2 10^3/uL (3.5-10.8)
[2022-02-27 04:48] LABS: ABS Basophils 0.1 10^3/ul (0-0.2); ABS Eosinophils 0.1 10^3/ul (0-0.6); ABS Lymphocytes 2.7 10^3/ul (1.0-4.8); ABS Monocytes 1.6 10^3/ul (0-0.8); ABS Neutrophils 11.7 10^3/ul (1.5-7.7); Eosinophil % 0.8 %; Lymphocyte % 16.9 %
[2022-02-27 05:46] LABS: Albumin 3.3 g/dL (3.2-5.2)
[2022-02-27] MEDS: Heparin 5000 UNITS/ML 1 mL VIAL IV SCH (05:46)
[2022-02-27 05:52] LABS: Albumin/Globulin Ratio 1.5 (1-3); Globulin 2.2 g/dL (2-4); Total Protein 5.5 g/dL (6.4-8.9)
[2022-02-27 05:53] LABS: Calcium 8.8 mg/dL (8.6-10.3); Potassium 3.1 mmol/L (3.5-5.0); eGFR CKD-EPI 34.4 (>60)
[2022-02-27] MEDS: Heparin DRIP 25,000 UNITS BAG 25,000 UNITS/500 ML BAG IV SCH ×2 (07:32→16:32)
[2022-02-27] MEDS ORDERED: Potassium Chlor 20 meq TAB.ER PO ONE (08:32)
[2022-02-27] MEDS: Heparin DRIP 25,000 UNITS BAG 25,000 UNITS/500 ML BAG ONE ×2 (16:32→18:20)
[2022-02-28 06:16] LABS: ABS Eosinophils 0.1 10^3/ul (0-0.6); ABS Lymphocytes 1.9 10^3/ul (1.0-4.8); ABS Monocytes 0.8 10^3/ul (0-0.8); ABS Neutrophils 5.8 10^3/ul (1.5-7.7); Eosinophil % 1.6 %; Hematocrit 39 % (35-47); Hemoglobin 12.5 g/dL (12.0-16.0); Lymphocyte % 21.4 %; Mean Corpuscular HGB Conc 32 g/dL (31-36); Mean Corpuscular Hemoglobin 27 pg (27-31); Mean Corpuscular Volume 85 fL (80-97); Mean Platelet Volume 10.4 fL (7.4-10.4); Nucleated Red Blood Cells % 0.1; Platelet Count 106 10^3/uL (150-450); Red Blood Count 4.58 10^6 /uL (3.70-4.87); Red Cell Distribution Width 16 % (10-15); White Blood Count 8.7 10^3/uL (3.5-10.8)
[2022-02-28 07:24] LABS: Calcium 8.7 mg/dL (8.6-10.3); Magnesium 2.4 mg/dL (1.9-2.7); Phosphorus 1.9 mg/dL (2.5-5.0); Potassium 3.1 mmol/L (3.5-5.0); eGFR CKD-EPI 48.7 (>60)
[2022-02-28] MEDS: Levalbuterol HFA INHALER MDI INH PRN (08:14)
[2022-02-28] MEDS ORDERED: Perflutren Lipid Microsphere 3 ML VIAL ONE (11:30)
[2022-03-01] MEDS ORDERED: Lidocaine PATCH 5% PATCH TRANSDERM ONE (02:07)
[2022-03-01 06:03] LABS: ABS Eosinophils 0.2 10^3/ul (0-0.6); ABS Lymphocytes 1.9 10^3/ul (1.0-4.8); ABS Monocytes 0.8 10^3/ul (0-0.8); ABS Neutrophils 7.1 10^3/ul (1.5-7.7); Eosinophil % 1.7 %; Hematocrit 39 % (35-47); Hemoglobin 12.9 g/dL (12.0-16.0); Lymphocyte % 19.2 %; Mean Corpuscular HGB Conc 34 g/dL (31-36); Mean Corpuscular Hemoglobin 29 pg (27-31); Mean Corpuscular Volume 86 fL (80-97); Mean Platelet Volume 10.7 fL (7.4-10.4); Platelet Count 108 10^3/uL (150-450); Red Blood Count 4.46 10^6 /uL (3.70-4.87); Red Cell Distribution Width 16 % (10-15)
[2022-03-01 06:30] LABS: Calcium 8.6 mg/dL (8.6-10.3); Magnesium 2.2 mg/dL (1.9-2.7); Potassium 3.6 mmol/L (3.5-5.0); eGFR CKD-EPI 58.1 (>60)
[2022-03-01] MEDS: Mometasone/Formoter 200/5 MDI INH SCH ×3 (11:21→19:05)
[2022-03-02] MEDS ORDERED: Calcium Carb (TUMS) 500 mg CHEW TAB PO ONE (04:52)
[2022-03-02 05:35] LABS: Hematocrit 38 % (35-47); Hemoglobin 12.5 g/dL (12.0-16.0); Mean Corpuscular HGB Conc 33 g/dL (31-36); Mean Corpuscular Hemoglobin 29 pg (27-31); Mean Corpuscular Volume 86 fL (80-97); Mean Platelet Volume 10.2 fL (7.4-10.4); Platelet Count 86 10^3/uL (150-450); Red Blood Count 4.37 10^6 /uL (3.70-4.87); Red Cell Distribution Width 16 % (10-15); White Blood Count 7.7 10^3/uL (3.5-10.8)
[2022-03-02 06:29] LABS: Calcium 8.5 mg/dL (8.6-10.3); Potassium 3.7 mmol/L (3.5-5.0); eGFR CKD-EPI 50.2 (>60)
[2022-03-02] MEDS: Mometasone/Formoter 200/5 MDI INH SCH (07:30)
[2022-03-02 17:48] VITALS: BP 138/69
[2022-03-02 21:39] LABS: HIT ELISA 0.075 OD (<0.400); Heparin PF4 Antibody Interp Negative (Negative)
== END 2022-03-02 14:00 | disposition home or self-care (01) | DRG 309 ==
LOC: ED 05:08 → EDHOLD 05:08 → SUATTDRO 10:19 → EDHOLD 14:53 → MEDTELE 15:10 → SUATTDRO 02-27 14:23
PROVIDERS: ADMIT Internal Medicine; ATTEND Internal Medicine

== ENCOUNTER 2023-01-22 09:28 | Inpatient (IN) ==
[2023-01-22] MEDS ORDERED: methylPREDNISolone SOD SUCC 125 mg 2 ML VIAL IV ONE (09:38)
[2023-01-22] MEDS ORDERED: Acetylcysteine INHALATION SOL 200 MG/ML NEB.SOLN 10 ML INH ONE (09:38)
[2023-01-22] MEDS ORDERED: Albuterol/Ipratropium NEB.SOL (2.5/0.5 MG) 3 ML NEB.SOLN INH ONE (09:38)
[2023-01-22] MEDS ORDERED: Piperacillin/Tazobac 3.375 BAG 3.375 GM/100 ML BAG IV ONE (09:39)
[2023-01-22] MEDS ORDERED: Magnesium Sulfate 2 gm BAG 2 GM/50 ML BAG IVPB ONE (09:39)
[2023-01-22 09:53] LABS: PCO2 Arterial 22 mmHg (35-45); PO2 Arterial 90 mmHg (80-100)
[2023-01-22] MEDS ORDERED: Furosemide 20 mg/2 ml IV VIAL IV ONE (10:02)
[2023-01-22 10:19] LABS: ABS Basophils 0.1 10^3/uL (0.0-0.1); ABS Lymphocytes 2.4 10^3/uL (1.0-4.8); ABS Neutrophils 10.3 10^3/uL (1.5-7.6); ABS Nucleated RBC 0.01 10^3/ul; Eosinophil % 0.1 %; Hematocrit 47.2 % (35-45); Hemoglobin 16.3 g/dL (11.5-14.3); Lymphocyte % 17.5 %; Mean Corpuscular Hemoglobin 29.6 pg (27-33); Mean Corpuscular Hgb Conc 34.6 g/dL (31-36); Mean Corpuscular Volume 85.6 fL (80-97); Mean Platelet Volume 9.3 fL (7.5-11.2); Platelet Count 259 10^3/uL (150-450); Red Blood Count 5.51 10^6/uL (3.63-4.92); Red Cell Distribution Width 14.8 % (12-17); White Blood Count 13.8 10^3/uL (3.8-11.8)
[2023-01-22 10:38] LABS: Albumin 4.5 g/dL (3.2-5.2); Albumin/Globulin Ratio 1.6 (1-3); C Reactive Protein 4.92 mg/L (<8.01); Calcium 10.3 mg/dL (8.6-10.3); Creatinine, Serum 1.45 mg/dL (0.51-0.95); Globulin 2.9 g/dL (2-4); Phosphorus 1.9 mg/dL (2.5-5.0); Total Bilirubin 1.1 mg/dL (0.2-1.0); Total Protein 7.4 g/dL (6.4-8.9); eGFR CKD-EPI 40.5 (>60)
[2023-01-22 12:31] LABS: High Sensitivity Troponin 1 Hr 28 pg/mL (<15)
[2023-01-22] MEDS ORDERED: NS 0.9% 1000 ml BAG 1,000 ML IV ONE (12:45)
[2023-01-22] MEDS ORDERED: LORazepam 2 mg VIAL 1 ml IV PUSH ONE (13:01)
[2023-01-22] MEDS ORDERED: Lorazepam PYXIS KEY PRN (13:01)
[2023-01-22] MEDS ORDERED: Albuterol (2.5 MG) 0.5 % CONC 0.5 ML NEB.SOLN INH ONE ×2 (13:04→13:07)
[2023-01-22 13:10] LABS: Urine Appearance Cloudy; Urine Bilirubin Negative (Negative); Urine Blood Negative (Negative); Urine Color Yellow; Urine Glucose Negative (Negative); Urine Ketones Negative (Negative); Urine Nitrite Negative (Negative); Urine Protein Negative (Negative); Urine Specific Gravity 1.009 (1.002-1.030); Urine Urobilinogen Negative (Negative)
[2023-01-22 13:14] LABS: Urine Bacteria 1+ (Absent); Urine Red Blood Cell Trace(0-2/hpf) (Absent); Urine Squamous Epithelial Cell Present (Absent); Urine White Blood Cell Trace(0-5/hpf) (Absent)
[2023-01-22] MEDS ORDERED: Oxymetazoline 0.05% NASAL SPR 15 ML BTL BOTH NARES ONE (13:35)
[2023-01-22] MEDS ORDERED: Albuterol 0.5% CONC CONTINUOUS NEB.SOL 5 mg/ml 20 ml BOT INH SCH (14:00)
[2023-01-22] MEDS ORDERED: Ondansetron 4 mg VIAL 2 MG/ML 2 ml VIAL IV PRN (14:45)
[2023-01-22 17:23] LABS: Glucose Confirmatory 469 mg/dL (70-100)
[2023-01-22] MEDS: Insulin GLARGINE 100 un/ml 10 ml VIAL SUBCUT SCH (20:48)
[2023-01-22] MEDS: methylPREDNISolone SOD SUCC 40 mg/ml 1 ml VIAL IV SCH (20:48)
[2023-01-23 06:37] LABS: Calcium 8.8 mg/dL (8.6-10.3); Creatinine, Serum 1.62 mg/dL (0.51-0.95); Magnesium 2.5 mg/dL (1.9-2.7); Potassium 3.8 mmol/L (3.5-5.0); eGFR CKD-EPI 35.5 (>60)
[2023-01-23] MEDS: CMCS:FLUTICAS/UMECLI/VILANT 200-62.5-25 MDI (NF) INH SCH (07:30)
[2023-01-23] MEDS: CMCS:Roflumilast 500 mcg TAB (NF) PO SCH (09:55)
[2023-01-23] MEDS: Insulin GLARGINE 100 un/ml 10 ml VIAL SUBCUT SCH ×2 (09:57→22:18)
[2023-01-23] MEDS: methylPREDNISolone SOD SUCC 40 mg/ml 1 ml VIAL IV SCH ×2 (09:57→21:55)
[2023-01-23] MEDS: Albuterol/Ipratropium NEB.SOL (2.5/0.5 MG) 3 ML NEB.SOLN INH SCH ×3 (11:06→19:15)
[2023-01-24] MEDS ORDERED: Calcium Carb (TUMS) 500 mg CHEW TAB PO ONE (02:40)
[2023-01-24 06:22] LABS: ABS Lymphocytes 1.8 10^3/uL (1.0-4.8); ABS Monocytes 1.1 10^3/uL (0.0-0.9); ABS Neutrophils 12.8 10^3/uL (1.5-7.6); ABS Nucleated RBC 0.01 10^3/ul; Hemoglobin 13.6 g/dL (11.5-14.3); Lymphocyte % 11.2 %; Mean Corpuscular Hemoglobin 29.3 pg (27-33); Mean Corpuscular Volume 86.3 fL (80-97); Mean Platelet Volume 9.6 fL (7.5-11.2); Platelet Count 227 10^3/uL (150-450); Red Blood Count 4.63 10^6/uL (3.63-4.92); Red Cell Distribution Width 14.5 % (12-17); White Blood Count 15.6 10^3/uL (3.8-11.8)
[2023-01-24 06:41] LABS: Creatinine, Serum 1.42 mg/dL (0.51-0.95); Potassium 4.3 mmol/L (3.5-5.0); eGFR CKD-EPI 41.6 (>60)
[2023-01-24] MEDS: Albuterol/Ipratropium NEB.SOL (2.5/0.5 MG) 3 ML NEB.SOLN INH SCH ×4 (07:31→19:49)
[2023-01-24] MEDS: CMCS:FLUTICAS/UMECLI/VILANT 200-62.5-25 MDI (NF) INH SCH (07:32)
[2023-01-24] MEDS: CMCS:Roflumilast 500 mcg TAB (NF) PO SCH (08:13)
[2023-01-24] MEDS: methylPREDNISolone SOD SUCC 40 mg/ml 1 ml VIAL IV SCH ×2 (08:14→21:32)
[2023-01-24] MEDS: Insulin GLARGINE 100 un/ml 10 ml VIAL SUBCUT SCH (08:17)
[2023-01-24] MEDS ORDERED: Lactated Ringers 1000 ml BAG 1,000 ML IV SCH (11:00)
[2023-01-24] MEDS: guaiFENesin/CODIENE 100mg/10mg 5 ML UDC PO PRN ×2 (12:01→23:34)
[2023-01-24 17:43] LABS: Glucose Confirmatory 410 mg/dL (70-100)
[2023-01-25] MEDS: Albuterol/Ipratropium NEB.SOL (2.5/0.5 MG) 3 ML NEB.SOLN INH SCH ×2 (07:16→10:45)
[2023-01-25] MEDS: CMCS:FLUTICAS/UMECLI/VILANT 200-62.5-25 MDI (NF) INH SCH (07:45)
[2023-01-25] MEDS ORDERED: Insulin GLARGINE 100 un/ml 10 ml VIAL SUBCUT SCH (09:00)
[2023-01-25] MEDS: CMCS:Roflumilast 500 mcg TAB (NF) PO SCH (09:23)
[2023-01-25] MEDS: guaiFENesin/CODIENE 100mg/10mg 5 ML UDC PO PRN (09:26)
[2023-01-25 09:50] VITALS: BP 163/93
== END 2023-01-25 11:55 | disposition home or self-care (01) | DRG 190 ==
LOC: ED 09:28 → EDHOLD 09:28 → SUATTDRO 14:45 → EDHOLD 21:51 → MED 22:44
PROVIDERS: ADMIT Student in an Organized Health Care Education/Training Program; ATTEND Internal Medicine

== ENCOUNTER 2023-08-30 11:17 | Inpatient (IN) ==
[2023-08-30] MEDS ORDERED: Ondansetron 4 mg VIAL 2 MG/ML 2 ml VIAL IV PRN (11:51)
[2023-08-30] MEDS ORDERED: Azithromycin 500 mg/250 ml NS 500 MG/250 ML BAG IVPB ONE (11:53)
[2023-08-30 11:58] LABS: ABS Basophils 0.1 10^3/uL (0.0-0.1); ABS Lymphocytes 0.2 10^3/uL (1.0-4.8); ABS Monocytes 0.8 10^3/uL (0.0-0.9); ABS Neutrophils 15.5 10^3/uL (1.5-7.6); ABS Nucleated RBC 0.01 10^3/ul; Eosinophil % 0.1 %; Hematocrit 40.8 % (35-45); Hemoglobin 13.5 g/dL (11.5-14.3); Lymphocyte % 1.2 %; Mean Corpuscular Hemoglobin 27.9 pg (27-33); Mean Corpuscular Hgb Conc 33.1 g/dL (31-36); Mean Corpuscular Volume 84.5 fL (80-97); Mean Platelet Volume 9.8 fL (7.5-11.2); Platelet Count 216 10^3/uL (150-450); Red Blood Count 4.82 10^6/uL (3.63-4.92); Red Cell Distribution Width 15.8 % (12-17); White Blood Count 16.6 10^3/uL (3.8-11.8)
[2023-08-30] MEDS: Albuterol 2.5mg/3 ml (0.083%) NEB.SOLN INH SCH (12:05)
[2023-08-30 12:09] LABS: PCO2 Arterial 38 mmHg (35-45); PO2 Arterial 124 mmHg (80-100)
[2023-08-30] MEDS: Ondansetron 4 mg VIAL 2 MG/ML 2 ml VIAL IV ONE (12:13)
[2023-08-30] MEDS: Piperacillin/Tazobac 3.375 BAG 3.375 GM/100 ML BAG IV ONE (12:16)
[2023-08-30] MEDS: methylPREDNISolone SOD SUCC 40 mg/ml 1 ml VIAL IV ONE (12:44)
[2023-08-30 12:48] LABS: ALT 6 U/L (7-52); AST 10 U/L (13-39); Albumin 4.4 g/dL (3.2-5.2); Albumin/Globulin Ratio 1.6 (1-3); Alkaline Phosphatase 102 U/L (35-149); Anion Gap 10 mmol/L (2-16); Blood Urea Nitrogen 18 mg/dL (6-24); CO2 Carbon Dioxide 27 mmol/L (22-32); Chloride 103 mmol/L (101-111); Globulin 2.7 g/dL (2-4); Glucose 174 mg/dL (70-100); Potassium 4.5 mmol/L (3.5-5.0); Sodium 140 mmol/L (135-145); Total Bilirubin 1.1 mg/dL (0.2-1.0); Total Protein 7.1 g/dL (6.4-8.9); eGFR CKD-EPI 62.9 (>60)
[2023-08-30] MEDS: Vancomycin 1,500 MG in NS 0.9% 250 ml 250 ML IVPB ONE (14:10)
[2023-08-30] MEDS: Nitroglycerin 0.4 mg/hr PATCH (10 mg) TRANSDERM ONE (14:11)
[2023-08-30 14:33] LABS: Urine Appearance Clear; Urine Bilirubin Negative (Negative); Urine Blood 2+ (Negative); Urine Color Yellow; Urine Glucose Negative (Negative); Urine Ketones Trace (Negative); Urine Nitrite Negative (Negative); Urine Protein 2+ (>=100 mg/dL) (Negative); Urine Specific Gravity 1.023 (1.002-1.030); Urine Urobilinogen Negative (Negative)
[2023-08-30 14:43] LABS: Urine Bacteria Absent /HPF (Absent); Urine Red Blood Cell 3+(>10/hpf) /HPF (0-Trace); Urine Squamous Epithelial Cell Present /HPF (Absent); Urine White Blood Cell Trace(0-5/hpf) /HPF (0-Trace)
[2023-08-30] MEDS ORDERED: Dextrose 50% Syringe 50 ml 25 GM/50 ML SYRINGE IV PUSH PRN (15:15)
[2023-08-30] MEDS ORDERED: Ondansetron ODT 4 mg TAB 4 MG TAB SL PRN (15:31)
[2023-08-30] MEDS: Furosemide 40 mg/4 ml IV VIAL IV SLOW PU ONE (15:37)
[2023-08-30] MEDS: Albuterol/Ipratropium NEB.SOL (2.5/0.5 MG) 3 ML NEB.SOLN INH SCH (15:48)
[2023-08-30 17:21] LABS: High Sensitivity Troponin 1 Hr 27 pg/mL (<15)
[2023-08-30 17:56] LABS: % Iron Saturation 5 % (15-55); .Transferrin 279 mg/dL (203-362); Iron < 20 ug/dL (50-212); Total Iron Binding Capacity 391 mcg/dL (250-450); Unsaturated Iron Binding 371 ug/dL
[2023-08-30] MEDS: cefTRIAXone 1 gm/50 mL D5W 1 GM/50 ML BAG IV SCH (20:37)
[2023-08-30] MEDS ORDERED: Insulin GLARGINE 100 un/ml 10 ml VIAL SUBCUT SCH (21:00)
[2023-08-30] MEDS: Senna TAB 8.6 mg TAB PO SCH (22:15)
[2023-08-30] MEDS: Insulin GLARGINE 100 un/ml 10 ml VIAL SUBCUT SCH (22:29)
[2023-08-30] MEDS: Oxymetazoline 0.05% NASAL SPR 15 ML BTL BOTH NARES SCH (23:03)
[2023-08-31] MEDS: Albuterol HFA INHALER 8 gm MDI INH PRN (02:27)
[2023-08-31] MEDS: Albuterol/Ipratropium NEB.SOL (2.5/0.5 MG) 3 ML NEB.SOLN INH SCH ×2 (03:42→19:40)
[2023-08-31] MEDS ORDERED: Albuterol/Ipratropium NEB.SOL (2.5/0.5 MG) 3 ML NEB.SOLN INH PRN ×3 (03:43→16:24)
[2023-08-31 05:46] LABS: ABS Lymphocytes 0.3 10^3/uL (1.0-4.8); ABS Monocytes 0.8 10^3/uL (0.0-0.9); ABS Neutrophils 7.8 10^3/uL (1.5-7.6); ABS Nucleated RBC 0.01 10^3/ul; Hematocrit 35.8 % (35-45); Mean Corpuscular Hemoglobin 28.5 pg (27-33); Mean Corpuscular Hgb Conc 33.6 g/dL (31-36); Mean Corpuscular Volume 84.7 fL (80-97); Mean Platelet Volume 9.4 fL (7.5-11.2); Nucleated Red Blood Cells % 0.1 %/100WBC (0.0-0.8); Platelet Count 163 10^3/uL (150-450); Red Blood Count 4.23 10^6/uL (3.63-4.92); White Blood Count 8.9 10^3/uL (3.8-11.8)
[2023-08-31 06:07] LABS: Albumin 3.9 g/dL (3.2-5.2); Albumin/Globulin Ratio 1.6 (1-3); Calcium 8.9 mg/dL (8.6-10.3); Creatinine, Serum 1.5 mg/dL (0.51-0.95); Globulin 2.4 g/dL (2-4); Magnesium 1.7 mg/dL (1.9-2.7); Potassium 3.9 mmol/L (3.5-5.0); Total Bilirubin 0.5 mg/dL (0.2-1.0); Total Protein 6.3 g/dL (6.4-8.9); eGFR CKD-EPI 38.7 (>60)
[2023-08-31] MEDS: NF: BUDESONIDE/GLYCOPYR/FORMOTEROL MDI (NF) INH SCH (08:33)
[2023-08-31] MEDS: Polyethylene Glycol 3350 17 GM PACKET PO SCH (08:35)
[2023-08-31] MEDS: NF: Liraglutide (NF) 18 MG/3 ML SUBCUT SCH (08:37)
[2023-08-31] MEDS: CMCS: Roflumilast 500 mcg TAB (NF) PO SCH (08:39)
[2023-08-31] MEDS: Magnesium Sulfate IV 1GM/100ML 1 GM/100 ML BAG IV ONE (08:44)
[2023-08-31] MEDS: methylPREDNISolone SOD SUCC 125 mg 2 ML VIAL IV ONE (10:05)
[2023-08-31] MEDS: Azithromycin 500 mg/250 ml NS 500 MG/250 ML BAG IVPB SCH (12:36)
[2023-08-31 16:31] LABS: PCO2 Arterial 41 mmHg (35-45); PO2 Arterial 103 mmHg (80-100)
[2023-08-31] MEDS: methylPREDNISolone SOD SUCC 40 mg/ml 1 ml VIAL IV SCH (17:52)
[2023-09-01] MEDS: Lactated Ringers 1000 ml BAG 1,000 ML IV SCH ×2 (00:39→08:41)
[2023-09-01 06:53] LABS: ABS Lymphocytes 0.5 10^3/uL (1.0-4.8); ABS Monocytes 0.3 10^3/uL (0.0-0.9); ABS Nucleated RBC 0.01 10^3/ul; Hematocrit 37.6 % (35-45); Hemoglobin 12.4 g/dL (11.5-14.3); Lymphocyte % 6.7 %; Mean Corpuscular Hemoglobin 27.8 pg (27-33); Mean Corpuscular Volume 84.1 fL (80-97); Mean Platelet Volume 9.3 fL (7.5-11.2); Nucleated Red Blood Cells % 0.1 %/100WBC (0.0-0.8); Platelet Count 186 10^3/uL (150-450); Red Blood Count 4.48 10^6/uL (3.63-4.92); Red Cell Distribution Width 15.6 % (12-17); White Blood Count 7.9 10^3/uL (3.8-11.8)
[2023-09-01 07:28] LABS: Calcium 8.8 mg/dL (8.6-10.3); Creatinine, Serum 1.26 mg/dL (0.51-0.95); Magnesium 2.1 mg/dL (1.9-2.7); Potassium 4.3 mmol/L (3.5-5.0); eGFR CKD-EPI 47.7 (>60)
[2023-09-01] MEDS ORDERED: Dextrose 50% Syringe 50 ml 25 GM/50 ML SYRINGE IV PUSH PRN (10:34)
[2023-09-02] MEDS: Azithromycin 500 mg/250 ml NS 500 MG/250 ML BAG IVPB SCH (14:11)
[2023-09-02] MEDS: methylPREDNISolone SOD SUCC 40 mg/ml 1 ml VIAL IV SCH (20:48)
[2023-09-03 06:20] LABS: Calcium 9.3 mg/dL (8.6-10.3); Creatinine, Serum 1.23 mg/dL (0.51-0.95); Phosphorus 3.7 mg/dL (2.5-5.0); Potassium 3.4 mmol/L (3.5-5.0); eGFR CKD-EPI 49.1 (>60)
[2023-09-03] MEDS: Potassium Chlor 20 meq TAB.ER PO ONE (11:52)
[2023-09-03] MEDS: Saline NASAL SPRAY 0.65% BTL BOTH NARES PRN (11:55)
[2023-09-04 06:26] LABS: ABS Lymphocytes 0.7 10^3/uL (1.0-4.8); ABS Monocytes 0.4 10^3/uL (0.0-0.9); ABS Neutrophils 7.7 10^3/uL (1.5-7.6); Hematocrit 43.4 % (35-45); Hemoglobin 14.5 g/dL (11.5-14.3); Mean Corpuscular Hemoglobin 27.9 pg (27-33); Mean Corpuscular Hgb Conc 33.3 g/dL (31-36); Mean Corpuscular Volume 83.7 fL (80-97); Mean Platelet Volume 9.5 fL (7.5-11.2); Platelet Count 185 10^3/uL (150-450); Red Blood Count 5.18 10^6/uL (3.63-4.92); Red Cell Distribution Width 15.5 % (12-17); White Blood Count 8.9 10^3/uL (3.8-11.8)
[2023-09-04 06:39] LABS: Calcium 9.3 mg/dL (8.6-10.3); Creatinine, Serum 1.46 mg/dL (0.51-0.95); Magnesium 2.1 mg/dL (1.9-2.7); Potassium 3.9 mmol/L (3.5-5.0); eGFR CKD-EPI 39.9 (>60)
[2023-09-04] MEDS: Albuterol/Ipratropium NEB.SOL (2.5/0.5 MG) 3 ML NEB.SOLN INH SCH (10:57)
[2023-09-05 05:41] LABS: Hemoglobin 13.4 g/dL (11.5-14.3); Mean Corpuscular Hemoglobin 28.2 pg (27-33); Mean Corpuscular Hgb Conc 33.4 g/dL (31-36); Mean Corpuscular Volume 84.5 fL (80-97); Mean Platelet Volume 9.7 fL (7.5-11.2); Platelet Count 173 10^3/uL (150-450); Red Blood Count 4.73 10^6/uL (3.63-4.92); Red Cell Distribution Width 15.3 % (12-17); White Blood Count 10.4 10^3/uL (3.8-11.8)
[2023-09-05 06:10] LABS: Calcium 8.7 mg/dL (8.6-10.3); Creatinine, Serum 1.57 mg/dL (0.51-0.95); Phosphorus 3.3 mg/dL (2.5-5.0); Potassium 3.8 mmol/L (3.5-5.0); eGFR CKD-EPI 36.6 (>60)
[2023-09-05] MEDS: Nystatin SUSPENSION 100,000 UNITS/ML UDC PO SCH (08:07)
[2023-09-05] MEDS: KCL 10 MEQ/50 ML IVPREMIX 10 MEQ/50 ML BAG IV ONE (08:21)
[2023-09-05] MEDS: Influenza vaccine *QUAD* *2023-24* 0.5 ML SYRINGE IM ONE (14:01)
[2023-09-05 14:25] VITALS: BP 100/62
[2023-09-05] MEDS: COVID VAC 23-24(12+)(Moderna) SYR 0.5 ML IM ONE (15:13)
[2023-09-05] MEDS: Pneumococcal 20-Valent Conj 0.5 ML SYR Vaccine IM ONE (15:18)
== END 2023-09-05 16:35 | disposition home or self-care (01) | DRG 871 ==
LOC: ED 11:17 → EDHOLD 14:53 → SUATTDRO 14:53 → MED 18:35
PROVIDERS: ADMIT Student in an Organized Health Care Education/Training Program; ATTEND Hospitalist